=== PATIENT | female | born 1985 | race Hispanic/Latino ===

== ENCOUNTER 2025-02-17 14:22 | Outpatient (CLI) | payer SELFPAY ==
[2025-02-17] VITALS (43 sets, daily range): BP systolic 124–144; BP diastolic 76–92; PULSE 88–105; TEMP 36.4; O2SAT 96–98; BMI 37.0
[2025-02-17 15:28] LABS: Hematocrit 35.5 % (37-47); Hemoglobin 11.8 g/dL (12.0-15.0); Mean Corp Hgb Conc 33.2 g/dL (32-36); Mean Corpuscular Hgb 27.4 pg (27.0-32.0); Mean Corpuscular Volume 82.6 fL (81-99); Mean Platelet Vol. 9.6 fl (6.2-12.0); Platelet Count 335 K/mm3 (150-450); RBC Distribution Width CV 13.4 % (11.6-14.6); RBC Distribution Width SD 40.4 fl (35.1-43.9)
--- NOTE | 2025-02-17 16:33 | OB.TRI.HP_ITS ---
HPI - General HPI Narrative DARIUS HERNANDEZ, is a 40 F who presents for elevated blood pressure. Seen at [place] [facility] for otitis media. BP was noted to be elevated 170/107 and 170/110. Asymptomatic. Sent to L&D today for labs and BP monitoring. Denies headache, visual changes, chest pain, ruq abdominal pain or other concerns. PFSH PFSH Home Medications ?Medication ?Instructions ?Recorded ?Last Taken ?Type aspirin 81 mg capsule 81 mg PO DAILY 02/17/25 Unkn own History Allergy/AdvReac Type Severity Reaction Status Date / Time No Known Allergies Allergy Verified 02/17/25 15:03 ROS Constitutional Constitutional: Reports systems reviewed and no addt'l complaints, except as documented; Denies headache(s) Eyes Eyes: Denies acute decrease in peripheral vision, blurry vision or change in vision ENT HEENT: Reports systems reviewed and no addt'l complaints, except as documented Cardiovascular Cardiovascular: Denies chest pain or dizziness Respiratory/Chest Respiratory/Chest: Denies cough, dyspnea, dyspnea on exertion, shortness of breath at rest or shortness of breath with exertion Gastrointestinal Gastrointestinal: Denies abdominal pain, diarrhea, nausea or vomiting Genitourinary Genitourinary: Denies abdominal discomfort Musculoskeletal Musculoskeletal: Denies limited range of motion Integumentary Integumentary: Reports systems reviewed and no addt'l complaints, except as documented Neurologic Neurologic: Reports systems reviewed and no addt'l complaints, except as documented Psychiatric Psychiatric: Reports systems reviewed and no addt'l complaints, except as documented Endocrine Endocrinology: Reports systems reviewed and no addt'l complaints, except as documented Hematologic/Lymphatic Hematologic/Lymphatic: Reports systems reviewed and no addt'l complaints, except as documented Allergic/Immunologic Allergic/Immunologic: Reports systems reviewed and no addt'l complaints, except as documented Physical Exam Const alert and oriented x3 General Appearance: cooperative Orientation / Consciousness: awake, oriented to person, oriented to place and oriented to time Exam Limitations: no limitations HEENT normocephalic Head and Scalp: normal to inspection, normocephalic and atraumatic Face and Sinus: normal facial exam Eyes General Eye: normal appearance of both eyes Neck full ROM Chest Chest: symmetrical chest wall rise Resp normal respiratory effort and normal air movement Auscultation: clear to auscultation bilaterally Cardio regular rate, regular rhythm, S1 normal heart sound, S2 normal heart sound, no murmurs, no rub, no gallops and no clicks GI normal to inspection, nondistended, normoactive bowel sounds and non-tender appearance of the vagina normal Bladder / Kidney Exam: no CVA tenderness Back/Spine normal ROM Extremity normal to inspection and full ROM Skin no rashes or lesions noted Neuro oriented x3, CN's II-XII intact bilaterally and moves all extremities Sensorium / Orientation: awake, alert and oriented to person Motor Exam: clonus absent Deep Tendon Reflexes: Rt Patellar (L4): 2+ and Lt Patellar (L4): 2+ Assessment & Plan (1) Gestational hypertension: (2) 31 weeks gestation of : PLAN: Plan 1) Upon arrival BP most within in normal range, few elevated 140s/90s. Gestational HTN diagnosis, two elevated BP >6hr apart. No proteinuria or signs of preeclampsia at this time. Has appointment in 2 days. 2) To get BP cuff and check BP daily, bring log to visit 3) Signs and symptoms of preeclampsia reviewed and when to call. 4) D/C home
[2025-02-17 17:01] LABS: AST(SGOT) 15 U/L (<=31); Alanine Aminotransfer ALT/SGPT 12 U/L (<=34); EST Glomerular Filtration Rate 121 (>60); Estimated Creatinine Clearance 163.96 ml/min (50-250)
[2025-02-17 17:07] LABS: Protein, Urine (Random) 28.1 mg/dL (0.0-12.0); Protein:Creat Ratio 195 mg/g CRE (0-200)
[2025-02-17 17:28] LABS: Uric Acid 4.6 mg/dL (2.6-6.0)
== END 2025-02-17 17:52 | disposition home or self-care (01) ==
LOC: WPOUT 14:29 → WP 14:32
PROVIDERS: Referring Provider Advanced Practice Midwife; Visit Provider Advanced Practice Midwife
DX: O13.3 Gestational [pregnancy-induced] hypertension without significant proteinuria, third trimester (principal); Z3A.31 31 weeks gestation of pregnancy; Z79.82 Long term (current) use of aspirin
CPT/HCPCS: 36415; 59025; 59050; 82565; 82570; 84156; 84450; 84460; 84550; 85027; 99221; G0378

== ENCOUNTER 2025-04-19 18:09 | Inpatient (IN) | payer SELFPAY ==
[2025-04-19] VITALS (86 sets, daily range): BP systolic 144–187; BP diastolic 83–115; PULSE 68–100; RESP 13–18; TEMP 36.4–36.9; O2SAT 91–100; BMI 36.0
[2025-04-19] MEDS: Lactated Ringers 1,000 ML 30 ML IV (18:30)
[2025-04-19 19:00] LABS: Hematocrit 33.9 % (37-47); Hemoglobin 10.7 g/dL (12.0-15.0); Immature Granulocytes Count 0.150 X10^3/uL (0.0-0.0); Mean Corp Hgb Conc 31.6 g/dL (32-36); Mean Corpuscular Volume 81.1 fL (81-99); Mean Platelet Vol. 9.5 fl (6.2-12.0); NRBC Flagged by Analyzer 0 % (0-5); Platelet Count 505 K/mm3 (150-450); RBC Distribution Width CV 14.9 % (11.6-14.6); RBC Distribution Width SD 42.8 fl (35.1-43.9); Red Blood Count 4.18 M/mm3 (4.2-5.4); White Blood Count 8.9 K/mm3 (4.4-11.0)
--- NOTE | 2025-04-19 19:12 | HP.PCM_ITS ---
History and Physical Date of Admission: 04/19/25 40-year-old 4 para 4 status post repeat section on 04/14/2025 at [facility] in [facility] presents for follow-up from the office today. She has a history of a previous section and 2 previous vaginal deliveries and she attempted a TOLAC but had a repeat section for recurrent decelerations. She was dx w/ gestational HTN while in the hospital. The was complicated by late care, Rh- status, obesity in , bacterial vaginitis and yeast infections. She is currently breast-feeding and doing well with the breast-feeding. She denies any headache, visual changes, epigastric pain, chest pain, shortness of breath, palpitations or lightheadedness. She is having normal bowel movements and she is urinating without difficulty. She is tolerating regular diet. She has not been checking her blood pressures at home. She arrived to the office and her blood pressures were found to be in the 150s over 100 range and she was sent to labor and delivery for evaluation Social history she denies any tobacco alcohol or drug use Past surgical history: 2 sections Past medical history: Denies history of any major medical diagnoses Physical exam: Awake and alert, no acute distress Skin: Warm dry and intact Lungs: Normal respiratory rate, no wheezing, normal chest rise Cardiac: Regular rate and rhythm Abdomen: Soft, nondistended, appropriately tender, no rebound or guarding, incision is clean dry and intact with Steri-Strips Extremities: 1+ edema, 2+ DTRs, 1 beat of clonus Assessment & Plan Assessment/Plan (1) Pre-eclampsia, : PLAN: Plan Postoperative day #5 status post repeat section with gestational hypertension diagnosed while she was in the hospital, was not on magnesium prophylaxis. Now with preeclampsia with severe range blood pressures. Hypertensive protocol was initiated with IV labetalol, will initiate magnesium prophylaxis, preeclampsia labs were done and reviewed. Discussed with the patient importance of treatment of preeclampsia and close follow-up for this. Will initiate oral antihypertensives after blood pressure stabilized. Patient may continue to breast-feed the while she is here. States understanding and agreement of this plan. Interpreting services used to discuss this plan
[2025-04-19 19:14] LABS: AST(SGOT) 46 U/L (<=31); Alanine Aminotransfer ALT/SGPT 54 U/L (<=34); Uric Acid 5.6 mg/dL (2.6-6.0)
[2025-04-19 19:28] LABS: AST(SGOT) 46 U/L (<=31); Alanine Aminotransfer ALT/SGPT 54 U/L (<=34); Albumin, Serum 3.5 g/dL (3.5-5.0); Alkaline Phosphatase 155 U/L (35-104); Anion Gap 15 (5-15); BUN 16 mg/dL (4-19); BUN/Creat Ratio 24.8 RATIO (10-20); Calcium,Total 9.4 mg/dL (7.6-11.0); Carbon Dioxide 21.3 mmol/L (21.0-32.0); Chloride 105 mmol/L (98-108); Estimated Creatinine Clearance 132.90 ml/min (50-250); Globulin 3.4 g/dL (2.2-4.2); Glucose 106 mg/dL (70-99); Potassium 3.9 mmol/L (3.3-5.1)
[2025-04-19] MEDS: Magnesium Sulfate 4gm/100mL 4 GM/100 ML IV.SOLN. IV (20:19)
[2025-04-19] MEDS: Magnesium Sulfate 4gm/100mL 2 GM/50 ML IV.SOLN. IV (20:48)
--- OUTSIDE RECORDS SUMMARY | 2025-04-19 20:59 | XMS RPT_ITS | CCD ---
Author Organization [facility] Care Team Providers Care Video Editing Intern Name Role Phone PHYSICIAN, NONE Primary Care Physician Unavailab le Unavailable Primary Care Provider Unavailabl e DELON, KATIE Referring Unavailable YISSEL CUELLO Attending Unavailable DELON, KATIE Referring Unavailable YISSEL CUELLO Attending Unavailable MOOMAW, BRIT Referring Unavailable DELON, KATIE Attending Unavailable DELON, KATIE Referring Unavailable JUAN VILLEGAS Attending Unavailable SELF Referring Unavailable DELON, KATIE Attending Unavailable DELON, KATIE Referring Unavailable Luana Whaley CNM Attending Provider [phone] Luana Whaley CNM Referring Provider [phone] PHYSICIAN, NONE Primary Care Unavailable JAROD LOUIS DO Attending Unavailable SKYLAR PHILIP MD Attending Unavailable PHYSICIAN, NONE Primary Care Unavailable Luana Whaley Referring Unavailable Luana Whaley Attending Unavailable CRIS LILLY Attending Unavailable RASHEEDA HEREDIA Referring Unavailable DELON, KATIE Attending Unavailable DELON, KATIE Attending Unavailable SHAWN JARAMILLO FLORIDALMA Referring Unavail able SELF Referring Unavailable SHAWN LOCKE Attending Unavailable RAJIV SHAWN Referring Unavailable YISSEL CUELLO Attending Unavailable MOOMAW, BRIT Referring Unavailable NEYJERONIMOT JARAMILLO, FLORIDALMA Attending Unavail able SELF Referring Unavailable PLOTARJUN, RASHEEDA Attending Unavailable SELF Referring Unavailable SIL SOTO Attending Unavailable NEYJERONIMOT JARAMILLO, FLORIDALMA Referring Unavail able NEYHART JARAMILLO, FLORIDALMA Attending Unavail able NEYHART JARAMILLO, FLORIDALMA Referring Unavail able PLOTTS, RASHEEDA Attending Unavailable PLOTTS, RASHEEDA Referring Unavailable CHAYO HAWTHORNE Admitting Unavailable MENIRU, MAXX GURU Attending Unavail able Allergies Allergy Classification Reported Allergen(s) Allergy Type Date of Onset Reaction(s) Facility (2 sources) Clindamycin; Translations: [clindamycin] Drug Allergy [facility] Medications Current Medications Medication Drug Class(es) Dates Sig (Normalized) Sig (Original) amoxicillin 500 mg oral tablet (9 sources) Penicillin-class Antibacterial Start: 02-16-2025 End: 02-23-2025 take 1 tablet by mouth three times daily Amoxicillin 500 mg tablet Take 1 tablet by mouth three times a day. 02/17/2025 Active aspirin 81 mg oral tablet (19 sources) Platelet Aggregation Inhibitor, Nonsteroidal Anti-inflammatory Drug Start: 02-17-2025 take 1 capsule by mouth once daily Aspirin 81 mg capsule Active 81 mg PO DAILY February 17, 2025 12:00am Start: 11-18-2024 take 1 tablet by [place] th once daily aspirin, enteric coated (ECOTRIN LOW STRENGTH) 81 mg EC tablet Indications: with uncertain dates in first trimester (HCC) Take 1 tablet by mouth once daily. 90 tablet 3 11/18/2024 Active ciprofloxacin 3 mg/ml ophthalmic solution (9 sources) Quinolone Antimicrobial Start: 02-17-2025 take 3 drop(s) into the eye(s) three times daily ciprofloxacin HCl (CILOXAN) 0.3 % ophthalmic solution 3 DROPS IN RIGHT EAR 3 TIMES A DAY FOR 7 DAYS 02/17/2025 Active Start: 02-16-2025 End: 02-23-2025 ciprofloxacin 0.3% ophthalmi c solution Dose = 3 drop(s), Ear, right, TID, X 7 day(s), # 5 mL, 0 Refill(s) Start Date: 02/16/25 Stop Date: 02/23/25 Status: Ordered Quantity: 5.0 Unit: mL Repeat number: 1 etonogestrel 68 mg drug implant (4 sources) Progestin Start: 12-02-2021 inject 1 dose by subcutaneous injection once Nexplanon 68 mg subcutaneous implant Dose : 68 mg = 1 EA, Subcutaneous, Once, 0 Refill(s) Start Date: 12/02/21 Status: Ordered End: 04-27-2024 etonogestrel (NEXPLANON) sub dermal implant 68 mg 68 mg by SUBDERMAL route. 04/27/2024 Discontinued ibuprofen 600 mg oral tablet (1 source) Nonsteroidal Anti-inflammatory Drug Start: 08-05-2021 ibuprofen 600 mg oral tablet Dose : 600 mg = 1 tab(s), Oral, QID, PRN as needed for pain, # 40 tab(s), 0 Refill(s), Chalazion Start Date: 08/05/21 Status: Ordered metroNIDAZOLE 500 mg oral tablet (1 source) Nitroimidazole Antimicrobial Start: 03-22-2025 End: 03-29-2025 take 1 tablet by mouth twice daily metroNIDAZOLE (FLAGYL) 500 mg tablet Indications: BV (bacterial vaginosis) Take 1 tablet by mouth two times a day for 7 days. 14 tablet 03/22/2025 03/29/2025 Active miconazole nitrate 20 mg/ml vaginal cream (1 source) Azole Antifungal Start: 02-27-2025 End: 03-06-2025 miconazole (MONISTAT 7) 2 % vaginal cream Use 1 applicator vaginally daily at bedtime for 7 days. 45 g 02/27/2025 03/06/2025 Active Miscellaneous Medical Supply (BLOOD PRESSURE CUFF) (8 sources) Start: 02-20-2025 Miscellaneous Medical Supply (BLOOD PRESSURE CUFF) Indications: Elevated blood pressure reading without diagnosis of hypertension 1 each once daily. 1 each 02/20/2025 Active vitamins no.2 ( VITAMIN NO.2 ORAL) (18 sources) vitamin s no.2 ( VITAMIN NO.2 ORAL) Take by mouth once daily. Active Completed/Discontinued Medications Medication Drug Class(es) Dates Sig (Normalized) Sig (Original) cephalexin 500 mg oral capsule (2 sources) Cephalosporin Antibacterial Start: 11-22-2024 End: 11-27-2024 take 1 capsule by mouth four times daily cephALEXin (KEFLEX) 500 mg capsule Take 1 capsule by mouth four times daily for 5 days. 20 capsule 11/22/2024 11/27/2024 Start: 08-05-2021 End: 08-12-2021 cephalexin 500 mg oral capsu le Dose : 500 mg = 1 cap(s), Oral, QID, # 28 cap(s), 0 Refill(s), Chalazion, 70 Start Date: 08/05/21 Stop Date: 08/12/21 Status: Ordered Multivitamins with Folic Acid 0.8 mg oral tablet (2 sources) Start: 11-25-2014 End: 12-25-2014 take 1 tablet by mouth once daily Multivitamins with Folic Acid 0.8 mg oral tablet Dose = 1 tab(s), PO, Daily, # 30 tab(s), 0 Refill(s) Start Date: 11/25/14 Stop Date: 12/25/14 Status: Ordered Quantity: 30.0 Unit: tab(s) Repeat number: 1 Problems Active Problems Problem Classification Problem Date Documented Da te Episodic/Chronic Bacterial infection; unspecified site (1 source) Other specified bacterial agents as the cause of diseases classified elsewhere; Translations: [BV (bacterial vaginosis)] Onset: 03-01-2025 Episodic Contraceptive and procreative management (5 sources) Subcutaneous contraceptive implant present; Translations: [Encounter for surveillance of implantable subdermal contraceptive] Onset: 02-27-2025 04-12-2024 Episodic Essential hypertension (2 sources) Essential hypertension; Translations: [Essential (primary) hypertension] Onset: 02-16-2025 Chronic Immunizations and screening for infectious disease (6 sources) Patient encounter status; Translations: [Encounter for screening for human papillomavirus (HPV)] Onset: 11-18-2024 11-18-2024 Episodic Inflammatory diseases of female pelvic organs (9 sources) Bacterial vaginosis; Translations: [Acute vaginitis] Onset: 03-01-2025 03-22-2025 Episodic Mycoses (8 sources) Candidiasis of vagina; Translations: [Yeast vaginitis] Onset: 03-01-2025 03-22-2025 Episodic Other circulatory disease (11 sources) Elevated blood-pressure reading without diagnosis of hypertension; Translations: [Elevated blood-pressure reading, without diagnosis of hypertension] Onset: 02-20-2025 02-20-2025 Episodic Other circulatory disease (3 sources) Elevated blood-pressure reading, without diagnosis of hypertension; Translations: [Elevated blood-pressure reading, without diagnosis of hypertension] Onset: 02-20-2025 Episodic Other complications of (1 source) Maternal obesity complicating , childbirth and the puerperium, antepartum; Translations: [Obesity complicating , second trimester] 12-02-2024 Chronic Other complications of (19 sources) Obesity; Translations: [Obesity complicating , unspecified trimester] Onset: 01-27-2025 01-27-2025 Chronic Other complications of (1 source) Obesity complicating , unspecified trimester; Translations: [Obesity in (HCC)] Onset: 01-27-2025 Chronic Other complications of (11 sources) Multigravida of advanced maternal age; Translations: [Supervision of elderly multigravida, second trimester] 12-02-2024 Episodic Other complications of (7 sources) High risk ; Translations: [Supervision of high risk , unspecified, third trimester] 02-13-2025 Episodic Other complications of (1 source) data - finding; Translations: [Unspecified abnormal findings on screening of mother] 03-22-2025 Episodic Other complications of (3 sources) Uterine scar from previous surgery affecting ; Translations: [Maternal care for unspecified type scar from previous delivery] 03-31-2025 Episodic Other complications of (1 source) Supervision of high risk , unspecified, third trimester; Translations: [Supervision of high risk in third trimester (HCC)] Onset: 04-07-2025 Episodic Other complications of (1 source) Supervision of elderly multigravida, third trimester; Translations: [Multigravida of advanced maternal age in third trimester (HCC)] Onset: 04-07-2025 Episodic Other complications of (1 source) Unspecified abnormal findings on screening of mother; Translations: [Abnormal test] Onset: 03-22-2025 Episodic Other ear and sense organ disorders (1 source) Otitis externa; Translations: [Unspecified otitis externa, unspecified ear] Onset: 02-16-2025 Chronic Other ear and sense organ disorders (1 source) Unspecified otitis externa, unspecified ear; Translations: [Unspecified otitis externa, unspecified ear] Onset: 02-16-2025 Chronic Other eye disorders (1 source) Chalazion; Translations: [Chalazion unspecified eye, unspecified eyelid] Onset: 08-05-2021 Episodic Other female genital disorders (1 source) Vaginal discharge; Translations: [Other specified noninflammatory disorders of vagina] 02-27-2025 Episodic Other gastrointestinal disorders (2 sources) Dysphagia; Translations: [Dysphagia, unspecified] 03-18-2024 Episodic Other and delivery including normal (20 sources) Normal ; Translations: [Encounter for supervision of other normal , unspecified trimester] Onset: 11-18-2024 11-18-2024 Episodic Comment on above: System added from do cumentation. Status documented as Yes on Admission Otitis media and related conditions (2 sources) Otitis media; Translations: [Otitis media, unspecified, unspecified ear] Onset: 02-16-2025 Episodic Previous (1 source) Maternal care for unspecified type scar from previous delivery; Translations: [Maternal care for scar from previous delivery, unspecified scar type (HCC)] Onset: 04-07-2025 Episodic Residual codes; unclassified (2 sources) Gestation period, 18 weeks; Translations: [18 weeks gestation of ] 11-18-2024 Episodic Residual codes; unclassified (2 sources) Gestation period, 20 weeks; Translations: [20 weeks gestation of ] 12-02-2024 Episodic Residual codes; unclassified (1 source) Gestation period, 31 weeks; Translations: [31 weeks gestation of ] 02-13-2025 Episodic Residual codes; unclassified (1 source) Gestation period, 32 weeks; Translations: [32 weeks gestation of ] 02-20-2025 Episodic Residual codes; unclassified (1 source) Gestation period, 33 weeks; Translations: [33 weeks gestation of ] 02-27-2025 Episodic Residual codes; unclassified (1 source) Gestation period, 36 weeks; Translations: [36 weeks gestation of ] 03-22-2025 Episodic Residual codes; unclassified (2 sources) Gestation period, 37 weeks; Translations: [37 weeks gestation of ] 03-31-2025 Episodic Residual codes; unclassified (1 source) History of past delivery; Translations: [History of uterine scar from previous surgery] 03-31-2025 Episodic Residual codes; unclassified (1 source) Gestation period, 38 weeks; Translations: [38 weeks gestation of ] 04-07-2025 Episodic Residual codes; unclassified (1 source) 38 weeks gestation of ; Translations: [38 weeks gestation of (HCC)] Onset: 04-07-2025 Episodic Residual codes; unclassified (1 source) 37 weeks gestation of ; Translations: [37 weeks gestation of (HCC)] Onset: 03-31-2025 Episodic Residual codes; unclassified (1 source) 36 weeks gestation of ; Translations: [36 weeks gestation of ([facility])] Onset: 03-22-2025 Episodic Residual codes; unclassified (1 source) History of uterine scar from previous surgery; Translations: [Previous section] Onset: 02-27-2025 Episodic Residual codes; unclassified (1 source) 33 weeks gestation of ; Translations: [33 weeks gestation of ([facility])] Onset: 02-27-2025 Episodic Residual codes; unclassified (1 source) 32 weeks gestation of ; Translations: [32 weeks gestation of ([facility])] Onset: 02-20-2025 Episodic Residual codes; unclassified (1 source) 28 weeks gestation of ; Translations: [28 weeks gestation of ([facility])] Onset: 01-27-2025 Episodic Unclassified (1 source) Yeast vaginitis; Translations: [Yeast vaginitis] Onset: 03-01-2025 Past or Other Problems Problem Classification Problem Date Documented Da te Episodic/Chronic Administrative/social admission (20 sources) Language barrier impedes ability to use community resources; Translations: [Acculturation difficulty] Onset: 11-18-2024 11-18-2024 Episodic Other complications of (20 sources) Late entry into care; Translations: [Supervision of with insufficient care, unspecified trimester] Onset: 11-18-2024 11-18-2024 Episodic Other complications of (20 sources) RhD negative; Translations: [Other specified related conditions, unspecified trimester] Onset: 11-21-2024 11-21-2024 Episodic Other complications of (1 source) Other specified related conditions, unspecified trimester; Translations: [Rh negative state in antepartum period ([facility])] Onset: 11-21-2024 Episodic Other gastrointestinal disorders (1 source) Dysphagia, unspecified; Translations: [Dysphagia, unspecified type] Onset: 03-18-2024 Episodic Other screening for suspected conditions (not mental disorders or infectious disease) (4 sources) Cancer cervix screening status; Translations: [Encounter for screening for malignant neoplasm of cervix] Onset: 11-18-2024 11-18-2024 Episodic Residual codes; unclassified (2 sources) 18 weeks gestation of ; Translations: [18 weeks gestation of (HCC)] Onset: 12-02-2024 Episodic Residual codes; unclassified (1 source) 24 weeks gestation of ; Translations: [24 weeks gestation of (HCC)] Onset: 12-30-2024 Episodic Residual codes; unclassified (1 source) Unspecified blood type, Rh negative; Translations: [Rh negative state in antepartum period (HCC)] Onset: 11-21-2024 Episodic Results Test Name Value Interpretation Reference Range Facility [id number] Author: MAXX MACIEL MD Service: Obstetrics Author Type: Physician Type: Discharge Summary Filed: 04/17/2025 09:10 Note Text: DISCHARGE SUMMARY OBSTETRICS PATIENT NAME: Shaila Fraga ADMISSION DATE: 04/14/2025 DISCHARGE DATE: 04/17/2025 Attending Physician: Maxx Maciel* Code Status: Full Code Treatment Team: Attending Provider: Maxx Maciel MD Primary Service: Isaac Griggs Maternal Primary Obstetric Provider: Sil Soto Reason for Hospitalization: Intrauterine . Principal Problem (Resolved): Encounter for planned induction of labor (HCC) (POA: Yes) Active Problems: * No active hospital problems. * Resolved Problems: Encounter for elective induction of labor (HCC) (POA: Yes) PROCEDURES/SURGERY DURING HOSPITALIZATION: Delivery Summary: Bucky Kelsey [[id number]] Delivery Information: Delivery Date: 04/14/25 Delivery type: , Low Transverse Delivering Clinician: Chayo Hawthorne MD : Gender: Female Weight (grams): 3694 g One Minute : 8 Five Minute : 9 Procedures (if applicable) Recent Surgical Summary Past Procedures (03/18/2025 to Today) Date Procedure/Visit Type Providers Loc / Dept 04/14/2025 SECTION Chayo Hawthorne MR OB Hospital Course: 40 year old female who is Postoperative Day #3 from delivery as noted above. Pt's peripartum course was complicated by failure to progress in labor and section. Consulting Teams During Hospitalization: None Patient Condition @ Discharge: Good Discharge Disposition: Home/Self Care Discharge Physical Exam: Abdomen: Soft Fundus firm below umbilicus Non-distended Incision: Bandage C/D/I. Extremities: No calf tenderness and Edema equal bilaterally Specific Concerns for Follow-up Post Discharge: Routine Care and home monitoring of blood pressure. Information Provided to Patient: Activity When You Leave the Hospital Gradually increase your activity level until back to normal at approximately 6 weeks post- (Walking and stairs as tolerated) May use stairs No baths for 6 weeks to allow the cervix to close (this includes swimming pools and hot tubs) No driving for 2 weeks No driving until you stop taking narcotic medicine and you are able to respond to adverse traffic conditions: Until you are not too sore to stop or turn quickly No lifting greater than 15 pounds for six weeks No walking restrictions Shower daily, towel or blow dry incision (low heat setting) Six Weeks Pelvic Rest - This means no sex, tampons, douching or any items in your vagina Diet Instructions Resume a regular diet with emphasis on healthy and iron rich foods. Nursing moms need 500 EXTRA calories a day to support breast milk production. Wound/Surgical Site Care Check your incision for signs of infection: redness, swelling, drainage Do not apply any lotions or powders near any incision Do not cover incision with any bandage Wipe your incision twice a day with Betadine solution or rubbing alcohol for 2 weeks. You can apply a little Neosporin or similar antibiotic ointment on the incision twice a day for about 2 weeks. Keep your incision clean and dry You may spot bleed for up to six week post- Discharge Medications: Medication List START taking these medications Blood Pressure Monitor Use as directed ibuprofen 600 mg tablet Commonly known as: MOTRIN Take 1 tablet by mouth every 6 hours as needed for pain for up to 7 days. CONTINUE taking these medications BLOOD PRESSURE CUFF Generic drug: Miscellaneous Medical Supply 1 each once daily. VITAMIN NO.2 ORAL STOP taking these medications aspirin, enteric coated 81 mg EC tablet Commonly known as: ECOTRIN LOW STRENGTH Where to Get Your Medications These medications were sent to e- [id number] [place] [address] - [address] [facility] - [phone] [place] [id number] Blood Pressure Monitor ibuprofen 600 mg tablet No Known Allergies Future Appointments: Follow Up Appointments Follow-Up Appointment For wound inspection. With: In Person Primary Provider in 2 weeks When: In 2 weeks Patient/Parents to call for appointment?: No Follow-Up Appointment With: Primary Provider When: In 6 weeks Patient/Parents to call for appointment?: No Follow-Up Appointment - Gestational Hypertension, Chronic Hypertension (w/wo meds), and/or Pre-eclampsia Follow Up (within 7 days) Blood Pressure check within 2 days. With: [facility] TELECOMMUNICATION ENGINEER ambulatory clinic When: In 2 days Comment - within 7 days I have performed the [id number] and relevant services for a total of < 30 minutes. Plan of care discussed with: Provider, RN, Patient. SIGNATURE: Maxx Maciel MD PATIENT NAME: Shaila Rojo (more content not included)... [facility] ANES POSTPROC EVALon 025 ANES POSTPROC EVAL HNO ID: [id number] Author: JOSH YUN DO Service: Anesthesiology Author Type: Nurse Health Service Coordinator Type: Anesthesia Postprocedure Evaluation Filed: 04/17/2025 10:09 Note Text: Attestation signed by Josh Yun DO at 04/17/2025 10:09 AM I reviewed and agree with the assessment as documented above. SIGNATURE: Josh Yun DO DATE: April 17, 2025 TIME: 10:09 AM POST ANESTHESIA EVALUATION NOTE : 1985 Procedure Summary Date: 04/14/25 Room / Location: [facility] OR 01 / MR OB Anesthesia Start: 2221 Anesthesia Stop: 04/15/25 0050 Procedure: SECTION (Abdomen) Diagnosis: Surgeons: Chayo Hawthorne MD Responsible Provider: Josh Yun DO Anesthesia Type: epidural ASA Status: 2 Anesthesia Type: epidural Last Vitals Vitals Value Taken Time BP 153/76 04/15/25 0048 Temp 98.2 04/15/25 0057 Pulse 80 04/15/25 0054 Resp 27 04/14/25 2319 SpO2 97 % 04/15/25 0054 Vitals shown include unfiled device data. Bucky Kelsey [[id number]] Baby Delivery: 04/14/2025 2300 Post Anesthesia Patient Status Patient Evaluation: PACU. PACU/ICU Patient Condition: stable. Anticipated Disposition: inpatient floor planned admission. Neurological Status: aware and responsive. Pulmonary Status: breathing comfortably on room air Airway Control: returned to baseline unsupported. Cardiovascular Status: stable. Pain Management: clinically adequate - multimodal analgesia pain management approach Postoperative Hydration: acceptable. Intraoperative Events: no significant anesthesia events Post Operative Nausea/Vomiting Status: no significant post operative nausea or vomiting Recommendation: further care per PACU/ICU/floor team. Anesthesia Observations No Documentation SIGNATURE: Pennie Fountain APRN.CRNA PATIENT NAME: Shaila Fraga DATE: April 15, 2025 TIME: 12:57 AM CSN: [id number] Normal [facility] CBC panel Auto (Bld)on 04-15 Erythrocyte distribution width (RBC) [Ratio] 14.5 % Normal 11.5-15.0 [facility] Comment on above: Order Comment: Speci men Type: BLOOD SPECIMEN Ordering Facility: [facility] Address: [address] [place] [address] Performed By: #### 5 7021-8 #### [facility] CLIA [id number] [address] [place] [address] [place] Hematocrit (Bld) [Volume fraction] 33.9 % Low 36.0-46.0 [facility] Comment on above: Order Comment: Speci men Type: BLOOD SPECIMEN Ordering Facility: [facility] Address: [address] [place] [address] Performed By: #### 5 7021-8 #### [facility] CLIA [id number] [address] [place] [address] [place] Hemoglobin (Bld) [Mass/Vol] 10.7 g/dL Low 11.5-15.5 [facility] Comment on above: Order Comment: Speci men Type: BLOOD SPECIMEN Ordering Facility: [facility] Address: [address] [place] [address] Performed By: #### 5 7021-8 #### [facility] CLIA [id number] [address] [place] [address] [place] MCH (RBC) [Entitic mass] 25.7 pg Low 26.0-34.0 [facility] Comment on above: Order Comment: Speci men Type: BLOOD SPECIMEN Ordering Facility: [facility] Address: [address] [place] [address] Performed By: #### 5 7021-8 #### [facility] CLIA [id number] [address] [place] [address] [place] MCHC (RBC) [Mass/Vol] 31.6 g/dL Normal 30.5-36.0 [facility] Comment on above: Order Comment: Speci men Type: BLOOD SPECIMEN Ordering Facility: [facility] Address: [address] [place] [address] Performed By: #### 5 7021-8 #### [facility] CLIA [id number] [address] [place] [address] [place] MCV (RBC) [Entitic vol] 81.3 fL Normal 80.0-100.0 [facility] Comment on above: Order Comment: Speci men Type: BLOOD SPECIMEN Ordering Facility: [facility] Address: [address] [place] [address] Performed By: #### 5 7021-8 #### [facility] CLIA [id number] [address] [place] [address] [place] Nucleated RBC (Bld) [#/Vol] 10*3/uL Normal <0.01 [facility] Comment on above: Order Comment: Speci men Type: BLOOD SPECIMEN Ordering Facility: [facility] Address: [address] [id number] Performed By: #### 5 7021-8 #### [facility] CLIA [id number] [address] [place] [address] [place] Platelet mean volume (Bld) [Entitic vol] 10.1 fL Normal 9.0-12.7 [facility] Comment on above: Order Comment: Speci men Type: BLOOD SPECIMEN Ordering Facility: [facility] Address: [address] [place], [place] [address] Performed By: #### 5 7021-8 #### [facility] CLIA [id number] [address] [place] [address] [place] Platelets (Bld) [#/Vol] 317 10*3/uL Normal 150-400 [facility] Comment on above: Order Comment: Speci men Type: BLOOD SPECIMEN Ordering Facility: [facility] Address: [address] [place] [address] Performed By: #### 5 7021-8 #### [facility] CLIA [id number] [address] [place] [address] [place] RBC (Bld) [#/Vol] 4.17 10*6/uL Normal 3.90-5.20 [facility] Comment on above: Order Comment: Speci men Type: BLOOD SPECIMEN Ordering Facility: [facility] Address: [address] [place], [place] [address] Performed By: #### 5 7021-8 #### [facility] CLIA [id number] [address] [place] [address] [place] WBC (Bld) [#/Vol] 16.93 10*3/uL High 3.70-11.00 [facility] Comment on above: Order Comment: Speci men Type: BLOOD SPECIMEN Ordering Facility: [facility] Address: [address] [place] [address] Performed By: #### 5 7021-8 #### [facility] CLIA [id number] [address] [place] [address] POST-DELIVERY RH IGGon 04-15 ABO O [facility] Comment on above: Order Comment: Speci men Type: BLOOD SPECIMEN Ordering Facility: [facility] Address: [address] [place] [address] Performed By: #### 5 7021-8 #### [facility] CLIA [id number] [address] [place] [address] SCREEN Negative [facility] Comment on above: Order Comment: Speci men Type: BLOOD SPECIMEN Ordering Facility: [facility] Address: [address] [place] [address] Result Comment: Kit Lot Number [id number] and Expiration Date: 05/12/25 Performed By: #### 5 7021-8 #### [facility] CLIA [id number] [address] [place] [address] KB REFLEX No [facility] Comment on above: Order Comment: Speci men Type: BLOOD SPECIMEN Ordering Facility: [facility] Address: [address] [place] [address] Performed By: #### 5 7021-8 #### [facility] CLIA [id number] [address] [place] [address] Rh Nom (Bld) Negative [facility] Comment on above: Order Comment: Speci men Type: BLOOD SPECIMEN Ordering Facility: [facility] Address: [address] [place] [address] Performed By: #### 5 7021-8 #### [facility] CLIA [id number] [address] [place] [address] ANES PRE-OPon 04-14-2025 ANES PRE-OP HNO ID: [id number] Author: JOSH YUN DO Service: Anesthesiology Author Type: Nurse Health Service Coordinator Type: Anesthesia Preprocedure Evaluation Filed: 04/17/2025 10:08 Note Text: Attestation signed by Josh Yun DO at 04/17/2025 10:08 AM I reviewed and agree with the assessment as documented above. 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 Tracheostomy tube not present Mallampati: II. TM distance: >3 FB. Neck ROM: full ROM without neurological symptoms. Mouth opening: adequate. Short neck: no. Thick neck: no DENTAL Normal dental observations. Additional exam findings: yes. CARDIOVASCULAR Normal cardiovascular observations. PULMONARY Normal pulmonary observations. ABDOMINAL Additional exam notes: Gravid. II - ANESTHESIA PLAN ASA Score: 2 Anesthetic Plan: epidural The patient is not a current smoker. NPO Status: adequate Beta Lala Monitoring Plan Monitoring plan: standard ASA. Post Procedure Analgesic Plan Postoperative analgesic plan: multimodal analgesia. Informed Consent Anesthetic risks, benefits, alternatives, personnel and consent discussed: yes. Patient / Responsible Republican agrees to proceed: yes Patient / Surrogate agrees to blood products: Yes Potential Anesthesia issues that may suggest increased risk of complications or contraindication to planned procedure: none. Discussed the possibility of lip / dental damage: yes EPIC CHART REVIEW: ACTIVE PROBLEM LIST Supervision of Normal Intrauterine in Multigravida, Unspecified Trimester ([facility]) Language Barrier Late Care ([facility]) Rh Negative State in Antepartum Period ([facility]) Previous Section Obesity in ([facility]) Elevated Blood Pressure Reading Without Diagnosis of Hypertension Yeast Vaginitis Bv (Bacterial Vaginosis) Encounter for Elective Induction of Labor ([facility]) Encounter for Planned Induction of Labor ([facility]) No past medical history on file. PAST SURGICAL HISTORY Procedure Laterality Date SECTION HX Pt reported NEXPLANON REMOVAL Left 04/27/2024 No family history on file. Social History Tobacco Use Smoking status: Never Smokeless tobacco: Never Vaping Use Vaping status: Never Used Substance Use Topics Alcohol use: Not Currently Comment: Socially Drug use: Never aspirin, enteric coated (ECOTRIN LOW STRENGTH) 81 mg EC tablet, Take 1 tablet by mouth once daily., Disp: 90 tablet, Rfl: 3, 04/13/2025 vitamins no.2 ( VITAMIN NO.2 ORAL), Take by mouth once daily., Disp: , Rfl: , 04/14/2025 Morning Miscellaneous Medical Supply (BLOOD PRESSURE CUFF), 1 each once daily., Disp: 1 each, Rfl: 0, Morning Inpatient medications reviewed in EPIC I have interviewed and examined the patient. I have reviewed the medical record and/or the pre-anesthesia evaluation, pertinent labs, and test results. This contains updated information obtained within 48 hours of Surgery/Procedure. SIGNATURE: Pennie Fountain APRN.BOBCAT OPERATOR PATIENT NAME: Shaila Fraga DATE: April 14, 2025 TIME: 8:58 AM : 1985 [facility] ANES PRE-OP HNO ID: [id number] Author: JOSESITO FITZGERALD DO Service: Anesthesiology Author Type: Nurse Health Service Coordinator Type: Anesthesia Preprocedure Evaluation Filed: 04/14/2025 09:02 Note Text: Attestation signed by Josesito Fitzgerald DO at 04/14/2025 9:02 AM I agree with the anesthesia provider's assessment and plan. 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 Tracheostomy tube not present Mallampati: II. TM distance: >3 FB. Neck ROM: full ROM without neurological symptoms. Mouth opening: adequate. Short neck: no. Thick neck: no DENTAL Normal dental observations. Additional exam findings: yes. CARDIOVASCULAR Normal cardiovascular observations. PULMONARY Normal pulmonary observations. ABDOMINAL Additional exam notes: Gravid. II - ANESTHESIA PLAN ASA Score: 2 Anesthetic Plan: epidural The patient is not a current smoker. NPO Status: adequate Beta Lala Monitoring Plan Monitoring plan: standard ASA. Post Procedure Analgesic Plan Postoperative analgesic plan: multimodal analgesia. Informed Consent Anesthetic risks, benefits, alternatives, personnel and consent discussed: yes. Patient / Responsible Republican agrees to proceed: yes Patient / Surrogate agrees to blood products: Yes Potential Anesthesia issues that may suggest increased risk of complications or contraindication to planned procedure: none. Discussed the possibility of lip / dental damage: yes EPIC CHART REVIEW: ACTIVE PROBLEM LIST Supervision of Normal Intrauterine in Multigravida, Unspecified Trimester ([facility]) Language Barrier Late Care ([facility]) Rh Negative State in Antepartum Period ([facility]) Previous Section Obesity in ([facility]) Elevated Blood Pressure Reading Without Diagnosis of Hypertension Yeast Vaginitis Bv (Bacterial Vaginosis) No past medical history on file. PAST SURGICAL HISTORY Procedure Laterality Date - SECTION HX Pt reported - NEXPLANON REMOVAL Left 04/27/2024 No family history on file. Social History Tobacco Use - Smoking status: Never - Smokeless tobacco: Never Vaping Use - Vaping status: Never Used Substance Use Topics - Alcohol use: Not Currently Comment: Socially - Drug use: Never ciprofloxacin HCl (CILOXAN) 0.3 % ophthalmic solution, 3 DROPS IN RIGHT EAR 3 TIMES A DAY FOR 7 DAYS, Disp: , Rfl: Amoxicillin 500 mg tablet, Take 1 tablet by mouth three times a day., Disp: , Rfl: Miscellaneous Medical Supply (BLOOD PRESSURE CUFF), 1 each once daily., Disp: 1 each, Rfl: 0 aspirin, enteric coated (ECOTRIN LOW STRENGTH) 81 mg EC tablet, Take 1 tablet by mouth once daily., Disp: 90 tablet, Rfl: 3 vitamins no.2 ( VITAMIN NO.2 ORAL), Take by mouth once daily., Disp: , Rfl: Inpatient medications reviewed in EPIC I have interviewed and examined the patient. I have reviewed the medical record and/or the pre-anesthesia evaluation, pertinent labs, and test results. This contains updated information obtained within 48 hours of Surgery/Procedure. SIGNATURE: Pennie Fountain APRN.CRNA PATIENT NAME: Shaila Fraga DATE: April 14, 2025 TIME: 8:58 AM : 1985 Normal [facility] CBC W Auto Differential pane l (Bld)on 04-14-2025 Basophils (Bld) [#/Vol] 0.04 10*3/uL Normal <0.11 [facility] Comment on above: Order Comment: Speci men Type: BLOOD SPECIMEN Ordering Facility: [facility] Address: [address] [place] [address] Performed By: #### 5 7021-8 #### [facility] CLIA [id number] [address] [place] [address] [place] Basophils/100 WBC (Bld) 0.4 % Normal [facility] Comment on above: Order Comment: Speci men Type: BLOOD SPECIMEN Ordering Facility: [facility] Address: [address] [place] [address] Performed By: #### 5 7021-8 #### [facility] CLIA [id number] [address] [place] [address] [place] Differential cell count method Nom (Bld) Auto Normal [facility] Comment on above: Order Comment: Speci men Type: BLOOD SPECIMEN Ordering Facility: [facility] Address: [address] [place] [address] Performed By: #### 5 7021-8 #### [facility] CLIA [id number] [address] [place] [address] [place] Eosinophils (Bld) [#/Vol] 0.06 10*3/uL Normal <0.46 [facility] Comment on above: Order Comment: Speci men Type: BLOOD SPECIMEN Ordering Facility: [facility] Address: [address] [place] [address] Performed By: #### 5 7021-8 #### [facility] CLIA [id number] [address] [place] [address] [place] Eosinophils/100 WBC (Bld) 0.5 % Normal [facility] Comment on above: Order Comment: Speci men Type: BLOOD SPECIMEN Ordering Facility: [facility] Address: [address] [place] [address] Performed By: #### 5 7021-8 #### [facility] CLIA [id number] [address] [place] [address] [place] Erythrocyte distribution width (RBC) [Ratio] 14.3 % Normal 11.5-15.0 [facility] Comment on above: Order Comment: Speci men Type: BLOOD SPECIMEN Ordering Facility: [facility] Address: [address] [place] [address] Performed By: #### 5 7021-8 #### [facility] CLIA [id number] [address] [place] [address] [place] Hematocrit (Bld) [Volume fraction] 38.8 % Normal 36.0-46.0 [facility] Comment on above: Order Comment: Speci men Type: BLOOD SPECIMEN Ordering Facility: [facility] Address: [address] [place] [address] Performed By: #### 5 7021-8 #### [facility] CLIA [id number] [address] [place] [address] [place] Hemoglobin (Bld) [Mass/Vol] 12.7 g/dL Normal 11.5-15.5 [facility] Comment on above: Order Comment: Speci men Type: BLOOD SPECIMEN Ordering Facility: [facility] Address: [address] [place] [address] Performed By: #### 5 7021-8 #### [facility] CLIA [id number] [address] [place] [address] [place] Immature granulocytes (Bld) [#/Vol] 0.15 10*3/uL High <0.10 [facility] Comment on above: Order Comment: Speci men Type: BLOOD SPECIMEN Ordering Facility: [facility] Address: [address] [place] [address] Performed By: #### 5 7021-8 #### [facility] CLIA [id number] [address] [place] [address] [place] Immature granulocytes/100 WBC (Bld) 1.3 % Normal [facility] Comment on above: Order Comment: Speci men Type: BLOOD SPECIMEN Ordering Facility: [facility] Address: [address] [place] [address] Performed By: #### 5 7021-8 #### [facility] CLIA [id number] [address] [place] [address] [place] Lymphocytes (Bld) [#/Vol] 1.89 10*3/uL Normal 1.00-4.00 [facility] Comment on above: Order Comment: Speci men Type: BLOOD SPECIMEN Ordering Facility: [facility] Address: [address] [place] [address] Performed By: #### 5 7021-8 #### [facility] CLIA [id number] [address] [place] [address] [place] Lymphocytes/100 WBC (Bld) 16.6 % Normal [facility] Comment on above: Order Comment: Speci men Type: BLOOD SPECIMEN Ordering Facility: [facility] Address: [address] [place] [address] Performed By: #### 5 7021-8 #### [facility] CLIA [id number] [address] [place] [address] [place] MCH (RBC) [Entitic mass] 26.7 pg Normal 26.0-34.0 [facility] Comment on above: Order Comment: Speci men Type: BLOOD SPECIMEN Ordering Facility: [facility] Address: [address] [place] [address] Performed By: #### 5 7021-8 #### [facility] CLIA [id number] [address] [place] [address] [place] MCHC (RBC) [Mass/Vol] 32.7 g/dL Normal 30.5-36.0 [facility] Comment on above: Order Comment: Speci men Type: BLOOD SPECIMEN Ordering Facility: [facility] Address: [address] [place] [address] Performed By: #### 5 7021-8 #### [facility] CLIA [id number] [address] [place] [address] [place] MCV (RBC) [Entitic vol] 81.5 fL Normal 80.0-100.0 [facility] Comment on above: Order Comment: Speci men Type: BLOOD SPECIMEN Ordering Facility: [facility] Address: [address] [place] [address] Performed By: #### 5 7021-8 #### [facility] CLIA [id number] [address] [place] [address] [place] Monocytes (Bld) [#/Vol] 0.91 10*3/uL High <0.87 [facility] Comment on above: Order Comment: Speci men Type: BLOOD SPECIMEN Ordering Facility: [facility] Address: [address] [place] [address] Performed By: #### 5 7021-8 #### [facility] CLIA [id number] [address] [place] [address] [place] Monocytes/100 WBC (Bld) 8.0 % Normal [facility] Comment on above: Order Comment: Speci men Type: BLOOD SPECIMEN Ordering Facility: [facility] Address: [address] [place] [address] Performed By: #### 5 7021-8 #### [facility] CLIA [id number] [address] [place] [address] [place] Neutrophils (Bld) [#/Vol] 8.31 10*3/uL High 1.45-7.50 [facility] Comment on above: Order Comment: Speci men Type: BLOOD SPECIMEN Ordering Facility: [facility] Address: [address] [place] [address] Performed By: #### 5 7021-8 #### [facility] CLIA [id number] [address] [place] [address] [place] Neutrophils/100 WBC (Bld) 73.2 % Normal [facility] Comment on above: Order Comment: Speci men Type: BLOOD SPECIMEN Ordering Facility: [facility] Address: [address] [place] [address] Performed By: #### 5 7021-8 #### [facility] CLIA [id number] [address] [place] [address] [place] Nucleated RBC (Bld) [#/Vol] 10*3/uL Normal <0.01 [facility] Comment on above: Order Comment: Speci men Type: BLOOD SPECIMEN Ordering Facility: [facility] Address: [address] [place] [address] Performed By: #### 5 7021-8 #### [facility] CLIA [id number] [address] [place] [address] [place] Nucleated RBC/100 WBC (Bld) [Ratio] 0.0 /100 WBC Normal [facility] Comment on above: Order Comment: Speci men Type: BLOOD SPECIMEN Ordering Facility: [facility] Address: [address] [place] [address] Performed By: #### 5 7021-8 #### [facility] CLIA [id number] [address] [place] [address] [place] Platelet mean volume (Bld) [Entitic vol] 10.5 fL Normal 9.0-12.7 [facility] Comment on above: Order Comment: Speci men Type: BLOOD SPECIMEN Ordering Facility: [facility] Address: [address] [place] [address] Performed By: #### 5 7021-8 #### [facility] CLIA [id number] [address] [place], [place] [id number] [facility] Platelets (Bld) [#/Vol] 341 10*3/uL Normal 150-400 [facility] Comment on above: Order Comment: Speci men Type: BLOOD SPECIMEN Ordering Facility: [facility] Address: [address] [facility] [place] [address] Performed By: #### 5 7021-8 #### [facility] CLIA [id number] [address] [place] [address] OF [facility] RBC (Bld) [#/Vol] 4.76 10*6/uL Normal 3.90-5.20 [facility] Comment on above: Order Comment: Speci men Type: BLOOD SPECIMEN Ordering Facility: [facility] Address: [address] [place], [place] [address] Performed By: #### 5 7021-8 #### [facility] CLIA [id number] [address] [place] [address] OF [facility] WBC (Bld) [#/Vol] 11.36 10*3/uL High 3.70-11.00 [facility] Comment on above: Order Comment: Speci men Type: BLOOD SPECIMEN Ordering Facility: [facility] Address: [address] [place] [address] Performed By: #### 5 7021-8 #### [facility] CLIA [id number] [address] [place], [place] [id number] [facility] Comprehensive metabolic 2000 panelon 04-14-2025 Albumin [Mass/Vol] 2.8 g/dL Low 3.2-5.0 [facility] Comment on above: Order Comment: Speci men Type: BLOOD SPECIMEN Ordering Facility: [facility] Address: [facility] [place] [address] Performed By: #### 2 4323-8 #### [facility] CLIA [id number] [address] [place], [place] [id number] [place] ALP [Catalytic activity/Vol] 167 U/L High 45-117 [facility] Comment on above: Order Comment: Speci osmar Type: BLOOD SPECIMEN Ordering Facility: [facility] Address: [address] [place] [address] Performed By: #### 2 4323-8 #### [facility] CLIA [id number] [address] [place] [address] [place] ALT [Catalytic activity/Vol] 12 U/L Low 13-61 [facility] Comment on above: Order Comment: Speci men Type: BLOOD SPECIMEN Ordering Facility: [facility] Address: [address] [place] [address] Result Comment: Resu lts may be falsely depressed after the administration of Sulfasalazine and/or Sulfapyridine. Performed By: #### 2 4323-8 #### [facility] CLIA [id number] [address] [place] [address] STATES OF [facility] Anion gap [Moles/Vol] 12 mmol/L Normal 5-16 [facility] Comment on above: Order Comment: Speci osmar Type: BLOOD SPECIMEN Ordering Facility: [facility] Address: [address] [place] [address] Performed By: #### 2 4323-8 #### [facility] CLIA [id number] [address] [place] [address] [place] AST [Catalytic activity/Vol] 23 U/L Normal 8-34 [facility] Comment on above: Order Comment: Speci men Type: BLOOD SPECIMEN Ordering Facility: [facility] Address: [address] [place] [address] Result Comment: Resu lts may be falsely depressed after the administration of Sulfasalazine and/or Sulfapyridine. Performed By: #### 2 4323-8 #### [facility] CLIA [id number] [address] [place] [address] [place] Bilirubin [Mass/Vol] 0.3 mg/dL Normal 0.2-1.0 [facility] Comment on above: Order Comment: Speci men Type: BLOOD SPECIMEN Ordering Facility: [facility] Address: [address] [place] [address] Performed By: #### 2 4323-8 #### [facility] CLIA [id number] [address] [place] [address] [place] Calcium [Mass/Vol] 8.9 mg/dL Normal 8.5-10.5 [facility] Comment on above: Order Comment: Speci men Type: BLOOD SPECIMEN Ordering Facility: [facility] Address: [address] [place] [address] Performed By: #### 2 4323-8 #### [facility] CLIA [id number] [address] [place] [address] [place] Chloride [Moles/Vol] 107 mmol/L Normal 98-107 [facility] Comment on above: Order Comment: Speci men Type: BLOOD SPECIMEN Ordering Facility: [facility] Address: [address] [place] [address] Performed By: #### 2 4323-8 #### [facility] CLIA [id number] [address] [place] [address] [place] CO2 [Moles/Vol] 20 mmol/L Low 21-32 [facility] Comment on above: Order Comment: Speci men Type: BLOOD SPECIMEN Ordering Facility: [facility] Address: [address] [place] [address] Performed By: #### 2 4323-8 #### [facility] CLIA [id number] [address] [place] [address] [place] Creatinine [Mass/Vol] 0.60 mg/dL Normal 0.51-0.95 [facility] Comment on above: Order Comment: Speci men Type: BLOOD SPECIMEN Ordering Facility: [facility] Address: [address] [place] [address] Result Comment: Adenike ents receiving either N-Acetylcysteine (NAC) or Metamizole prior to venipuncture, may have falsely depressed results. Performed By: #### 2 4323-8 #### [facility] CLIA [id number] [address] [place] [address] [place] eGFRcr SerPlBld CKD-EPI 2020 117 mL/min/1.73m??? Normal >=60 [facility] Comment on above: Order Comment: Tiffany prasad Type: BLOOD SPECIMEN Ordering Facility: [facility] Address: [address] [place] [address] Result Comment: Bere mated Glomerular Filtration Rate (eGFR) is calculated using the 2020 CKD-EPI creatinine equation. This equation utilizes serum creatinine, sex, and age as parameters. The creatinine assay has traceable calibration to isotope dilution-mass spectrometry. Refer to KDIGO guidelines for clinical interpretation. In patients with unstable renal function, e.g. those with acute kidney injury, the eGFR may not accurately reflect actual GFR. Performed By: #### 2 4323-8 #### [facility] CLIA [id number] [address] [place] [address] [place] Glucose [Mass/Vol] 86 mg/dL Normal 70-100 [facility] Comment on above: Order Comment: Tiffany prasad Type: BLOOD SPECIMEN Ordering Facility: [facility] Address: [address] [place] [address] Result Comment: The [place] Diabetes Association (ADA) provides guidance for cutoff values for fasting glucose and random glucose. The ADA defines fasting as no caloric intake for at least 8 hours. Fasting plasma glucose results between 100 to 125 mg/dL indicate increased risk for diabetes (prediabetes). Fasting plasma glucose results greater than or equal to 126 mg/dL meet the criteria for diagnosis of diabetes. In the absence of unequivocal hyperglycemia, results should be confirmed by repeat testing. In a patient with classic symptoms of hyperglycemia or hyperglycemic crisis, random plasma glucose results greater than or equal to 200 mg/dL meet the criteria for diagnosis of diabetes. Reference: Standards of Medical Care in Diabetes 2016, [place] [employer] Association. Diabetes Care. 2016.39(Suppl 1). Results may be falsely elevated after the administration of Sulfapyridine. Results may be falsely depressed after the administration of Sulfasalazine. Performed By: #### 2 4323-8 #### [facility] CLIA [id number] [address] [place], [place] [id number] [place] Potassium [Moles/Vol] 4.0 mmol/L Normal 3.5-5.1 [facility] Comment on above: Order Comment: Speci men Type: BLOOD SPECIMEN Ordering Facility: [facility] Address: [address] [place] [address] Performed By: #### 2 4323-8 #### [facility] CLIA [id number] [address] [place], [place] [id number] [place] Protein [Mass/Vol] 6.5 g/dL Normal 6.0-8.5 [facility] Comment on above: Order Comment: Speci men Type: BLOOD SPECIMEN Ordering Facility: [facility] Address: [address] [place] [address] Performed By: #### 2 4323-8 #### [facility] CLIA [id number] [address] [place] [address] [place] Sodium [Moles/Vol] 139 mmol/L Normal 136-145 [facility] Comment on above: Order Comment: Speci men Type: BLOOD SPECIMEN Ordering Facility: [facility] Address: [address] [place] [address] Performed By: #### 2 4323-8 #### [facility] CLIA [id number] [address] [place], [place] [id number] [place] Urea nitrogen [Mass/Vol] 6 mg/dL Low 7-26 [facility] Comment on above: Order Comment: Speci men Type: BLOOD SPECIMEN Ordering Facility: [facility] Address: [address] [place] [address] Performed By: #### 2 4323-8 #### [facility] CLIA [id number] [address] [place], [place] [id number] [place] HISTORY PHYSICALon HISTORY PHYSICAL HNO ID: [id number] Author: CHAYO HAWTHORNE MD Service: Obstetrics Author Type: Physician Type: H&P Filed: 04/14/2025 18:09 Note Text: OBSTETRICS HISTORY AND PHYSICAL SERVICE DATE: April 14, 2025 Subjective Patient's stated reason for arrival: schedule for TOLAC CHIEF COMPLAINT: schedule for TOLAC HISTORY OF THE PRESENT ILLNESS: The patient is a 40 year old female, , who is at 39w4d with an MARCO ANTONIO of 04/17/2025, by Last Menstrual Period dating method. Patient is here for elective induction. Good movement. Denies vaginal bleeding., Denies contractions., Denies leaking of fluid. . Previous C/S fallow b 2 vaginal delivery Last successful TOLAC was in 2017 at [facility] Patient does not want epidural HISTORY REVIEW No past medical history on file. PAST SURGICAL HISTORY Procedure Laterality Date SECTION HX Pt reported NEXPLANON REMOVAL Left 04/27/2024 No family history on file. Social History Tobacco Use Smoking status: Never Smokeless tobacco: Never Vaping Use Vaping status: Never Used Substance Use Topics Alcohol use: Not Currently Comment: Socially Drug use: Never Obstetric History T3 L3 SAB0 IAB0 Ectopic0 Multiple0 Live Births3 Name of Baby 1: Jason Date: 02/22/07 GA: Not recorded Type: , Other Apgar1: Not recorded Apgar5: Not recorded Living: Living Name of Baby 2: Afia Date: 11/27/10 GA: Not recorded Type: , Spontaneous Apgar1: Not recorded Apgar5: Not recorded Living: Living Name of Baby 3: Santos Date: 07/09/15 GA: Not recorded Type: , Spontaneous Apgar1: Not recorded Apgar5: Not recorded Living: Living Name of Baby 4: Not recorded Date: Not recorded GA: Not recorded Type: Not recorded Apgar1: Not recorded Apgar5: Not recorded Living: Not recorded Active Non-Hospital Problems Diagnosis Date Noted Yeast vaginitis 03/01/2025 Overview Note: Treated this week March 01, 2025 BV (bacterial vaginosis) 03/01/2025 Overview Note: March 01, 2025 Send rx at next appt. Treated for yeast this week. Sil Soto MD Elevated blood pressure reading without diagnosis of hypertension 02/20/2025 Overview Note: 02/20/25 Possible gHTN. Pre e labs ordered and home BP monitoring recommended. SW Previous section 01/27/2025 Overview Note: February 27, 2025 Plans tolac. Sil Soto MD 01/27/25 - Patient reports first delivery was in [place] and was section. Has since had 2 . Last delivery at [facility] in [place], [place]. Desires . Rasheeda Heredia APRN.DANYA Obesity in ([facility]) 01/27/2025 Overview Note: 01/27/25- NEED TO ASK PREGRAVID BMI- Current BMI 36. Will need testing. Rasheeda Heredia APRN.DANYA Rh negative state in antepartum period ([facility]) 11/21/2024 Supervision of normal intrauterine in multigravida, unspecified trimester ([facility]) 11/18/2024 Overview Note: Care Checklist Vaccines: [] Flu vaccine [] declined [] RSV vaccine 32 0/7 - 36 6/ (May - Oct) [] declined [] COVID vaccine [] declined [] TDaP 27-36 [x] declined First trimester: [] Dating US [x] 1st tri labs [x] Pap smear [] Carrier screening [] declined [] NIPT screening [] declined [] First trimester anatomy scan [] declined [x] universal ASA ordered (start 12w-16w) [] declined [] M Power Consult [] not indicated [x] declined Second trimester: [] Anatomy scan [x] Mode of Delivery - Desires ? [] Feeding - Both [] Pump ordered [x] Diabetes screen [x] CBC, RPR [] Behavioral Health Screening Third trimester (28-30 weeks): [] Consent [] Contraception [] Tanning Wheel Filler [] TeamBirth handout Third trimester (36-40 weeks): [] GBS [] Presentation - [] Scheduled [] yes - Hibiclens, pre-op instructions, CBC, TANDS ordered [] no [] HANDP [] Preferences worksheet [] Scanned in EMR [] Patient to bring copy to hospital [] Declined Language barrier 11/18/2024 Late care ([facility]) 11/18/2024 ALLERGIES No Known Allergies Prior to Admission Medications Prescriptions Last Dose Informant Patient Reported? Taking? Amoxicillin 500 mg tablet Yes No Sig: Take 1 tablet by mouth three times a day. Miscellaneous Medical Supply (BLOOD PRESSURE CUFF) No No Si each once daily. aspirin, enteric coated (ECOTRIN LOW STRENGTH) 81 mg EC tablet No No Sig: Take 1 tablet by mouth once daily. ciprofloxacin HCl (CILOXAN) 0.3 % ophthalmic solution Yes No Si DROPS IN RIGHT EAR 3 TIMES A DAY FOR 7 DAYS vitamins no.2 ( VITAMIN NO.2 ORAL) Yes No Sig: Take by mouth once daily. Facility-Administered Medications: None REVIEW OF SYSTEMS: PAIN ASSESSMENT: Negative for pain, history of chronic pain, or current treatment for a chronic pain condition. GENERAL: No weight loss, malaise or fevers. HEENT: Negative for frequent or significant headaches, No changes in hearing or (more content not included)... [facility] OPERATIVE NOon 04-14-2025 OPERATIVE NO HNO ID: [id number] Author: CHAYO HAWTHORNE MD Service: Obstetrics Author Type: Physician Type: Operative Report Filed: 04/15/2025 00:28 Note Text: SECTION OPERATIVE NOTE Patient Name: Shaila Fraga Surgery Date: 04/15/2025 Surgeon: Chayo Hawthorne MD SURGEON(S)/PROCEDURALI ST(S) AND PRESSURE DISPATCHER(S): Surgeons and Role: * Chayo Hawthorne MD - Primary Nurse Practitioner: Blanquita San APRN.[facility] Ocular Care Technologist: Angelina Vang SA; Jean Hernandez SA Senior Clinical Research Scientist's Role: Provided expert and necessary surgical assistance for this procedure to be performed. Physician speech language pathology assistant closed skin without direct supervision but with primary surgeon/proceduralist readily available and the remainder of the procedure was performed by the primary surgeon/proceduralist with assistance. Incision/Procedure Start Time: 10:52 PM Incision Close/Procedure End Time: Preoperative Diagnosis: 40 yo Intrauterine at 39w5d Previous C/S fallow by two successful has a failed TOLAC Postoperative Diagnosis: Same, delivered. PROCEDURE: Repeat Section Informed Consent: Informed Consent obtained and on the chart Anesthesia: Spinal IV Fluids: Crystalloids 1000 ml EBL: 437 ml Urine: Clear yellow urine draining into the urine collecting bag.300 ml Specimens: Cord blood sent to lab Condition: Stable Disposition: PACU COMPLICATIONS: none OPERATIVE INDICATIONS/CLINICAL HISTORY: 40 year old at 39w5d Previous C/S fallow by two successful has a failed TOLAC OPERATIVE FINDINGS: Amniotic fluid: Clear Viable female Normal uterus, tubes and ovaries bilaterally Information for the patient's : David Fraga Girl Shaila [[id number]] Type: , Low Transverse Categorization: Repeat Operative Findings: Placenta Removal: Manual Removal Appearance: Weight: 3.694 kg (8 lb 2.3 oz) (Filed from Delivery Summary) Sex: female Living Status: Living One Minute : 8 Five Minute : 9 Code [place] Called: Yes Type of Code [place] Team Needed: Planned Resuscitation Needed: No, see Peds Delivery Attendance Note/Progress Note PROCEDURE AND TECHNIQUE: The patient was taken to the operating room where spinal anesthesia was administered. She was placed in supine position with a left lateral tilt. SCD's were placed. Casanova catheter was placed under sterile conditions. She was prepped with Betadine solution and draped in the usual sterile fashion for abdominal surgery. A Pfannensteil incision was made with the scalpel. This incision was taken down to the fascia with the scalpel, and the fascia incised transversely followed by lateral extension with a pair of dissecting scissors The rectus muscles were dissected off the fascia with sharp and blunt dissection and from each other in the midline. The peritoneum was entered bluntly and incision extended superiorly and inferiorly. The bladder blade was then introduced. The vesicouterine peritoneum was incised and the incision was taken laterally. The bladder flap was created digitally. The bladder blade was then reintroduced. Hysterotomy was performed in a low transverse fashion with the scalpel. The incision was extended with a pair of bandage scissors in a superolateral fashion. The was delivered from a from a cephalic position posterior position atraumatically. Cord was clamped and cut, and the was handed off to nursery nursing staff. Cord blood was collected. A sample of the cord was collected to obtain a sample for blood gases. The placenta was delivered manually. The uterus was exteriorized and was cleared of clots and debris. The bladder blade was reintroduced. The uterus was closed in two layers. The first layer was a running locked stitched of 0-Vicryl. The second layer was an imbricating stitch of 0 Vicryl. Excellent hemostasis was obtained. The pelvic peritoneum was closed with 2-0 Vicryl sutures x 2. Inspection of the pelvis noted the above findings. The peritoneum was closed with 2-0 Vicryl in a running fashion. The rectus muscles were re-approximated using 2-0 Vicryl. The fascia was closed with 0 PDS in a running fashion. At the fascia closure median few nonresorbable stiches were remouved from previous surgery .The subcutaneous tissue was irrigated and made hemostatic with bovie cautery as required. The subcutaneous tissue was closed with continuous stitch of 2-0 plain catgut. The skin was closed with 4-0 Vicryl in a running fashion. Uterine massage was performed and clots expelled from the vagina. Sponge, lap, and needle counts were correct. The patient was taken to the recovery room with stable vital signs after tolerating the procedure well. Plan of care discussed with: Patient and RN. UNIVERSAL PROTOCOL / SAFETY CHECKLIST Procedure to be performed: section Sign in Communicatio (more content not included)... Normal [facility] Prot/Creat Uron 04-14-2025 Protein/Creatinine (U) [Mass ratio] mg/g High <0.15 [facility] Comment on above: Order Comment: Speci men Type: URINE SPECIMEN Ordering Facility: [facility] Address: [address] [place] [address] Result Comment: Adul t Proteinuria Categories: <0.15 mg/mg is considered normal to mildly increased 0.15 - 0.50 mg/mg is considered moderately increased >0.50 mg/mg is considered severely increased KDIGO. (2013). KDIGO 2012 Clinical Practice Guideline for the Evaluation and Management of Chronic Kidney Disease. Official Journal of the International Society of Nephrology, 3(1), 1-150. Performed By: #### 2 4356-8, 2889-10 #### [facility] CLIA [id number] [address] [place] [address] [place] Protein/Creatinine (U) [Mass ratio]on 04-14-2025 Creatinine (U) [Mass/Vol] 29.9 mg/dL Normal 29.0-226.0 [facility] Comment on above: Order Comment: Speci men Type: URINE SPECIMEN Ordering Facility: [facility] Address: [address] [place] [address] Performed By: #### 2 4356-8, 2889-2 #### [facility] CLIA [id number] [address] [place] [address] [place] Protein (U) [Mass/Vol] mg/dL Normal 1-14 [facility] Comment on above: Order Comment: Speci men Type: URINE SPECIMEN Ordering Facility: [facility] Address: [address] [place] [address] Performed By: #### 2 4356-8, 2890-2 #### [facility] CLIA [id number] [address] [place] [address] [place] T pallidum IgG Ser Ql IFon 0 04-14-2025 T. pallidum IgG IF Ql (S) Non-Reactive Normal Nonreactive [facility] Comment on above: Order Comment: Speci men Type: BLOOD SPECIMEN Ordering Facility: [facility] Address: [address] [place] [address] Result Comment: Samp les with an index value of less than 0.90 are considered Nonreactive for Syphilis T. pallidum antibodies. Performed By: #### 1 7726-1 #### [facility] CLIA [id number] [address] [place] [address] [place] TYPE + SCREEN PRENATALon ABO O [facility] Comment on above: Order Comment: Speci men Type: BLOOD SPECIMEN Ordering Facility: [facility] Address: [address] [place] [address] Performed By: #### T SPN #### [facility] CLIA [id number] [address] [place] [address] [place] Rh Nom (Bld) Negative [facility] Comment on above: Order Comment: Speci men Type: BLOOD SPECIMEN Ordering Facility: [facility] Address: [address] [place] [address] Performed By: #### T SPN #### [facility] CLIA [id number] [address] [place] [address] [place] TYPE AND SCREEN EXPIRATION 04/17/2025 23:59 [facility] Comment on above: Order Comment: Speci men Type: BLOOD SPECIMEN Ordering Facility: [facility] Address: [address] [place] [address] Performed By: #### T SPN #### [facility] CLIA [id number] [address] [place] [address] [place] Urinalysis complete panel (U )on 04-14-2025 Bacteria LM.HPF (Urine sed) [#/Area] Rare Abnormal None Seen [facility] Comment on above: Order Comment: Speci men Type: URINE SPECIMEN Ordering Facility: [facility] Address: [address] [place] [address] Performed By: #### 2 4356-8, 2890-2 #### [facility] CLIA [id number] [address] [place] [address] [place] Bilirubin Ql (U) Negative Normal Negative [facility] Comment on above: Order Comment: Speci men Type: URINE SPECIMEN Ordering Facility: [facility] Address: [address] [place] [address] Performed By: #### 2 4356-8, 2890-2 #### [facility] CLIA [id number] [address] [place] [address] [place] Clarity (Unsp spec) Clear Normal Clear [facility] Comment on above: Order Comment: Speci men Type: URINE SPECIMEN Ordering Facility: [facility] Address: [address] [place] [address] Performed By: #### 2 4356-8, 2890-2 #### [facility] CLIA [id number] [address] [place] [address] [place] Color (U) Straw Normal Yellow [facility] Comment on above: Order Comment: Speci men Type: URINE SPECIMEN Ordering Facility: [facility] Address: [address] [place] [address] Performed By: #### 2 4356-8, 2890-2 #### [facility] CLIA [id number] [address] [place] [address] [place] Epithelial cells LM.HPF (Urine sed) [#/Area] Few Normal [facility] Comment on above: Order Comment: Speci men Type: URINE SPECIMEN Ordering Facility: [facility] Address: [facility] [place] [address] Performed By: #### 2 4356-8, 2890-2 #### [facility] CLIA [id number] [address] [place] [address] [place] [facility] [place] Glucose Test strip (U) [Mass/Vol] Negative Normal Negative [facility] Comment on above: Order Comment: Speci men Type: URINE SPECIMEN Ordering Facility: [facility] Address: [address] [place] [address] Performed By: #### 2 4356-8, 2890-2 #### [facility] CLIA [id number] [address] [place] [address] [place] Hemoglobin Ql (U) Negative Normal Negative [facility] Comment on above: Order Comment: Speci men Type: URINE SPECIMEN Ordering Facility: [facility] Address: [address] [place] [address] Performed By: #### 2 4356-8, 2890-2 #### [facility] CLIA [id number] [address] [place] [address] [place] Ketones Ql (U) Negative Normal Negative [facility] Comment on above: Order Comment: Speci men Type: URINE SPECIMEN Ordering Facility: [facility] Address: [address] [place] [address] Performed By: #### 2 4356-8, 2890-2 #### [facility] CLIA [id number] [address] [place] [address] [place] Leukocyte esterase Test strip Ql (U) Negative Normal Negative [facility] Comment on above: Order Comment: Speci men Type: URINE SPECIMEN Ordering Facility: [facility] Address: [address] [place] [address] Performed By: #### 2 4356-8, 2890-2 #### [facility] CLIA [id number] [address] [place] [address] [place] Nitrite Ql (U) Negative Normal Negative [facility] Comment on above: Order Comment: Speci men Type: URINE SPECIMEN Ordering Facility: [facility] Address: [address] [place] [address] Performed By: #### 2 4356-8, 289-2 #### [facility] CLIA [id number] [address] [place] [address] [place] pH (U) 7.0 [pH] Normal 5.0-8.0 [facility] Comment on above: Order Comment: Speci men Type: URINE SPECIMEN Ordering Facility: [facility] Address: [address] [place] [address] Performed By: #### 2 4356-8, 2889-2 #### [facility] CLIA [id number] [address] [place] [address] [place] Protein (U) [Mass/Vol] Negative Normal Negative [facility] Comment on above: Order Comment: Speci men Type: URINE SPECIMEN Ordering Facility: [facility] Address: [address] [place] [address] Performed By: #### 2 4356-8, 2889-2 #### [facility] CLIA [id number] [address] [place] [address] [place] RBC LM.HPF (Urine sed) [#/Area] 0-3 /HPF Normal 0-3 /HPF [facility] Comment on above: Order Comment: Speci men Type: URINE SPECIMEN Ordering Facility: [facility] Address: [address] [place] [address] Performed By: #### 2 4356-8, 2890-2 #### [facility] CLIA [id number] [address] [place] [address] [place] Specific gravity (U) [Rel density] <1.005 Low 1.005-1.030 [facility] Comment on above: Order Comment: Speci men Type: URINE SPECIMEN Ordering Facility: [facility] Address: [address] [place] [address] Performed By: #### 2 4356-8, 2890-2 #### [facility] CLIA [id number] [address] [place] [address] Urobilinogen Ql (U) Negative Normal Negative [facility] Comment on above: Order Comment: Speci men Type: URINE SPECIMEN Ordering Facility: [facility] Address: [address] [place] [address] Performed By: #### 2 4356-8, 2890-2 #### [facility] CLIA [id number] [address] [place] [address] [place] WBC LM.HPF (Urine sed) [#/Area] 0-5 /HPF Normal 0-5 /HPF [facility] Comment on above: Order Comment: Speci men Type: URINE SPECIMEN Ordering Facility: [facility] Address: [address] [place] [address] Performed By: #### 2 4356-8, 2890-2 #### [facility] CLIA [id number] [address] [place] [address] [place] URINE OB DIP B/Oon Glucose Ql (U) Negative Neg mg/dL [facility] Interpretation and review of laboratory results Normal [facility] Protein.monoclonal (U) [Mass/Vol] 30 mg/dL Neg [facility] CNPNon 03-31-2025 CNPN Telephone (OBGYWM) SHAILA KELSEY ([id number]) 1985 F [facility] Date Time Provider Department 03/31/25 RASHEEDA HEREDIA During your visit today, we recorded the following information about you: Candace Horta, FATMATA 03/31/2025 4:35 PM Signed Pt desires Induction at [facility], [facility] for delivery on 04/14/25. Pt will be 39w4d. Provider (CP) to place induction order. This RN contacted [facility] to double check the procedure location. One staff member thought it was [facility], but was placed on hold to speak to someone else to verify and was on hold for 20 minutes and was unable to hold the line any further. Will need to call and schedule induction once order has been filed. Pt will then need notified. - AMA -Age 40 - EFW 87%, AC 99% - First delivery via C/S and has had 2 successful 's - Desires - GBS negative - Will need to return next week for NST/ MINESH (Pt does not wish to schedule OB visits at [facility]) FATMATA Krishna Tara, RN 03/31/2025 4:57 PM Signed Message Received: Rasheeda Bonner APRN.Candace Fink RN INDUCTION ORDERS PLACED- PATIENT NEEDS NOTIFIED OF DATE AND TIME. Rasheeda Heredia APRN.Verena Felton RN 04/03/2025 10:22 AM Signed Called [facility] - they will review her chart and call back if induction is accepted. Induction to be scheduled 04/14/25 at 7:30am if she is approved. Will wait for their return call. FATMATA Otto Trisha, RN 04/03/2025 12:30 PM Signed Received call back from [facility]. Patient is now scheduled for induction on Thursday04/14/25 at 7:30am at [facility]. Park in parking deck and go in main door. Red coats should be at entrance to help, but just follow OB ED signs and it will take her to the 2nd floor Maternity unit. FATMATA Otto Veronica 04/03/2025 1:28 PM Signed Spoke with pt and informed of induction, location, time, date and parking instructions. Allergies As of Date: 03/31/2025 (No Known Allergies) Date Reviewed: 03/31/2025 Reviewed by: Pennie De La Rosa MA - Fully Assessed Reason for Visit: [facility] [Other] Prescriptions as of 04/03/2025 - ciprofloxacin HCl (CILOXAN) 0.3 % ophthalmic solution 3 DROPS IN RIGHT EAR 3 TIMES A DAY FOR 7 DAYS - Amoxicillin 500 mg tablet Take 1 tablet by mouth three times a day. - Miscellaneous Medical Supply (BLOOD PRESSURE CUFF) 1 each once daily. - aspirin, enteric coated (ECOTRIN LOW STRENGTH) 81 mg EC tablet Take 1 tablet by mouth once daily. - vitamins no.2 ( VITAMIN NO.2 ORAL) Take by mouth once daily. Problem List As Of Date 03/31/2025 Noted Resolved Supervision of normal intrauterine in*11/18/2024 Language barrier [Z60.3, Z75.8] 11/18/2024 Late care [O09.30] 11/18/2024 Rh negative state in antepartum period [O26.899*11/21/2024 Previous section [Z98.891] 01/27/2025 Obesity in (HCC) [O99.210] 01/27/2025 Elevated blood pressure reading without diagnos*02/20/2025 Yeast vaginitis [B37.31] 03/01/2025 BV (bacterial vaginosis) [N76.0, B96.89] 03/01/2025 Encounter Status:Closed by VERENA YEPEZ on 04/03/25 Normal [facility] URINE OB DIP B/Oon 5 Glucose Ql (U) Negative Neg mg/dL [facility] Interpretation and review of laboratory results Normal [facility] Protein.monoclonal (U) [Mass/Vol] Negative Neg mg/dL [facility] Examination level ultrasound on 03-22-2025 [facility] Radiology Study observation (narrative) [facility] ROUTINE, GROUP B ST REPTOCOCCUS BY PCRon 03-22-2025 ROUTINE, GROUP B STREPTOCOCCUS BY PCR Not detected Normal [facility] Comment on above: Performed By: #### G BPCR #### [facility] CLIA [id number] [address] [place] [address] [place] URINE OB DIP B/Oon 5 Glucose Ql (U) Negative Neg mg/dL [facility] Protein.monoclonal (U) [Mass/Vol] Negative Neg mg/dL [facility] BACTERIAL VAGINOSIS NAATon 0 02-27-2025 Lactobacillus crispatus+gasseri+sarahi enii + Gardnerella vaginalis + Atopobium vaginae rRNA ALEXIS+probe Ql (Vag fld) Detected Abnormal Not detected [facility] Comment on above: Order Comment: Speci men Type: SWABOrdering Facility: [facility] Address: [address] [place] [address] Performed By: #### B VAMP, CVTV ####[facility] [id number] [place] [address] [place] SANCHO/TRICHOMONAS NAATon 0 02-27-2025 C. glabrata RNA ALEXIS+probe Ql (Vag fld) Not detected Normal Not detected [facility] Comment on above: Order Comment: Speci men Type: SWABOrdering Facility: [facility] Address: [address] [place] [address] Performed By: #### B VAMP, CVTV ####[facility] [id number] [place] [address] [place] Sancho sp DNA ALEXIS+probe Ql (Vag fld) Detected Abnormal Not detected [facility] Comment on above: Order Comment: Speci men Type: SWABOrdering Facility: [facility] Address: [address] [place] [address] Result Comment: The Sancho species group target includes C. albicans, C. tropicalis, C. parapsilosis, and C. dubliniensis. Performed By: #### B VAMP, CVTV ####[facility] [id number] [place] [address] [place] T. vaginalis DNA ALEXIS+probe Ql (Unsp spec) Not detected Normal Not detected [facility] Comment on above: Order Comment: Speci men Type: SWABOrdering Facility: [facility] Address: [address] [place] [address] Performed By: #### B VAMP, CVTV ####[facility] [id number] [address] [place] Examination level ultrasound on 02-21-2025 [facility] CBC panel Auto (Bld)on 02-20 Erythrocyte distribution width (RBC) [Ratio] 13.3 % 11.5 - 15.0 % [facility] Hematocrit (Bld) [Volume fraction] 37.8 % 36.0 - 46.0 % [facility] Hemoglobin (Bld) [Mass/Vol] 12 g/dL 11.5 - 15.5 g/dL [facility] Interpretation and review of laboratory results Abnormal [facility] MCH (RBC) [Entitic mass] 26.8 pg 26.0 - 34.0 pg [facility] MCHC (RBC) [Mass/Vol] 31.7 g/dL 30.5 - 36.0 g/dL [facility] MCV (RBC) [Entitic vol] 84.4 fL 80.0 - 100.0 fL [facility] Nucleated RBC (Bld) [#/Vol] NINF [facility] Platelet mean volume (Bld) [Entitic vol] 9.8 fL 9.0 - 12.7 fL [facility] Platelets (Bld) [#/Vol] 406 10*3/uL High [facility] RBC (Bld) [#/Vol] 4.48 10*6/uL 3.90 - 5.2 0 m/uL [facility] WBC (Bld) [#/Vol] 12.39 10*3/uL High [facility] Erythrocyte distribution width (RBC) [Ratio] 13.3 % Normal 11.5-15.0 [facility] Comment on above: Order Comment: Speci men Type: BLOOD SPECIMENOrdering Facility: [facility] Address: [address] [place] [address] Performed By: #### G BPCR #### [facility] CLIA [id number] [address] [place] [address] Hematocrit (Bld) [Volume fraction] 37.8 % Normal 36.0-46.0 [facility] Comment on above: Order Comment: Speci men Type: BLOOD SPECIMENOrdering Facility: [facility] Address: [address] [place] [address] Performed By: #### G BPCR #### [facility] CLIA [id number] [address] [place] [address] [place] Hemoglobin (Bld) [Mass/Vol] 12.0 g/dL Normal 11.5-15.5 [facility] Comment on above: Order Comment: Speci men Type: BLOOD SPECIMENOrdering Facility: [facility] Address: [address] [place] [address] Performed By: #### G BPCR #### [facility] CLIA [id number] [address] [place] [address] [place] MCH (RBC) [Entitic mass] 26.8 pg Normal 26.0-34.0 [facility] Comment on above: Order Comment: Speci men Type: BLOOD SPECIMENOrdering Facility: [facility] Address: [address] [place] [address] Performed By: #### G BPCR #### [facility] CLIA [id number] [address] [place] [address] [place] MCHC (RBC) [Mass/Vol] 31.7 g/dL Normal 30.5-36.0 [facility] Comment on above: Order Comment: Speci men Type: BLOOD SPECIMENOrdering Facility: [facility] Address: [address] [place] [address] Performed By: #### G BPCR #### [facility] CLIA [id number] [address] [place] [address] [place] MCV (RBC) [Entitic vol] 84.4 fL Normal 80.0-100.0 [facility] Comment on above: Order Comment: Speci men Type: BLOOD SPECIMENOrdering Facility: [facility] Address: [address] [place] [address] Performed By: #### G BPCR #### [facility] CLIA [id number] [address] [place] [address] [place] Nucleated RBC (Bld) [#/Vol] 10*3/uL Normal <0.01 [facility] Comment on above: Order Comment: Speci men Type: BLOOD SPECIMENOrdering Facility: [facility] Address: [address] [place] [address] Performed By: #### G BPCR #### [facility] CLIA [id number] [address] [place] [address] [place] Platelet mean volume (Bld) [Entitic vol] 9.8 fL Normal 9.0-12.7 [facility] Comment on above: Order Comment: Speci men Type: BLOOD SPECIMENOrdering Facility: [facility] Address: [address] [place] [address] Performed By: #### G BPCR #### [facility] CLIA [id number] [address] [place] [address] [place] Platelets (Bld) [#/Vol] 406 10*3/uL High 150-400 [facility] Comment on above: Order Comment: Speci men Type: BLOOD SPECIMENOrdering Facility: [facility] Address: [address] [place] [address] Performed By: #### G BPCR #### [facility] CLIA [id number] [address] [place] [address] [place] RBC (Bld) [#/Vol] 4.48 10*6/uL Normal 3.90-5.20 [facility] Comment on above: Order Comment: Speci men Type: BLOOD SPECIMENOrdering Facility: [facility] Address: [address] [place] [address] Performed By: #### G BPCR #### [facility] CLIA [id number] [address] [place] [address] [place] WBC (Bld) [#/Vol] 12.39 10*3/uL High 3.70-11.00 [facility] Comment on above: Order Comment: Speci osmar Type: BLOOD SPECIMENOrdering Facility: [facility] Address: [address] [place] [address] Performed By: #### G BPCR #### [facility] CLIA [id number] [address] [place], [place] [address] [address] [place] Creatinine + eGFR Pnl SerPlB ldon 02-20-2025 Creatinine and Glomerular filtration rate.predicted panel (S/P/Bld) 117 mL/min/1.73m??? Normal >=60 [facility] Comment on above: Order Comment: Tiffany osmar Type: BLOOD SPECIMENOrdering Facility: [facility] Address: [address] [place] [address] Result Comment: Bere mated Glomerular Filtration Rate (eGFR) is calculated using the 2020 CKD-EPI creatinine equation. This equation utilizes serum creatinine, sex, and age as parameters. The creatinine assay has traceable calibration to isotope dilution-mass spectrometry. Refer to KDIGO guidelines for clinical interpretation. In patients with unstable renal function, e.g. those with acute kidney injury, the eGFR may not accurately reflect actual GFR. Performed By: #### 4 5066-8, 79817-6, 308-1 ####[facility] [id number] [place] [address] [place] Creatinine and Glomerular fi ltration rate.predicted panel (S/P/Bld)on 02-20-2025 Creatinine [Mass/Vol] 0.60 mg/dL Normal 0.58-0.96 [facility] Comment on above: Order Comment: Speci osmar Type: BLOOD SPECIMENOrdering Facility: [facility] Address: [address] [place] [address] Performed By: #### 4 5066-8, 11416-2, 3084-1 ####[facility] [id number] [address] [address] [place] Examination level ultrasound on 02-20-2025 Radiology Study observation (narrative) [facility] Hepatic function 2000 panelo n 02-20-2025 Albumin [Mass/Vol] 3.4 g/dL Low 3.9-4.9 [facility] Comment on above: Order Comment: Speci men Type: BLOOD SPECIMENOrdering Facility: [facility] Address: [address] [place] [address] Performed By: #### 4 5066-8, 93776-9, 3084-1 ####[facility] [id number] [facility] [address] [place] ALP [Catalytic activity/Vol] 131 U/L High 34-123 [facility] Comment on above: Order Comment: Speci men Type: BLOOD SPECIMENOrdering Facility: [facility] Address: [address] [place] [address] Performed By: #### 4 5066-8, 21316-3, 3084-1 ####[facility] [id number] [place] [address] [place] ALT [Catalytic activity/Vol] 14 U/L Normal 7-38 [facility] Comment on above: Order Comment: Speci men Type: BLOOD SPECIMENOrdering Facility: [facility] Address: [address] [place] [address] Performed By: #### 4 5066-8, 06519-9, 3084-1 ####[facility] [id number] [facility] [place] [id number] [place] AST [Catalytic activity/Vol] 17 U/L Normal 13-35 [facility] Comment on above: Order Comment: Speci men Type: BLOOD SPECIMENOrdering Facility: [facility] Address: [address] [place] [address] Performed By: #### 4 5066-8, 86962-6, 3084-1 ####[facility] [id number] [facility] [address] [address] [place] Bilirubin [Mass/Vol] mg/dL Low 0.2-1.3 [facility] Comment on above: Order Comment: Speci men Type: BLOOD SPECIMENOrdering Facility: [facility] Address: [address] [place] [address] Performed By: #### 4 5066-8, 33649-8, 3083- ####[facility] [id number] [place] [address] [place] Bilirubin.conjugated [Mass/Vol] 0.1 mg/dL Normal <0.3 [facility] Comment on above: Order Comment: Speci men Type: BLOOD SPECIMENOrdering Facility: [facility] Address: [address] [place] [address] Performed By: #### 4 5066-8, 96949-2, 3083- ####[facility] [id number] [place] [address] [place] Protein [Mass/Vol] 6.8 g/dL Normal 6.3-8.0 [facility] Comment on above: Order Comment: Speci men Type: BLOOD SPECIMENOrdering Facility: [facility] Address: [address] [place] [address] Performed By: #### 4 5066-8, 16957-8, 3083-09 ####[facility]CLIA [id number] [place] [address] [place] Prot/Creat Uron 02-20-2025 Protein/Creatinine (U) [Mass ratio] 0.13 mg/mg Normal <0.15 [facility] Comment on above: Order Comment: Speci men Type: URINE SPECIMENOrdering Facility: [facility] Address: [address] [place] [address] Result Comment: Adul t Proteinuria Categories: <0.15 mg/mg is considered normal to mildly increased 0.15 - 0.50 mg/mg is considered moderately increased >0.50 mg/mg is considered severely increased KDIGO. (2013). KDIGO 2012 Clinical Practice Guideline for the Evaluation and Management of Chronic Kidney Disease. Official Journal of the International Society of Nephrology, 3(1), 1-150. Performed By: #### G BPCR #### [facility] CLIA [id number] [address] [place] [address] [place] Protein/Creatinine (U) [Mass ratio]on 02-20-2025 Creatinine (U) [Mass/Vol] 148.2 mg/dL Normal 20.0-300.0 [facility] Comment on above: Order Comment: Speci men Type: URINE SPECIMENOrdering Facility: [facility] Address: [address] [place] [address] Performed By: #### G BPCR #### [facility] CLIA [id number] [address] [place] [address] [place] Protein (U) [Mass/Vol] 20 mg/dL Normal 0-20 [facility] Comment on above: Order Comment: Speci men Type: URINE SPECIMENOrdering Facility: [facility] Address: [address] [place] [address] Performed By: #### G BPCR #### [facility] CLIA [id number] [address] [place] [address] [place] Urate SerPl-mCncon Urate [Mass/Vol] 4.8 mg/dL Normal 2.5-6.6 [facility] Comment on above: Order Comment: Speci men Type: BLOOD SPECIMENOrdering Facility: [facility] Address: [address] [place] [address] Performed By: #### 4 5066-8, 74017-5, 3084-1 ####[facility] [id number] [place] [address] [place] .Auto Diffon 02-17-2025 Basophil, Absolute 0.0 10 3/mcL Normal 0.0-0.3 [facility] Comment on above: Performed By: #### C MP, CBC, ADIFF, GFR, ANEU, URIC #### [address] [address] Basophils/100 WBC (Bld) 0.2 % Normal 0.0-2.5 [facility] Comment on above: Performed By: #### C MP, CBC, ADIFF, GFR, ANEU, URIC #### [address] [address] Eosinophil, Absolute 0.0 10 3/mcL Normal 0.0-0.7 [facility] Comment on above: Performed By: #### C MP, CBC, ADIFF, GFR, ANEU, URIC #### [address] [address] Eosinophils/100 WBC (Bld) 0.4 % Normal 0.0-6.0 [facility] Comment on above: Performed By: #### C MP, CBC, ADIFF, GFR, ANEU, URIC #### [address] [address] Lymphocyte, Absolute 1.2 10 3/mcL Normal 0.9-4.3 [facility] Comment on above: Performed By: #### C MP, CBC, ADIFF, GFR, ANEU, URIC #### [address] [address] Lymphocytes/100 WBC (Bld) 8.7 % Low 20.0-40.0 [facility] Comment on above: Performed By: #### C MP, CBC, ADIFF, GFR, ANEU, URIC #### [address] [address] Monocyte, Absolute 1.0 10 3/mcL Normal 0.1-1.4 [facility] Comment on above: Performed By: #### C MP, CBC, ADIFF, GFR, ANEU, URIC #### [address] [address] Monocytes/100 WBC (Bld) 7.4 % Normal 2.0-13.0 [facility] Comment on above: Performed By: #### C MP, CBC, ADIFF, GFR, ANEU, URIC #### [address] [address] Neutrophils/100 WBC (Bld) 83.0 % High 50.0-75.0 [facility] Comment on above: Performed By: #### C MP, CBC, ADIFF, GFR, ANEU, URIC #### [address] [address] .GFRon 02-17-2025 Estimated Glomerular Filtration Rate 117 ml/min/1.73sqm Normal [facility] Comment on above: Result Comment: Stages of Chronic Kidney Disease (CKD) Stage Description eGFR(ml/min/1.73 sq.m.) CKD 1 Normal kidney function or >=90 normal kindney function with possible kidney damage (ex. Proteinuria) CKD 2 Kidney damage with mild loss 60-89 of kidney function CKD 3a Mild to moderate loss of kidney 45-59 function CKD 3b Moderate to severe loss of 30-44 of kindey function CKD 4 Severe loss of kidney function 15-29 CKD 5 Kidney failure <15 Note: (go live 2024) the eGFR calculation was updated to the 2020 CKD-EPI creatinine equation without a race factor to calculate the eGFR results. Performed By: #### C MP, CBC, ADIFF, GFR, ANEU, URIC #### [address] [address] .NEUABSon 02-17-2025 Neutrophil, Absolute 11.7 10 3/mcL High 2.3-8.1 [facility] Comment on above: Performed By: #### C MP, CBC, ADIFF, GFR, ANEU, URIC #### [address] [address] ABIDon 02-17-2025 Antibody ID Passive Anti-D Invalid Interpretation Code [facility] Comment on above: Order Comment: Order ed by Discern Performed By: #### A BRIAN ABSGEL #### [address] [address] #### AUTOC, ANTID #### [facility] [address] [place] [address] ABO/Rh (Gel)on 02-17-2025 ABO/Rh Interp Negative Invalid Interpretation Code [facility] Comment on above: Performed By: #### A COLETTE TORRES #### [address] [address] #### AUTOC, ANTID #### [address] [address] ABS (Gel)on 02-17-2025 ABSC Interp (Gel) Positive Normal [facility] Comment on above: Performed By: #### A COLETTE TORRES #### [address] [address] #### AUTOC, ANTID #### [address] [address] AST(SGOT)on 02-17-2025 AST [Catalytic activity/Vol] 15 U/L Normal <=31 [facility] Comment on above: Performed By: #### L 501.1105, L501.4100, L501.4405, L100.0500, L501.1400, L501.0900 #### [facility] [address] [place], [place], [id number] AUTOCon 02-17-2025 Auto Control Negative Normal [facility] Comment on above: Order Comment: Order ed by Discern Performed By: #### A COLETTE TORRES #### [address] [address] #### AUTOC, ANTID #### [address] [address] Alanine Aminotransferas (SGP T)on 02-17-2025 ALT [Catalytic activity/Vol] 12 U/L Normal <=34 [facility] Comment on above: Performed By: #### L 501.1105, L501.4100, L501.4405, L100.0500, L501.1400, L501.0900 #### [facility] [address] [place], [address] CBCon 02-17-2025 Erythrocyte distribution width (RBC) [Ratio] 13.4 % Normal 11.5-15.5 [facility] Comment on above: Performed By: #### C MP, CBC, ADIFF, GFR, ANEU, URIC #### [address] [address] Hematocrit (Bld) [Volume fraction] 35.1 % Normal 34.0-46.0 [facility] Comment on above: Performed By: #### C MP, CBC, ADIFF, GFR, ANEU, URIC #### [place] [address] Hgb 12.2 G/dL Normal 12.0-16.0 [facility] Comment on above: Performed By: #### C MP, CBC, ADIFF, GFR, ANEU, URIC #### [place] [address] MCH (RBC) [Entitic mass] 27.9 pg Normal 27.0-33.0 [facility] Comment on above: Performed By: #### C MP, CBC, ADIFF, GFR, ANEU, URIC #### [place] [address] MCHC 34.9 G/dL Normal 32.0-36.0 [facility] Comment on above: Performed By: #### C MP, CBC, ADIFF, GFR, ANEU, URIC #### [place] [address] MCV (RBC) [Entitic vol] 80.1 fL Normal 80.0-99.0 [facility] Comment on above: Performed By: #### C MP, CBC, ADIFF, GFR, ANEU, URIC #### [address] [address] Platelet 341 10 3/mcL Normal 150-450 [facility] Comment on above: Performed By: #### C MP, CBC, ADIFF, GFR, ANEU, URIC #### [address] [address] Platelet mean volume (Bld) [Entitic vol] 7.6 fL Normal 6.6-10.5 [facility] Comment on above: Performed By: #### C MP, CBC, ADIFF, GFR, ANEU, URIC #### [place] [address] [place], [place] [address] RBC 4.38 10 6/mcL Normal 4.10-5.30 [facility] Comment on above: Performed By: #### C MP, CBC, ADIFF, GFR, ANEU, URIC #### [place] [address] [place], [place] [address] WBC 14.1 10 3/mcL High 4.5-10.8 [facility] Comment on above: Performed By: #### C MP, CBC, ADIFF, GFR, ANEU, URIC #### [place] [address] [place], [place] [address] CBC-Complete Blood Cnt No Di ffon 02-17-2025 Erythrocyte distribution width (RBC) [Ratio] 13.4 % Normal 11.6-14.6 [facility] Comment on above: Performed By: #### L 501.1105, L501.4100, L501.4405, L100.0500, L501.1400, L501.0900 #### [facility] [address] [place], [address] Hematocrit (Bld) [Volume fraction] 35.5 % Low 37-47 [facility] Comment on above: Performed By: #### L 501.1105, L501.4100, L501.4405, L100.0500, L501.1400, L501.0900 #### [facility] [address] [place], [address] Hemoglobin (Bld) [Mass/Vol] 11.8 g/dL Low 12.0-15.0 [facility] Comment on above: Performed By: #### L 501.1105, L501.4100, L501.4405, L100.0500, L501.1400, L501.0900 #### [facility] [address] [place], [address] MCH (RBC) [Entitic mass] 27.4 pg Normal 27.0-32.0 [facility] Comment on above: Performed By: #### L 501.1105, L501.4100, L501.4405, L100.0500, L501.1400, L501.0900 #### [facility] [address] [place], [address] MCHC (RBC) [Mass/Vol] 33.2 g/dL Normal 32-36 [facility] Comment on above: Performed By: #### L 501.1105, L501.4100, L501.4405, L100.0500, L501.1400, L501.0900 #### [facility] [address] [place], [address] MCV (RBC) [Entitic vol] 82.6 fL Normal 81-99 [facility] Comment on above: Performed By: #### L 501.1105, L501.4100, L501.4405, L100.0500, L501.1400, L501.0900 #### [facility] [address] [place], [address] Platelet mean volume (Bld) [Entitic vol] 9.6 fL Normal 6.2-12.0 [facility] Comment on above: Performed By: #### L 501.1105, L501.4100, L501.4405, L100.0500, L501.1400, L501.0900 #### [facility] [address] [place], [address] Platelets (Bld) [#/Vol] 335 10*3/uL Normal 150-450 [facility] Comment on above: Performed By: #### L 501.1105, L501.4100, L501.4405, L100.0500, L501.1400, L501.0900 #### [facility] [address] [place], [address] RBC (Bld) [#/Vol] 4.30 10*6/uL Normal 4.2-5.4 [facility] Comment on above: Performed By: #### L 501.1105, L501.4100, L501.4405, L100.0500, L501.1400, L501.0900 #### [facility] [address] [place], [address] RDW SD 40.4 fl Normal 35.1-43.9 [facility] Comment on above: Performed By: #### L 501.1105, L501.4100, L501.4405, L100.0500, L501.1400, L501.0900 #### [facility] [address] [place], [address] WBC (Bld) [#/Vol] 16.0 10*3/uL High 4.4-11.0 [facility] Comment on above: Performed By: #### L 501.1105, L501.4100, L501.4405, L100.0500, L501.1400, L501.0900 #### [facility] [address] [place], [address] CMPon 02-17-2025 Albumin Level 2.3 G/dL Low 3.5-5.0 [facility] Comment on above: Performed By: #### C MP, CBC, ADIFF, GFR, ANEU, URIC #### [address] [address] Albumin/Globulin [Mass ratio] 0.5 {ratio} Low 1.1-2.5 [facility] Comment on above: Performed By: #### C MP, CBC, ADIFF, GFR, ANEU, URIC #### [address] [address] ALP [Catalytic activity/Vol] 139 U/L High 40-135 [facility] Comment on above: Performed By: #### C MP, CBC, ADIFF, GFR, ANEU, URIC #### [address] [address] ALT [Catalytic activity/Vol] 21 U/L Normal 14-59 [facility] Comment on above: Performed By: #### C MP, CBC, ADIFF, GFR, ANEU, URIC #### [address] [address] AST [Catalytic activity/Vol] 17 U/L Normal 10-40 [facility] Comment on above: Performed By: #### C MP, CBC, ADIFF, GFR, ANEU, URIC #### [address] [address] Bili Total 0.2 mg/dL Normal 0.2-1.0 [facility] Comment on above: Result Comment: Use of this assay is not recommended for patients undergoing treatment with eltrombopag due to the potential for falsely elevated results. Performed By: #### C MP, CBC, ADIFF, GFR, ANEU, URIC #### [place] [address] BUN/Creatinine Ratio 14 ratio Normal 7-27 [facility] Comment on above: Performed By: #### C MP, CBC, ADIFF, GFR, ANEU, URIC #### [address] [address] Calcium [Mass/Vol] 8.7 mg/dL Normal 8.4-10.2 [facility] Comment on above: Performed By: #### C MP, CBC, ADIFF, GFR, ANEU, URIC #### [address] [address] Chloride [Moles/Vol] 106 mmol/L Normal 98-107 [facility] Comment on above: Performed By: #### C MP, CBC, ADIFF, GFR, ANEU, URIC #### [address] [address] CO2 [Moles/Vol] 25 mmol/L Normal 22-29 [facility] Comment on above: Performed By: #### C MP, CBC, ADIFF, GFR, ANEU, URIC #### [address] [address] Creatinine [Mass/Vol] 0.58 mg/dL Normal 0.51-0.95 [facility] Comment on above: Performed By: #### C MP, CBC, ADIFF, GFR, ANEU, URIC #### [address] [address] Electrolyte Balance 9.0 mEq/L Normal 4.0-15.0 [facility] Comment on above: Performed By: #### C MP, CBC, ADIFF, GFR, ANEU, URIC #### [address] [address] Globulin 4.4 G/dL Normal 2.7-4.4 [facility] Comment on above: Performed By: #### C MP, CBC, ADIFF, GFR, ANEU, URIC #### [address] [address] Glucose [Mass/Vol] 121 mg/dL High 70-105 [facility] Comment on above: Performed By: #### C MP, CBC, ADIFF, GFR, ANEU, URIC #### [address] [address] Potassium [Moles/Vol] 3.5 mmol/L Normal 3.5-5.1 [facility] Comment on above: Performed By: #### C MP, CBC, ADIFF, GFR, ANEU, URIC #### [address] [address] Sodium [Moles/Vol] 140 mmol/L Normal 136-145 [facility] Comment on above: Performed By: #### C MP, CBC, ADIFF, GFR, ANEU, URIC #### [address] [address] Total Protein 6.7 G/dL Normal 6.4-8.2 [facility] Comment on above: Performed By: #### C MP, CBC, ADIFF, GFR, ANEU, URIC #### [address] [address] Urea nitrogen [Mass/Vol] 8 mg/dL Normal 7-18 [facility] Comment on above: Performed By: #### C MP, CBC, ADIFF, GFR, ANEU, URIC #### Mika [address] [address] [facility] 02-17-2025 CNPN Telephone (OBGYWM) DAVID FRAGASHAILA ([id number]) 1985 F TU Date Time Provider Department 02/17/25 LUANA WHALEY During your visit today, we recorded the following information about you: Cris Lucero RN 02/17/2025 10:34 AM Signed 31w4d Patient's mother called. States patient went to ER last night for an ear infection and was instructed to be seen in our office today for elevated BP. Patient was not with mother and mother unsure which ER. Updated CareEverywhere for Mika since patient lives in [place]. ER report is available. BPs 170/107 and 170/110 noted in the charting. No openings with any providers. Please advise where patient can be added. Patient speaks Bhutanese. Mother states that we can call her to schedule: [phone] FATMATA Casanova Jessica, APRN.CN 02/17/2025 11:10 AM Signed Please send patient to [facility] for monitoring. I would like serial blood pressures, labs, and observation due to elevated BP in ED. Thank you, Luana Whaley APRN.CNIsela Ley RN 02/17/2025 11:18 AM Signed Patients mother called and notified and have patient go to [facility]. LANDD called and notified. Updated HANDP faxed. Isela Moran RN Allergies As of Date: 02/17/2025 (No Known Allergies) Date Reviewed: 02/13/2025 Reviewed by: Valentina Dillon MA - Fully Assessed Reason for Visit: OB Elevated BP [Other] Prescriptions as of 02/17/2025 - aspirin, enteric coated (ECOTRIN LOW STRENGTH) 81 mg EC tablet Take 1 tablet by mouth once daily. - vitamins no.2 ( VITAMIN NO.2 ORAL) Take by mouth once daily. Problem List As Of Date 02/17/2025 Noted Resolved Supervision of normal intrauterine in*11/18/2024 Language barrier [Z60.3, Z75.8] 11/18/2024 Late care [O09.30] 11/18/2024 Rh negative state in antepartum period [O26.899*11/21/2024 Previous section [Z98.891] 01/27/2025 Obesity in (HCC) [O99.210] 01/27/2025 Encounter Status:Closed by ISELA MORAN on 02/17/25 Normal [facility] Erythrocyte distribution wid th ratioOrdered By: Luana Whaley on 02-17-2025 Erythrocyte distribution width (RBC) [Ratio] 13.4 % 11.6-14.6 [facility] Erythrocyte distribution wid th standard deviationOrdered By: Luana Whaley on 02-17-2025 Erythrocyte distribution width (RBC) [Ratio] 40.4 fl 35.1-43.9 [facility] Glomerular filtration rate ( GFR) estimation/1.73 sq m using serum, plasma, or whole bOrdered By: Luana Whaley on 02-17-2025 GFR/1.73 sq M.predicted among non-blacks MDRD (S/P/Bld) [Vol rate/Area] 121 mL/min/{1.73_m2} >60 [facility] Comment on above: mL/min/1.73m2 CKD-EP I Creatinine Equation (2020) Hematocrit Auto (Bld) [Volum e fraction]Ordered By: Luana Whaley on 02-17-2025 Hematocrit (Bld) [Volume fraction] 35.5 % Low 37-47 [facility] Hemoglobin measurementOrdere d By: Luana Whaley on 02-17-2025 Hemoglobin (Bld) [Mass/Vol] 11.8 g/dL Low 12.0-15.0 [facility] LABORATORYOrdered By: Mariann More on 02-17-2025 ABO and Rh group Nom (Bld) Blood group O Rh(D) negative Invalid Interpretation Code AO BB Auto SS Blood group antibody screen Ql Positive ABSC (02/17/25 12:53 AM) Normal AO BB Auto SS Creatinine (U) [Mass/Vol] 42.8 mg/dL Normal 29.0 - 226.0 mg/dL AO ADM SS Protein (U) [Mass/Vol] 15 mg/dL Invalid Interpretation Code AO ADM SS U Ratio Prot/Creat 0.4 ratio Invalid Interpretation Code AO Chemistry S LABORATORYOrdered By: Kadi Manley on 02-17-2025 Indirect antiglobulin test.IgG specific reagent Ql Negative (02/17/25 12:53 AM) Normal AH BB Manual SS Passive Anti-D Invalid Interpretation Code AH BB Manual SS LABORATORYOrdered By: [facility] on 02-17-2025 Albumin BCP dye [Mass/Vol] 2.3 G/dL Low 3.5 - 5.0 G/dL AO ADM SS Albumin/Globulin [Mass ratio] 0.5 {ratio} Low 1.1 - 2.5 ratio AO ADM SS ALP [Catalytic activity/Vol] 139 U/L High 40 - 135 U/L AO ADM SS ALT With P-5'-P [Catalytic activity/Vol] 21 U/L Normal 14 - 59 U/L AO ADM SS AST With P-5'-P [Catalytic activity/Vol] 17 U/L Normal 10 - 40 U/L AO ADM SS Basophils (Bld) [#/Vol] 0.0 103/mcL Normal 0.0 - 0.3 10^3/mcL AO Workflow SS Basophils/100 WBC (Bld) 0.2 % Normal 0.0 - 2.5 % AO Workflow SS Bilirubin [Mass/Vol] 0.2 mg/dL Normal 0.2 - 1 .0 mg/dL AO ADM SS Comment on above: Interpretive Data: U se of this assay is not recommended for patients undergoing treatment with eltrombopag due to the potential for falsely elevated results. Calcium [Mass/Vol] 8.7 mg/dL Normal 8.4 - 10. 2 mg/dL AO ADM SS Chloride [Moles/Vol] 106 mmol/L Normal 98 - 10 7 mmol/L AO ADM SS CO2 [Moles/Vol] 25 mmol/L Normal 22 - 29 mmol/L AO ADM SS Creatinine [Mass/Vol] 0.58 mg/dL Normal 0.51 - 0.95 mg/dL AO ADM SS Electrolyte Balance 9.0 mEq/L Normal 4.0 - 15 .0 mEq/L AO ADM SS Eosinophil, Absolute 0.0 103/mcL Normal 0.0 - 0 .7 10^3/mcL AO Workflow SS Eosinophils/100 WBC (Bld) 0.4 % Normal 0.0 - 6.0 % AO Workflow SS Erythrocyte distribution width (RBC) [Ratio] 13.4 % Normal 11.5 - 15.5 % AO Workflow SS Estimated Glomerular Filtration Rate 117 ml/min/1.73sqm Invalid Interpretation Code AO Chemistry S Comment on above: Interpretive Data: Stages of Chronic Kidney Disease (CKD) Stage Description eGFR(ml/min/1.73 sq.m.) CKD 1 Normal kidney function or >=90 normal kindney function with possible kidney damage (ex. Proteinuria) CKD 2 Kidney damage with mild loss 60-89 of kidney function CKD 3a Mild to moderate loss of kidney 45-59 function CKD 3b Moderate to severe loss of 30-44 of kindey function CKD 4 Severe loss of kidney function 15-29 CKD 5 Kidney failure <15 Note: (go live 2024) the eGFR calculation was updated to the 2020 CKD-EPI creatinine equation without a race factor to calculate the eGFR results. Globulin 4.4 G/dL Normal 2.7 - 4.4 G/dL AO ADM SS Glucose [Mass/Vol] 121 mg/dL High 70 - 105 mg/dL AO ADM SS Hematocrit (Bld) [Volume fraction] 35.1 % Normal 34.0 - 46.0 % AO Workflow SS Hemoglobin (Bld) [Mass/Vol] 12.2 G/dL Normal 12.0 - 16.0 G/dL AO Workflow SS Lymphocytes (Bld) [#/Vol] 1.2 103/mcL Normal 0.9 - 4.3 10^3/mcL AO Workflow SS Lymphocytes/100 WBC (Bld) 8.7 % Low 20.0 - 40.0 % AO Workflow SS MCH (RBC) [Entitic mass] 27.9 pg Normal 27.0 - 33.0 pg AO Workflow SS MCHC 34.9 G/dL Normal 32.0 - 36.0 G/dL AO Workflow SS MCV (RBC) [Entitic vol] 80.1 fL Normal 80.0 - 99.0 fL AO Workflow SS Monocytes (Bld) [#/Vol] 1.0 103/mcL Normal 0.1 - 1.4 10^3/mcL AO Workflow SS Monocytes/100 WBC (Bld) 7.4 % Normal 2.0 - 13.0 % AO Workflow SS Neutrophils (Bld) [#/Vol] 11.7 103/mcL High 2.3 - 8.1 10^3/mcL AO Workflow SS Neutrophils/100 WBC (Bld) 83.0 % High 50.0 - 75.0 % AO Workflow SS Platelet mean volume (Bld) [Entitic vol] 7.6 fL Normal 6.6 - 10.5 fL AO Workflow SS Platelets (Bld) [#/Vol] 341 103/mcL Normal 150 - 450 10^3/mcL AO Workflow SS Potassium [Moles/Vol] 3.5 mmol/L Normal 3.5 - 5.1 mmol/L AO ADM SS Protein [Mass/Vol] 6.7 G/dL Normal 6.4 - 8.2 G/dL AO ADM SS RBC (Bld) [#/Vol] 4.38 106/mcL Normal 4.10 - 5.3 0 10^6/mcL AO Workflow SS Sodium [Moles/Vol] 140 mmol/L Normal 136 - 145 mmol/L AO ADM SS Urea nitrogen [Mass/Vol] 8 mg/dL Normal 7 - 18 mg/dL AO ADM SS Urea nitrogen/Creatinine [Mass ratio] 14 ratio Normal 7 - 27 ratio AO ADM SS Uric Acid Lvl 4.8 mg/dL Normal 2.6 - 6.2 mg/dL AO ADM SS WBC (Bld) [#/Vol] 14.1 103/mcL High 4.5 - 10.8 10^3/mcL AO Workflow SS Laboratory - Chemistry and C hemistry - challengeOrdered By: Luana Whaely on 02-17-2025 AST [Catalytic activity/Vol] 15 U/L <32 [facility] MCV (mean corpuscular volume ) determinationOrdered By: Luana Whaley on 02-17-2025 MCV (RBC) [Entitic vol] 82.6 fL 81-99 [facility] Mean corpuscular hemoglobin (MCH) determinationOrdered By: Luana Whaley on 02-17-2025 MCH (RBC) [Entitic mass] 27.4 pg 27.0-32.0 [facility] Mean corpuscular hemoglobin concentration (MCHC) determinationOrdered By: Luana Whaley on 02-17-2025 MCHC (RBC) [Mass/Vol] 33.2 g/dL 32-36 [facility] Mean platelet volume determi nationOrdered By: Luana Whaley on 02-17-2025 Platelet mean volume (Bld) [Entitic vol] 9.6 fL 6.2-12.0 [facility] OB Triage Physician Noteon 0 02-17-2025 OB Triage Physician Note [facility] Medical Records Department [address] [place] [address] OB Triage Physician Note 02/17/25 1633 MR#: [id number] Acct: [id number] Name: SHAILA HERNANDEZ Rep #: [id number] : 1985 40 From: Luana Whaley CNM PCP: Status:DEP CLI Y Location: [facility] HPI - General HPI Narrative SHAILA HERNANDEZ, is a 40 F who presents for elevated blood pressure. Seen at [place] ED for otitis media. BP was noted to be elevated 170/107 and 170/110. Asymptomatic. Sent to [facility] today for labs and BP monitoring. Denies headache, visual changes, chest pain, ruq abdominal pain or other concerns. PFSH PFS Home Medications ???Medication ???Instructions ???Recorded ???Last Taken ???Type aspirin 81 mg capsule 81 mg PO DAILY 02/17/25 Unknown Hi story Allergy/AdvReac Type Severity Reaction Status Date / Time No Known Allergies Allergy Verified 02/17/25 15:03 ROS Constitutional Constitutional: Reports systems reviewed and no addt'l complaints, except as documented; Denies headache(s) Eyes Eyes: Denies acute decrease in peripheral vision, blurry vision or change in vision ENT HEENT: Reports systems reviewed and no addt'l complaints, except as documented Cardiovascular Cardiovascular: Denies chest pain or dizziness Respiratory/Chest Respiratory/Chest: Denies cough, dyspnea, dyspnea on exertion, shortness of breath at rest or shortness of breath with exertion Gastrointestinal Gastrointestinal: Denies abdominal pain, diarrhea, nausea or vomiting Genitourinary Genitourinary: Denies abdominal discomfort Musculoskeletal Musculoskeletal: Denies limited range of motion Integumentary Integumentary: Reports systems reviewed and no addt'l complaints, except as documented Neurologic Neurologic: Reports systems reviewed and no addt'l complaints, except as documented Psychiatric Psychiatric: Reports systems reviewed and no addt'l complaints, except as documented Endocrine Endocrinology: Reports systems reviewed and no addt'l complaints, except as documented Hematologic/Lymphatic Hematologic/Lymphatic: Reports systems reviewed and no addt'l complaints, except as documented Allergic/Immunologic Allergic/Immunologic: Reports systems reviewed and no addt'l complaints, except as documented Physical Exam Const alert and oriented x3 General Appearance: cooperative Orientation / Consciousness: awake, oriented to person, oriented to place and oriented to time Exam Limitations: no limitations HEENT normocephalic Head and Scalp: normal to inspection, normocephalic and atraumatic Face and Sinus: normal facial exam Eyes General Eye: normal appearance of both eyes Neck full ROM Chest Chest: symmetrical chest wall rise Resp normal respiratory effort and normal air movement Auscultation: clear to auscultation bilaterally Cardio regular rate, regular rhythm, S1 normal heart sound, S2 normal heart sound, no murmurs, no rub, no gallops and no clicks GI normal to inspection, nondistended, normoactive bowel sounds and non-tender appearance of the vagina normal Bladder / Kidney Exam: no CVA tenderness Back/Spine normal ROM Extremity normal to inspection and full ROM Skin no rashes or lesions noted Neuro oriented x3, CN's II-XII intact bilaterally and moves all extremities Sensorium / Orientation: awake, alert and oriented to person Motor Exam: clonus absent Deep Tendon Reflexes: Rt Patellar (L4): 2+ and Lt Patellar (L4): 2+ Assessment Plan (1) Gestational hypertension: (2) 31 weeks gestation of : PLAN: Plan 1) Upon arrival BP most within in normal range, few elevated 140s/90s. Gestational HTN diagnosis, two elevated BP >6hr apart. No proteinuria or signs of preeclampsia at this time. Has appointment in 2 days. 2) To get BP cuff and check BP daily, bring log to visit 3) Signs and symptoms of preeclampsia reviewed and when to call. 4) D/C home 02/19/25 0946 Date Luana Whaley CN Cosigner Signature (if applicable): Date CC: DANYA Luanaant Whaley Signed Normal [facility] Platelet countOrdered By: Jacques deeseamus Judd on 02-17-2025 Platelets (Bld) [#/Vol] 335 10*3/uL 150-450 [facility] Protein+Creatinine Ratio,Uri neon 02-17-2025 PROT:CRE RATIO 195 mg/g CRE Normal 0-200 [facility] Comment on above: Performed By: #### L 501.1105, L501.4100, L501.4405, L100.0500, L501.1400, L501.0900 #### [facility] [address] [place], [address] Protein (U) [Mass/Vol] 28.1 mg/dL High 0.0-12.0 [facility] Comment on above: Performed By: #### L 501.1105, L501.4100, L501.4405, L100.0500, L501.1400, L501.0900 #### [facility] [address] [place], [address] UR CREAT 144.00 mg/dL Normal 28.00-217.00 [facility] Comment on above: Performed By: #### L 501.1105, L501.4100, L501.4405, L100.0500, L501.1400, L501.0900 #### [facility] [address] [place], [address] RBC Auto (Bld) [#/Vol]Ordere d By: Luana Whaley on 02-17-2025 RBC (Bld) [#/Vol] 4.30 10*6/uL 4.2-5.4 [facility] RPCURon 02-17-2025 U Creatinine 42.8 mg/dL Normal 29.0-226.0 [facility] Comment on above: Performed By: #### A BRIAN ABSDANIEL #### [address] [address] #### AUTOC, ANTID #### [facility] [address] [place] [address] U Protein 15 mg/dL Normal [facility] Comment on above: Performed By: #### A BRIAN ABSGEL #### [address] [address] #### AUTOC, ANTID #### [facility] [address] [place] [address] U Ratio Prot/Creat 0.4 ratio Normal [facility] Comment on above: Performed By: #### A BRIAN ABSGEL #### [address] [address] #### AUTOC, ANTID #### [address] [address] Random urine creatinine mattie urement (mass/volume)Ordered By: Luana Whaley on 02-17-2025 Creatinine Unsp time (U) [Mass/Vol] 144.00 mg/dL 28.00-217.00 [facility] Serum Creatinine AND GFRon 0 02-17-2025 Creatinine [Mass/Vol] 0.50 mg/dL Low 0.70-1.20 [facility] Comment on above: Performed By: #### L 501.1105, L501.4100, L501.4405, L100.0500, L501.1400, L501.0900 #### [facility] [address] [place], [address] ECRCL 163.96 ml/min Normal 50-250 [facility] Comment on above: Performed By: #### L 501.1105, L501.4100, L501.4405, L100.0500, L501.1400, L501.0900 #### [facility] [address] [place], [address] GFR/1.73 sq M.predicted among non-blacks MDRD (S/P/Bld) [Vol rate/Area] 121 mL/min/{1.73_m2} Normal >60 [facility] Comment on above: Result Comment: mL/m in/1.73m2 CKD-EPI Creatinine Equation (2020) Performed By: #### L 501.1105, L501.4100, L501.4405, L100.0500, L501.1400, L501.0900 #### [facility] [address] [facility] [place], [place], [id number] Serum creatinine measurement (mass/volume)Ordered By: Luana Whaley on 02-17-2025 Creatinine [Mass/Vol] 0.50 mg/dL Low 0.70-1.20 [facility] Serum or plasma alanine gomez otransferase (ALT) measurementOrdered By: Luana Whaley on 02-17-2025 ALT [Catalytic activity/Vol] 12 U/L <35 [facility] Serum or plasma uric acid me asurement (mass/volume)Ordered By: Luana Whaley on 02-17-2025 Urate [Mass/Vol] 4.6 mg/dL 2.6-6.0 [facility] Comment on above: The drugs N-Acetylcy steine and Metamizole may falsely depress this assay. URICon 02-17-2025 Uric Acid Lvl 4.8 mg/dL Normal 2.6-6.2 [facility] Comment on above: Performed By: #### C MP, CBC, ADIFF, GFR, ANEU, URIC #### [place] [address] [place], [place] [address] Uric Acidon 02-17-2025 URIC 4.6 mg/dL Normal 2.6-6.0 [facility] Comment on above: Result Comment: The drugs N-Acetylcysteine and Metamizole may falsely depress this assay. Performed By: #### L 501.1105, L501.4100, L501.4405, L100.0500, L501.1400, L501.0900 #### [facility] [address] [place], [address] Urine protein measurement (m ass/volume)Ordered By: Luana Judd on 02-17-2025 Protein (U) [Mass/Vol] 28.1 mg/dL High 0.0-12.0 [facility] Urine protein/creatinine mas s ratioOrdered By: Luanaant Whaley on 02-17-2025 Protein/Creatinine (U) [Mass ratio] 195 mg/g CRE 0-200 [facility] White blood cell (WBC) count Ordered By: Luana Judd on 02-17-2025 WBC (Bld) [#/Vol] 16.0 10*3/uL High 4.4-11.0 [facility] CNPNon 02-08-2025 CNPN Telephone (OBGYWM) SHAILA KELSEY ([id number]) 1985 F TU Date Time Provider Department 02/08/25 YISSEL CUELLO During your visit today, we recorded the following information about you: Raji Draper, RN 02/08/2025 9:15 AM Signed Medical records received from [facility] 2014. Appears that operative delivery report was not included-not asked for. I called [facility] medical records (O Records Release) [phone] and have requested for them to send records. Next appointment 02/[address] Jaramillo. Records to DM for review since next appointment with her and MIR out of office Allergies As of Date: 02/08/2025 (No Known Allergies) Date Reviewed: 01/27/2025 Reviewed by: Harpal Nagy MA - Fully Assessed Reason for Visit: Received Outside Medical Records [3802] Prescriptions as of 02/08/2025 - aspirin, enteric coated (ECOTRIN LOW STRENGTH) 81 mg EC tablet Take 1 tablet by mouth once daily. - vitamins no.2 ( VITAMIN NO.2 ORAL) Take by mouth once daily. Problem List As Of Date 02/08/2025 Noted Resolved Supervision of normal intrauterine in*11/18/2024 Language barrier [Z60.3, Z75.8] 11/18/2024 Late care [O09.30] 11/18/2024 Rh negative state in antepartum period [O26.899*11/21/2024 Previous section [Z98.891] 01/27/2025 Obesity in (HCC) [O99.210] 01/27/2025 Encounter Status:Closed by RAJI DRAPER on 02/08/25 Normal [facility] CBC W Auto Differential pane l (Bld)on 01-27-2025 Basophils (Bld) [#/Vol] 0.06 10*3/uL Normal <0.11 [facility] Comment on above: Order Comment: Speci men Type: BLOOD SPECIMENOrdering Facility: [facility] Address: [address] [place] [address] Performed By: #### G BPCR #### [facility] CLIA [id number] [address] [place] [address] [place] Basophils/100 WBC (Bld) 0.4 % Normal [facility] Comment on above: Order Comment: Speci men Type: BLOOD SPECIMENOrdering Facility: [facility] Address: [address] [place] [address] Performed By: #### G BPCR #### [facility] CLIA [id number] [address] [place] [address] [place] Differential cell count method Nom (Bld) Auto Normal [facility] Comment on above: Order Comment: Speci men Type: BLOOD SPECIMENOrdering Facility: [facility] Address: [address] [place] [address] Performed By: #### G BPCR #### [facility] CLIA [id number] [address] [place] [address] [place] Eosinophils (Bld) [#/Vol] 0.12 10*3/uL Normal <0.46 [facility] Comment on above: Order Comment: Speci men Type: BLOOD SPECIMENOrdering Facility: [facility] Address: [address] [place] [address] Performed By: #### G BPCR #### [facility] CLIA [id number] [address] [place] [address] [place] [place] Eosinophils/100 WBC (Bld) 0.9 % Normal [facility] Comment on above: Order Comment: Speci men Type: BLOOD SPECIMENOrdering Facility: [facility] Address: [address] [place] [address] Performed By: #### G BPCR #### [facility] CLIA [id number] [address] [place] [address] [place] Erythrocyte distribution width (RBC) [Ratio] 13.4 % Normal 11.5-15.0 [facility] Comment on above: Order Comment: Speci men Type: BLOOD SPECIMENOrdering Facility: [facility] Address: [address] [place] [address] Performed By: #### G BPCR #### [facility] CLIA [id number] [address] [place] [address] [place] Hematocrit (Bld) [Volume fraction] 38.9 % Normal 36.0-46.0 [facility] Comment on above: Order Comment: Speci men Type: BLOOD SPECIMENOrdering Facility: [facility] Address: [address] [place] [address] Performed By: #### G BPCR #### [facility] CLIA [id number] [address] [place] [address] [place] Hemoglobin (Bld) [Mass/Vol] 12.7 g/dL Normal 11.5-15.5 [facility] Comment on above: Order Comment: Speci men Type: BLOOD SPECIMENOrdering Facility: [facility] Address: [address] [place] [address] Performed By: #### G BPCR #### [facility] CLIA [id number] [address] [place] [address] [place] Immature granulocytes (Bld) [#/Vol] 0.25 10*3/uL High <0.10 [facility] Comment on above: Order Comment: Speci men Type: BLOOD SPECIMENOrdering Facility: [facility] Address: [address] [place] [address] Performed By: #### G BPCR #### [facility] CLIA [id number] [address] [place] [address] [place] Immature granulocytes/100 WBC (Bld) 1.8 % Normal [facility] Comment on above: Order Comment: Speci men Type: BLOOD SPECIMENOrdering Facility: [facility] Address: [address] [place] [address] Performed By: #### G BPCR #### [facility] CLIA [id number] [address] [place] [address] [place] Lymphocytes (Bld) [#/Vol] 2.00 10*3/uL Normal 1.00-4.00 [facility] Comment on above: Order Comment: Speci men Type: BLOOD SPECIMENOrdering Facility: [facility] Address: [address] [place] [address] Performed By: #### G BPCR #### [facility] CLIA [id number] [address] [place] [address] [place] Lymphocytes/100 WBC (Bld) 14.5 % Normal [facility] Comment on above: Order Comment: Speci men Type: BLOOD SPECIMENOrdering Facility: [facility] Address: [address] [place] [address] Performed By: #### G BPCR #### [facility] CLIA [id number] [address] [place] [address] [place] MCH (RBC) [Entitic mass] 27.4 pg Normal 26.0-34.0 [facility] Comment on above: Order Comment: Speci men Type: BLOOD SPECIMENOrdering Facility: [facility] Address: [address] [place] [address] Performed By: #### G BPCR #### [facility] CLIA [id number] [address] [place] [address] [place] MCHC (RBC) [Mass/Vol] 32.6 g/dL Normal 30.5-36.0 [facility] Comment on above: Order Comment: Speci men Type: BLOOD SPECIMENOrdering Facility: [facility] Address: [address] [place] [address] Performed By: #### G BPCR #### [facility] CLIA [id number] [address] [place] [address] [place] MCV (RBC) [Entitic vol] 84.0 fL Normal 80.0-100.0 [facility] Comment on above: Order Comment: Speci men Type: BLOOD SPECIMENOrdering Facility: [facility] Address: [address] [place] [address] Performed By: #### G BPCR #### [facility] CLIA [id number] [address] [place] [address] [place] Monocytes (Bld) [#/Vol] 1.14 10*3/uL High <0.87 [facility] Comment on above: Order Comment: Speci men Type: BLOOD SPECIMENOrdering Facility: [facility] Address: [address] [place] [address] Performed By: #### G BPCR #### [facility] CLIA [id number] [address] [place] [address] [place] Monocytes/100 WBC (Bld) 8.3 % Normal [facility] Comment on above: Order Comment: Speci men Type: BLOOD SPECIMENOrdering Facility: [facility] Address: [address] [place] [address] Performed By: #### G BPCR #### [facility] CLIA [id number] [address] [place] [address] [place] Neutrophils (Bld) [#/Vol] 10.20 10*3/uL High 1.45-7.50 [facility] Comment on above: Order Comment: Speci men Type: BLOOD SPECIMENOrdering Facility: [facility] Address: [address] [place] [address] Performed By: #### G BPCR #### [facility] CLIA [id number] [address] [place] [address] [place] Neutrophils/100 WBC (Bld) 74.1 % Normal [facility] Comment on above: Order Comment: Speci men Type: BLOOD SPECIMENOrdering Facility: [facility] Address: [address] [place] [address] Performed By: #### G BPCR #### [facility] CLIA [id number] [address] [place] [address] [place] Nucleated RBC (Bld) [#/Vol] 10*3/uL Normal <0.01 [facility] Comment on above: Order Comment: Speci men Type: BLOOD SPECIMENOrdering Facility: [facility] Address: [address] [place] [address] Performed By: #### G BPCR #### [facility] CLIA [id number] [address] [place] [address] [place] Nucleated RBC/100 WBC (Bld) [Ratio] 0.0 /100 WBC Normal [facility] Comment on above: Order Comment: Speci men Type: BLOOD SPECIMENOrdering Facility: [facility] Address: [address] [place] [address] Performed By: #### G BPCR #### [facility] CLIA [id number] [address] [place] [address] [place] Platelet mean volume (Bld) [Entitic vol] 9.3 fL Normal 9.0-12.7 [facility] Comment on above: Order Comment: Speci men Type: BLOOD SPECIMENOrdering Facility: [facility] Address: [address] [place] [address] Performed By: #### G BPCR #### [facility] CLIA [id number] [address] [place] [address] [place] Platelets (Bld) [#/Vol] 336 10*3/uL Normal 150-400 [facility] Comment on above: Order Comment: Speci men Type: BLOOD SPECIMENOrdering Facility: [facility] Address: [address] [place] [address] Performed By: #### G BPCR #### [facility] CLIA [id number] [address] [place] [address] [place] RBC (Bld) [#/Vol] 4.63 10*6/uL Normal 3.90-5.20 [facility] Comment on above: Order Comment: Speci men Type: BLOOD SPECIMENOrdering Facility: [facility] Address: [address] [place] [address] Performed By: #### G BPCR #### [facility] CLIA [id number] [address] [place] [address] [place] WBC (Bld) [#/Vol] 13.77 10*3/uL High 3.70-11.00 [facility] Comment on above: Order Comment: Speci men Type: BLOOD SPECIMENOrdering Facility: [facility] Address: [address] [place] [address] Performed By: #### G BPCR #### [facility] CLIA [id number] [address] [place] [address] [place] GESTATIONAL GLUCOSE SCREEN, 1-HOUR, 50 GRAM, NON-FASTINGon 01-27-2025 Glucose [Mass/Vol] 98 mg/dL Normal 74-134 [facility] Comment on above: Order Comment: Speci men Type: BLOOD SPECIMENOrdering Facility: [facility] Address: [address] [place] [address] Result Comment: [facility] Congress of Obstetricians and Gynecologists (Seth/Alejandro) guidelines state a gestational diabetes mellitus positive screen is made, in women not previously diagnosed with overt diabetes, when the 1 hr plasma glucose level is equal to or above 140 mg/dL. The [facility] recommends a 135 mg/dL cutoff. Performed By: #### G LTGST ####[facility]IA [id number] [place] [id number] [place] Reagin and Treponema pallidu m IgG and IgM [Interp]on 01-27-2025 T. pallidum IgG+IgM IA Ql (S) Non-Reactive Normal Nonreactive [facility] Comment on above: Order Comment: Speci men Type: BLOOD SPECIMENOrdering Facility: [facility] Address: [address] [place] [address] Performed By: #### 7 3752-8 ####[facility] [id number] [place] [id number] [place] Reagin+T pallidum IgG+IgM Se rPl-Impon 01-27-2025 Reagin and Treponema pallidum IgG and IgM [Interp] Cannot exclude recent Treponemal infection if specimen collected within 7-10 days after appearance of suspect lesions or 2-3 weeks after an exposure. Clinical correlation is required. Normal [facility] Comment on above: Order Comment: Speci men Type: BLOOD SPECIMENOrdering Facility: [facility] Address: [address] [place] [address] Performed By: #### 7 3752-8 ####[facility] [id number] [place] [id number] [place] TYPE + SCREEN PRENATALon ABO O Normal [facility] Comment on above: Order Comment: Speci men Type: BLOOD SPECIMENOrdering Facility: [facility] Address: [address] [place] [address] Performed By: #### T SPN ####[facility] [id number] [address] Rh Nom (Bld) Negative Normal [facility] Comment on above: Order Comment: Speci men Type: BLOOD SPECIMENOrdering Facility: [facility] Address: [address] [place] [address] Performed By: #### T SPN ####[facility]CLIA [id number] [address] TYPE AND SCREEN EXPIRATION 01/30/2025 23:59 Normal [facility] Comment on above: Order Comment: Speci men Type: BLOOD SPECIMENOrdering Facility: [facility] Address: [address] [place] [address] Performed By: #### T SPN ####[facility]CLIA [id number] [address] [place] Examination level ultrasound on 12-02-2024 Indication Detailed anatomic survey Late care, Advanced maternal age, Maternal obesity, BMI >30 Impression REMOTE READ The patient is referred for a detailed anatomic survey. - Single, live, intrauterine . - biometry is consistent with the established gestational age. - No malformations were visualized on a complete detailed anatomic survey. - The amniotic fluid volume is normal amount. - The placenta is anterior, fundal. - The Transabdominal cervical length measures 35.3 mm with no evidence of funneling or other dynamic changes. - Not all structural malformations can be detected by ultrasound examination. Recommendations Additional follow-up as clinically indicated. Maternal Assessment Height 163 cm Height (ft) 5 ft Height (in) 4 in Physical Exam Initial weight (lb) 199 lb Initial BMI 34.16 kg/m Maternal assessment other: 4 Para 3 Method Transabdominal ultrasound examination. View: Adequate visualization Goddard . Number of fetuses: 1 Dating LMP on: 07/11/2024 GA by LMP 20 w + 4 d MARCO ANTONIO by LMP: 04/17/2025 Ultrasound examination on: 12/02/2024 GA by U/S based upon: AC, BPD, Femur, HC GA by U/S 21 w + 0 d MARCO ANTONIO by U/S: 04/14/2025 Assigned: based on the LMP, selected on 12/02/2024 Assigned GA 20 w + 4 d Assigned MARCO ANTONIO: 04/17/2025 General Evaluation Cardiac activity present. FHR 155 bpm. movements: present. Presentation: breech Placenta: Placental site: anterior, fundal Umbilical cord: Cord vessels: 3 vessel cord Amniotic fluid: Amount of AF: normal amount. MVP 5.9 cm Growth Overview Exam date GA BPD (mm) HC (mm) AC (mm) FL (mm) HL (mm) EFW (g) 12/02/2024 20w 4d 49.2 63% 187.4 65% 157.5 55% 35.5 85% 32.1 56% 394 69% Biometry Standard BPD 49.2 mm 20w 6d 63% Hadlock OFD 67.3 mm 21w 1d 92% Nicolaides HC 187.4 mm 21w 0d 65% Edwina Cerebellum tr 22.1 mm 20w 5d 74% Hill Nuchal fold 5.8 mm AC 157.5 mm 20w 6d 55% Hadlock Femur 35.5 mm 21w 3d 85% Edwina Humerus 32.1 mm 20w 5d 56% Edwina EFW 394 g 20w 6d 69% Hadlock EFW (lb) 0 lb EFW (oz) 14 oz EFW by: Hadlock (HC-AC-FL) Extended Stewarding Supervisor 7.0 mm CM 5.6 mm 65% Nicolaides Extremities / Bony Struc FL / HC 0.19 52% Hadlock Other Structures FHR 155 bpm Anatomy Cranium: normal Lateral ventricles: normal Choroid plexus: normal Midline falx: normal Cavum septi pellucidi: normal Cerebellum: normal Cisterna magna: normal Head / Neck Vermis: normal Neck: normal Nuchal fold: normal Lips: normal Profile: normal Nose: normal Face Maxilla: normal Mandible: normal Orbits: normal Lens: normal 4-chamber view: normal RVOT view: normal LVOT view: normal 3-vessel view: normal 3-vebtcu-vdunidg view: normal Heart / Thorax Situs: situs solitus (normal) Aortic arch view: normal SVC: normal IVC: normal Cardiac axis: normal Rt lung: normal Lt lung: normal Diaphragm: normal Cord insertion: normal Stomach: normal Kidneys: normal Bladder: normal Genitals: normal Abdomen Abdom. wall: normal Cervical spine: normal Thoracic spine: normal Lumbar spine: normal Sacral spine: normal Arms: normal Legs: normal Rt upper arm: normal Rt forearm: normal Rt hand: normal Rt fingers: normal Lt upper arm: normal Lt forearm: normal Lt hand: normal Lt fingers: normal Rt upper leg: normal Rt lower leg: normal Rt foot: normal Lt upper leg: normal Lt lower leg: normal Lt foot: normal sex: female Wants to know sex: yes Maternal Structures Uterus / Cervix Uterus: Visualized Cervix: Visualized Approach: Transabdominal Cervical length 35.3 mm Other: Patient declined transvaginal ultrasound for cervical length. Ovaries / Tubes / Adnexa Rt ovary: Visualized Lt ovary: Visualized Performed By: Isela Henry RDMS, RVT Read By: Jose Dong D.O. MATERNAL MEDICINE [facility] Radiology Study observation (narrative) [facility] 11-22-2024 CNPN Telephone (OBGYWM) SHAILA HERNANDEZ ([id number]) 1985 [facility] Date Time Provider Department 11/22/24 KATIE JERNIGAN OBMIA During your visit today, we recorded the following information about you: Candace Horta RN 11/22/2024 3:44 PM Signed Katie Jernigan APRN.MODE 11/22/24 3:28 PM +UTI, Keflex sent. Katie Jernigan APRN.Candace Read, FATMATA 11/22/2024 3:44 PM Signed Tried reaching Pt with clinical safety specialist assistance x2 and unable to leave a message as Pt has a voicemail box that has not been set up yet. [facility]. FATMATA Krishna Trisha, RN 11/24/2024 10:05 AM Signed Attempted to call patient with energy systems laboratory director. Phones goes straight to voicemail. Unable to leave message because voicemail has not been set up. Next appt is 12/02. Letter sent. FATMATA Otto Teresa, RN 11/28/2024 4:39 PM Signed Attempted to call patient at phone number listed with the help of Bhutanese interpretor ([phone]) and person answering stated she no longer was available at that number . I asked her if she knew Shaila and she said she did. I asked her to have Shaila call our office. the person answering did provide a new phone number for patient ([phone])and I did update that phone number. After 2 attempts same message received that voicemailbox had not been set up. Unable to leave message Raji Draper RN 11/30/2024 11:33 AM Signed I called Sean at [facility] in [place].Patient has not picked up RX yet . Raji Buckner RN 12/01/2024 4:22 PM Signed Patient called back with argentine interpretor and was told about UTI. Demographics updated . Unable to activate MyChart due to no SSN, but [place]utanese Interpretor was able to give her a phone number to call to talk to MyCHart specialist to help. Patient also given [place] appointment line phone number [phone] option 7 for [place] Allergies As of Date: 11/22/2024 (No Known Allergies) Date Reviewed: 11/18/2024 Reviewed by: Gema Thompson LPN - Fully Assessed Reason for Visit: Results [95] Prescriptions as of 12/01/2024 - aspirin, enteric coated (ECOTRIN LOW STRENGTH) 81 mg EC tablet Take 1 tablet by mouth once daily. - vitamins no.2 ( VITAMIN NO.2 ORAL) Take by mouth once daily. Problem List As Of Date 11/22/2024 Noted Resolved Supervision of normal intrauterine in*11/18/2024 Language barrier [Z60.3, Z75.8] 11/18/2024 Late care [O09.30] 11/18/2024 Rh negative state in antepartum period [O26.899*11/21/2024 Letter Text Encounter Status:Closed by RAJI DRAPER on 12/01/24 Normal [facility] Bacteria Ur Culton 5 Bacteria identified Cx Nom (U) CULTURE, URINE: Mixed microbiota, including predominantly: ORGANISM ID: 1 50,000-<100,000 CFU/ml Escherichia coli ORGANISM ID: 1 (ESCHERICHIA COLI) -- ANTIBIOTIC INTERPRETATION RYDER STATUS REFERENCE RANGE -- Ampicillin R >=32 F Susceptible <=8 , Intermediate >8 , Resistant >16 Cefazolin S <=4 F Susceptible 0-16 , Intermediate <0 or >16 , Resistant >16 For uncomplicated urinary tract infections, cefazolin results can be used to predict susceptibility or resistance to cephalexin. Ceftriaxone S <=1 F Susceptible <=1 , Intermediate >1 , Resistant >=4 Cefepime S <=1 F Susceptible <=2 , Susceptible-Dose Dependent >2 , Resistant >=16 Ertapenem S <=0.5 F Susceptible <=0.5 , Intermediate >.5 , Resistant >1 Meropenem S 1 F Susceptible <=1 , Intermediate >1 , Resistant >2 Ampicillin/Sulbact I 16 F Susceptible <=8 , Intermediate >8 , Resistant >16 Gentamicin S <=1 F Susceptible <=2 , Intermediate >2 , Resistant >=8 Tobramycin S <=1 F Susceptible <4 , Intermediate >=4 , Resistant >=8 Trimeth sulfameth R >=320 F Susceptible <=40 , Resistant >40 Ciprofloxacin I 0.5 F Susceptible <0.5 , Intermediate >=.5 , Resistant >=1 Nitrofurantoin S <=16 F Susceptible <=32 , Intermediate >32 , Resistant >64 Abnormal [facility] Comment on above: Performed By: #### T SPN #### [facility] CLIA [id number] [address] [place] [address] OF [facility] Performed By: #### 6 30-4 #### [facility] CLIA [id number] [address] [place] [address] [place] C. trachomatis+N. gonorrhoea e DNA ALEXIS+probe Ql (Unsp spec)on 11-18-2024 C. trachomatis rRNA ALEXIS+probe Ql (Unsp spec) Not detected Normal Not detected [facility] Comment on above: Order Comment: Speci men Type: BLOOD SPECIMEN [facility] Address: [address] [place] [address] Performed By: #### T SPN #### [facility] CLIA [id number] [address] [place] [address] [place] Order Comment: Speci men Type: SWABOrdering Facility: [facility] Address: [address] [place] [address] Performed By: #### G BPCR #### [facility] CLIA [id number] [address] [place] [address] OF [place] N. gonorrhoeae rRNA ALEXIS+probe Ql (Unsp spec) Not detected Normal Not detected [facility] Comment on above: Order Comment: Speci men Type: BLOOD SPECIMEN [facility] Address: [address] [place] [address] Performed By: #### T SPN #### [facility] CLIA [id number] [address] [place] [address] [place] Order Comment: Speci men Type: SWABOrdering Facility: [facility] Address: [address] [place] [address] Performed By: #### G BPCR #### [facility] CLIA [id number] [address] [place], [place] [address] [address] [place] CBC W Auto Differential pane l (Bld)on 11-18-2024 Basophils (Bld) [#/Vol] 0.06 10*3/uL Normal <0.11 [facility] Comment on above: Order Comment: Speci men Type: BLOOD SPECIMENOrdering Facility: [facility] Address: [address] [place] [address] Performed By: #### 5 7021-8 ####[facility] [id number] [place] [address] [place] Basophils/100 WBC (Bld) 0.5 % Normal [facility] Comment on above: Order Comment: Speci men Type: BLOOD SPECIMENOrdering Facility: [facility] Address: [address] [place] [address] Performed By: #### 5 7021-8 ####[facility] [id number] [place] [address] [place] Differential cell count method Nom (Bld) Auto Normal [facility] Comment on above: Order Comment: Speci men Type: BLOOD SPECIMENOrdering Facility: [facility] Address: [address] [place] [address] Performed By: #### 5 7021-8 ####[facility] [id number] [place] [address] [place] Eosinophils (Bld) [#/Vol] 0.11 10*3/uL Normal <0.46 [facility] Comment on above: Order Comment: Speci men Type: BLOOD SPECIMENOrdering Facility: [facility] Address: [address] [place] [address] Performed By: #### 5 7021-8 ####[facility] [id number] [place] [address] [place] Eosinophils/100 WBC (Bld) 0.9 % Normal [facility] Comment on above: Order Comment: Speci men Type: BLOOD SPECIMENOrdering Facility: [facility] Address: [address] [place] [address] Performed By: #### 5 7021-8 ####[facility] [id number] [place] [address] [place] Erythrocyte distribution width (RBC) [Ratio] 14.3 % Normal 11.5-15.0 [facility] Comment on above: Order Comment: Speci men Type: BLOOD SPECIMENOrdering Facility: [facility] Address: [address] [place] [address] Performed By: #### 5 7021-8 ####[facility] [id number] [place] [address] [place] Hematocrit (Bld) [Volume fraction] 40.6 % Normal 36.0-46.0 [facility] Comment on above: Order Comment: Speci men Type: BLOOD SPECIMENOrdering Facility: [facility] Address: [address] [place] [address] Performed By: #### 5 7021-8 ####[facility] [id number] [place] [address] [place] Hemoglobin (Bld) [Mass/Vol] 13.6 g/dL Normal 11.5-15.5 [facility] Comment on above: Order Comment: Speci men Type: BLOOD SPECIMENOrdering Facility: [facility] Address: [address] [place] [address] Performed By: #### 5 7021-8 ####[facility] [id number] [place] [address] [place] Immature granulocytes (Bld) [#/Vol] 0.11 10*3/uL High <0.10 [facility] Comment on above: Order Comment: Speci men Type: BLOOD SPECIMENOrdering Facility: [facility] Address: [address] [place] [address] Performed By: #### 5 7021-8 ####[facility] [id number] [place] [address] [place] Immature granulocytes/100 WBC (Bld) 0.9 % Normal [facility] Comment on above: Order Comment: Speci men Type: BLOOD SPECIMENOrdering Facility: [facility] Address: [address] [place] [address] Performed By: #### 5 7021-8 ####[facility] [id number] [place] [address] [place] Lymphocytes (Bld) [#/Vol] 1.90 10*3/uL Normal 1.00-4.00 [facility] Comment on above: Order Comment: Speci men Type: BLOOD SPECIMENOrdering Facility: [facility] Address: [address] [place] [address] Performed By: #### 5 7021-8 ####[facility] [id number] [place] [address] [place] Lymphocytes/100 WBC (Bld) 16.3 % Normal [facility] Comment on above: Order Comment: Speci men Type: BLOOD SPECIMENOrdering Facility: [facility] Address: [address] [place] [address] Performed By: #### 5 7021-8 ####[facility] [id number] [place] [address] [place] MCH (RBC) [Entitic mass] 27.8 pg Normal 26.0-34.0 [facility] Comment on above: Order Comment: Speci men Type: BLOOD SPECIMENOrdering Facility: [facility] Address: [address] [place] [address] Performed By: #### 5 7021-8 ####[facility] [id number] [place] [address] [place] MCHC (RBC) [Mass/Vol] 33.5 g/dL Normal 30.5-36.0 [facility] Comment on above: Order Comment: Speci men Type: BLOOD SPECIMENOrdering Facility: [facility] Address: [address] [place] [address] Performed By: #### 5 7021-8 ####[facility] [id number] [place] [address] [place] MCV (RBC) [Entitic vol] 83.0 fL Normal 80.0-100.0 [facility] Comment on above: Order Comment: Speci men Type: BLOOD SPECIMENOrdering Facility: [facility] Address: [address] [place] [address] Performed By: #### 5 7021-8 ####[facility] [id number] [place] [address] [place] Monocytes (Bld) [#/Vol] 0.77 10*3/uL Normal <0.87 [facility] Comment on above: Order Comment: Speci men Type: BLOOD SPECIMENOrdering Facility: [facility] Address: [address] [place] [address] Performed By: #### 5 7021-8 ####[facility] [id number] [place] [address] [place] Monocytes/100 WBC (Bld) 6.6 % Normal [facility] Comment on above: Order Comment: Speci men Type: BLOOD SPECIMENOrdering Facility: [facility] Address: [address] [place] [address] Performed By: #### 5 7021-8 ####[facility] [id number] [place] [address] [place] Neutrophils (Bld) [#/Vol] 8.71 10*3/uL High 1.45-7.50 [facility] Comment on above: Order Comment: Speci men Type: BLOOD SPECIMENOrdering Facility: [facility] Address: [address] [place] [address] Performed By: #### 5 7021-8 ####[facility] [id number] [place] [address] [place] Neutrophils/100 WBC (Bld) 74.8 % Normal [facility] Comment on above: Order Comment: Speci men Type: BLOOD SPECIMENOrdering Facility: [facility] Address: [address] [place] [address] Performed By: #### 5 7021-8 ####[facility] [id number] [place] [address] [place] Nucleated RBC (Bld) [#/Vol] 10*3/uL Normal <0.01 [facility] Comment on above: Order Comment: Speci men Type: BLOOD SPECIMENOrdering Facility: [facility] Address: [address] [place] [address] Performed By: #### 5 7021-8 ####[facility] [id number] [place] [address] [place] Nucleated RBC/100 WBC (Bld) [Ratio] 0.0 /100 WBC Normal [facility] Comment on above: Order Comment: Speci men Type: BLOOD SPECIMENOrdering Facility: [facility] Address: [address] [place] [address] Performed By: #### 5 7021-8 ####[facility] [id number] [place] [address] [place] Platelet mean volume (Bld) [Entitic vol] 9.7 fL Normal 9.0-12.7 [facility] Comment on above: Order Comment: Speci men Type: BLOOD SPECIMENOrdering Facility: [facility] Address: [address] [place] [address] Performed By: #### 5 7021-8 ####[facility] GOLDIENCLIStefany [id number] [place] [address] [place] Platelets (Bld) [#/Vol] 316 10*3/uL Normal 150-400 [facility] Comment on above: Order Comment: Speci men Type: BLOOD SPECIMENOrdering Facility: [facility] Address: [address] [place] [address] Performed By: #### 5 7021-8 ####[facility] [id number] [place] [address] [place] RBC (Bld) [#/Vol] 4.89 10*6/uL Normal 3.90-5.20 [facility] Comment on above: Order Comment: Speci men Type: BLOOD SPECIMENOrdering Facility: [facility] Address: [address] [place] [address] Performed By: #### 5 7021-8 ####[facility] [id number] [place] [address] [place] WBC (Bld) [#/Vol] 11.66 10*3/uL High 3.70-11.00 [facility] Comment on above: Order Comment: Speci men Type: BLOOD SPECIMENOrdering Facility: [facility] Address: [address] [place] [address] Performed By: #### 5 7021-8 ####[facility] [id number] [place] [address] [place] HBV surface Ag Ser Qlon 11-05 HBV surface Ag Ql (S) Negative Normal Negative [facility] Comment on above: Order Comment: Speci men Type: BLOOD SPECIMEN [facility] Address: [address] [place] [address] Performed By: #### T SPN #### [facility] CLIA [id number] [address] [place] [address] [place] Order Comment: Speci men Type: BLOOD SPECIMENOrdering Facility: [facility] Address: [address] [place] [address] Performed By: #### G BPCR #### [facility] CLIA [id number] [address] [place] [address] [place] HCV Ab Ser Qlon 11-18-2024 HCV Ab Ql (S) Negative Normal Negative [facility] Comment on above: Order Comment: Speci men Type: BLOOD SPECIMEN [facility] Address: [address] [place] [address] Result Comment: The result suggests no evidence of active infection with Hepatitis C virus. Should recent infection be suspected, repeat testing may be considered 4-6 weeks after this draw. Performed By: #### T SPN #### [facility] CLIA [id number] [address] [place] [address] [place] Order Comment: Speci men Type: BLOOD SPECIMENOrdering Facility: [facility] Address: [address] [place] [address] Performed By: #### G BPCR #### [facility] CLIA [id number] [address] [place] [address] [place] HIGH RISK HUMAN PAPILLOMA EVELYN (HPV), PCR FOR DETECTION AND GENOTYPINGon 11-18-2024 HPV 16 Ag Ql (Unsp spec) Not detected Normal Not detected [facility] Comment on above: Order Comment: Speci men Type: FLUID SPECIMENOrdering Facility: [facility] Address: [address] [place] [address] Performed By: #### H PVHRT ####[facility] LABCLIA [id number] [place] [address] [place] HPV 18 Ag Ql (Unsp spec) Not detected Normal Not detected [facility] Comment on above: Order Comment: Speci men Type: FLUID SPECIMENOrdering Facility: [facility] Address: [address] [place] [address] Performed By: #### H PVHRT ####[facility] LABCLIA [id number] [place] [address] [place] HPV 31+33+35+39+45+51+52+5 6+58+59+66+68 DNA ALEXIS+probe Ql (Cvx) Not detected Normal Not detected [facility] Comment on above: Order Comment: Speci men Type: FLUID SPECIMENOrdering Facility: [facility] Address: [address] [place] [address] Result Comment: High Risk HPV Other Type includes HPV types 31, 33, 35, 39, 45, 51, 52, 56, 58, 59, 66 and 68. Performed By: #### H PVHRT ####[facility] LABIA [id number] [place] [address] [place] HIV 1+2 Ab IA Qlon 5 HIV 1 and 2 Ab IA.rapid Nom (S/P/Bld) Normal [facility] Comment on above: Order Comment: Speci men Type: BLOOD SPECIMEN [facility] Address: [address] [place] [address] Result Comment: Test not indicated. Performed By: #### T SPN #### [facility] CLIA [id number] [address] [place] [address] [place] Order Comment: Speci men Type: BLOOD SPECIMENOrdering Facility: [facility] Address: [address] [place] [address] Performed By: #### 3 1201-7, 59847-6, 5195-3 ####[facility]IA [id number] [place] [address] [place] HIV 1+2 Ab+HIV1 p24 Ag IA Ql Non-Reactive Normal Nonreactive [facility] Comment on above: Order Comment: Speci men Type: BLOOD SPECIMEN [facility] Address: [address] [place] [address] Performed By: #### T SPN #### [facility] CLIA [id number] [address] [place] [address] [place] Order Comment: Speci men Type: BLOOD SPECIMENOrdering Facility: [facility] Address: [address] [place] [address] Performed By: #### 3 1201-7, 58578-0, 5195-3 ####[facility] LABCLIA [id number] [address] [place] HIV immunoassay testing algorithm interpretation (S/P/Bld) [Interp] Normal [facility] Comment on above: Order Comment: Speci men Type: BLOOD SPECIMEN [facility] Address: [address] [place] [address] Result Comment: No e vidence of HIV-1 or HIV-2 infection. Should recent infection be suspected, repeat testing may be considered 2-3 weeks after this draw. [place] Rev. Code 3701.243(E): This information has been disclosed to you from confidential records protected from disclosure by state law. ???You shall make no further disclosure of this information without the specific, written, and informed release of the individual to whom it pertains or as otherwise permitted by state law. A general authorization for the release of medical or other information is not sufficient for the purpose of the release of HIV test results or diagnoses. Performed By: #### T SPN #### [facility] CLIA [id number] [address] [place] [address] [place] Order Comment: Speci men Type: BLOOD SPECIMENOrdering Facility: [facility] Address: [address] [place] [address] Performed By: #### 3 1201-7, 70450-4, 5195-3 ####[facility] LABCLIA [id number] [address] [place] HbA1c (Bld)on 11-18-2024 Average glucose Estimated from glycated hemoglobin (Bld) [Mass/Vol] 97 mg/dL Normal [facility] Comment on above: Order Comment: Speci men Type: BLOOD SPECIMENOrdering Facility: [facility] Address: [address] [place] [address] Result Comment: eAG: (Estimated average glucose) is a calculated value from HgbA1c and is branch sales and service representative of the average blood glucose level in the last 2-3 month period. Performed By: #### 5 5454-3 ####[facility] LABCLIA [id number] [facility]ALK [address] HbA1c (Bld) [Mass fraction] 5.0 % Normal 4.3-5.6 [facility] Comment on above: Order Comment: Speci men Type: BLOOD SPECIMENOrdering Facility: [facility] Address: [address] [place] [address] Result Comment: Amer ican Diabetes Association guidelines indicate that patients with HgbA1c in the range 5.7-6.4% are at increased risk for development of diabetes, and intervention by lifestyle modification may be beneficial. HgbA1c greater or equal to 6.5% is considered diagnostic of diabetes. Performed By: #### 5 5454-3 ####[facility] LABCLIA [id number] [address] [place] PAP TESTon 11-18-2024 ADEQUACY Normal [facility] Comment on above: Order Comment: Speci men Type: FLUID SPECIMEN [facility] Address: [address] [place] [address] Result Comment: Sati sfactory for interpretation. Transformation zone present Performed By: #### L [id number] #### [facility] CLIA [id number] [address] [place] [address] [place] [facility] CLIA [id number] [address] [place] [address] [place] Order Comment: Speci men Type: FLUID SPECIMENOrdering Facility: [facility] Address: [address] [place] [address] Performed By: #### L [id number] ####[facility] LABORATORYCLIA [id number] [address] STATES [facility] LABCLIA [id number] [place] [address] [place] CASE REPORT Normal [facility] Comment on above: Order Comment: Speci men Type: FLUID SPECIMEN [facility] Address: [address] [place] [address] Result Comment: Gyne cologic Cytology Report Case: [id number] Authorizing Provider: Katie Jernigan APRN.SILK SCREEN ETCHER Collected: 11/18/2024 09:27 AM Ordering Location: OB/Gynecology Received: 11/18/2024 12:30 PM First Screen: Sirena, Lay, CT, ASCP Specimen: Pap Test, ThinPrep, Cervix Performed By: #### L [id number] #### [facility] CLIA [id number] [address] [place] [address] [place] [facility] CLIA [id number] [address] [place] [address] [place] Order Comment: Speci men Type: FLUID SPECIMENOrdering Facility: [facility] Address: [address] [place] [address] Performed By: #### L [id number] ####[facility] LABORATORYCLIA [id number] [address] STATES OF [facility] LABCLIA [id number] [place] [address] [place] CLINICAL HISTORY, CYTOLOGY, GLAUCOMA SPECIALIST Routine Exam Normal [facility] Comment on above: Order Comment: Speci men Type: FLUID SPECIMEN [facility] Address: [address] [place] [address] Performed By: #### L [id number] #### [facility] CLIA [id number] [address] [place] [address] [place] [facility] CLIA [id number] [address] [place] [id number] [place] Order Comment: Speci men Type: FLUID SPECIMENOrdering Facility: [facility] Address: [address] [place] [address] Performed By: #### L [id number] ####[facility] LABORATORYCLIA [id number] [place] [address] [place] [facility] LABCLIA [id number] [place] [id number] [place] CYTOLOGY PAP OTHER INTERPRETATION Predominance of coccobacilli consistent with shift in vaginal bailee. Normal [facility] Comment on above: Order Comment: Speci men Type: FLUID SPECIMEN [facility] Address: [address] [place] [address] Performed By: #### L [id number] #### [facility] CLIA [id number] [address] [place] [address] [place] [facility] CLIA [id number] [address] [place] [address] [place] Order Comment: Speci men Type: FLUID SPECIMENOrdering Facility: [facility] Address: [address] [place] [address] Performed By: #### L [id number] ####[facility] LABORATORYCLIA [id number] [place] [address] [place] [facility] LABCLIA [id number] [place] [address] [place] FINAL PERFORMING LAB Normal [facility] Comment on above: Order Comment: Speci men Type: FLUID SPECIMEN [facility] Address: [address] [place] [address] Result Comment: Tech nical component, towel stretcher screening performed at [facility], [address] [place] [address] CLIA# [id number] Diagnostic interpretation performed at [facility], [address] [place] [address] CLIA# [id number] Mushroom Grower: Shashi Coyne M.D. Performed By: #### L [id number] #### [facility] CLIA [id number] [address] OF [facility] CLIA [id number] [address] [place] [address] [place] Order Comment: Speci men Type: FLUID SPECIMENOrdering Facility: [facility] Address: [address] [place] [address] Performed By: #### L [id number] ####[facility] LABORATORYCLIA [id number] [address] LABCLIA [id number] [address] [place] [address] [place] INTERPRETATION, CYTOLOGY, GLAUCOMA SPECIALIST Normal [facility] Comment on above: Order Comment: Speci men Type: FLUID SPECIMEN [facility] Address: [address] [place] [address] Result Comment: Nega tive for intraepithelial lesion or malignancy. at 0955 EDT Performed By: #### L [id number] #### [facility] CLIA [id number] [address] STATES OF [facility] CLIA [id number] [address] [place] [address] [place] [address] [place] Order Comment: Speci men Type: FLUID SPECIMENOrdering Facility: [facility] Address: [address] [place] [address] Performed By: #### L [id number] ####[facility]ATORYCLIA [id number] [address] STATES OF [facility] LABCLIA [id number] [address] [place] [address] [place] LMP 07/11/2024 Normal [facility] Comment on above: Order Comment: Speci men Type: FLUID SPECIMEN [facility] Address: [address] [place] [address] Performed By: #### L [id number] #### [facility] CLIA [id number] [address] [place], [place] [address] [place] [address] OF [facility] CLIA [id number] [address] [place] [address] [place] Order Comment: Speci men Type: FLUID SPECIMENOrdering Facility: [facility] Address: [facility] [place] [address] Performed By: #### L [id number] ####[facility] LABORATORYCLIA [id number] [address] LABCLIA [id number] [address] [place] [address] [place] PAP DISCLAIMER COMMENT The Pap Smear is a screening test for cervical cancer. False negative results occur with all screening tests, emphasizing the need for rescreening at recommended intervals, and clinical correlation. Normal [facility] Comment on above: Order Comment: Speci men Type: FLUID SPECIMEN [facility] Address: [address] [place] [address] Performed By: #### L [id number] #### [facility] CLIA [id number] [address] LAB CLIA [id number] [address] [place] [address] [place] Order Comment: Speci men Type: FLUID SPECIMENOrdering Facility: [facility] Address: [address] [place], [place] [address] Performed By: #### L [id number] ####[facility] LABORATORYCLIA [id number] [address] STATES OF [facility] LABCLIA [id number] [address] [place] [address] [place] PAP SENIOR GAME DESIGNER COMMENT This specimen has be en analyzed by the ThinPrep Imaging System, an automated imaging and review system, which assists the laboratory in evaluating cells on ThinPrep Pap tests. Following automated imaging, selected hu from every slide are reviewed by a towel stretcher. Normal [facility] Comment on above: Order Comment: Speci men Type: FLUID SPECIMEN [facility] Address: [address] [place] [address] Performed By: #### L [id number] #### [facility] CLIA [id number] [address] LAB CLIA [id number] [address] [place] [address] [place] Order Comment: Speci men Type: FLUID SPECIMENOrdering Facility: [facility] Address: [address] [place] [address] Performed By: #### L [id number] ####[facility] LABORATORYCLIA [id number] [address] STATES [facility] LABCLIA [id number] [address] STATES OF [place] RUBELLA IGG ANTIBODYon 11-18 RUBELLA IGG AB, QUAL Positive Normal Positive [facility] Comment on above: Order Comment: Tiffany prasad Type: BLOOD SPECIMEN [facility] Address: [address] [place] [address] Result Comment: The result suggests recent or past exposure to Rubella virus or history of Rubella vaccination. Positive result may also be seen due to presence of passively-transferred antibodies. Please correlate with patient's history. Performed By: #### T SPN #### [facility] CLIA [id number] [address] [place] [address] [place] Order Comment: Speci men Type: BLOOD SPECIMENOrdering Facility: [facility] Address: [address] [place] [address] Performed By: #### G BPCR #### [facility] CLIA [id number] [address] [place] [address] [place] Reagin and Treponema pallidu m IgG and IgM [Interp]on 11-18-2024 T. pallidum IgG+IgM IA Ql (S) Non-Reactive Normal Nonreactive [facility] Comment on above: Order Comment: Speci men Type: BLOOD SPECIMENOrdering Facility: [facility] Address: [address] [place] [address] Performed By: #### 7 3752-8, 5195-3, 75078-9 ####[facility] LABCLIA [id number] [address] STATES [facility] Performed By: #### 3 1201-7, 74147-9, 5194-3 ####[facility] LABCLIA [id number] [address] STATES [place] Reagin+T pallidum IgG+IgM Se rPl-Impon 11-18-2024 Reagin and Treponema pallidum IgG and IgM [Interp] Cannot exclude recent Treponemal infection if specimen collected within 7-10 days after appearance of suspect lesions or 2-3 weeks after an exposure. Clinical correlation is required. Normal [facility] Comment on above: Order Comment: Speci men Type: BLOOD SPECIMENOrdering Facility: [facility] Address: [address] [place] [address] Performed By: #### 7 3752-8, 5-3, 49301-8 ####[facility] LABIA [id number] [place] [address] [place] Performed By: #### 3 1201-7, 02622-9, 5194-3 ####[facility] LABIA [id number] [place] [id number] [place] TRICHOMONAS VAGINALIS NAATon 11-18-2024 T. vaginalis DNA ALEXIS+probe Ql (Unsp spec) Not detected Normal Not detected [facility] Comment on above: Order Comment: Speci men Type: BLOOD SPECIMEN [facility] Address: [address] [place] [address] Performed By: #### T SPN #### [facility] CLIA [id number] [address] OF [place] Order Comment: Speci men Type: SWABOrdering Facility: [facility] Address: [address] [place] [address] Performed By: #### G BPCR #### [facility] CLIA [id number] [address] [place] [address] TYPE + SCREEN PRENATALon ABO O Normal [facility] Comment on above: Order Comment: Speci men Type: BLOOD SPECIMEN [facility] Address: [address] [place] [address] Performed By: #### T SPN #### [facility] CLIA [id number] [address] [place] [address] [place] Order Comment: Speci men Type: BLOOD SPECIMENOrdering Facility: [facility] Address: [address] [place] [address] Performed By: #### T SPN ####[facility] BANKCLIA [id number] [address] OF [place] Rh Nom (Bld) Negative Normal [facility] Comment on above: Order Comment: Speci men Type: BLOOD SPECIMEN [facility] Address: [address] [place] [address] Performed By: #### T SPN #### [facility] CLIA [id number] [address] [place] [address] [place] Order Comment: Speci men Type: BLOOD SPECIMENOrdering Facility: [facility] Address: [address] [place] [address] Performed By: #### T SPN ####[facility] BANKCLIA [id number] [place] [address] [place] TYPE AND SCREEN EXPIRATION 11/21/2024 23:59 Normal [facility] Comment on above: Order Comment: Speci men Type: BLOOD SPECIMEN [facility] Address: [address] [place] [address] Performed By: #### T SPN #### [facility] CLIA [id number] [facility] [facility] [address] [place] Order Comment: Speci men Type: BLOOD SPECIMENOrdering Facility: [facility] Address: [address] [place], [place] [id number] Performed By: #### T SPN ####CC MAIN BLOOD BANKCLIA [id number] [id number] Sol 11-15-2024 CNPN Telephone (OBGYWM) SHAILA HERNANDEZ ([id number]) 1985 [facility] Time Provider Department 11/15/24 KATIE JERNIGAN OBGYWM During your visit today, we recorded the following information about you: Raji Draper RN 11/15/2024 3:20 PM Signed Attempted twice to reach patient by phone with energy systems laboratory director for new OB intake questions. Unable to leave a voicemail because patient's voicemail box has not been set up. Please try to reach patient again Allergies As of Date: 11/15/2024 (No Known Allergies) Date Reviewed: 04/27/2024 Reviewed by: Juan Villegas APRN.SILK SCREEN ETCHER - Fully Assessed Reason for Visit: Appointment [186] Prescriptions as of 11/28/2024 - aspirin, enteric coated (ECOTRIN LOW STRENGTH) 81 mg EC tablet Take 1 tablet by mouth once daily. - vitamins no.2 ( VITAMIN NO.2 ORAL) Take by mouth once daily. Problem List As Of Date: 11/15/2024 (None) Encounter Status:Closed by RAJI DRAPER on 11/28/24 [facility] CNOVon 04-27-2024 CNOV Office Visit (OBGYWM ) SHAILA HERNANDEZ ([id number]) 1985 F TU Date Time Provider Department 04/27/24 4:00 PM JUAN VILLEGAS OBAYESHAWM During your visit today, we recorded the following information about you: Pulse Respiration Blood pressure Weight 70/minute 14/minute 114/70 83 kg Last Period 04/07/24 Juan Villegas APRN.SILK SCREEN ETCHER 04/27/2024 4:25 PM Signed Interpreting services utilized via (clinical safety specialist service modality: clinical safety specialist not needed for appointment). Patient's friend, Janet, arrived with her and patient request Janet to be interpretor. Hem Marker offered: Patient declines. Shaila is a 39 year old who presents for Nexplanon removal for scheduled 3 year removal. UNIVERSAL PROTOCOL / SAFETY CHECKLIST Procedure to be Performed: Nexplanon Removal Sign In: A Moment of CARE was completed. Personnel directly involved with the procedure wore the appropriate PPE (Personal Protective Equipment). Patient/Surrogate Stated/Verified: PATIENT VERIFIED(optional for EMERGENT procedures): Patient name, Date of , Relevant allergies, and The intended procedure Time Out Communication: Intended patient and procedure match the source documents. Consent documented and matches the intended procedure. Sign Out: SIGN OUT (optional for EMERGENT procedures): No specimen collected. All instruments, equipment, possible retained foreign bodies accounted for. Post-procedure follow-up management communicated and Plan of Care Visit completed when applicable. TECHNIQUE: Patient placed in supine position with left arm bent at the elbow and placed over the head. Skin cleansed with betadine. 2 mL of 1% lidocaine with epi injected subQ along insertion site. Scalpel used to made a 5mm stab incision superficially at distal end of Nexplanon. Device removed under sterile technique with a small hemostat. Sterile pressure dressing applied. AANDP: 39 year old here for Nexplanon removal Nexplanon removed intact without difficulty. The patient was instructed to remove the dressing after 24 hours. Contraceptive plans: Condoms. Recommend PNV. Juan Villegas APRN.MODE Referring Provider: KATIE JERNIGAN [[id number]] Allergies As of Date: 04/27/2024 (No Known Allergies) Date Reviewed: 04/27/2024 Reviewed by: Juan Villegas APRN.CNP - Fully Assessed Reason for Visit: Nexplanon Removal [Other] Primary Visit Diagnosis:Nexplanon removal [Z30.46] Problem List As Of Date: 04/27/2024 (None) Medications Discontinued During This Encounter Prescriptions - etonogestrel (NEXPLANON) subdermal implant 68 mg (Discontinued) 68 mg by SUBDERMAL route. Encounter Status:Closed by JUAN VILLEGAS on 04/27/24 [facility] CNOVon 04-12-2024 CNOV Office Visit (OBGYWM ) SHAILA HERNANDEZ ([id number]) 1985 [facility] Date Time Provider Department 04/12/24 10:30 AM KATIE JERNIGAN OBGYWM During your visit today, we recorded the following information about you: Blood pressure Weight Last Period 110/60 82.7 kg 04/07/24 Katie Jernigan APRN.SILK SCREEN ETCHER 04/12/2024 10:57 AM Signed Shaila Hernandez is a 39 year old female who presents for problem visit to discuss removal of control. HPI: Patient is here to discuss possible removal of Nexplanon. Patient states that it is . Patient states for now she wants to stay off other forms of control. Nexplanon has been in for 4 yrs. Having regular periods Key Punch Operator present OB History No obstetric history on file. 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 No past surgical history on file. No family history on file. Current Outpatient Medications Medication Sig etonogestrel (NEXPLANON) subdermal implant 68 mg 68 mg by SUBDERMAL route. No current facility-administered medications for this visit. Allergies As of Date: 04/12/2024 (Not on File) Fully Assessed 04/12/2024 REVIEW OF SYSTEMS Expanded ROS: N/A Allergies and current medication updated:Yes EXAM: BP 110/60 Wt 182 lb 6.4 oz (82.7kg) LMP 04/07/2024 GENERAL: pleasant, female in no apparent distress HEENT: Normocephalic, atraumatic, mucus membranes moist, and no lesions CHEST: Normal inspiratory effort NEURO: alert and oriented x3,exam grossly non-focal EXTREMITIES: normal ASSESSMENT/PLAN: 1. Nexplanon removal - ICD9: V25.43, ICD10: Z30.46 Pt to schedule appt - NEXPLANON REMOVAL Katie Jernigan APRN.CNP Medical Decision Making: Problems: Low: Acute, uncomplicated illness or injury Risk: Low: Low risk from testing/treatment Medical Decision Making Level: 3 - Low Referring Provider: SELF [200] Allergies As of Date: 04/12/2024 (Not on File) Date Reviewed: 04/12/2024 Reviewed by: Shaye Moran MA - Fully Assessed Reason for Visit: problem visit [Other] Cmt: Discuss Nexplanon Removal. Primary Visit Diagnosis:Nexplanon removal [Z30.46] Order(s):NEXPLANON REMOVAL [5502417] Order #: [id number] Prescriptions as of 04/12/2024 - etonogestrel (NEXPLANON) subdermal implant 68 mg 68 mg by SUBDERMAL route. Problem List As Of Date: 04/12/2024 (None) Encounter Status:Closed by KATIE JERNIGAN on 04/12/24 [facility] CNOVon 03-18-2024 CNOV Office Visit (WSTR ) SHAILA HERNANDEZ ([id number]) 1985 F TU Date Time Provider Department 03/18/24 11:30 AM BRIT COPE [facility] During your visit today, we recorded the following information about you: Temperature Pulse Respiration Blood pressure 98.3 degrees 61/minute 16/minute 120/72 Weight 81.5 kg Brit Cope PIN MACHINE TENDER.SILK SCREEN ETCHER 03/18/2024 12:29 PM Signed This note was created using CytoValeriter. Subjective Shaila Hernandez is a 39 year old female. HPI Patient presents today complaining of a sensation of something stuck in her throat. Patient does not speak Scottish but her friend translates. About 2 months ago apparently she was eating something and had a weird sensation in her throat which subsequently resolved. For the last 2 weeks now patient feels as though it is difficult to swallow. She is able to eat and drink but states it just feels hard to swallow. She denies any history of acid reflux. Denies any history of previous similar episodes. Review of Systems HENT: Positive for trouble swallowing. Negative for voice change. Respiratory: Negative for cough. Gastrointestinal: Negative for abdominal pain. Objective BP 120/72 Pulse 61 Temp 36.8 ?C (98.3 ?F) Resp 16 Wt 81.5 kg (179 lb 10.8 oz) SpO2 98% Physical Exam Vitals and nursing note reviewed. Constitutional: General: She is not in acute distress. Appearance: Normal appearance. She is not ill-appearing. HENT: Head: Normocephalic. Mouth/Throat: Mouth: Mucous membranes are moist. Comments: No obvious abnormalities noted Eyes: Conjunctiva/sclera: Conjunctivae normal. Neck: Comments: No cervical lymphadenopathy. No tenderness with palpation. No obvious swelling noted. Cardiovascular: Rate and Rhythm: Normal rate and regular rhythm. Pulmonary: Effort: Pulmonary effort is normal. Breath sounds: Normal breath sounds. Musculoskeletal: General: Normal range of motion. Cervical back: Normal range of motion. Skin: General: Skin is warm and dry. Neurological: General: No focal deficit present. Mental Status: She is alert. Psychiatric: Mood and Affect: Mood normal. Behavior: Behavior normal. Assessment and Plan ASSESSMENT/PLAN: 1. Dysphagia, unspecified type - ICD9: 787.20, ICD10: R13.10 X-ray soft tissue neck was unremarkable showing no concerning abnormalities. Patient continued to handle her secretion and showed no obvious signs of distress during her stay. Patient will be given follow-up with GI for further evaluation and patient comfortable with plan. - XR NECK SOFT TISSUE 2V AP/LAT - CONSULT TO GASTROENTEROLOGY Brit Cope APRN.SILK SCREEN ETCHER Allergies As of Date: 03/18/2024 (Not on File) Date Reviewed: 03/18/2024 Reviewed by: Brit Cope APRN.SILK SCREEN ETCHER - Fully Assessed Reason for Visit: Throat Problem [109] Cmt: Feels like something is stuck in throat when swollowing x1 week Primary Visit Diagnosis:Dysphagia, unspecified type [R13.10] Order(s):XR NECK SOFT TISSUE 2V AP/LAT [[id number]] Order #: [id number] FUTURE CONSULT TO GASTROENTEROLOGY [9010] Order #: [id number]: 1 FUTURE Problem List As Of Date: 03/18/2024 (None) Encounter Status:Closed by BRIT COPE on 03/18/24 [facility] XR NECK SOFT TISSUE 2V AP/LA Ton 03-18-2024 XR NECK SOFT TISSUE 2V AP/LAT * * *Final Report* * * DATE OF EXAM: Mar 18 2024 11:56AM WOX 5238 - XR NECK SOFT TISSUE 2V AP/LAT / PROCEDURE REASON: Dysphagia, unspecified type * * * * Physician Interpretation * * * * Soft tissue of neck: History: Dysphagia, unspecified type Findings: AP and lateral view were performed. Epiglottis and aryepiglottic folds appear normal. No evidence of prevertebral soft tissue swelling. IMPRESSION: UNREMARKABLE EXAM. Network Solutions Architect: KATHRIN Transcribe Date/Time: Mar 18 2024 12:09P Dictated by : ANGELES OWUSU MD This examination was interpreted and the report reviewed and electronically signed by: ANGELES OWUSU MD on Mar 18 2024 12:10PM EST [id number] [facility] XR Neck AP and Lateralon IMPRESSION: UNREMARKABLE EXAM. Network Solutions Architect: KATHRIN Transcribe Date/Time: Mar 18 2024 12:09P Dictated by : ANGELES OWUSU MD This examination was interpreted and the report reviewed and electronically signed by: ANGELES OWUSU MD on Mar 18 2024 12:10PM [facility] DIVISION OF RADIOLOGY * * *Final Report* * * DATE OF EXAM: Mar 18 2024 11:56AM WOX 5238 - XR NECK SOFT TISSUE 2V AP/LAT / PROCEDURE REASON: Dysphagia, unspecified type * * * * Physician Interpretation * * * * Soft tissue of neck: History: Dysphagia, unspecified type Findings: AP and lateral view were performed. Epiglottis and aryepiglottic folds appear normal. No evidence of prevertebral soft tissue swelling. DIVISION OF RADIOLOGY Provider, [facility] - 03/18/2024 * * *Final Report* * * DATE OF EXAM: Mar 18 2024 11:56AM WOX 5238 - XR NECK SOFT TISSUE 2V AP/LAT / PROCEDURE REASON: Dysphagia, unspecified type * * * * Physician Interpretation * * * * Soft tissue of neck: History: Dysphagia, unspecified type Findings: AP and lateral view were performed. Epiglottis and aryepiglottic folds appear normal. No evidence of prevertebral soft tissue swelling. IMPRESSION IMPRESSION: UNREMARKABLE EXAM. Network Solutions Architect: KATHRIN Transcribe Date/Time: Mar 18 2024 12:09P Dictated by : ANGELES OWUSU MD This examination was interpreted and the report reviewed and electronically signed by: ANGELES OWUSU MD on Mar 18 2024 12:10PM EST [facility] Radiology Study observation (narrative) [facility] XR Neck AP and LateralOrdere d By: [facility] Provider on 03-18-2024 [facility] Well Service Pump Equipment Operator Cytology Reporton 2021 Well Service Pump Equipment Operator Cytology Report . Pathology Reports Accession: Collected Date/Time: Received Date/Time: Pathologist: [id number] 12/02/2021 16:02 EDT 12/04/2021 18:00 EDT Well Service Pump Equipment Operator Cytology Report SPECIMEN: Specimen Description: Liquid Prep w/ HPV Specimen: Cervical Screening or Diagnostic: Screening RELEVANT HISTORY: LMP: 11/25/21 [id number] SPECIMEN ADEQUACY: SATISFACTORY FOR EVALUATION ENDOCERVICAL/TRANSFORM ATIONAL ZONE COMPONENT PRESENT INTERPRETATION/RESULTS : NEGATIVE FOR INTRAEPITHELIAL LESION OR MALIGNANCY. ABUNDANT BACTERIA PRESENT. HIGH RISK HPV TESTING: High Risk HPV Typing: Negative HPV Types 16, 18, 31, 33, 35, 39, 45, 51, 52, 56, 58, 59, 66 and 68 DNA were undetectable or be low the pre-set threshold. The vicente High-Risk HPV DNA Test is not intended for use as a screening device for Pap normal women under age 30 and is not intended to substitute for regular Pap screening. The vicente High-Risk HPV DNA Test is designed to augment existing methods for the detection of cervical disease and should be used in conjunction with clinical information derived from [facility] diagnostic and screening tests, physical examinations and full medical history in accordance with appropriate patient management procedures. NOTE: A negative result does not preclude the presence of HPV infection because results depend on adequate specimen collection, absence of inhibitors and sufficient DNA to be detected. COMMENT: This Pap Test was successfully processed and evaluated with the assistance of the [employer] Prep Test Imaging System. Electronically Signed by Pathology report verified by [facility] Screened by: KK Electronically signed by Amie BUSCH (ASC) Sign-Out Date: 12/06/2021 15:17 Performing Lab: [facility], [address] [place] [address] Disclaimer The Pap test is a screening test for cervical cancer. As evidenced by published data, it is sub ject to both inherent false negative and false positive results. Your patient's results should be interpreted in context with pertinent clinical history including gynecological examination. Normal [facility] ([place]) HPVon 12-06-2021 HPV Interp Normal See Interp HPVN [facility] ([place]) Comment on above: Order Comment: Order placed by AP_HPV_ORDER rule from [id number] Result Comment: High Risk HPV Typing: NEGATIVE HPV types 16, 18, 31, 33, 35, 39, 45, 51, 52, 56, 58, 59, 66 and 68 DNA were undetectable or below the pre-set threshold. The vicente High-Risk HPV DNA Test is not intended for use as a screening device for Pap normal women under age 30 and is not intended to substitute for regular Pap screening. The vicente High-Risk HPV DNA Test is designed to augment existing methods for the detection of cervical disease and should be used in conjunction with clinical information derived from other diagnostic and screening tests, physical examinations and full medical history in accordance with appropriate patient management procedures. NOTE: A negative result does not preclude the presence of HPV infection because results depend on adequate specimen collection, absence of inhibitors and sufficient DNA to be detected. See Interp HPVN Performed By: #### H PV #### [place] [address] HPV Source Cervix Normal [facility] ([place]) Comment on above: Order Comment: Order placed by AP_HPV_ORDER rule from [id number] Performed By: #### H PV #### [place] [address] CTPCRon 12-04-2021 C. trachomatis Interp Normal See CT Interp N [facility] ([place]) Comment on above: Result Comment: C. t rachomatis DNA not detected. Specimen is presumptive negative for C. trachomatis. A negative result does not preclude C. trachomatis infection because results depend on adequate specimen collection, absence of inhibitors, and sufficient DNA to be detected. See CT Interp N Performed By: #### C TPCR, NGPCR1 #### [place] [address] C.trachomatis PCR Negative Normal Negative [facility] ([place]) Comment on above: Result Comment: Ortega sport tube received with two swabs. Review collection procedure. Inappropriate collection may cause aberrant results. Molecular (PCR) assay performed on the Katherine Vicente 4800 system. Performed By: #### C TPCR, NGPCR1 #### [place] [address] Chlam Source Cervix Normal [facility] ([place]) Comment on above: Performed By: #### C TPCR, NGPCR1 #### [place] [address] [id number] 12-04-2021 GC PCR Source Cervix Normal [facility] ([place]) Comment on above: Performed By: #### C TPCR, NGPCR1 #### [place] [id number] [place] [id number] N. gonorrhoeae (PCR) Negative Normal Negative [facility] ([place]) Comment on above: Result Comment: Ortega sport tube received with two swabs. Review collection procedure. Inappropriate collection may cause aberrant results. Molecular (PCR) assay performed on the Katherine Vicente 4800 System. Performed By: #### C TPCR, NGPCR1 #### [facility] [address] [place] [id number] N. gonorrhoeae Interp Normal See NG Interp N [facility] ([place]) Comment on above: Result Comment: N. g onorrhoeae DNA not detected. Specimen is presumptive negative for N. gonorrhoeae. A negative result does not preclude Neisseria gonorrhoeae infection because results depend on adequate specimen collection, absence of inhibitors, and sufficient DNA to be detected. See NG Interp N Performed By: #### C TPCR, NGPCR1 #### [place] [address] LABORATORYOrdered By: Nicole Mcnair on 12-02-2021 C. trachomatis DNA ALEXIS+probe Ql (Unsp spec) Negative 2 (12/02/21 4:02 PM) Invalid Interpretation Code Negative AH Auto Viro/Sero SS Comment on above: Result Comment: Ortega sport tube received with two swabs. Review collection procedure. Inappropriate collection may cause aberrant results. C. trachomatis Interp C. trachomatis DNA not detected. Specimen is presumptive negative forC. trachomatis.A negative result does not preclude C. trachomatis infection becauseresults depend on adequate specimen collection, absence of inhibitors,and sufficient DNA to be detected. Invalid Interpretation Code See CT Interp N AH Auto Viro/Sero SS N. gonorrhoeae DNA ALEXIS+probe Ql (Unsp spec) Negative 1 (12/02/21 4:02 PM) Invalid Interpretation Code Negative AH Auto Viro/Sero SS Comment on above: Result Comment: Ortega sport tube received with two swabs. Review collection procedure. Inappropriate collection may cause aberrant results. N. gonorrhoeae Interp N. gonorrhoeae DNA not detected. Specimen is presumptive negative forN. gonorrhoeae. A negative result does not preclude Neisseria gonorrhoeaeinfection because results depend on adequate specimen collection, absenceof inhibitors, and sufficient DNA to be detected. Invalid Interpretation Code See NG Interp N AH Auto Viro/Sero SS LABORATORYOrdered By: Bea Solis on 12-02-2021 HPV Inter High Risk HPV Typing : NEGATIVEHPV types 16, 18, 31, 33, 35, 39, 45, 51, 52, 56, 58, 59, 66 and 68 DNA wereundetectable or below the pre-set threshold.The vicente High-Risk HPV DNA Test is not intended for use as a screening device forPap normal women under age 30 and is not intended to substitute for regular Papscreening.The vicente High-Risk HPV DNA Test is designed to augment existing methods for thedetection of cervical disease and should be used in conjunction with clinicalinformation derived from other diagnostic and screening tests, physical examinationsand full medical history in accordance with appropriate patient managementprocedures.N OTE: A negative result does not preclude the presence of HPV infection because resultsdepend on adequate specimen collection, absence of inhibitors and sufficientDNA to be detected. Invalid Interpretation Code See Inter HPVN Auto Viro/Sero SS Laboratory - Specimen inform ationOrdered By: Bea Solis on 12-02-2021 Specimen source Nom (Unsp spec) Cervix (12/02/21 4:02 PM) Invalid Interpretation Code Auto Viro/Sero SS Vital Signs Date Time Vital Sign Value Performing Clinician Facility 04-07-2025 15:26-0400 Body mass index (BMI) [Ratio] 37.73 kg/m2 Cris Lilly MD Work Phone: [facility] 04-07-2025 15:26-040 Body weight 98.88 kg Cris Lilly MD Work Phone: [facility] 04-07-2025 15:26-0400 Diastolic blood pressure 86 mm[Hg] Cris Lilly MD Work Phone: [facility] 04-07-2025 15:26-0400 Systolic blood pressure 132 mm[Hg] Cris Lilly MD Work Phone: [facility] 03-31-2025 15:03-0400 Body mass index (BMI) [Ratio] 37.9 kg/m2 Rasheeda Heredia APRN.CNM Work Phone: [facility] 03-31-2025 15:03-0400 Body weight 99.34 kg Rasheeda Heredia PIN MACHINE TENDER.CNM Work Phone: [facility] 03-31-2025 15:03-0400 Diastolic blood pressure 80 mm[Hg] Rasheeda Heredia PIN MACHINE TENDER.CNM Work Phone: [facility] 03-31-2025 15:03-0400 Systolic blood pressure 120 mm[Hg] Rasheeda Heredia PIN MACHINE TENDER.CNM Work Phone: [facility] 03-22-2025 10:39-0400 Body mass index (BMI) [Ratio] 37.21 kg/m2 Floridalma Jaramillo MD Work Phone: [facility] 03-22-2025 10:39-0400 Body weight 97.52 kg Floridalma Jaramillo MD Work Phone: [facility] 03-22-2025 10:39-0400 Diastolic blood pressure 86 mm[Hg] Floridalma Jaramillo MD Work Phone: [facility] 03-22-2025 10:39-0400 Systolic blood pressure 138 mm[Hg] Floridalma Jaramillo MD Work Phone: [facility] 02-27-2025 16:06-0400 Body mass index (BMI) [Ratio] 36.34 kg/m2 Sil Soto MD Work Phone: [facility] 02-27-2025 16:06-0400 Body weight 95.25 kg Sil Soto MD Work Phone: [facility] 02-27-2025 16:06-0400 Diastolic blood pressure 82 mm[Hg] Sil Soto MD Work Phone: [facility] 02-27-2025 16:06-0400 Systolic blood pressure 126 mm[Hg] Sil Soto MD Work Phone: [facility] 02-20-2025 15:37-0400 Diastolic blood pressure 89 mm[Hg] Shawn Locke MD Work Phone: [facility] Comment on above: TruBP Average 02-20-2025 15:37-0400 Systolic blood pressure 134 mm[Hg] Shawn Locke MD Work Phone: [facility] Comment on above: TruBP Average 02-17-2025 17:38-0400 Heart rate 100 /min Luana Whaley CNM Work Phone: [facility] 02-17-2025 17:38-0400 SaO2% (BldA) [Mass fraction] 97 % Luana Whaley CNM Work Phone: [facility] 02-17-2025 17:33-0400 Diastolic blood pressure 92 mm[Hg] Luana Whaley CNM Work Phone: [facility] 02-17-2025 17:33-0400 Systolic blood pressure 140 mm[Hg] Luana Whaley CNM Work Phone: [facility] 02-17-2025 14:51-0400 Body height 160.02 cm Luana Whaley CNM Work Phone: [facility] 02-17-2025 14:51-0400 Body mass index (BMI) [Ratio] 37 kg/m2 Luana Whaley CNM Work Phone: [facility] 02-17-2025 14:51-0400 Body weight 95 kg Luana Whaley CNM Work Phone: [facility] 02-17-2025 14:48-0400 Body temperature 97.6 [degF] Luana Whaley CNM Work Phone: [facility] 02-13-2025 15:45-0400 Body mass index (BMI) [Ratio] 36.34 kg/m2 Floridalma Jaramillo MD Work Phone: [facility] 02-13-2025 15:45-0400 Body weight 95.25 kg Floridalma Jaramillo MD Work Phone: [facility] 02-13-2025 15:45-0400 Diastolic blood pressure 80 mm[Hg] Floridalma Jaramillo MD Work Phone: [facility] 02-13-2025 15:45-0400 Systolic blood pressure 128 mm[Hg] Floridalma Jaramillo MD Work Phone: [facility] 12-02-2024 14:57-0400 Body mass index (BMI) [Ratio] 35.13 kg/m2 Yissel Cuello MD Work Phone: [facility] 12-02-2024 14:57-0400 Body weight 92.08 kg Yissel Cuello MD Work Phone: [facility] 12-02-2024 14:57-0400 Diastolic blood pressure 74 mm[Hg] Yissel Cuello MD Work Phone: [facility] 12-02-2024 14:57-0400 Systolic blood pressure 122 mm[Hg] Yissel Cuello MD Work Phone: [facility] 11-18-2024 08:33-0400 Body height 161.9 cm Katie Delon PIN MACHINE TENDER.SILK SCREEN ETCHER Work Phone: [facility] 11-18-2024 08:33-0400 Body mass index (BMI) [Ratio] 34.54 kg/m2 Katie Delon PIN MACHINE TENDER.SILK SCREEN ETCHER Work Phone: [facility] 11-18-2024 08:33-0400 Body weight 90.54 kg Katie Delon PIN MACHINE TENDER.SILK SCREEN ETCHER Work Phone: [facility] 11-18-2024 08:33-0400 Diastolic blood pressure 66 mm[Hg] Katie [place] PIN MACHINE TENDER.SILK SCREEN ETCHER Work Phone: [facility] 11-18-2024 08:33-0400 Systolic blood pressure 118 mm[Hg] Katie [place] PIN MACHINE TENDER.SILK SCREEN ETCHER Work Phone: [facility] 04-27-2024 15:49-0400 Body weight 83.01 kg Juan Villegas PIN MACHINE TENDER.SILK SCREEN ETCHER Work Phone: [facility] 04-27-2024 15:49-0400 Diastolic blood pressure 70 mm[Hg] Juan Haury PIN MACHINE TENDER.SILK SCREEN ETCHER Work Phone: [facility] 04-27-2024 15:49-0400 Heart rate 70 /min Juan Haury PIN MACHINE TENDER.SILK SCREEN ETCHER Work Phone: [facility] 04-27-2024 15:49-0400 Respiratory rate 14 /min Juan Hausman PIN MACHINE TENDER.SILK SCREEN ETCHER Work Phone: [facility] 04-27-2024 15:49-0400 SaO2% (BldA) [Mass fraction] 98 % Juan Haury PIN MACHINE TENDER.SILK SCREEN ETCHER Work Phone: [facility] 04-27-2024 15:49-0400 Systolic blood pressure 114 mm[Hg] Juan Haury PIN MACHINE TENDER.SILK SCREEN ETCHER Work Phone: [facility] 04-12-2024 10:34-0400 Body weight 82.74 kg Katie Delon PIN MACHINE TENDER.SILK SCREEN ETCHER Work Phone: [facility] 04-12-2024 10:34-0400 Diastolic blood pressure 60 mm[Hg] Katie Delon PIN MACHINE TENDER.SILK SCREEN ETCHER Work Phone: [facility] 04-12-2024 10:34-0400 Systolic blood pressure 110 mm[Hg] Katie [place] PIN MACHINE TENDER.SILK SCREEN ETCHER Work Phone: [facility] 03-18-2024 11:31-0400 Body temperature 98.29 [degF] Brit Moomaw PIN MACHINE TENDER.SILK SCREEN ETCHER Work Phone: [facility] 03-18-2024 11:31-0400 Body weight 81.5 kg Brit Moomaw PIN MACHINE TENDER.SILK SCREEN ETCHER Work Phone: [facility] 03-18-2024 11:31-0400 Diastolic blood pressure 72 mm[Hg] Brit Moomaw PIN MACHINE TENDER.SILK SCREEN ETCHER Work Phone: [facility] 03-18-2024 11:31-0400 Heart rate 61 /min Brit Moomaw PIN MACHINE TENDER.SILK SCREEN ETCHER Work Phone: [facility] 03-18-2024 11:31-0400 Respiratory rate 16 /min Brit Moomaw PIN MACHINE TENDER.SILK SCREEN ETCHER Work Phone: [facility] 03-18-2024 11:31-0400 SaO2% (BldA) [Mass fraction] 98 % Brit Moomaw PIN MACHINE TENDER.SILK SCREEN ETCHER Work Phone: [facility] 03-18-2024 11:31-0400 Systolic blood pressure 120 mm[Hg] Brit Moomaw PIN MACHINE TENDER.SILK SCREEN ETCHER Work Phone: [facility] 08-05-2021 10:30-0500 Body temperature 98.42 [degF] DOMINIQUE LONG MD [facility] 08-05-2021 10:30-0500 Body weight 70 kg DOMINIQUE LONG MD [facility] 08-05-2021 10:30-0500 Diastolic blood pressure 88 mm[Hg] DOMINIQUE LONG MD [facility] 08-05-2021 10:30-0500 Heart rate 93 /min DOMINIQUE LONG MD [facility] 08-05-2021 10:30-0500 Respiratory rate 16 /min DOMINIQUE LONG MD [facility] 08-05-2021 10:30-0500 Systolic blood pressure 143 mm[Hg] DOMINIQUE LONG MD [facility] Encounters Encounter Date Encounter Type Care Provider Facility Start: 04-14-2025 End: 04-17-2025 Evaluation and management of inpatient CHAYO HAWTHORNE Facility:[id number] Start: 04-07-2025 End: 04-07-2025 Office outpatient visit 15 minutes Cris Lilly MD Work Phone: OB/Gynecology Comment on above: 38 weeks gestation o f (HCC) (Primary Dx); Supervision of high risk in third trimester (HCC); Multigravida of advanced maternal age in third trimester (HCC); Language barrier; Maternal care for scar from previous delivery, unspecified scar type (HCC) Start: 04-07-2025 End: 04-07-2025 [facility] Facility:[facility] Start: 04-03-2025 End: 04-03-2025 Female genitalia finding Ora Orellana [facility] Start: 04-03-2025 End: 04-03-2025 Orders Only Ora Orellana [facility] Comment on above: Gynecologic exam nor mal (Primary Dx) Start: 03-31-2025 End: 03-31-2025 Patient encounter procedure Rasheeda Heredia APRN.CNM Work Phone: OB/Gynecology Comment on above: 37 weeks gestation o f (HCC) (Primary Dx); Supervision of high risk in third trimester ([facility]); Multigravida of advanced maternal age in third trimester ([facility]); Language barrier; Maternal care for scar from previous delivery, unspecified scar type ([facility]); History of Start: 03-31-2025 End: 03-31-2025 [facility] Facility:[facility] Start: 03-31-2025 End: 04-03-2025 Telephone encounter Rasheeda Heredia APRN.CNM Work Phone: OB/Gynecology Comment on above: [facility] Start: 03-22-2025 End: 03-22-2025 Patient encounter procedure Floridalma Jaramillo MD Work Phone: OB/Gynecology Comment on above: Supervision of high risk in third trimester (HCC) (Primary Dx); Multigravida of advanced maternal age in third trimester ([facility]); Previous section; Obesity in ([facility]); Language barrier; BV (bacterial vaginosis); Yeast vaginitis; Abnormal test; 36 weeks gestation of (HCC) Obesity in (HCC) (Primary Dx); Multigravida of advanced maternal age in third trimester (HCC) Start: 03-22-2025 End: 03-22-2025 ambulatory FLORIDALMA JARAMILLO Facility:[facility] Start: 02-27-2025 End: 02-27-2025 ambulatory SIL SOTO Facility:[facility] Start: 02-27-2025 End: 02-27-2025 Patient encounter procedure Sil Soto MD Work Phone: OB/Gynecology Comment on above: Supervision of high risk in third trimester (HCC) (Primary Dx); Multigravida of advanced maternal age in third trimester (HCC); Previous section; Obesity in (HCC); 33 weeks gestation of (HCC); Encounter for other general counseling or advice on contraception; Vaginal discharge Start: 02-20-2025 End: 02-20-2025 ambulatory SHAWN LOCKE Facility:[facility] Start: 02-20-2025 End: 02-20-2025 ambulatory FLORIDALMA JARAMILLO Facility:[facility] Start: 02-20-2025 End: 02-20-2025 Patient encounter procedure Shawn Locke MD Work Phone: OB/Gynecology Comment on above: Supervision of high risk in third trimester (HCC) (Primary Dx); 32 weeks gestation of (HCC); Multigravida of advanced maternal age in third trimester (HCC); Previous section; Obesity in (HCC); Elevated blood pressure reading without diagnosis of hypertension Obesity in (HCC) (Primary Dx); Multigravida of advanced maternal age in third trimester (HCC) Start: 02-17-2025 End: 02-17-2025 Patient encounter procedure Luana Whaley CNM -[facility] Work Phone: Start: 02-17-2025 End: 02-17-2025 ambulatory Luana Whaley CNM Work Phone: [facility] Work Phone: Start: 02-17-2025 End: 02-17-2025 Telephone encounter Luana Whaley APRN.CNM Work Phone: OB/Gynecology Comment on above: OB Elevated BP Start: 02-16-2025 End: 02-17-2025 ambulatory SKYLAR PHILIP MD Facility:[facility] Start: 02-16-2025 End: 02-17-2025 SAME DAY STAY SKYLAR PHILIP MD [facility] Start: 02-16-2025 End: 02-16-2025 Emergency department patient visit JAROD LOUIS DO [facility] Start: 02-13-2025 End: 02-13-2025 Patient encounter procedure Floridalma Jaramillo MD Work Phone: OB/Gynecology Comment on above: Supervision of high risk in third trimester (HCC) (Primary Dx); Multigravida of advanced maternal age in third trimester (HCC); Previous section; Obesity in (HCC); 31 weeks gestation of (HCC) Start: 02-13-2025 End: 02-13-2025 ambulatory BRIT MOOMAW Facility:[facility] Start: 02-08-2025 End: 02-08-2025 Telephone encounter Yissel Cuello MD Work Phone: OB/Gynecology Comment on above: Received Outside [facility] Records Start: 01-31-2025 End: 04-02-2025 Follow-up encounter Yissel Cuello MD Work Phone: OB/Gynecology Start: 01-27-2025 End: 01-27-2025 ambulatory SELF Facility:[facility] Start: 01-05-2025 End: 01-05-2025 ambulatory CRIS LILLY Facility:[facility] Start: 01-02-2025 End: 01-02-2025 ambulatory CRIS LILLY Facility:[facility] Start: 12-30-2024 End: 12-30-2024 ambulatory YISSEL CUELLO Facility:[facility] Start: 12-02-2024 End: 12-02-2024 ambulatory KATIE JERNIGAN Facility:[facility] Start: 12-02-2024 End: 12-02-2024 Patient encounter procedure Yissel Cuello MD Work Phone: OB/Gynecology Comment on above: 20 weeks gestation o f (Primary Dx); Supervision of normal intrauterine in multigravida, unspecified trimester; Rh negative state in antepartum period Start: 12-02-2024 End: 12-02-2024 ambulatory [facility] Facility[facility] Start: 12-02-2024 End: 12-02-2024 Patient encounter procedure [employer] [facility]aternal [facility] Comment on above: Encounter for anatomic survey (Primary Dx); 20 weeks gestation of ; Multigravida of advanced maternal age in second trimester; Obesity affecting in second trimester, unspecified obesity type Start: 11-22-2024 End: 12-01-2024 Telephone encounter Katie Jernigan APRN.CNP Work Phone: OB/Gynecology Comment on above: Results Start: 11-22-2024 ambulatory KATIE DELON [facility] Start: 11-21-2024 End: 01-21-2025 Follow-up encounter Katie Jernigan APRN.SILK SCREEN ETCHER Work Phone: OB/Gynecology Comment on above: Results Start: 11-18-2024 End: 11-18-2024 ambulatory KATIE DELON Facility:[facility] Start: 11-18-2024 End: 11-18-2024 ambulatory SELF Facility:[facility] Start: 11-18-2024 End: 11-18-2024 Patient encounter procedure Katie Gómezf PIN MACHINE TENDER.SILK SCREEN ETCHER Work Phone: OB/Gynecology Comment on above: Supervision of humberto l intrauterine in multigravida, unspecified trimester (Primary Dx); with uncertain dates in first trimester; Screening for cervical cancer; Special screening examination for human papillomavirus (HPV); Screening for STDs (sexually transmitted diseases); 18 weeks gestation of ; Late care; Language barrier Start: 11-15-2024 End: 11-28-2024 Telephone encounter Katie Jernigan APRN.MODE Work Phone: OB/Gynecology Comment on above: Appointment Start: 11-15-2024 ambulatory KATIE [facility] Start: 04-27-2024 End: 04-27-2024 ambulatory [facility] Facility[facility] Start: 04-27-2024 End: 04-27-2024 Patient encounter procedure Juan Villegas PIN MACHINE TENDER.SILK SCREEN ETCHER Work Phone: OB/Gynecology Comment on above: Nexplanon removal (P rimary Dx) Start: 04-25-2024 End: 04-25-2024 Orders Only Juan Villegas PIN MACHINE TENDER.SILK SCREEN ETCHER Work Phone: OB/Gynecology Comment on above: Nexplanon removal (P rimary Dx) Start: 04-12-2024 End: 04-12-2024 ambulatory [facility] Facility[facility] Start: 04-12-2024 End: 04-12-2024 Patient encounter procedure Katie Delon PIN MACHINE TENDER.SILK SCREEN ETCHER Work Phone: OB/Gynecology Comment on above: Nexplanon removal (P rimary Dx) Start: 03-18-2024 End: 03-18-2024 Subsequent hospital visit by physician [facility] Work Phone: Radiology Comment on above: Dysphagia, unspecifi ed type [R13.10] Start: 03-18-2024 End: 03-18-2024 ambulatory BRIT MOOMAW Facility:[facility] Start: 03-18-2024 End: 03-18-2024 Patient encounter procedure Brit Moomaw PIN MACHINE TENDER.SILK SCREEN ETCHER Work Phone[facility] Comment on above: Dysphagia, unspecifi ed type (Primary Dx) Start: 12-02-2021 End: 12-06-2021 Outreach Lab SKYLAR PHILIP MD [facility] Start: 08-05-2021 End: 08-05-2021 Emergency department patient visit DOMINIQUE LONG MD [facility] Procedures Date Procedure Procedure Detail Performing Clinician Start: 04-14-2025 Antibody screen CHAYO HAWTHORNE Comment on above: Order Comment: Speci men Type: BLOOD SPECIMEN Ordering Facility: [facility] Address: [address] [place] [address] Result Comment: Adenike rubi has a previous clinically significant antibody Performed By: #### T SPN #### [facility] BLOOD BANK CLIA [id number] [address] [place] Start: 04-07-2025 Urnls dip stick/tabl et rgnt non-auto w/o micrscp Cris Lilly MD Work Phone: Start: 03-31-2025 Urnls dip stick/tabl et rgnt non-auto w/o micrscp aRsheeda Heredia APRN.CNM Work Phone: Start: 03-22-2025 Us preg uterus after 1st trimest / gestation Floridalma Jaramillo MD Work Phone: Start: 03-22-2025 Urnls dip stick/tabl et rgnt non-auto w/o micrscp Floridalma Jaramillo MD Work Phone: Start: 02-20-2025 Us preg uterus after 1st trimest / gestation Floridalma Jaramillo MD Work Phone: Start: 02-17-2025 Estimated creatinine clearance Luana Whaley CN Work Phone: Start: 01-27-2025 Antibody screen CHANCE LILLY Comment on above: Order Comment: Speci men Type: BLOOD SPECIMENOrdering Facility: [facility] Address: [address] [place] [address] Result Comment: Adenike rubi has a previous clinically significant antibody Performed By: #### T SPN ####[facility] BLO[facility]ANKCLIA [id number] [facility] [id number] Start: 01-27-2025 H/O: section Previous section Yissel Cuello MD Work Phone: Start: 12-02-2024 Us preg uterus after 1st trimest 09/07 gestation Katie Rodriguezcalf PIN MACHINE TENDER.SILK SCREEN ETCHER Work Phone: Start: 11-18-2024 Antibody screen KATIE HATFIELD Comment on above: Order Comment: Speci men Type: BLOOD SPECIMEN Ordering Facility: [facility] Address: [address] [place] [address] Performed By: #### T SPN #### [facility] CLIA [id number] [facility] [address] [place] Order Comment: Speci men Type: BLOOD SPECIMENOrdering Facility: [facility] Address: [address] [place] [address] Performed By: #### T SPN ####[facility] BLOOD BANKCLIA [id number] [id number] Start: 03-18-2024 Radiologic examinati on neck soft tissue Brit Moyariw PIN MACHINE TENDER.SILK SCREEN ETCHER Work Phone: Start: 09-07-2006 section ZAKI PHILIP MD H/O: section Previous c esarean section Floridalma Jaramillo MD Work Phone: H/O: section Previous c esarean section Shawn Locke MD Work Phone: H/O: section Previous c esarean section Sil Soto MD Work Phone: H/O: section Previous c esarean section Floridalma Jaramillo MD Work Phone: Plan of Treatment Date Care Activity Detail Author Start: 11-18-2029 Screening for malignant neoplasm of cervix Cervical Cancer Screening [facility] Start: 05-08-2025 Influenza vaccination [facility] Start: 04-14-2025 INDUCTION L&D INDUCTION L&D Procedures Routine Gynecologic exam normal Expected: 04/14/2025 [facility] Work Phone: Comment on above: Expected: 04/14/2025 Start: 04-07-2025 End: 04-07-2025 Patient encounter procedure OB/Gynecology Comment on above: NST NST/OB sign inductio n NST/OB sign inductio n consent Start: 03-31-2025 End: 03-31-2025 Patient encounter procedure 03/31/2025 3:00 PM EDT Routine Office Visit OB/Gynecology [address] [place] [address] Rasheeda Heredia APRN.CNM [address] [place] [address] OB OB/Gynecology Comment on above: OB Start: 03-15-2025 End: 03-15-2025 Patient encounter procedure 03/15/2025 4:30 PM EDT Routine Office Visit OB/Gynecology [address] [place] [address] Rasheeda Heredia APRN.CNM [address] [place] [address] OB OB/Gynecology Comment on above: OB Start: 02-27-2025 End: 02-27-2025 Patient encounter procedure 02/27/2025 3:50 PM EDT Routine Office Visit OB/Gynecology [address] [place] [address] Sil Soto MD [address] [place] [address] OB OB/Gynecology Comment on above: OB Start: 02-20-2025 End: 02-20-2025 Patient encounter procedure 02/20/2025 3:00 PM EDT Routine Office Visit Maternal Medicine [address] [place] [address] Growth Maternal Medicine Comment on above: Growth Start: 02-20-2025 End: 05-22-2025 Creatinine and Glomerular filtration rate.predicted panel - Serum, Plasma or Blood [facility] Comment on above: Expected: 02/20/2025, Expires: Start: 02-20-2025 End: 05-22-2025 Hepatic function 2000 panel - Serum or Plasma [facility] Work Phone: Comment on above: Expected: 02/20/2025, Expires: Start: 02-20-2025 End: 05-22-2025 Protein/Creatinine [Mass Ratio] in Urine [facility] Comment on above: Expected: 02/20/2025, Expires: Start: 02-20-2025 End: 05-22-2025 Urate [Mass/volume] in Serum or Plasma [facility] Comment on above: Expected: 02/20/2025, Expires: Start: 02-17-2025 Nonstress test [facility] Start: 02-17-2025 Obstetric monitoring [facility] Start: 02-17-2025 Vital signs measurements [facility] Start: 02-17-2025 [facility] Start: 02-17-2025 Patient discharge [facility] Start: 02-13-2025 End: 02-13-2025 Patient encounter procedure 02/13/2025 3:50 PM EDT Routine Office Visit OB/Gynecology [address] [place] [address] Floridalma Torres MD [address] [place] [address] OB OB/Gynecology Comment on above: OB Start: 01-27-2025 End: 01-27-2025 ambulatory 01/27/2025 3:15 PM EDT Results Only [facility] [address] [place] [address] Glucose Test [facility] Comment on above: Glucose Test Start: 01-27-2025 End: 01-27-2025 Patient encounter procedure 01/27/2025 3:15 PM EDT Routine Office Visit OB/Gynecology [address] [place] [address] Rasheeda Heredia APRN.[facility] [address] [place] [address] OB OB/Gynecology Comment on above: OB Start: 2025 Screening for malignant neoplasm of breast Mammogram Screening [facility] Start: 12-30-2024 End: 12-30-2024 Patient encounter procedure 12/30/2024 3:40 PM EDT Routine Office Visit OB/Gynecology [address] [place] [address] Yissel Cuello MD [address] [place] [address] 4 week follow up OB/Gynecology Comment on above: 4 week follow up Start: 12-02-2024 End: 12-02-2024 Patient encounter procedure 12/02/2024 2:50 PM EDT Routine Office Visit OB/Gynecology [address] [place] [address] Yissel Cuello MD [address] [place] [address] Anatomy/OB OB/Gynecology Comment on above: Anatomy/OB Start: 12-02-2024 End: 12-02-2024 Patient encounter procedure Maternal Medicine Comment on above: Anatomy 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 Authorization to Disclose Health Information, pt stated that its [facility] in [place] but its not, no information found, Anatomy Start: 11-18-2024 End: 02-17-2025 ANEMIA REFLEX PANEL [facility] Comment on above: Expected: 11/18/2024, Expires: Start: 11-18-2024 End: 02-17-2025 Hemoglobin A1c in Blood [facility] Comment on above: Expected: 11/18/2024, Expires: Start: 11-18-2024 End: 02-17-2025 Hepatitis B virus surface Ag [Presence] in Serum [facility] Comment on above: Expected: 11/18/2024, Expires: Start: 11-18-2024 End: 02-17-2025 Hepatitis C virus Ab [Presence] in Serum [facility] Comment on above: Expected: 11/18/2024, Expires: Start: 11-18-2024 End: 02-17-2025 HIV 1+2 Ab [Presence] in Serum or Plasma by Immunoassay [facility] Comment on above: Expected: 11/18/2024, Expires: Start: 11-18-2024 End: 11-18-2025 OBSTETRIC ULTRASOUND WHI OBSTETRIC ULTRASOUND WHI Anc Imaging Routine 18 weeks gestation of Expected: 11/18/2024, Expires: 11/18/2025 [facility] Comment on above: Expected: 11/18/2024, Expires: Start: 11-18-2024 End: 02-17-2025 RUBELLA IGG ANTIBODY [facility] Comment on above: Expected: 11/18/2024, Expires: Start: 11-18-2024 End: 02-17-2025 SYPHILIS TREPONEMAL W/REFLEX [facility] Comment on above: Expected: 11/18/2024, Expires: Start: 11-18-2024 End: 02-17-2025 TYPE + SCREEN [facility] Comment on above: Expected: 11/18/2024, Expires: Start: 05-08-2024 Covid-19 Vaccine ( season) Covid-19 Vaccine ( season) [facility] Start: 05-08-2024 Covid-19 Vaccine ( season) Covid-19 Vaccine ( season) [facility] Start: 05-08-2024 Influenza vaccination Influenza Vaccine (#1) [facility] Start: 05-02-2024 End: 05-02-2024 Patient encounter procedure 05/02/2024 3:05 PM EDT Office Visit [facility] [address] [id number] Airam uHbbard PA-C [address] [address] Dysphagia, unspecified type [R13.10] [facility] Comment on above: Dysphagia, unspecified type [R13.10] Start: 04-27-2024 End: 04-27-2024 Patient encounter procedure 04/27/2024 4:00 PM EDT Office Visit OB/Gynecology [address] [place] [address] Juan Villegas, PIN MACHINE TENDER.SILK SCREEN ETCHER [address] [place] [address] Nexplanon removal [Z30.46] OB/Gynecology Comment on above: Nexplanon removal [Z30.46] Start: 04-12-2024 End: 04-12-2024 Patient encounter procedure 04/12/2024 10:30 AM EDT Office Visit OB/Gynecology [address] [place] [address] Katie Jernigan, PIN MACHINE TENDER.SILK SCREEN ETCHER [address] [place] [address] discuss removing control implant- pt will need clinical safety specialist OB/Gynecology Comment on above: discuss removing control implant- pt will need clinical safety specialist Start: 09-07-2023 Behavioral Health Screening Behavioral Health Screening [facility] Start: 05-08-2023 Covid-19 Vaccine ( season) Covid-19 Vaccine ( season) [facility] Start: 2006 Screening for malignant neoplasm of cervix Cervical Cancer Screening [facility] Start: 01-26-2004 Hepatitis B Vaccine (1 of 3 - 19+ 3-dose series) Hepatitis B Vaccine (1 of 3 - 19+ 3-dose series) [facility] Start: 01-26-2004 Urine microalbumin profile DTaP,Tdap,Td Vaccine (1 - Tdap) [facility] Start: 2003 Anxiety Screening Anxiety Screening [facility] Start: 2003 Depression Screening Depression Screening [facility] Start: 2003 Hepatitis C screening Hepatitis C Screening [facility] Start: 2003 HIV screening HIV Screening [facility] Bacteria identified in Urine by Culture BACTERIAL CULTURE, URINE Microbiology Routine with uncertain dates in first trimester 11/18/2024 9:27 AM EDT [facility] BACTERIAL VAGINOSIS NAAT BACTERIAL VAGINOSIS NAAT Lab Routine Supervision of high risk in third trimester ([facility]) Vaginal discharge Ordered: 02/27/2025 [facility] Comment on above: Ordered: 02/27/2025 SANCHO/TRICHOMONAS NAAT SANCHO/TRICHOMONAS NAAT Lab Routine Supervision of high risk in third trimester ([facility]) Vaginal discharge Ordered: 02/27/2025 [facility] Work Phone: Comment on above: Ordered: 02/27/2025 Chlamydia trachomatis+Neisseria gonorrhoeae DNA [Presence] in Unspecified specimen by ALEXIS with probe detection GONORRHEA/CHLAMYDIA NAAT Lab Routine with uncertain dates in first trimester 11/18/2024 9:27 AM EDT [facility] nonstress test NON-S TRESS TEST Procedures Routine 37 weeks gestation of ([facility]) Supervision of high risk in third trimester ([facility]) Multigravida of advanced maternal age in third trimester ([facility]) Language barrier Maternal care for scar from previous delivery, unspecified scar type ([facility]) Ordered: 03/31/2025 [facility] Work Phone: Comment on above: Ordered: 03/31/2025 INDUCTION L&D INDUCTION L&D Pr ocedures Routine 37 weeks gestation of ([facility]) Supervision of high risk in third trimester ([facility]) Multigravida of advanced maternal age in third trimester ([facility]) Language barrier Maternal care for scar from previous delivery, unspecified scar type ([facility]) History of Ordered: 03/31/2025 [facility] Comment on above: Ordered: 03/31/2025 NEXPLANON REMOVAL NEXPLANON IRENE LIA Procedures Routine Nexplanon removal Ordered: 04/12/2024 [facility] Work Phone: Comment on above: Ordered: 04/12/2024 NEXPLANON REMOVAL NEXPLANON IRENE LIA Procedures Routine Nexplanon removal Ordered: 04/25/2024 [facility] Work Phone: Comment on above: Ordered: 04/25/2024 End: 05-29-2025 OBSTETRIC ULTRASOUND WHI OBSTETRIC ULTRASOUND WHI Anc Imaging Routine Multigravida of advanced maternal age in third trimester (HCC) Once per month for 3 Occurrences starting 02/13/2025 until 05/29/2025 [facility] Work Phone: Comment on above: Once per month for 3 Occurrences startin g 02/13/2025 until 05/29/2025 PAP TEST PAP TEST Lab Dean felder Screening for cervical cancer Special screening examination for human papillomavirus (HPV) 11/18/2024 9:27 AM EDT [facility] POC COW TRIMMER ULTRASOUND POC COW TRIMMER ULTRASO UND Anc Imaging Routine with uncertain dates in first trimester Ordered: 11/18/2024 [facility] Work Phone: Comment on above: Ordered: 11/18/2024 ROUTINE, GROUP B STREPTOCOCCUS BY PCR ROUTINE, GROUP B STREPTOCOCCUS BY PCR Microbiology Routine Supervision of high risk in third trimester (HCC) 03/22/2025 10:57 AM EDT [facility] Work Phone: TRICHOMONAS VAGINALI S NAAT TRICHOMONAS VAGINALIS NAAT Lab Routine Screening for STDs (sexually transmitted diseases) 11/18/2024 9:27 AM EDT [facility] Immunizations Immunization Date Immunization Notes Care Provider Blake rivera 01-27-2025 RHO(D) immune globul in- IV or IM Yissel Cuello MD Work Phone: [facility] Payers Date Payer Category Payer Self-pay [id number] 1985 Unknown [id number] 1985 Unknown [id number] Unknown [id number] Social History Date Type Detail Facility Never smoker [facility] Start: 1985 Sex Assigned At Female A [facility] Start: 12-02-2021 End: 04-27-2024 Tobacco smoking status Never smoked tobacco (finding) [facility] Sex Assigned At [facility] Tobacco smoking stat us NYIS Tobacco smoking consumption unknown [facility] Start: 1985 Sex Assigned At Not on file C [facility] Start: 04-12-2024 End: 01-02-2025 Gender identity Not on file [facility] Start: 04-12-2024 End: 01-02-2025 History of Social function [facility] National Score (1-100), lower number is lower risk 43 [facility] Start: 04-27-2024 Tobacco use and exposure Smokeless tobacco non-user [facility] Start: 04-27-2024 End: 04-07-2025 Alcoholic beverage intake Ex-drinker (finding) [facility] Start: 04-27-2024 Alcohol Comment Socially [facility] Start: 07-25-2024 [facility] Start: 11-25-2014 Sex Female (finding) [facility] Clinical Notes 08-05-2021 to 04-17-2025 Cris Lilly MD - 04/07/2025 4:50 PM EDTPrenatal Quick Notes - Cris Lilly MD - 04/07/2025 4:49 PM EDTPrenatal Quick Notes - Cris Lilly MD - 04/07/2025 4:49 PM EDT Note Date & Type Note Facility 04-17-2025 Note HNO ID: [id number] Author: CRIS BARTON LPN Service: ? Author Type: LICENSED NURSE Type: Nursing Progress Note Filed: 04/17/2025 14:49 Note Text: Pt discharged home with in arms via w/c, accompanied by s/o [facility] 04-16-2025 Note HNO ID: [id number] Author: JAMARI JUSTICE MD Service: Obstetrics Author Type: Physician Type: Progress Notes Filed: 04/16/2025 08:50 Note Text: OBSTETRICS PROGRESS NOTE SERVICE DATE: April 16, 2025 SERVICE TIME: 7:48 AM SUBJECTIVE: Pt well without complaints. No f/c/s, n/v, sob/cp. +Ambulation, urinating without difficulty, pain controlled well, tolerating regular diet. Lochia low. OBJECTIVE: LAST VITALS: Pulse BP Resp O2 Sat Temp Pain 90 134/91 18 99 % 36.9 ?C (98.4 ?F) 2 Avg Min Max Vitals (last 12 hours) Flowsheet Row Name Average Min Max BP: Systolic 134 134 134 BP: Diastolic 91 91 91 Temp 36.9 ?C (98.4 ?F) 36.9 ?C (98.4 ?F) 36.9 ?C (98.4 ?F) Pulse 90 90 90 Resp 18 18 18 SpO2 99 % 99 % 99 % HT/WT/BMI: Height Weight BMI 161.9 cm (5' 3.74) 98.9 kg (218 lb) 37.73 PHYSICAL EXAM: Abdomen tender appropriate to palpation. Fundus low. Wound clean/dry/intact. LABS ABO/RH: 04/15/2025: O; Negative RUBELLA: 11/18/2024: Positive HANDH: Hemoglobin (g/dL) Date Value 04/15/2025 10.7 04/14/2025 12.7 Hematocrit (%) Date Value 04/15/2025 33.9 04/14/2025 38.8 ASSESSMENT: day #2 status post , Low Transverse delivery with female . PLAN: Continue routine care Advance diet Pain control Iron replacement Discharge goals discussed with patient Plan of care discussed with: Provider, RN, Patient The sensitive examination was discussed with the Patient or Patient's Authorized Adult Parole Officer. As applicable, any other physician, advance practice provider, medical student, or other health professional student that will be observing or involved in the sensitive examination for educational or training purposes was discussed with the Patient or Authorized Adult Parole Officer. The Patient or Authorized Adult Parole Officer has agreed to proceed with the sensitive examination. (Sensitive examination includes inspection and/or palpation of the breasts, pelvis, prostate and anorectal regions) Diagnostic tests were reviewed for today's visit SIGNATURE: Jamari Justice MD PATIENT NAME: Shaila Fraga DATE: April 16, 2025 TIME: 7:48 AM [facility] 04-15-2025 Note HNO ID: [id number] Author: MAXX MACIEL MD Service: Obstetrics Author Type: Physician Type: Progress Notes Filed: 04/15/2025 20:48 Note Text: OBSTETRICS PROGRESS NOTE PATIENT'S NAME: Shaila Fraga MEDICAL RECORDS NUMBER: [id number] PHYSICIAN: Maxx Maciel MD SERVICE DATE: April 15, 2025 SERVICE TIME: 8:45 PM ASSESSMENT: 40 year old female who is Postoperative Day #1 status post , Low Transverse delivery with female . The patient is doing well and is ambulating around in her room. She says her incision pain is being controlled with analgesics. She has no complaints. PLAN: Routine care. Plan of care discussed with: Provider, RN, Patient. Anticipate discharge day: POD #2-3 SUBJECTIVE: Patient has no current complaints. Tolerating PO intake. Urinating without difficulty. Passing flatus. Pain well controlled with current regimen. Lochia decreasing. Ambulating without difficulty. OBJECTIVE: PHYSICAL EXAM: Abdomen: Soft Appropriately tender to palpation Fundus firm below umbilicus Non-distended Incision: Bandage C/D/I. Extremities: No calf tenderness and Edema equal bilaterally LAST VITALS: Pulse BP Resp O2 Sat Temp Pain 90 134/91 18 99 % 36.9 ?C (98.4 ?F) 4 Avg Min Max Vitals (last 12 hours) Flowsheet Row Name Average Min Max BP: Systolic 128.33 123 134 BP: Diastolic 84 78 91 Temp 36.9 ?C (98.37 ?F) 36.8 ?C (98.2 ?F) 36.9 ?C (98.5 ?F) Pulse 95.67 90 99 Resp 17.14 16 18 SpO2 97.33 % 94 % 99 % HT/WT/BMI: Height Weight BMI 161.9 cm (5' 3.74) 98.9 kg (218 lb) 37.73 LABS ABO/RH: 04/15/2025: O; Negative RUBELLA: 11/18/2024: Positive HANDH: Hematocrit (%) Date Value 04/15/2025 33.9 04/14/2025 38.8 Hemoglobin (g/dL) Date Value 04/15/2025 10.7 04/14/2025 12.7 Diagnostic tests reviewed for today's visit: Most recent labs SIGNATURE: Maxx Maciel MD PATIENT NAME: Shaila Fraga DATE: April 15, 2025 TIME: 8:45 PM DISCLAIMER Portions of this document may have been created with the use of voice recognition technology. Reasonable efforts have made to correct for errors. However, it may contain inaccuracies, misspellings, syntax errors, or word sense that escaped review. Please inquire further with the author for clarification if needed. Please note, the time of this note does not reflect the time I saw this patient today, but the time of this documentation. [facility] 04-15-2025 Note HNO ID: [id number] Author: ZEUS ZHOU APRN.CRNA Service: Anesthesiology Author Type: Nurse Health Service Coordinator Type: Progress Notes Filed: 04/15/2025 09:57 Note Text: No problems or issues with anesthesia [facility] 04-15-2025 Note HNO ID: [id number] Author: NOTE, INTERFACE, ? Service: ? Author Type: ? Type: Progress Notes Filed: 04/15/2025 15:52 Note Text: Epic Scheduled Downtime: 04/15/2025 1:00:00 AM to 04/15/2025 2:17:00 AM [facility] 04-14-2025 Note HNO ID: [id number] Author: JOSH YUN DO Service: Anesthesiology Author Type: Nurse Health Service Coordinator Type: Anesthesia Procedure Notes Filed: 04/17/2025 10:09 Note Text: Attestation signed by Josh Yun DO at 04/17/2025 10:09 AM I reviewed and agree with the assessment as documented above. SIGNATURE: Josh Yun DO DATE: April 17, 2025 TIME: 10:09 AM ANESTHESIOLOGY PROCEDURE NOTE Spinal Block General Information Procedure Start Time/Medication Administration: 04/14/2025 10:24 PM Procedure End time: 04/14/2025 10:37 PM Patient location during procedure: OR Timeout Performed Pre-procedure: timeout performed (Key Punch Operator Tianna [id number]) Reason for Block: primary surgical anesthetic Staffing BOBCAT OPERATOR: Pennie Fountain APRN.BOBCAT OPERATOR Performed by: BOBCAT OPERATOR Preparation Sterility Preparation: hand hygiene performed prior to procedure, sterile gloves, drapes, and procedure tray, surgical cap used, mask used, sterile drape used during line insertion, skin prep agent completely dried prior to procedure Site Prep: Chloraprep Procedure Details Patient Position: sitting Monitoring: Pulse Ox and NIBP Approach: Midline Location: L3-4 Injection Technique: single-shot Needle Needle Type: pencil-tip Needle Gauge: 22 G Needle Length: 3.5 in CSF: CSF clear Assessment Events: tolerated well Comments LOT [id number] EXP 10-07-2025 2 attempts. 1st attempt failed with bent needle. Removed intact with introducer. 2nd attempt easily placed without introducer with 3.5 inch 22g SIGNATURE: Pennie Fountain APRN.BOBCAT OPERATOR PATIENT NAME: Shaila Fraga DATE: April 14, 2025 TIME: 10:55 PM CSN: [id number] [facility] 04-14-2025 Note HNO ID: [id number] Author: CHAYO HAWTHORNE MD Service: Obstetrics Author Type: Physician Type: Progress Notes Filed: 04/14/2025 22:45 Note Text: Patient was admitted for TOLAC S/P CRB and oxytocin Patient did not make any change since CRB was out despite oxytocin augmentation The presentation is high and cervix posterior un effaced only 40-50% EFW 3800 gr Discuss with patient failed tolac and indicated a C/S In The mean time patient had a few elevate BP and needed Labetolol adm iv 20 mg x 1 She is Ch HTN on meds with possible superimposed preeclmsia. Patient sign the consent for C/S R/B/A discuss with argentine interpretor ( ) [facility] 04-14-2025 Note HNO ID: [id number] Author: CHAYO HAWTHORNE MD Service: Obstetrics Author Type: Physician Type: Progress Notes Filed: 04/14/2025 17:38 Note Text: TOLAC Patient had CRB inserted 1030 am and came out at noon. She was examined at that time and was 3 cm /50% -2 vertex intact membrane. Was started on pitocin low dose Arsh regular q 3 minute /30 sec Reexamined at 3 pm patient is 4 cm / 50% soft central vertex-2 EFw 03/22/25 at 36 wks 4 days :EFW 3,306 g = 87% Hadlock EFW (lb) 7 lb 5 oz Pelvis adequate Previous 2 x successfully Continue IOL [facility] 04-14-2025 Note HNO ID: [id number] Author: CHAYO HAWTHORNE MD Service: Obstetrics Author Type: Physician Type: Progress Notes Filed: 04/14/2025 10:56 Note Text: CRB placed around 1030 am PE the same FT posterior No uterine ctx Cat I tracing Will start low dose of pitocin also [facility] 04-07-2025 Note HNO ID: [id number] Author: CRIS LILLY MD Service: ? Author Type: Physician Type: Progress Notes Filed: 04/07/2025 16:51 Note Text: NST SUMMARY PROVIDER ASSESSMENT AND INTERPRETATION Indications for NST: AMA Baseline: 140 Variability: Moderate Accelerations: Present 15 X 15 Decelerations: None Interpretation: Reactive SIGNATURE: Cris Lilly MD [facility] 04-07-2025 History of Presen t illness Narrative NST SUMMARY PROVIDER ASSESSMENT AND INTERPRETATION Indications for NST: AMA Baseline: 140 Variability: Moderate Accelerations: Present 15 X 15 Decelerations: None Interpretation: Reactive SIGNATURE: Cris Lilly MD documented in this encounter [facility] 04-07-2025 Progress note Formatting of t his note might be different from the original. S: Shaila Fraga is a 40 year old female who presents at 04/17/2025, by Last Menstrual Period for a routine visit. Denies headache, visual changes, chest pain, shortness of breath, vaginal bleeding, leakage of fluid, or dysuria. Feeling well, no complaints. Good movement, No contractions O: See flow sheet Gen: No apparent distress Abd: Gravid, nontender Declined cervical exam Consent signed for Induction and Scheduled for 04/14 at [facility] of successful x 2 Chance of success 83 % Reactive NST ASSESSMENT/PLAN: 1. 38 weeks gestation of ([facility]) - ICD9: V22.2, ICD10: Z3A.38 (primary diagnosis) - URINE OB DIP B/O 2. Supervision of high risk in third trimester ([facility]) - ICD9: V23.9, ICD10: O09.93 - URINE OB DIP B/O 3. Multigravida of advanced maternal age in third trimester ([facility]) - ICD9: 659.63, ICD10: O09.523 - URINE OB DIP B/O 4. Language barrier - ICD9: V49.89, ICD10: Z60.3, Z75.8 Interpretor present - URINE OB DIP B/O 5. Maternal care for scar from previous delivery, unspecified scar type ([facility]) - ICD9: 654.20, ICD10: O34.219 - URINE OB DIP B/O Cris Lilly MD [facility] 04-07-2025 Miscellaneous Notes S: Shaila Fraga is a 40 year old female who presents at 04/17/2025, by Last Menstrual Period for a routine visit. Denies headache, visual changes, chest pain, shortness of breath, vaginal bleeding, leakage of fluid, or dysuria. Feeling well, no complaints. Good movement, No contractions O: See flow sheet Gen: No apparent distress Abd: Gravid, nontender Declined cervical exam Consent signed for Induction and Scheduled for 04/14 at [facility] of successful x 2 Chance of success 83 % Reactive NST ASSESSMENT/PLAN: 1. 38 weeks gestation of ([facility]) - ICD9: V22.2, ICD10: Z3A.38 (primary diagnosis) - URINE OB DIP B/O 2. Supervision of high risk in third trimester ([facility]) - ICD9: V23.9, ICD10: O09.93 - URINE OB DIP B/O 3. Multigravida of advanced maternal age in third trimester ([facility]) - ICD9: 659.63, ICD10: O09.523 - URINE OB DIP B/O 4. Language barrier - ICD9: V49.89, ICD10: Z60.3, Z75.8 Interpretor present - URINE OB DIP B/O 5. Maternal care for scar from previous delivery, unspecified scar type ([facility]) - ICD9: 654.20, ICD10: O34.219 - URINE OB DIP B/O Cris Lilly MD documented in this encounter [facility] 04-07-2025 Instructions Ruiz Stoll LPN - 04/07/2025 3:18 PM EDT SEQUENTIAL SCREENINGS The [facility] offers sequential screenings for women who are interested in screenings for chromosomal abnormalities and certain defects during a . The sequential screen combines ultrasound and blood tests to determine the risk of chromosomal abnormalities, including Down's Syndrome (Trisomy 21) and Trisomy 18, as well as open neural tube defects including spina bifida. Ultrasound examination is performed between 11 weeks and 13 weeks gestational age. Blood tests are drawn after the ultrasound and again later in the between 15 and 21 weeks gestational age. Please let your physician know if you are interested in this testing. It will require an appointment with our graphic arts technician. This is not an ultrasound performed by a physician in our office during a routine visit. SIGNS AND SYMPTOMS OF LABOR 1. Contractions every 10 minutes or more often 2. Clear, pink, or brownish fluid (water) leaking from vagina 3. Feeling that baby is pushing down, pressure 4. Low, dull backache 5. Cramps that feel like a period 6. Cramps with or without diarrhea If you notice any of the above symptoms, contact our office at [phone] and ask to speak with a nurse. After hours, you can call doctors registry at [phone] OR call [facility] at [phone] and ask to have the doctor director on air paged. If you consider this an emergency, dial or go to your nearest emergency department. NEED HELP? Are you dealing with a violent or abusive relationship? Are you a victim of rape or sexual assult? Call [facility] ([place]) 24 hour Crisis Hotline: 199.217.4290 or 770-779-9737. MANUAL Your Guide to a Healthy manual is now on-line. Visit [email or web address] to download your free copy documented in this encounter [facility] 04-03-2025 Telephone encounter Note Spoke with pt and informed of induction, location, time, date and parking instructions. [facility] 04-03-2025 Miscellaneous Notes Spoke with pt and informed of induction, location, time, date and parking instructions. Received call back from [facility]. Patient is now scheduled for induction on Thursday04/14/25 at 7:30am at [facility]. Park in parking deck and go in main door. Red coats should be at entrance to help, but just follow OB ED signs and it will take her to the 2nd floor Maternity unit. Verena Yepez RN Called [facility] L&D - they will review her chart and call back if induction is accepted. Induction to be scheduled 04/14/25 at 7:30am if she is approved. Will wait for their return call. Verena Yepez RN Images from the original note were not included. Message Received: Today Rasheeda Heredia APRN.CNM Griffin, Tara, RN INDUCTION ORDERS PLACED- PATIENT NEEDS NOTIFIED OF DATE AND TIME. Rasheeda Heredia APRN.CNM Pt desires Induction at [facility], [facility] L&D for delivery on 04/14/25. Pt will be 39w4d. Provider (CP) to place induction order. This RN contacted [facility] L&D to double check the procedure location. One staff member thought it was [facility] L[facility], but was placed on hold to speak to someone else to verify and was on hold for 20 minutes and was unable to hold the line any further. Will need to call and schedule induction once order has been filed. Pt will then need notified. - AMA -Age 40 - EFW 87%, AC 99% - First delivery via C/S and has had 2 successful 's - Desires - GBS negative - Will need to return next week for NST/ MINESH (Pt does not wish to schedule OB visits at [facility]) Candace Horta RN documented in this encounter [facility] 04-03-2025 Telephone encounter Note Received call back from [facility]. Patient is now scheduled for induction on Thursday04/14/25 at 7:30am at [facility]. Park in parking deck and go in main door. Red coats should be at entrance to help, but just follow OB ED signs and it will take her to the 2nd floor Maternity unit. Verena Yepez RN [facility] 04-03-2025 Telephone encounter Note Called [facility] L&D - they will review her chart and call back if induction is accepted. Induction to be scheduled 04/14/25 at 7:30am if she is approved. Will wait for their return call. Verena eYpez RN T [facility] 03-31-2025 Telephone encounter Note Images from the original note were not included. Message Received: Today Rasheeda Heredia APRN.CNM Griffin, Tara, RN INDUCTION ORDERS PLACED- PATIENT NEEDS NOTIFIED OF DATE AND TIME. Rasheeda Heredia APRN.CNM [facility] 03-31-2025 Telephone encounter Note Pt desires Induction at [facility], [facility] L&D for delivery on 04/14/25. Pt will be 39w4d. Provider (CP) to place induction order. This RN contacted [facility] L&D to double check the procedure location. One staff member thought it was [facility], but was placed on hold to speak to someone else to verify and was on hold for 20 minutes and was unable to hold the line any further. Will need to call and schedule induction once order has been filed. Pt will then need notified. - AMA -Age 40 - EFW 87%, AC 99% - First delivery via C/S and has had 2 successful 's - Desires - GBS negative - Will need to return next week for NST/ MINESH (Pt does not wish to schedule OB visits at [facility]) Candace Horta RN [facility] 03-31-2025 Progress note Formatting of t his note might be different from the original. Patient's daughter present for interpretation S: Shaila Fraga is a 40 year old female who presents at 37.4 weeks gestation for a routine visit. Positive movements. Denies any contractions. Seen last week for growth US- EFW 87%, AC 99%, GARY 9.4 cm. Patient was to complete weekly NST's (has not ) and recommendation for delivery at 39 weeks gestation. Patient initially declining induction of labor until discussion of AMA and rational for induction. Patient agrees to induction of labor but requesting induction at [facility] in [place]. Will help to facilitate scheduling of induction. Verbal consent for CE today. O: See flow sheet Gen: No apparent distress Abd: Gravid, nontender CE - FT/ thick/ posterior ASSESSMENT/PLAN: 1. 37 weeks gestation of ([facility]) - ICD9: V22.2, ICD10: Z3A.37 (primary diagnosis) 2. Supervision of high risk in third trimester 3. Multigravida of advanced maternal age in third trimester 4. Language barrier 5. Maternal care for scar from previous delivery - AMA -Age 40 - EFW 87%, AC 99% - First delivery via C/S and has had 2 successful 's - Desires - GBS negative - Agrees to induction of labor at 39 weeks gestation however, would like to be inducted at [facility]- will assist with scheduling - Order for induction placed - Will need to return next week for NST/ MINESH- Unsure if signed TOLAC consent?? Rasheeda Heredia APRN.CNM [facility] 03-31-2025 Miscellaneous Notes Patient's daughter present for interpretation S: Shaila Fraga is a 40 year old female who presents at 37.4 weeks gestation for a routine visit. Positive movements. Denies any contractions. Seen last week for growth US- EFW 87%, AC 99%, GARY 9.4 cm. Patient was to complete weekly NST's (has not ) and recommendation for delivery at 39 weeks gestation. Patient initially declining induction of labor until discussion of AMA and rational for induction. Patient agrees to induction of labor but requesting induction at [facility] in [place]. Will help to facilitate scheduling of induction. Verbal consent for CE today. O: See flow sheet Gen: No apparent distress Abd: Gravid, nontender CE - FT/ thick/ posterior ASSESSMENT/PLAN: 1. 37 weeks gestation of ([facility]) - ICD9: V22.2, ICD10: Z3A.37 (primary diagnosis) 2. Supervision of high risk in third trimester 3. Multigravida of advanced maternal age in third trimester 4. Language barrier 5. Maternal care for scar from previous delivery - AMA -Age 40 - EFW 87%, AC 99% - First delivery via C/S and has had 2 successful 's - Desires - GBS negative - Agrees to induction of labor at 39 weeks gestation however, would like to be inducted at [facility]- will assist with scheduling - Order for induction placed - Will need to return next week for NST/ MINESH- Unsure if signed TOLAC consent?? Rahseeda Heredia APRN.CNM documented in this encounter [facility] 03-31-2025 Instructions Pennie De La Rosa MA - 03/31/2025 3:00 PM EDT SEQUENTIAL SCREENINGS The [facility] offers sequential screenings for women who are interested in screenings for chromosomal abnormalities and certain defects during a . The sequential screen combines ultrasound and blood tests to determine the risk of chromosomal abnormalities, including Down's Syndrome (Trisomy 21) and Trisomy 18, as well as open neural tube defects including spina bifida. Ultrasound examination is performed between 11 weeks and 13 weeks gestational age. Blood tests are drawn after the ultrasound and again later in the between 15 and 21 weeks gestational age. Please let your physician know if you are interested in this testing. It will require an appointment with our graphic arts technician. This is not an ultrasound performed by a physician in our office during a routine visit. SIGNS AND SYMPTOMS OF LABOR 1. Contractions every 10 minutes or more often 2. Clear, pink, or brownish fluid (water) leaking from vagina 3. Feeling that baby is pushing down, pressure 4. Low, dull backache 5. Cramps that feel like a period 6. Cramps with or without diarrhea If you notice any of the above symptoms, contact our office at [phone] and ask to speak with a nurse. After hours, you can call [employer] [facility] at [phone] OR call [facility] at [phone] and ask to have the doctor director on air paged. If you consider this an emergency, dial 3-1-0 or go to your nearest emergency department. NEED HELP? Are you dealing with a violent or abusive relationship? Are you a victim of rape or sexual assult? Call [facility] ([place]) 24 hour Crisis Hotline: 675.107.8382 or 664-089-0810. MANUAL Your Guide to a Healthy manual is now on-line. Visit [email or web address] [email or web address] to download your free copy documented in this encounter [facility] 03-22-2025 Note Indication Evaluation of growth, Evaluation of well-being Advanced maternal age, Maternal obesity, BMI >30, late care Impression - Single, live, intrauterine . - presentation is cephalic. - The biometry is consistent with the assigned gestational dating. - The EFW is 3306 g, at the 87%. AC is at the 99%. - The amniotic fluid volume is normal amount with an MVP of 2.6 cm and an GARY of 9.4 cm. - The placenta is anterior, fundal. - BPP 6/8. - No malformations visualized on a limited survey as detailed below. Recommendations NST planned. Maternal Assessment Height 163 cm Height (ft) 5 ft Height (in) 4 in Physical Exam Initial weight (lb) 199 lb Initial BMI 34.16 kg/m Maternal assessment other: 4 Para 3 REMOTE READ Method Transabdominal ultrasound examination [place] . Number of fetuses: 1 Dating GA by prior assessment 36 w + 2 d MARCO ANTONIO by prior assessment: 04/17/2025 Ultrasound examination on: 03/22/2025 GA by U/S based upon: AC, BPD, Femur, HC GA by U/S 36 w + 4 d MARCO ANTONIO by U/S: 04/15/2025 Assigned: based on stated MARCO ANTONIO, selected on 03/22/2025 Assigned GA 36 w + 2 d Assigned MARCO ANTONIO: 04/17/2025 General Evaluation Cardiac activity present. FHR 156 bpm. movements: present. Presentation: cephalic Placenta: Placental site: anterior, fundal Umbilical cord: Cord vessels: 3 vessel cord Amniotic fluid: Amount of AF: normal amount. MVP 2.6 cm. GARY 9.4 cm. Q1 2.6 cm, Q2 2.5 cm, Q3 1.9 cm, Q4 2.4 cm Biophysical Profile 2: breathing movements 0: Gross body movements 2: tone 2: Amniotic fluid volume 6/8 Biophysical profile score Growth Overview Exam date GA BPD (mm) HC (mm) AC (mm) FL (mm) HL (mm) EFW (g) 02/20/2025 32w 0d 79 32% 304.9 70% 296.2 89% 60.5 43% 2096 71% 03/22/2025 36w 2d 85.9 16% 332.5 66% 349.7 99% 69.5 63% 3306 87% Biometry Standard BPD 85.9 mm 34w 4d 16% Hadlock OFD 122.1 mm -/- 91% Nicolaides HC 332.5 mm 37w 4d 66% Edwina AC 349.7 mm 38w 6d 99% Hadlock Femur 69.5 mm 35w 2d 63% Edwina EFW 3,306 g 38w 2d 87% Hadlock EFW (lb) 7 lb EFW (oz) 5 oz EFW by: Hadlock (HC-AC-FL) Extended Stewarding Supervisor 7.7 mm Extremities / Bony Struc FL / HC 0.21 Other Structures FHR 156 bpm Anatomy Lateral ventricles: normal Cavum septi pellucidi: normal Cerebellum: normal Cisterna magna: normal 4-chamber view: normal RVOT view: normal LVOT view: normal 3-vessel view: normal Heart / Thorax Situs: situs solitus (normal) Diaphragm: normal Stomach: normal Kidneys: normal Bladder: normal Performed By: Isela Henry RDMS, RVT Read By: Alejandra Burks M.D. [facility] 03-22-2025 Note HNO ID: [id number] Author: FLORIDALMA TORRES MD Service: ? Author Type: Physician Type: Progress Notes Filed: 03/22/2025 11:53 Note Text: NST SUMMARY PROVIDER ASSESSMENT AND INTERPRETATION Shaila Fraga is a 40 year old female, , who is at 36w2d with an MARCO ANTONIO of 04/17/2025, by Last Menstrual Period dating method. Indications for NST: Other: BPP 6/8 Baseline: 140 Variability: Moderate Accelerations: Present 15 X 15 Decelerations: None Contractions: TOCO: None Interpretation: Category I and Reactive SIGNATURE: Floridalma Cartwright MD [facility] 03-22-2025 History of Presen t illness Narrative NST SUMMARY PROVIDER ASSESSMENT AND INTERPRETATION Shaila Fraga is a 40 year old female, , who is at 36w2d with an MARCO ANTONIO of 04/17/2025, by Last Menstrual Period dating method. Indications for NST: Other: BPP 6/8 Baseline: 140 Variability: Moderate Accelerations: Present 15 X 15 Decelerations: None Contractions: TOCO: None Interpretation: Category I and Reactive SIGNATURE: Floridalma Cartwright MD documented in this encounter [facility] 03-22-2025 Progress note Formatting of t his note might be different from the original. DM-Pt doing well. Denies vaginal Bleeding, Leaking fluid, or regular Contractions. Pt reports good movement Physical Exam: Gen: female in no apparent distress Abd: soft, Gravid. Non tender to palpation. See flow sheet Participation of a fellow, resident, medical student, or advanced practice provider student in performing the sensitive examination was discussed with the patient or authorized branch sales and service representative. The patient or authorized branch sales and service representative has agreed to proceed with the sensitive examination. @ 36.2 weeks Assessment & Plan Supervision of high risk in third trimester ([facility]) Orders: URINE OB DIP B/O ROUTINE, GROUP B STREPTOCOCCUS BY PCR Multigravida of advanced maternal age in third trimester ([facility]) Orders: URINE OB DIP B/O Previous section Planning TOLAC (had previous tolac ?? Scar) Orders: URINE OB DIP B/O Obesity in (HCC) Growth us today Orders: URINE OB DIP B/O Language barrier BV (bacterial vaginosis) Orders: metroNIDAZOLE (FLAGYL) 500 mg tablet; Take 1 tablet by mouth two times a day for 7 days. Yeast vaginitis Treated with monistat cream 36 weeks gestation of (HCC) Limited bedside ultrasound confirm Vertex Orders: URINE OB DIP B/O Floridalma Cartwright MD [facility] 03-22-2025 Miscellaneous Notes DM-Pt doing well. Denies vaginal Bleeding, Leaking fluid, or regular Contractions. Pt reports good movement Physical Exam: Gen: female in no apparent distress Abd: soft, Gravid. Non tender to palpation. See flow sheet Participation of a fellow, resident, medical student, or advanced practice provider student in performing the sensitive examination was discussed with the patient or authorized branch sales and service representative. The patient or authorized branch sales and service representative has agreed to proceed with the sensitive examination. @ 36.2 weeks Assessment & Plan Supervision of high risk in third trimester ([facility]) Orders: URINE OB DIP B/O ROUTINE, GROUP B STREPTOCOCCUS BY PCR Multigravida of advanced maternal age in third trimester ([facility]) Orders: URINE OB DIP B/O Previous section Planning TOLAC (had previous tolac ?? Scar) Orders: URINE OB DIP B/O Obesity in ([facility]) Growth us today Orders: URINE OB DIP B/O Language barrier BV (bacterial vaginosis) Orders: metroNIDAZOLE (FLAGYL) 500 mg tablet; Take 1 tablet by mouth two times a day for 7 days. Yeast vaginitis Treated with monistat cream 36 weeks gestation of ([facility]) Limited bedside ultrasound confirm Vertex Orders: URINE OB DIP B/O Floridalma Cartwright MD documented in this encounter [facility] 03-22-2025 Instructions Valentina Dillon MA - 03/22/2025 10:28 AM EDT SEQUENTIAL SCREENINGS The [facility] offers sequential screenings for women who are interested in screenings for chromosomal abnormalities and certain defects during a . The sequential screen combines ultrasound and blood tests to determine the risk of chromosomal abnormalities, including Down's Syndrome (Trisomy 21) and Trisomy 18, as well as open neural tube defects including spina bifida. Ultrasound examination is performed between 11 weeks and 13 weeks gestational age. Blood tests are drawn after the ultrasound and again later in the between 15 and 21 weeks gestational age. Please let your physician know if you are interested in this testing. It will require an appointment with our graphic arts technician. This is not an ultrasound performed by a physician in our office during a routine visit. SIGNS AND SYMPTOMS OF LABOR 1. Contractions every 10 minutes or more often 2. Clear, pink, or brownish fluid (water) leaking from vagina 3. Feeling that baby is pushing down, pressure 4. Low, dull backache 5. Cramps that feel like a period 6. Cramps with or without diarrhea If you notice any of the above symptoms, contact our office at [phone] and ask to speak with a nurse. After hours, you can call doctors registry at [phone] OR call [facility] at [phone] and ask to have the doctor director on air paged. If you consider this an emergency, dial 9-1-8 or go to your nearest emergency department. NEED HELP? Are you dealing with a violent or abusive relationship? Are you a victim of rape or sexual assult? Call [facility] ([place]) 24 hour Crisis Hotline: 114.590.5678 or 542-436-1935. MANUAL Your Guide to a Healthy manual is now on-line. Visit [email or web address] [email or web address] to download your free copy documented in this encounter [facility] 02-27-2025 Progress note Formatting of t his note might be different from the original. RR- VB No. LOF No. CTXS No. Movement: present. Other c/o: occas swelling Medication list reviewed. Participation of a fellow, resident, medical student, or advanced practice provider student in performing the sensitive examination was discussed with the patient or authorized branch sales and service representative. The patient or authorized branch sales and service representative has agreed to proceed with the sensitive examination. Physical Exam See Flow Sheet Abd: soft, nontender, gravid Ext: edema: Trace , 2+ DTrs, no clonus irrigation equipment installer- erythema of external genitalia, thick white adherent discharge. A/P 33w0d Estimated Date of Delivery: 04/17/25 Assessment & Plan Supervision of high risk in third trimester ([facility]) Orders: SANCHO/TRICHOMONAS NAAT BACTERIAL VAGINOSIS NAAT Multigravida of advanced maternal age in third trimester ([facility]) growth scan ordered Previous section 2 tolacs, plans tolac Obesity in ([facility]) growth scans ordered 33 weeks gestation of ([facility]) Encounter for other general counseling or advice on contraception d/w her if emergency or other indicated c/s would she like to have tubal and she declines, plans nexplanon Vaginal discharge suspect yeast. Rx sent while swabs pending Orders: SANCHO/TRICHOMONAS NAAT BACTERIAL VAGINOSIS NAAT Sil Soto M.D. [facility] 02-27-2025 Miscellaneous Notes RR- VB No. LOF No. CTXS No. Movement: present. Other c/o: occas swelling Medication list reviewed. Participation of a fellow, resident, medical student, or advanced practice provider student in performing the sensitive examination was discussed with the patient or authorized branch sales and service representative. The patient or authorized branch sales and service representative has agreed to proceed with the sensitive examination. Physical Exam See Flow Sheet Abd: soft, nontender, gravid Ext: edema: Trace , 2+ DTrs, no clonus irrigation equipment installer- erythema of external genitalia, thick white adherent discharge. A/P 33w0d Estimated Date of Delivery: 04/17/25 Assessment & Plan Supervision of high risk in third trimester (HCC) Orders: SANCHO/TRICHOMONAS NAAT BACTERIAL VAGINOSIS NAAT Multigravida of advanced maternal age in third trimester ([facility]) growth scan ordered Previous section 2 tolacs, plans tolac Obesity in ([facility]) growth scans ordered 33 weeks gestation of ([facility]) Encounter for other general counseling or advice on contraception d/w her if emergency or other indicated c/s would she like to have tubal and she declines, plans nexplanon Vaginal discharge suspect yeast. Rx sent while swabs pending Orders: SANCHO/TRICHOMONAS NAAT BACTERIAL VAGINOSIS NAAT Sil Soto M.D. documented in this encounter [facility] 02-21-2025 Note Indication Evaluation of growth late care, Advanced maternal age, Maternal obesity, BMI >30 Impression - Single, live, intrauterine . - presentation is cephalic. - The biometry is consistent with the assigned gestational dating. - The EFW is 2096 g, at the 71%. AC is at the 89%. - Amniotic fluid volume is normal amount with an MVP of 6.9 cm and GARY of 16.3 cm. - The placenta is anterior, fundal. - No malformations visualized on a limited survey as detailed below. Recommendations - growth scan every 4 weeks - Additional follow up as clinically indicated. Maternal Assessment Height 163 cm Height (ft) 5 ft Height (in) 4 in Physical Exam Initial weight (lb) 199 lb Initial BMI 34.16 kg/m Maternal assessment other: 4 Para 3 REMOTE READ Method Transabdominal ultrasound examination [place] . Number of fetuses: 1 Dating GA by prior assessment 32 w + 0 d MARCO ANTONIO by prior assessment: 04/17/2025 Ultrasound examination on: 02/20/2025 GA by U/S based upon: AC, BPD, Femur, HC GA by U/S 32 w + 3 d MARCO ANTONIO by U/S: 04/14/2025 Assigned: based on stated MARCO ANTONIO, selected on 02/20/2025 Assigned GA 32 w + 0 d Assigned MARCO ANTONIO: 04/17/2025 General Evaluation Cardiac activity present. FHR 156 bpm. movements: present. Presentation: cephalic Placenta: Placental site: anterior, fundal Umbilical cord: Cord vessels: 3 vessel cord Amniotic fluid: Amount of AF: normal amount. MVP 6.9 cm. GARY 16.3 cm. Q1 4.0 cm, Q2 6.9 cm, Q3 2.4 cm, Q4 3.0 cm Growth Overview Exam date GA BPD (mm) HC (mm) AC (mm) FL (mm) HL (mm) EFW (g) 02/20/2025 32w 0d 79 32% 304.9 70% 296.2 89% 60.5 43% 2096 71% Biometry Standard BPD 79.0 mm 31w 5d 32% Hadlock OFD 111.3 mm 33w 5d 84% Nicolaides HC 304.9 mm 33w 0d 70% Edwina AC 296.2 mm 33w 4d 89% Hadlock Femur 60.5 mm 31w 2d 43% Edwina EFW 2,096 g 32w 5d 71% Hadlock EFW (lb) 4 lb EFW (oz) 10 oz EFW by: Hadlock (HC-AC-FL) Extended Stewarding Supervisor 5.9 mm Extremities / Bony Struc FL / HC 0.20 Other Structures FHR 156 bpm Anatomy Lateral ventricles: normal Cavum septi pellucidi: normal Cerebellum: normal Cisterna magna: normal 4-chamber view: normal RVOT view: normal LVOT view: normal 3-vessel view: normal Heart / Thorax Situs: situs solitus (normal) Diaphragm: normal Stomach: normal Kidneys: normal Bladder: normal Performed By: Isela Henry RDMS, RVT Read By: Alejandra Burks M.D. [facility] 02-20-2025 Note HNO ID: [id number] Author: SHAWN LOCKE MD Service: ? Author Type: Physician Type: Progress Notes Filed: 02/20/2025 15:50 Note Text: SW- Add on visit for elevated BP reading at time of ultrasound. No PERRIN, vision changes, RUQ pain, N/V, ctx, vb, lof. Good FM. Currently has sinus congestion and URI symptoms. No fevers or SOB. Taking medication for an ear infection. Good FM PE: Gen- NAD, well appearing Abd- Gravid See flowsheet A/p 32 wk gestation add on visit for elevated BP - Elevated blood pressure reading: Currently being treated for an ear infection, and with sinus congestion. Discussed possible gHTN. BP cuff sent for home BP monitoring. Check pre e labs today. Discussed pre e signs and symptoms, and reasons to call - RTO 1 wk Shawn Locke DO [facility] 02-20-2025 History of Presen t illness Narrative SW- Add on visit for elevated BP reading at time of ultrasound. No PERRIN, vision changes, RUQ pain, N/V, ctx, vb, lof. Good FM. Currently has sinus congestion and URI symptoms. No fevers or SOB. Taking medication for an ear infection. Good FM PE: Gen- NAD, well appearing Abd- Gravid See flowsheet A/p 32 wk gestation add on visit for elevated BP - Elevated blood pressure reading: Currently being treated for an ear infection, and with sinus congestion. Discussed possible gHTN. BP cuff sent for home BP monitoring. Check pre e labs today. Discussed pre e signs and symptoms, and reasons to call - RTO 1 wk Shawn Locke DO documented in this encounter [facility] 02-20-2025 Instructions Pennie De La Rosa MA - 02/20/2025 3:34 PM EDT SEQUENTIAL SCREENINGS The [facility] offers sequential screenings for women who are interested in screenings for chromosomal abnormalities and certain defects during a . The sequential screen combines ultrasound and blood tests to determine the risk of chromosomal abnormalities, including Down's Syndrome (Trisomy 21) and Trisomy 18, as well as open neural tube defects including spina bifida. Ultrasound examination is performed between 11 weeks and 13 weeks gestational age. Blood tests are drawn after the ultrasound and again later in the between 15 and 21 weeks gestational age. Please let your physician know if you are interested in this testing. It will require an appointment with our graphic arts technician. This is not an ultrasound performed by a physician in our office during a routine visit. SIGNS AND SYMPTOMS OF LABOR 1. Contractions every 10 minutes or more often 2. Clear, pink, or brownish fluid (water) leaking from vagina 3. Feeling that baby is pushing down, pressure 4. Low, dull backache 5. Cramps that feel like a period 6. Cramps with or without diarrhea If you notice any of the above symptoms, contact our office at [phone] and ask to speak with a nurse. After hours, you can call doctors registry at [phone] OR call [facility] at [phone] and ask to have the doctor director on air paged. If you consider this an emergency, dial [phone]- or go to your nearest emergency department. NEED HELP? Are you dealing with a violent or abusive relationship? Are you a victim of rape or sexual assult? Call [facility] ([place]) 24 hour Crisis Hotline: 879.900.6578 or 643-162-1731. MANUAL Your Guide to a Healthy manual is now on-line. Visit [email or web address] [email or web address] to download your free copy documented in this encounter [facility] 02-17-2025 Telephone encounter Note Patients mother called and notified and have patient go to L&D. L&D called and notified. Updated H&P faxed. Isela Moran RN [facility] 02-17-2025 Miscellaneous Notes Patients mother called and notified and have patient go to L&D. L&D called and notified. Updated H&P faxed. Isela Moran RN Please send patient to L&D for monitoring. I would like serial blood pressures, labs, and observation due to elevated BP in ED. Thank you, Luana Whaley APRN.CNM 31w4d Patient's mother called. States patient went to ER last night for an ear infection and was instructed to be seen in our office today for elevated BP. Patient was not with mother and mother unsure which ER. [facility] since patient lives in [place]. ER report is available. BPs 170/107 and 170/110 noted in the charting. No openings with any providers. Please advise where patient can be added. Patient speaks Bhutanese. Mother states that we can call her to schedule: [phone] Cris Lucero RN documented in this encounter [facility] 02-17-2025 Telephone encounter Note Please send patient to L&D for monitoring. I would like serial blood pressures, labs, and observation due to elevated BP in ED. Thank you, Luana Whaley APRN.CNM [facility] Work Phone: 02-17-2025 Telephone encounter Note 31w4d Patient's mother called. States patient went to ER last night for an ear infection and was instructed to be seen in our office today for elevated BP. Patient was not with mother and mother unsure which ER. [facility] since patient lives in [place]. ER report is available. BPs 170/107 and 170/110 noted in the charting. No openings with any providers. Please advise where patient can be added. Patient speaks Bhutanese. Mother states that we can call her to schedule: [phone] Cris Lucero, RN [facility] 02-17-2025 Hospital Discharg e instructions Patient Education 02/17/2025 03:04:51 7 - Labor and Delivery Outpatient Instructions (CUSTOM) [facility] LABOR AND DELIVERY OUTPATIENT HOME-GOING INSTRUCTIONS _X_ You are to follow up with your physician in ___ days/weeks. ACTIVITY ___ Bedrest __x_Activity as tolerated ___ No work/school for ___ days. ___Other PRESCRIPTION GIVEN ___Yes NAUSEA/VOMITING ___ Take small, frequent amounts of clear liquids. Avoid fruit juices and milk. ___ Increase fluid intake to a minimum of 8 ounces of fluid every hour while awake. ___ Soft diet. Rice, crackers, bananas, Jell-O, cooked carrots, applesauce. ___ [place] diet. Avoid caffeine, chocolate, alcohol, spiced/greasy foods. URINARY TRACT INFECTION ___ Drink 8-12 glasses of water every day. ___ Urinate frequently; do not limit fluids to reduce frequency of urination. ___ Call your physician if burning and frequency with urination returns after taking all your medication. ___ Call your physician if you have a temperature of 100.4 degrees Fahrenheit or higher. ___ Wipe from front to back. SIGNS OF PRE-ECLAMPSIA _x__ Severe heartburn. _x__ Persistent headache not relieved by Tylenol. _x__ Increased in swelling of face, hands and feet. __x_ Blurred vision, double vision, or spots in the eyes. _x__ Persistent vomiting. __x_ *Convulsions or seizures. LABOR ___ Restrict activity. ___ Drink 8-12 glasses of water every day. ___ Urinate frequently ___ Pelvic rest. No sexual intercourse/ Call your physician if you experience: __x_ Increase in vaginal discharge, leaking fluid, or vaginal bleeding. _x__ More than 4, 5, or 6 contractions in one hour. _x__ Burning and frequency with urination. DECREASED MOVEMENT __x_ Lie down on your left side, drink some fluids and relax. Count the movements. You need to have 10 movements in 2 hours. _x__ If you do not feel the 10 movements, call your physician. OTHER __x_ After an exam you may experience some spotting or discharge. As long as it is not bright red and heavy like a period or continues to leak as if your water broke, it is to be expected. ___ LABOR Call your physician if you experience: _x__ Painful uterine contractions every _3-5__ minutes for __1_ hours. __x_A gush or continuous trickle of watery discharge. COME TO THE HOSPITAL AND CALL PHYSICIAN IF: __x_ Your abdomen feels continually firm. _x__ *Bleeding is bright red and enough to saturate a pad in one hour or less. *Call 911 or go to the nearest Emergency Room for assistance. Form [id number] D: 08/15 Document Released: 08/24/2006 Document Revised: 08/12/2012 Document Reviewed: 08/24/2006 Exit[employer] Patient Information 2012 [employer]. Follow Up Care 02/16/2025 23:56:37 With:SIL SOTO MD Address: [facility] [address] [place] [address] [place] [address] When:02/17/2025 Comments[facility]u [facility] 02-17-2025 Nurse Progress note [place] [facility] in [facility] ED with c/o severe R ear pain. Sent here from ER after ear evaluation and noted elevated b/p's. 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 , states c/s with first d/t breech presentation, reports two successful VBACs since. B/Ps on OB: 143/78-150/89. Pt denies PERRIN, visual changes, or epigastric distress. Minimal/slight bilateral pedal edema noted. Temp elevated at 100.7F (37.9) on arrival to OB, FHT 160's with accels to 170's, cat I tracing. Denies SROM, VB or ctx. Pt reports good FM, audible FM noted per EFM. Rated R ear pain as '9' on pain scale on arrival from ED, did not receive anything for pain in ER. 1000mg Tylenol given per Dr. Philip's directive during stay. Temp prior to d/c: 100.0F (37.7). [facility] labs completed with results given to Dr. Philip. Prior to d/c, Dr. Philip spoke with OB provider at [facility]. Pt is to call her [facility] provider this morning for same day appt for f/u, pt and SO state understanding to this and all d/c instructions prior to leaving. Digitally Signed by Maria Teresa Price RN on 02/17/2025 03:41 AM [facility] 02-17-2025 Note Date of Service 02-17-25 OB provider DANIELLE Thurston 40 yo @31.2 presented to [facility] for ear pain. Dx w otitis media and started on abx amoxicillin however BP noted to be elevated and sent to L&d for eval. Cat I teacing initiallly tachycardic to 160s w maternal fever improved w tylenol. pain now rating ear pain 6/10. BP ranging from 140-150s/70s. HELLP labs obtained. Pr/Cr ratio is elevated at 0.4 urine culture pending. patient otherwise asymptomatic, Cr 0.58 alt/ast wnl. cbc shows mild leukocytosis wbc 14 w left shift cw ear infection. I called her director on air solderer electronic Dr Evelin Garcia who states patient can be discharged and seen in office tomorrow. Patient to call for appt in the morning. Digitally Signed by SKYLAR PHILIP MD on 02/17/2025 03:04 AM [facility] 02-17-2025 Hospital Discharg e instructions Patient Education 02/16/2025 23:43:25 Otitis Media, Antibiotic Treatment (Adult) Middle Ear Infection (Adult) You have an infection of the middle ear, the space behind the eardrum. This is also called acute otitis media (AOM). Sometimes it is caused by the common cold. This is because congestion can block the internal passage (eustachian tube) that drains fluid from the middle ear. When the middle ear fills with fluid, bacteria can grow there and cause an infection. Oral antibiotics are used to treat this illness, not ear drops. Symptoms usually start to improve within 1 to 2 days of treatment. Home care The following are general care guidelines: Finish all of the antibiotic medicine given, even though you may feel better after the first few days. You may use knqo-sej-suamxzv medicine, such as acetaminophen or ibuprofen, to control pain and fever, unless something else was prescribed. If you have chronic liver or kidney disease or have ever had a stomach ulcer or gastrointestinal bleeding, talk with your healthcare provider before using these medicines. Do not give aspirin to anyone under 18 years of age who has a fever. It may cause severe illness or . Follow-up care Follow up with your healthcare provider, or as advised, in 2 weeks if all symptoms have not gotten better, or if hearing doesn't go back to normal within 1 month. When to seek medical advice Call your healthcare provider right away if any of these occur: Ear pain gets worse or does not improve after 3 days of treatment Unusual drowsiness or confusion Neck pain, stiff neck, or headache Fluid or blood draining from the ear canal Fever of 100.4 F (38 C) or as advised Seizure [id number] [employer]. [address] [place] [address]. All rights reserved. This information is not intended as a substitute for professional medical care. Always follow your healthcare professional's instructions. 02/16/2025 23:43:22 External Ear Infection (Adult) External Ear Infection (Adult) External otitis (also called swimmer s ear ) is an infection in the ear canal. It is often caused by bacteria or fungus. It can occur a few days after water gets trapped in the ear canal (from swimming or bathing). It can also occur after cleaning too deeply in the ear canal with a cotton swab or other object. Sometimes, hair care products get into the ear canal and cause this problem. Symptoms can include pain, fever, itching, redness, drainage, or swelling of the ear canal. Temporary hearing loss may also occur. Home care Do not try to clean the ear canal. This can push pus and bacteria deeper into the canal. Use prescribed ear drops as directed. These help reduce swelling and fight the infection. If an ear wick was placed in the ear canal, apply drops right onto the end of the wick. The wick will draw the medicine into the ear canal even if it is swollen closed. A cotton ball may be loosely placed in the outer ear to absorb any drainage. You may use acetaminophen or ibuprofen to control pain, unless another medicine was prescribed. Note: If you have chronic liver or kidney disease or ever had a stomach ulcer or GI bleeding, talk to your healthcare provider before taking any of these medicines. Do not allow water to get into your ear when bathing. Also, don't swim until the infection has cleared. Prevention Keep your ears dry. This helps lower the risk of infection. Dry your ears with a towel or hair designer after getting wet. Also, use ear plugs when swimming. Do not stick any objects in the ear to remove wax. If you feel water trapped in your ear, use ear drops right away. You can get these drops over the counter at most drugstores. They work by removing water from the ear canal. Follow-up care Follow up with your healthcare provider in 1 week, or as advised. When to seek medical advice Call your healthcare provider right away if any of these occur: Ear pain becomes worse or doesn t improve after 3 days of treatment Redness or swelling of the outer ear occurs or gets worse Headache Painful or stiff neck Drowsiness or confusion Fever of 100.4 F (38 C) or higher, or as directed by your healthcare provider Seizure [id number] [employer]. [address] [place] [address], [place] [id number]. All rights reserved. This information is not intended as a substitute for professional medical care. Always follow your healthcare professional's instructions. Follow Up Care 02/16/2025 23:09:00 With:your casserole preparer Address: When:2-4 days With:Go to emergency room if symptoms worsen Address:Unknown When:2-4 days With:Follow up with primary care provider Address:Unknown When:2-4 days [facility] 02-16-2025 Note Discharge Instructions Thank you for allowing [facility] to assist you with your healthcare needs. The following is important discharge information regarding your hospital visit. Diagnosis from Today's Visit Hypertension Otitis externa Otitis media What to Do Next Instructions from Your Care Team Take amoxicillin for ear infection. Use ciprofloxacin drops for ear infection as well to cover for otitis externa. Your blood pressure was elevated here and given you are you will be sent up to labor and delivery for further workup and rule out preeclampsia. Follow-up with your TELECOMMUNICATION ENGINEER. Return emergency department if you have worsening symptoms or any other care concern. No qualifying data available. Post Acute Orders No qualifying data available. You Need to Schedule the Following Appointments Follow Up with your casserole preparer When:Within 2-4 days Follow Up with Go to emergency room if symptoms worsen When:Within 2-4 days Follow Up with Follow up with primary care provider When:Within 2-4 days Allergies clindamycin Medications Please ask your primary doctor or pharmacist before taking any other medication not listed, including over the counter drugs, herbal medications, vitamins and or supplements as they may interact with your home medications. What How Much When Why Instructions Last Dose New amoxicillin (amoxicillin 500 mg oral tablet) 1 tab(s) by mouth Three (3) times a day Duration: 7 Days Printed Prescription New ciprofloxacin ophthalmic (ciprofloxacin 0.3% ophthalmic solution) 3 Drops Right ear Three (3) times a day Duration: 7 Days Printed Prescription Unchanged cephalexin (cephalexin 500 mg oral capsule) 1 cap by mouth Four (4) times a day Chalazion Duration: 7 Days Unchanged etonogestrel (Nexplanon 68 mg subcutaneous implant) 1 Each Subcutaneous Once Unchanged ibuprofen (ibuprofen 600 mg oral tablet) 1 tab(s) by mouth Four (4) times a day as needed for as needed for pain Chalazion Unchanged multivitamin, ( Multivitamins with Folic Acid 0.8 mg oral tablet) 1 tab(s) by mouth Every day Duration: 30 Days Please take this list to your next doctor s visit. Bring all medications you take, including over the counter medications, herbals and other supplements with you to your doctor s visit. Patients and families are reminded to discard old lists and to update any records with all medication providers or retail pharmacies. Education Materials Middle Ear Infection (Adult) You have an infection of the middle ear, the space behind the eardrum. This is also called acute otitis media (AOM). Sometimes it is caused by the common cold. This is because congestion can block the internal passage (eustachian tube) that drains fluid from the middle ear. When the middle ear fills with fluid, bacteria can grow there and cause an infection. Oral antibiotics are used to treat this illness, not ear drops. Symptoms usually start to improve within 1 to 2 days of treatment. Home care The following are general care guidelines: Finish all of the antibiotic medicine given, even though you may feel better after the first few days. You may use dofr-peo-ugforii medicine, such as acetaminophen or ibuprofen, to control pain and fever, unless something else was prescribed. If you have chronic liver or kidney disease or have ever had a stomach ulcer or gastrointestinal bleeding, talk with your healthcare provider before using these medicines. Do not give aspirin to anyone under 18 years of age who has a fever. It may cause severe illness or . Follow-up care Follow up with your healthcare provider, or as advised, in 2 weeks if all symptoms have not gotten better, or if hearing doesn't go back to normal within 1 month. When to seek medical advice Call your healthcare provider right away if any of these occur: Ear pain gets worse or does not improve after 3 days of treatment Unusual drowsiness or confusion Neck pain, stiff neck, or headache Fluid or blood draining from the ear canal Fever of 100.4 F (38 C) or as advised Seizure [id number] [employer]. [address] [place] [address]. All rights reserved. This information is not intended as a substitute for professional medical care. Always follow your healthcare professional's instructions. External Ear Infection (Adult) External otitis (also called swimmer s ear ) is an infection in the ear canal. It is often caused by bacteria or fungus. It can occur a few days after water gets trapped in the ear canal (from swimming or bathing). It can also occur after cleaning too deeply in the ear canal with a cotton swab or other object. Sometimes, hair care products get into the ear canal and cause this problem. Symptoms can include pain, fever, itching, redness, drainage, or swelling of the ear canal. Temporary hearing loss may also occur. Home care Do not try to clean the ear canal. This can push pus and bacteria deeper into the canal. Use prescribed ear drops as directed. These help reduce swelling and fight the infection. If an ear wick was placed in the ear canal, apply drops right onto the end of the wick. The wick will draw the medicine into the ear canal even if it is swollen closed. A cotton ball may be loosely placed in the outer ear to absorb any drainage. You may use acetaminophen or ibuprofen to control pain, unless another medicine was prescribed. Note: If you have chronic liver or kidney disease or ever had a stomach ulcer or GI bleeding, talk to your healthcare provider before taking any of these medicines. Do not allow water to get into your ear when bathing. Also, don't swim until the infection has cleared. Prevention Keep your ears dry. This helps lower the risk of infection. Dry your ears with a towel or hair designer after getting wet. Also, use ear plugs when swimming. Do not stick any objects in the ear to remove wax. If you feel water trapped in your ear, use ear drops right away. You can get these drops over the counter at most drugstores. They work by removing water from the ear canal. Follow-up care Follow up with your healthcare provider in 1 week, or as advised. When to seek medical advice Call your healthcare provider right away if any of these occur: Ear pain becomes worse or doesn t improve after 3 days of treatment Redness or swelling of the outer ear occurs or gets worse Headache Painful or stiff neck Drowsiness or confusion Fever of 100.4 F (38 C) or higher, or as directed by your healthcare provider Seizure [id number] [employer]. [address] [place] [address]. All rights reserved. This information is not intended as a substitute for professional medical care. Always follow your healthcare professional's instructions. Additional Information VACCINATE! IT SAVES LIVES! Members of the community who have not yet received the COVID-19 vaccine and would like to receive it can visit one of [facility] vaccine clinics. There are many vaccine clinic locations within the [facility]. For locations and available times, please visit [email or web address] [email or web address] It is important to note that some COVID mobile vaccine clinics are held outdoors and may be canceled in rainy or stormy conditions. To learn more about pediatric vaccinations (ages 5-11), we invite you to visit the [facility] webpage. [email or web address] [email or web address]-Xxeuvntftfw-Freq [email or web address]-[email or web address].html To learn more about the COVID-19 vaccine, we invite you to visit the CDC website for a list of frequently asked questions. https://www.cdc.gov/coronavirus/ 2019-ncov/vaccines/faq.html [facility] Patient Portal Access Instructions: Stay connected with your healthcare team and access your personal medical information anytime with the [facility] Patient Portal. If you would like a full copy of your medical records please contact the [facility] Medical Records Department Thursday through Thursday between 8a.m. and 4:30p.m. Please follow the directions below to access the portal: 1.Access the email account you provided upon registration to the [facility].2.Look for an invitation email from [facility].3.Open the email and access the invitation link: Accept Invitation to [employer]4.Fill in the required hu to create your account. Sign into www.[email or web address] with your username and password that you created in the above steps to stay up to date. You can then view a summary of results, a summary of your visits, and the ability to download your summaries to your computer or send the information securely to a physician. Remember that your healthcare information is confidential, so carefully consider who you will allow to register on the [employer] Patient Portal for access to your information. You can also access the [facility] Patient Portal on the [employer]. Simply click on Health Records under Health Data and then click on the [employer] logo. HOW TO SAFELY DISPOSE OF PRESCRIPTION MEDICATIONS Please use one of the following methods to safely dispose of your unused medications. 1.Use a drug disposal kit: the drug disposal pouch allows you to safely discard your old and unused drugs. Ask your nurse to give you one when you are discharged.2.Visit a local take-back location: Many local pharmacies and police departments have programs that collect old and unwanted prescription drugs. Call your local pharmacy or go to [email or web address] to find one close to you.3.Make use of household items: Use cat litter or old coffee grounds to dispose medications if other options are not available. Mix your drugs with these household products, seal them in an airtight container and throw it into the garbage. Call [facility]: [phone] to be sure your drugs can be disposed of in this way. Some medicines may require a different approach.4.Never flush your medications down the toilet. IF YOU HAVE BEEN PRESCRIBED AN OPIOIDS FOR PAIN If you have been prescribed an opioid (such as hydrocodone, oxycodone or morphine), it is critical to understand the possible side effects and risks of opioid pain medications. Even when taken as directed, opioids can have several side effects including: Tolerance, meaning you might need to take more of a medication for the same pain relief. Nausea, vomiting and/or constipation. Sleepiness, dizziness, dry mouth, confusion, depression or itching. Physical dependence, meaning you have withdrawal symptoms when a medication is stopped ? this can develop within a few days. KNOW YOUR RESPONSIBILITIES It is important to know exactly how much and how often to take the opioid pain medications you are prescribed. Never take opioids in higher amounts or more often than prescribed. Do not combine opioids with alcohol or other drugs that cause drowsiness, such as benzodiazepines, also known as benzos, including diazepam and alprazolam, muscle relaxants or sleep aids. Never sell or share prescription opioids. This is illegal. Store opioids in a secure place and out of reach of others (including children, family, friends and visitors). The last page(s) of this document has been signed and retained as a CHART COPY Signatures Patient Education Materials Otitis Media, Antibiotic Treatment (Adult) External Ear Infection (Adult) Medication Leaflets My discharge plan and instructions have been reviewed and explained to me and I,SHAILA HERNANDEZ understand my current condition and have read and understand these discharge instructions. I have received a written copy of the plan/instructions. If I have questions, I am aware that I should contact my doctor. Patient/Adult Parole Officer Signature: Date/Time: Relationship to Patient: Witness Name/Signature: Date/Time: [facility] 02-13-2025 Progress note Formatting of t his note might be different from the original. DM-Pt doing well. Denies vaginal Bleeding, Leaking fluid, or regular Contractions. Pt reports good movement Physical Exam: Gen: female in no apparent distress Abd: soft, Gravid. Non tender to palpation. See flow sheet @ 31 weeks Assessment & Plan Supervision of high risk in third trimester (HCC) Multigravida of advanced maternal age in third trimester (HCC) Growth us starting 32 weeks NSTs 36 weeks Orders: OBSTETRIC ULTRASOUND WHI; Standing Previous section Had one cs followed by 2 VBACs- pt today states she thinks they told her that her incision was up and down. We reviewed this would be a contraindication to however given history that she had two vaginal deliveries since that time I would discuss with group and we will decide at her next visit if this is reasonable vs may need to deliver at tertiary care center if declines CS. [facility] chart from 2014 reviewed- they said undocumented ok for cautious tolac. Pt will need to sign consent once decision made with team (don't see that it was completed) Obesity in ([facility]) Will need NSTs 36 weeks 31 weeks gestation of ([facility]) Gustavo peralta reviewed Floridalma Cartwright MD [facility] 02-13-2025 Miscellaneous Notes DM-Pt doing well. Denies vaginal Bleeding, Leaking fluid, or regular Contractions. Pt reports good movement Physical Exam: Gen: female in no apparent distress Abd: soft, Gravid. Non tender to palpation. See flow sheet @ 31 weeks Assessment & Plan Supervision of high risk in third trimester ([facility]) Multigravida of advanced maternal age in third trimester ([facility]) Growth us starting 32 weeks NSTs 36 weeks Orders: OBSTETRIC ULTRASOUND WHI; Standing Previous section Had one cs followed by 2 VBACs- pt today states she thinks they told her that her incision was up and down. We reviewed this would be a contraindication to however given history that she had two vaginal deliveries since that time I would discuss with group and we will decide at her next visit if this is reasonable vs may need to deliver at tertiary care center if declines CS. [facility] chart from 2014 reviewed- they said undocumented ok for cautious tolac. Pt will need to sign consent once decision made with team (don't see that it was completed) Obesity in (HCC) Will need NSTs 36 weeks 31 weeks gestation of ([facility]) Gustavo peralta reviewed Floridalma Cartwright MD documented in this encounter [facility] 02-13-2025 Instructions Valentina Dillon MA - 02/13/2025 3:42 PM EDT SEQUENTIAL SCREENINGS The [facility] offers sequential screenings for women who are interested in screenings for chromosomal abnormalities and certain defects during a . The sequential screen combines ultrasound and blood tests to determine the risk of chromosomal abnormalities, including Down's Syndrome (Trisomy 21) and Trisomy 18, as well as open neural tube defects including spina bifida. Ultrasound examination is performed between 11 weeks and 13 weeks gestational age. Blood tests are drawn after the ultrasound and again later in the between 15 and 21 weeks gestational age. Please let your physician know if you are interested in this testing. It will require an appointment with our graphic arts technician. This is not an ultrasound performed by a physician in our office during a routine visit. SIGNS AND SYMPTOMS OF LABOR 1. Contractions every 10 minutes or more often 2. Clear, pink, or brownish fluid (water) leaking from vagina 3. Feeling that baby is pushing down, pressure 4. Low, dull backache 5. Cramps that feel like a period 6. Cramps with or without diarrhea If you notice any of the above symptoms, contact our office at [phone] and ask to speak with a nurse. After hours, you can call doctors registry at [phone] OR call [facility] at [phone] and ask to have the doctor director on air paged. If you consider this an emergency, dial 3-0-0 or go to your nearest emergency department. NEED HELP? Are you dealing with a violent or abusive relationship? Are you a victim of rape or sexual assult? Call [facility] ([place]) 24 hour Crisis Hotline: 950.138.2198 or 025-672-2456. MANUAL Your Guide to a Healthy manual is now on-line. Visit [email or web address] ancyGuide to download your free copy documented in this encounter [facility] 02-08-2025 Telephone encounter Note Medical records received from [facility] 2014. Appears that operative delivery report was not included-not asked for. I called [facility] medical records ([facility] Records Release) [phone] and have requested for them to send records. Next appointment 02/[address] Jaramillo. Records to DM for review since next appointment with her and MIR out of office [facility] 02-08-2025 Miscellaneous Notes Medical records received from [facility] 2014. Appears that operative delivery report was not included-not asked for. I called [facility] medical records ([facility] Records Release) [phone] and have requested for them to send records. Next appointment 02/[address] Jaramillo. Records to DM for review since next appointment with her and MIR out of office documented in this encounter [facility] 01-27-2025 Note HNO ID: [id number] Author: RASHEEDA HEREDIA APRN.CNM Service: ? Author Type: Claims Agent Right Of Way Type: Progress Notes Filed: 01/27/2025 19:05 Note Text: Shaila Fraga 40 year old is here for her injection of Rhophylac. hSaila rFaga Antibody Screen (no units) Date Value 11/18/2024 Negative Shaila Fraga is RH Negative Rhophylac was given without incident. See immunizations for details of immunizations administered today. Provider Rasheeda Heredia CNM was present in office at time of injection Shaila Fraga was given her Rhophylac pocket card. Cris Lucero RN [facility] 01-27-2025 Note HNO ID: [id number] Author: RASHEEDA HEREDIA APRN.CNM Service: ? Author Type: Claims Agent Right Of Way Type: Progress Notes Filed: 01/27/2025 19:05 Note Text: . [facility] [facility] Progress note Formatting of t his note might be different from the original. KJ - S: Shaila denies LOF, contractions or vaginal bleeding. O: 20w4d, see flow sheet SENSITIVE EXAM: The sensitive examination was discussed with the Patient or Patient's Authorized Adult Parole Officer. As applicable, any other physician, advance practice provider, medical student, or other health professional student that will be observing or involved in the sensitive examination for educational or training purposes was discussed with the Patient or Authorized Adult Parole Officer. The Patient or Authorized Adult Parole Officer has agreed to proceed with the sensitive examination. (Sensitive examination includes inspection and/or palpation of the breasts, pelvis, prostate and anorectal regions). A/P: Assessment & Plan 20 weeks gestation of (HCC) Supervision of normal intrauterine in multigravida, unspecified trimester (HCC) Rh negative state in antepartum period ([facility]) Anatomy today Yissel Cuello MD [facility] 12-02-2024 Miscellaneous Notes KJ - S: Shaila denies LOF, contractions or vaginal bleeding. O: 20w4d, see flow sheet SENSITIVE EXAM: The sensitive examination was discussed with the Patient or Patient's Authorized Adult Parole Officer. As applicable, any other physician, advance practice provider, medical student, or other health professional student that will be observing or involved in the sensitive examination for educational or training purposes was discussed with the Patient or Authorized Adult Parole Officer. The Patient or Authorized Adult Parole Officer has agreed to proceed with the sensitive examination. (Sensitive examination includes inspection and/or palpation of the breasts, pelvis, prostate and anorectal regions). A/P: Assessment & Plan 20 weeks gestation of (HCC) Supervision of normal intrauterine in multigravida, unspecified trimester (HCC) Rh negative state in antepartum period ([facility]) Anatomy today Yissel Cuello MD documented in this encounter [facility] 12-02-2024 Instructions Gema Thompson LPN - 12/02/2024 2:46 PM EDT SEQUENTIAL SCREENINGS The [facility] offers sequential screenings for women who are interested in screenings for chromosomal abnormalities and certain defects during a . The sequential screen combines ultrasound and blood tests to determine the risk of chromosomal abnormalities, including Down's Syndrome (Trisomy 21) and Trisomy 18, as well as open neural tube defects including spina bifida. Ultrasound examination is performed between 11 weeks and 13 weeks gestational age. Blood tests are drawn after the ultrasound and again later in the between 15 and 21 weeks gestational age. Please let your physician know if you are interested in this testing. It will require an appointment with our graphic arts technician. This is not an ultrasound performed by a physician in our office during a routine visit. SIGNS AND SYMPTOMS OF LABOR 1. Contractions every 10 minutes or more often 2. Clear, pink, or brownish fluid (water) leaking from vagina 3. Feeling that baby is pushing down, pressure 4. Low, dull backache 5. Cramps that feel like a period 6. Cramps with or without diarrhea If you notice any of the above symptoms, contact our office at [phone] and ask to speak with a nurse. After hours, you can call doctors registry at [phone] OR call [facility] at [phone] and ask to have the doctor director on air paged. If you consider this an emergency, dial 9--1 or go to your nearest emergency department. NEED HELP? Are you dealing with a violent or abusive relationship? Are you a victim of rape or sexual assult? Call [facility] ([place]) 24 hour Crisis Hotline: 724.917.6652 or 726-686-5261. MANUAL Your Guide to a Healthy manual is now on-line. Visit [email or web address] to download your free copy documented in this encounter [facility] 12-01-2024 Telephone encounter Note Patient called back with argent[place] interpretor and was told about UTI. Demographics updated . Unable to activate MyChart due to no SSN, but Bhutanese Interpretor was able to give her a phone number to call to talk to MyCHart specialist to help. Patient also given [place] appointment line phone number [phone] option 7 for arg[place]ine [facility] 12-01-2024 Miscellaneous Notes Patient called back with argentine interpretor and was told about UTI. Demographics updated . Unable to activate MyChart due to no SSN, but [place]utanese Interpretor was able to give her a phone number to call to talk to MyCHart specialist to help. Patient also given [place] appointment line phone number [phone] option 7 for [place] I called Sean at [facility] in [place].Patient has not picked up RX yet . FYI Attempted to call patient at phone number listed with the help of Bhutanese interpretor ([phone]) and person answering stated she no longer was available at that number . I asked her if she knew Shaila and she said she did. I asked her to have Shaila call our office. the person answering did provide a new phone number for patient ([phone])and I did update that phone number. After 2 attempts same message received that voicemailbox had not been set up. Unable to leave message Attempted to call patient with energy systems laboratory director. Phones goes straight to voicemail. Unable to leave message because voicemail has not been set up. Next appt is 12/02. Letter sent. Verena Yepez RN Tried reaching Pt with clinical safety specialist assistance x2 and unable to leave a message as Pt has a voicemail box that has not been set up yet. Mychart status is pending. Candace Horta RN Katie Jernigan APRN.MODE 11/22/24 3:28 PM +UTI, Keflex sent. Katie Jernigan APRN.MODE documented in this encounter [facility] 11-30-2024 Telephone encounter Note I called Sean at [facility] in [place].Patient has not picked up RX yet . FYI [facility] 11-28-2024 Telephone encounter Note Attempted to call patient at phone number listed with the help of Bhutanese interpretor ([phone]) and person answering stated she no longer was available at that number . I asked her if she knew Shaila and she said she did. I asked her to have Shaila call our office. the person answering did provide a new phone number for patient ([phone])and I did update that phone number. After 2 attempts same message received that voicemailbox had not been set up. Unable to leave message [facility] 11-24-2024 Telephone encounter Note Attempted to call patient with energy systems laboratory director. Phones goes straight to voicemail. Unable to leave message because voicemail has not been set up. Next appt is 12/02. Letter sent. Verena Yepez RN [facility] 11-22-2024 Telephone encounter Note Tried reaching Pt with clinical safety specialist assistance x2 and unable to leave a message as Pt has a voicemail box that has not been set up yet. Mychart status is pending. Candace Horta RN [facility] 11-22-2024 Telephone encounter Note Katie Jernigan APRN.CNP 11/22/24 3:28 PM +UTI, Keflex sent. Katiejoy Jernigan APRN.CNP [facility] 11-22-2024 Telephone encounter Note +UTI, Keflex sent. Katie Jernigan APRN.CNP [facility] 11-22-2024 Miscellaneous Notes +UTI, Keflex sent. Katie Jernigan APRN.SILK SCREEN ETCHER documented in this encounter [facility] 11-18-2024 History of Presen t illness Narrative getting records from [facility] for previous deliveries INITIAL OB ASSESSMENT HPI: Shaila is a 39 year old White here to establish Obstetrical Care. Patient's last menstrual period was 04/07/2024 (exact date). from OB Dating Form. was unplanned but accepted Complaints: No OB History Gravida3 Para0 Term0 Preterm0 AB0 Living3 SAB0 IAB0 Ectopic0 Multiple0 Live Births0 Previous history: Prior : yes x 1 History of 4th degree laceration: No History of shoulder dystocia: unsure History of Hypertensive disorders including pre-eclampsia or gestational hypertension: unsure History of gestational diabetes: unsure Patient's Risk Screening for delivery: Have you had a prior goddard between 20w and 36w6d? No How many pregnancies have you had before? 3 Did you have a previous baby with a GBS Infection? unsure Please select all that apply for any prior : N/A MEDICAL/PSYCHOSOCIAL HISTORY: History of hemorrhage or bleeding concerns: No Thyroid Disease: No History of chronic hypertension: No History of pre-existing diabetes: No No results found for: ABORHD No weight on file for this encounter. Last Pap: History of abnormal pap: unsure Prior treatment for cervical dysplasia: N/A. Last HPV: History of STDs: None Partner History of STDs: None Did you have a partner with Herpes? Tobacco use: No E-Cigarette/Vaping Use: No Caffeine use: No Drug use: No Alcohol use: No Multivitamin with Folic acid: Yes Would refuse blood transfusion if medically necessary: Social Needs: How often does this describe you? I don't have enough money to pay my bills: Within the past 12 months, have you worried that your food would run out before you had money to buy more? In the past 12 months, has lack of reliable transportation kept you from going to medical appointments or work, or from getting things needed for daily living? In the past 12 months, have you had any concerns about having a place to live, or about the condition or quality of your housing? Would you like more information on any of the following (please check all that apply)? Social History: Do you have any history of depression, anxiety, PTSD, or other mood problems? Do you have a history of abuse or trauma that may impact your experience? Are you currently employed? Depression/Anxiety Screening: symptoms of depression. OB Depression and Anxiety Screening- This Encounter (since 11/17/2024) None Preeclampsia Risk Screening: Screening for prevention of preeclampsia: High risk factors: Moderate risk ractors: Obesity (body mass index greater than 30) and Age 35 years or older OB Risk Screening: Completed, no positive findings documented. Marital Status: Partner: Name: Age: Occupation: Gender: No past medical history on file. PAST SURGICAL HISTORY Procedure Laterality Date NEXPLANON REMOVAL Left 04/27/2024 No current outpatient medications on file. No current facility-administered medications for this visit. Allergies As of Date: 11/18/2024 (No Known Allergies) Fully Assessed 04/27/2024 Does patient have penicillin allergy: No REVIEW OF SYSTEMS: GENERAL: Negative for: Fever or Chills HEENT: Negative for: Headache, Impaired Vision, Ringing in Ears, Nosebleeds NECK: Negative for: Swelling, Pain, Stiffness RESPIRATORY: Negative for: Cough, Shortness of breath, Wheezing GASTROINTESTINAL: Negative for: Heartburn, Constipation, Diarrhea, Blood in stool, Vomiting MUSCULOSKELETAL: Negative for: Muscle or joint pain, stiffness, Joint swelling NEUROLOGIC/PSYCHIATRIC: Negative for: Weakness, Paralysis, Numbness, Tingling, Tremor, Anxiety, Depression, Memory loss SKIN: Negative for: Rash, Itching GENITOURINARY: Negative for: vaginal itching, vaginal discharge, hematuria or dysuria SENSITIVE EXAM: The sensitive examination was discussed with the Patient or Patient's Authorized Adult Parole Officer. As applicable, any other physician, advance practice provider, medical student, or other health professional student that will be observing or involved in the sensitive examination for educational or training purposes was discussed with the Patient or Authorized Adult Parole Officer. The Patient or Authorized Adult Parole Officer has agreed to proceed with the sensitive examination. (Sensitive examination includes inspection and/or palpation of the breasts, pelvis, prostate and anorectal regions). PHYSICAL EXAM: LMP 04/07/2024 GENERAL: pleasant in no apparent distress DERMATOLOGY: Normal, without lesions, non-icteric, and non-hirsute NECK: Supple, full range of motion, no adenopathy, and thyroid normal CHEST: Normal inspiratory effort BREAST: soft, non-tender, symmetric, no dominant mass, normal nipple-areolar complex, no lymphadenopathy, and no nipple discharge ABDOMEN: soft, non-tender, and no masses NEURO: alert and oriented x3,exam grossly non-focal PELVIS: External genitalia normal without lesions. Perineal body intact. No vaginal or cervical lesions. Cervix closed. No adnexal masses or tenderness. Clinical Pelvimetry: Pelvimetry clinically assessed as adequate Limited OB ultrasound exam: not performed ASSESSMENT: 39 year old at Unknown wks gestational age PLAN: 1) Patient oriented to practice. Patient given new OB orientation folder. Discussed nutrition, folic acid supplementation, dietary guidelines, exercise, smoking, alcohol, caffeine, and drug use. Discussed routine OB labs including STD/HIV. 2) Screening: Hemoglobin A1C: ordered Baby Aspirin: The patient has been counseled about the potential benefits of low dose aspirin in and our recommendation that this be offered to all patients, regardless of whether they meet the high risk criteria specified above. She Accepts Aneuploidy Screening: Discussed aneuploidy screening, nuchal translucency/first trimester early anatomy ultrasound and NIPT. The risks/benefits and limitations of NIPT/aneuploidy screening were reviewed including the potential for false negative and false positive results. The availability of genetic counseling was reviewed. Information on aneuploidy screening was provided. The patient declines screening Myriad Carrier Screening: Discussed myriad carrier screening. We discussed the availability of professional-society guided carrier screening and reviewed the conditions screened and limitations of screening. The availability of genetic counseling was reviewed. Information on carrier screening was provided. The patient Declines 3) Patient offered option of Virtual Visits. Patient prefers in person visits. 4) History of section: Pt counselled regarding TOLAC versus Repeat Section. 2 after c/s. Obesity (BMI >30), will order early glucose screen or Hemoglobin A1C. AMA: Problem list updated, additional risk stratification with primary OB provider Follow up in 2 weeks or sooner prn. Katie Jernigan APRN.CNP documented in this encounter [facility] 11-18-2024 Note HNO ID: [id number] Author: KATIE JERNIGAN APRN.CNP Service: ? Author Type: Nurse Practitioner Type: Progress Notes Filed: 11/18/2024 09:58 Note Text: getting records from [facility] for previous deliveries INITIAL OB ASSESSMENT HPI: Shaila is a 39 year old White here to establish Obstetrical Care. Patient's last menstrual period was 04/07/2024 (exact date). from OB Dating Form. was unplanned but accepted Complaints: No OB History Gravida3 Para0 Term0 Preterm0 AB0 Living3 SAB0 IAB0 Ectopic0 Multiple0 Live Births0 Previous history: Prior : yes x 1 History of 4th degree laceration: No History of shoulder dystocia: unsure History of Hypertensive disorders including pre-eclampsia or gestational hypertension: unsure History of gestational diabetes: unsure Patient's Risk Screening for delivery: Have you had a prior goddard between 20w and 36w6d? No How many pregnancies have you had before? 3 Did you have a previous baby with a GBS Infection? unsure Please select all that apply for any prior : N/A MEDICAL/PSYCHOSOCIAL HISTORY: History of hemorrhage or bleeding concerns: No Thyroid Disease: No History of chronic hypertension: No History of pre-existing diabetes: No No results found for: ABORHD No weight on file for this encounter. Last Pap: History of abnormal pap: unsure Prior treatment for cervical dysplasia: N/A. Last HPV: History of STDs: None Partner History of STDs: None Did you have a partner with Herpes? Tobacco use: No E-Cigarette/Vaping Use: No Caffeine use: No Drug use: No Alcohol use: No Multivitamin with Folic acid: Yes Would refuse blood transfusion if medically necessary: Social Needs: How often does this describe you? I don't have enough money to pay my bills: Within the past 12 months, have you worried that your food would run out before you had money to buy more? In the past 12 months, has lack of reliable transportation kept you from going to medical appointments or work, or from getting things needed for daily living? In the past 12 months, have you had any concerns about having a place to live, or about the condition or quality of your housing? Would you like more information on any of the following (please check all that apply)? Social History: Do you have any history of depression, anxiety, PTSD, or other mood problems? Do you have a history of abuse or trauma that may impact your experience? Are you currently employed? Depression/Anxiety Screening: symptoms of depression. OB Depression and Anxiety Screening- This Encounter (since 11/17/2024) None Preeclampsia Risk Screening: Screening for prevention of preeclampsia: High risk factors: Moderate risk ractors: Obesity (body mass index greater than 30) and Age 35 years or older OB Risk Screening: Completed, no positive findings documented. Marital Status: Partner: Name: Age: Occupation: Gender: No past medical history on file. PAST SURGICAL HISTORY Procedure Laterality Date NEXPLANON REMOVAL Left 04/27/2024 No current outpatient medications on file. No current facility-administered medications for this visit. Allergies As of Date: 11/18/2024 (No Known Allergies) Fully Assessed 04/27/2024 Does patient have penicillin allergy: No REVIEW OF SYSTEMS: GENERAL: Negative for: Fever or Chills HEENT: Negative for: Headache, Impaired Vision, Ringing in Ears, Nosebleeds NECK: Negative for: Swelling, Pain, Stiffness RESPIRATORY: Negative for: Cough, Shortness of breath, Wheezing GASTROINTESTINAL: Negative for: Heartburn, Constipation, Diarrhea, Blood in stool, Vomiting MUSCULOSKELETAL: Negative for: Muscle or joint pain, stiffness, Joint swelling NEUROLOGIC/PSYCHIATRIC: Negative for: Weakness, Paralysis, Numbness, Tingling, Tremor, Anxiety, Depression, Memory loss SKIN: Negative for: Rash, Itching GENITOURINARY: Negative for: vaginal itching, vaginal discharge, hematuria or dysuria SENSITIVE EXAM: The sensitive examination was discussed with the Patient or Patient's Authorized Adult Parole Officer. As applicable, any other physician, advance practice provider, medical student, or other health professional student that will be observing or involved in the sensitive examination for educational or training purposes was discussed with the Patient or Authorized Adult Parole Officer. The Patient or Authorized Adult Parole Officer has agreed to proceed with the sensitive examination. (Sensitive examination includes inspection and/or palpation of the breasts, pelvis, prostate and anorectal regions). PHYSICAL EXAM: LMP 04/07/2024 GENERAL: pleasant in no apparent distress DERMATOLOGY: Normal, without lesions, non-icteric, and non-hirsute NECK: Supple, full range of motion, no adenopathy, and thyroid normal CHEST: Normal inspiratory effort BREAST: soft, non-tender, symmetric (more content not included)... [facility] 11-18-2024 Instructions Gema Thompson LPN - 11/18/2024 8:11 AM EDT Please select the following link to access the [facility] Your Guide to a Healthy . [email or web address] documented in this encounter [facility] 11-15-2024 Telephone encounter Note Attempted twice to reach patient by phone with energy systems laboratory director for new OB intake questions. Unable to leave a voicemail because patient's voicemail box has not been set up. Please try to reach patient again [facility] 11-15-2024 Miscellaneous Notes Attempted twice to reach patient by phone with energy systems laboratory director for new OB intake questions. Unable to leave a voicemail because patient's voicemail box has not been set up. Please try to reach patient again documented in this encounter [facility] 04-27-2024 Note HNO ID: [id number] Author: JUAN VILLEGAS APRN.SILK SCREEN ETCHER Service: ? Author Type: Nurse Practitioner Type: Progress Notes Filed: 04/27/2024 16:25 Note Text: Interpreting services utilized via (clinical safety specialist service modality: clinical safety specialist not needed for appointment). Patient's friend, Janet, arrived with her and patient request Janet to be interpretor. Hem Marker offered: Patient declines. Shaila is a 39 year old who presents for Nexplanon removal for scheduled 3 year removal. UNIVERSAL PROTOCOL / SAFETY CHECKLIST Procedure to be Performed: Nexplanon Removal Sign In: A Moment of CARE was completed. Personnel directly involved with the procedure wore the appropriate PPE (Personal Protective Equipment). Patient/Surrogate Stated/Verified: PATIENT VERIFIED(optional for EMERGENT procedures): Patient name, Date of , Relevant allergies, and The intended procedure Time Out Communication: Intended patient and procedure match the source documents. Consent documented and matches the intended procedure. Sign Out: SIGN OUT (optional for EMERGENT procedures): No specimen collected. All instruments, equipment, possible retained foreign bodies accounted for. Post-procedure follow-up management communicated and Plan of Care Visit completed when applicable. TECHNIQUE: Patient placed in supine position with left arm bent at the elbow and placed over the head. Skin cleansed with betadine. 2 mL of 1% lidocaine with epi injected subQ along insertion site. Scalpel used to made a 5mm stab incision superficially at distal end of Nexplanon. Device removed under sterile technique with a small hemostat. Sterile pressure dressing applied. AANDP: 39 year old here for Nexplanon removal Nexplanon removed intact without difficulty. The patient was instructed to remove the dressing after 24 hours. Contraceptive plans: Condoms. Recommend PNV. Juan Villegas APRN.SILK SCREEN ETCHER [facility] 04-27-2024 History of Presen t illness Narrative Interpreting services utilized via (clinical safety specialist service modality: clinical safety specialist not needed for appointment). Patient's friend, Janet, arrived with her and patient request Janet to be interpretor. Hem Marker offered: Patient declines. Shaila is a 39 year old who presents for Nexplanon removal for scheduled 3 year removal. UNIVERSAL PROTOCOL / SAFETY CHECKLIST Procedure to be Performed: Nexplanon Removal Sign In: A Moment of CARE was completed. Personnel directly involved with the procedure wore the appropriate PPE (Personal Protective Equipment). Patient/Surrogate Stated/Verified: PATIENT VERIFIED(optional for EMERGENT procedures): Patient name, Date of , Relevant allergies, and The intended procedure Time Out Communication: Intended patient and procedure match the source documents. Consent documented and matches the intended procedure. Sign Out: SIGN OUT (optional for EMERGENT procedures): No specimen collected. All instruments, equipment, possible retained foreign bodies accounted for. Post-procedure follow-up management communicated and Plan of Care Visit completed when applicable. TECHNIQUE: Patient placed in supine position with left arm bent at the elbow and placed over the head. Skin cleansed with betadine. 2 mL of 1% lidocaine with epi injected subQ along insertion site. Scalpel used to made a 5mm stab incision superficially at distal end of Nexplanon. Device removed under sterile technique with a small hemostat. Sterile pressure dressing applied. A&P: 39 year old here for Nexplanon removal Nexplanon removed intact without difficulty. The patient was instructed to remove the dressing after 24 hours. Contraceptive plans: Condoms. Recommend PNV. Juan Villegas APRN.MODE documented in this encounter [facility] 04-12-2024 Note HNO ID: [id number] Author: KATIE JERNIGAN APRN.MODE Service: ? Author Type: Nurse Practitioner Type: Progress Notes Filed: 04/12/2024 10:57 Note Text: Shaila Hernandez is a 39 year old female who presents for problem visit to discuss removal of control. HPI: Patient is here to discuss possible removal of Nexplanon. Patient states that it is . Patient states for now she wants to stay off other forms of control. Nexplanon has been in for 4 yrs. Having regular periods Key Punch Operator present OB History No obstetric history on file. 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 No past surgical history on file. No family history on file. Current Outpatient Medications Medication Sig etonogestrel (NEXPLANON) subdermal implant 68 mg 68 mg by SUBDERMAL route. No current facility-administered medications for this visit. Allergies As of Date: 04/12/2024 (Not on File) Fully Assessed 04/12/2024 REVIEW OF SYSTEMS Expanded ROS: N/A Allergies and current medication updated:Yes EXAM: BP 110/60 Wt 182 lb 6.4 oz (82.7kg) LMP 04/07/2024 GENERAL: pleasant, female in no apparent distress HEENT: Normocephalic, atraumatic, mucus membranes moist, and no lesions CHEST: Normal inspiratory effort NEURO: alert and oriented x3,exam grossly non-focal EXTREMITIES: normal ASSESSMENT/PLAN: 1. Nexplanon removal - ICD9: V25.43, ICD10: Z30.46 Pt to schedule appt - NEXPLANON REMOVAL Katie Jernigan APRN.[employer]K [employer]EN [employer]CHER Medical Decision Making: Problems: Low: Acute, uncomplicated illness or injury Risk: Low: Low risk from testing/treatment Medical Decision Making Level: 3 - Low [facility] 04-12-2024 History of Presen t illness Narrative Shaila Hernandez is a 39 year old female who presents for problem visit to discuss removal of control. HPI: Patient is here to discuss possible removal of Nexplanon. Patient states that it is . Patient states for now she wants to stay off other forms of control. Nexplanon has been in for 4 yrs. Having regular periods Key Punch Operator present OB History No obstetric history on file. 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 No past surgical history on file. No family history on file. Current Outpatient Medications Medication Sig etonogestrel (NEXPLANON) subdermal implant 68 mg 68 mg by SUBDERMAL route. No current facility-administered medications for this visit. Allergies As of Date: 04/12/2024 (Not on File) Fully Assessed 04/12/2024 REVIEW OF SYSTEMS Expanded ROS: N/A Allergies and current medication updated:Yes EXAM: BP 110/60 Wt 182 lb 6.4 oz (82.7kg) LMP 04/07/2024 GENERAL: pleasant, female in no apparent distress HEENT: Normocephalic, atraumatic, mucus membranes moist, and no lesions CHEST: Normal inspiratory effort NEURO: alert and oriented x3,exam grossly non-focal EXTREMITIES: normal ASSESSMENT/PLAN: 1. Nexplanon removal - ICD9: V25.43, ICD10: Z30.46 Pt to schedule appt - NEXPLANON REMOVAL Katie Jernigan APRN.CNP Medical Decision Making: Problems: Low: Acute, uncomplicated illness or injury Risk: Low: Low risk from testing/treatment Medical Decision Making Level: 3 - Low documented in this encounter [facility] 03-18-2024 Note HNO ID: [id number] Author: BRIT COPE APRN.CNP Service: ? Author Type: Nurse Practitioner Type: Progress Notes Filed: 03/18/2024 12:29 Note Text: This note was created using [employer]. Subjective Shaila Hernandez is a 39 year old female. HPI Patient presents today complaining of a sensation of something stuck in her throat. Patient does not speak Scottish but her friend translates. About 2 months ago apparently she was eating something and had a weird sensation in her throat which subsequently resolved. For the last 2 weeks now patient feels as though it is difficult to swallow. She is able to eat and drink but states it just feels hard to swallow. She denies any history of acid reflux. Denies any history of previous similar episodes. Review of Systems HENT: Positive for trouble swallowing. Negative for voice change. Respiratory: Negative for cough. Gastrointestinal: Negative for abdominal pain. Objective BP 120/72 Pulse 61 Temp 36.8 ?C (98.3 ?F) Resp 16 Wt 81.5 kg (179 lb 10.8 oz) SpO2 98% Physical Exam Vitals and nursing note reviewed. Constitutional: General: She is not in acute distress. Appearance: Normal appearance. She is not ill-appearing. HENT: Head: Normocephalic. Mouth/Throat: Mouth: Mucous membranes are moist. Comments: No obvious abnormalities noted Eyes: Conjunctiva/sclera: Conjunctivae normal. Neck: Comments: No cervical lymphadenopathy. No tenderness with palpation. No obvious swelling noted. Cardiovascular: Rate and Rhythm: Normal rate and regular rhythm. Pulmonary: Effort: Pulmonary effort is normal. Breath sounds: Normal breath sounds. Musculoskeletal: General: Normal range of motion. Cervical back: Normal range of motion. Skin: General: Skin is warm and dry. Neurological: General: No focal deficit present. Mental Status: She is alert. Psychiatric: Mood and Affect: Mood normal. Behavior: Behavior normal. Assessment and Plan ASSESSMENT/PLAN: 1. Dysphagia, unspecified type - ICD9: 787.20, ICD10: R13.10 X-ray soft tissue neck was unremarkable showing no concerning abnormalities. Patient continued to handle her secretion and showed no obvious signs of distress during her stay. Patient will be given follow-up with GI for further evaluation and patient comfortable with plan. - XR NECK SOFT TISSUE 2V AP/LAT - CONSULT TO GASTROENTEROLOGY Brit Cope APRN.[facility] 03-18-2024 History of Presen t illness Narrative This note was created using [employer]. Subjective Shaila Hernandez is a 39 year old female. HPI Patient presents today complaining of a sensation of something stuck in her throat. Patient does not speak Scottish but her friend translates. About 2 months ago apparently she was eating something and had a weird sensation in her throat which subsequently resolved. For the last 2 weeks now patient feels as though it is difficult to swallow. She is able to eat and drink but states it just feels hard to swallow. She denies any history of acid reflux. Denies any history of previous similar episodes. Review of Systems HENT: Positive for trouble swallowing. Negative for voice change. Respiratory: Negative for cough. Gastrointestinal: Negative for abdominal pain. Objective BP 120/72 Pulse 61 Temp 36.8 C (98.3 F) Resp 16 Wt 81.5 kg (179 lb 10.8 oz) SpO2 98% Physical Exam Vitals and nursing note reviewed. Constitutional: General: She is not in acute distress. Appearance: Normal appearance. She is not ill-appearing. HENT: Head: Normocephalic. Mouth/Throat: Mouth: Mucous membranes are moist. Comments: No obvious abnormalities noted Eyes: Conjunctiva/sclera: Conjunctivae normal. Neck: Comments: No cervical lymphadenopathy. No tenderness with palpation. No obvious swelling noted. Cardiovascular: Rate and Rhythm: Normal rate and regular rhythm. Pulmonary: Effort: Pulmonary effort is normal. Breath sounds: Normal breath sounds. Musculoskeletal: General: Normal range of motion. Cervical back: Normal range of motion. Skin: General: Skin is warm and dry. Neurological: General: No focal deficit present. Mental Status: She is alert. Psychiatric: Mood and Affect: Mood normal. Behavior: Behavior normal. Assessment and Plan ASSESSMENT/PLAN: 1. Dysphagia, unspecified type - ICD9: 787.20, ICD10: R13.10 X-ray soft tissue neck was unremarkable showing no concerning abnormalities. Patient continued to handle her secretion and showed no obvious signs of distress during her stay. Patient will be given follow-up with GI for further evaluation and patient comfortable with plan. - XR NECK SOFT TISSUE 2V AP/LAT - CONSULT TO GASTROENTEROLOGY Brit Cope APRN.MODE documented in this encounter [facility] 03-18-2024 History of Presen t illness Narrative Radiology Service Progress Note PATIENT NAME: Shaila Hernandez DATE OF SERVICE: March 18, 2024 TIME: 11:45 AM PATIENT IDENTITY VERIFICATION COMPLETED USING TWO (2) IDENTIFIERS: used a family member with her to interpret FALL SCREENING: Has the patient had 2 falls in the last year or 1 fall with injury or currently using an Ambulatory Assistive Device (Walker, Cane, Wheelchair, Crutches, etc.)? No PATIENT GENDER DATA: Female. status: : No status: NO. PATIENT RELEVANT IMPLANT DATA REVIEWED: Not Applicable PATIENT PRESENTS WITH AN IMPLANTABLE OR ATTACHED OPTICS TEST TECHNICIAN: No RADIOLOGY DEPARTMENT: soft tissue neck 2v PERIPHERAL IV DATA: Not applicable SIGNED BY: RT Robb(R) March 18, 2024 11:45 AM documented in this encounter [facility] 03-18-2024 Note HNO ID: [id number] Author: RAJI DUFF RT(Hoda) Service: Radiology Author Type: Technologist Type: Progress Notes Filed: 03/18/2024 11:58 Note Text: Radiology Service Progress Note PATIENT NAME: Shaila Hernandez DATE OF SERVICE: March 18, 2024 TIME: 11:45 AM PATIENT IDENTITY VERIFICATION COMPLETED USING TWO (2) IDENTIFIERS: used a family member with her to interpret FALL SCREENING: Has the patient had 2 falls in the last year or 1 fall with injury or currently using an Ambulatory Assistive Device (Walker, Cane, Wheelchair, Crutches, etc.)? No PATIENT GENDER DATA: Female. status: : No status: NO. PATIENT RELEVANT IMPLANT DATA REVIEWED: Not Applicable PATIENT PRESENTS WITH AN IMPLANTABLE OR ATTACHED OPTICS TEST TECHNICIAN: No RADIOLOGY DEPARTMENT: soft tissue neck 2v PERIPHERAL IV DATA: Not applicable SIGNED BY: RT Robb(R) March 18, 2024 11:45 AM [facility] 08-05-2021 Hospital Discharg e instructions Patient Education 08/05/2021 12:07:42 Chalazion(Bhutanese) Chalazi n Un chalazi n es kelly gl ndula david cea bloqueada o inflamada en el p rpado. Los p rpados tienen merry as gl ndulas david ceas que lubrican sena interior. Si kelly gl ndula se bloquea, el sebo se acumula y hace que la piel se hinche. Un chalazi n puede tardar varias semanas en crecer. Puede variar en cuanto a sena pollo o y puede aparecer en la parte externa o interna del p rpado. Por lo general, aparece en el p rpado superior. La piel puede verse del color normal o enrojecida. Por lo general, un chalazi n no es doloroso; no obstante, puede causar molestias, sensibilidad, sensibilidad a la linda y lagrimeo en aumento. Por lo general, un chalazi n dura entre un par de semanas y un mes. Con frecuencia desaparece por sena cuenta. Un chalazi n puede confundirse con un orzuelo (infecci n de kelly gl ndula david cea) porque ambos aparecen en el p rpado. Por qu se forma un chalazi n Con frecuencia, no est britton por qu aparece un chalazi n. Sin embargo, puede desarrollarse cuando tiene alguna de las siguientes afecciones: Blefaritis cr katie, cuando los p rpados se irritan Acn ros cea Seborrea Tuberculosis Infecci n viral Cuidados en el hogar Si sena proveedor de atenci n m dica descubre que un chalazi n est infectado, puede recetarle gotas o kelly pomada antibi jayjay. Use el medicamento seg n lo que se le indique. L vese las archana cuidadosamente con agua tibia y jab n antes y despu s de realizarse el tratamiento en los ojos. [place] ayuda a prevenir kelly infecci n. Aplique kelly toalla o compresa h christoph y tibia kian 10 a 15 minutos, entre 3 y 4 veces al d a. [place] no solamente reducir la hinchaz n sino que tambi n ablandar el sebo que est tapando el conducto. Masajee el tracy suavemente luego de aplicar la compresa para fomentar el drenaje. O siga las indicaciones de sena proveedor de atenci n m dica. No intente reventar o apretar el chalazi n. No use maquillaje en los ojos hasta que se haya curado el chalazi n. O siga las indicaciones de sena proveedor de atenci n m dica. No use lentes de contacto hasta que se haya curado el chalazi n. O siga las indicaciones de sena proveedor de atenci n m dica. Kelly vez al d a, con los ojos cerrados, l mpiese los p rpados con champ para beb s o un ap sito para limpieza de p rpados h medo. [place] ayudar a reducir el taponamiento del conducto, as rosy a evitar que se vuelva a producir un chalazi n. Consulte a sena proveedor de atenci n m dica sobre productos para limpiarse los p rpados. Visita de control Programe kelly visita de control con sena proveedor de atenci n m dica, o seg n lo que se le haya indicado. Si el chalazi n no se va en 4 semanas, peg vez se lo derive a un proveedor de atenci n m dica que se especialice en el cuidado de los ojos (un optometrista o un oftalm logo) para que le brinden evaluaciones y tratamientos adicionales. Tambi n se lo puede derivar a un especialista de ojos si tiene un chalazi n flory. Cu ndo buscar atenci n m dica Llame a sena proveedor de atenci n m dica de inmediato ante cualquiera de los siguientes s ntomas: El chalazi n vuelve a aparecer en la misma connie de manera repetida Los s ntomas existentes (rosy por ejemplo, dolor, calor, enrojecimiento y secreci n) empeoran Aparecen nuevos s ntomas, rosy dolor en el destiny, calor o enrojecimiento alrededor del destiny, secreci n ocular o hinchaz n de los p rpados superior e inferior del mismo destiny Cambios visuales o visi n borrosa Dolor de raghu persistente Fiebre de 100,4 F (38 C) o m s melanie, o rosy le haya indicado sena proveedor de atenci n m dica [id number] [employer]. [address] [place] [address], [place] [address]. Todos los derechos reservados. Esta informaci n no pretende sustituir la atenci n m dica profesional. S lo sena m dico puede diagnosticar y tratar un problema de stephane. Follow Up Care 08/05/2021 10:29:01 With:CANDY HADLEY DO Address: [address] [place] [address] [place] [address]- [phone] When:5 to 7 days [facility] Evaluation + Plan note No data available for this section [facility] Evaluation note Diagnosis Dysphagia, unspecified type- Primary Dysphagia, unspecified type [facility] [place] [facility] Diagnosis Nexplanon removal- Primary Surveillance of previously prescribed implantable subdermal contraceptive [facility] [place] [facility] Diagnosis Nexplanon removal- Primary Surveillance of previously prescribed implantable subdermal contraceptive [facility] [place] [facility] Diagnosis Nexplanon removal- Primary Surveillance of previously prescribed implantable subdermal contraceptive [facility] [place] [facility]* Diagnosis Dysphagia, unspecified type [facility] [place] [facility]* Diagnosis Supervision of normal intrauterine in multigravida, unspecified trimester- Primary with uncertain dates in first trimester Screening for cervical cancer Screening for malignant neoplasm of the cervix Special screening examination for human papillomavirus (HPV) Screening for STDs (sexually transmitted diseases) Screening examination for venereal disease 18 weeks gestation of state, incidental Late care Insufficient care Language barrier Social maladjustment [facility] [place] [facility]* Diagnosis Encounter for anatomic survey (HCC)- Primary Encounter for anatomic survey 20 weeks gestation of (HCC) state, incidental Multigravida of advanced maternal age in second trimester (HCC) Obesity affecting in second trimester, unspecified obesity type (HCC) 20 weeks gestation of (HCC)- Primary state, incidental Supervision of normal intrauterine in multigravida, unspecified trimester (HCC) Rh negative state in antepartum period (HCC) Rhesus isoimmunization affecting management of mother, antepartum condition [facility] [place] [facility]* Diagnosis 20 weeks gestation of (HCC)- Primary state, incidental Supervision of normal intrauterine in multigravida, unspecified trimester (HCC) Rh negative state in antepartum period (HCC) Rhesus isoimmunization affecting management of mother, antepartum condition * Assessment & Plan Note - Yissel Cuello MD - 12/02/2024 3:05 PM EDTAssociated Problem(s): Supervision of normal intrauterine in multigravida, unspecified trimester * Assessment & Plan Note - Yissel Cuello MD - 12/02/2024 3:05 PM EDTAssociated Problem(s): Rh negative state in antepartum period [facility] [place] [facility]* Diagnosis Rh negative state in antepartum period ([facility])- Primary Rhesus isoimmunization affecting management of mother, antepartum condition 20 weeks gestation of ([facility])- Primary state, incidental Supervision of normal intrauterine in multigravida, unspecified trimester ([facility]) Rh negative state in antepartum period ([facility]) Rhesus isoimmunization affecting management of mother, antepartum condition Encounter for supervision of other normal in second trimester ([facility])- Primary 24 weeks gestation of ([facility]) state, incidental Rh negative state in antepartum period ([facility]) Rhesus isoimmunization affecting management of mother, antepartum condition Screening for diabetes mellitus documented in this encounter [facility] note* Diagnosis 20 weeks gestation of (HCC)- Primary state, incidental Supervision of normal intrauterine in multigravida, unspecified trimester ([facility]) Rh negative state in antepartum period ([facility]) Rhesus isoimmunization affecting management of mother, antepartum condition Encounter for supervision of other normal in second trimester (HCC)- Primary 24 weeks gestation of ([facility]) state, incidental Rh negative state in antepartum period ([facility]) Rhesus isoimmunization affecting management of mother, antepartum condition Screening for diabetes mellitus Supervision of high risk in third trimester ([facility])- Primary Unspecified high-risk Multigravida of advanced maternal age in third trimester ([facility]) Previous section Other postprocedural status Obesity in ([facility]) Obesity complicating , childbirth, or the puerperium, unspecified as to episode of care or not applicable 31 weeks gestation of ([facility]) state, incidental * Assessment & Plan Note - Floridalma Torres MD - 02/13/2025 4:18 PM EDT Associated Problem(s): Previous section Had one cs followed by 2 VBACs- pt today states she thinks they told her that her incision was up and down. We reviewed this would be a contraindication to however given history that she had twovaginal deliveries since that time I would discuss with group and we will decide at her next visit if this is reasonable vs may need to deliver at tertiary care center if declines CS. [facility] OB chart from 2014 reviewed- they said undocumented ok for cautious tolac. Pt will need to sign consent once decision made with team (don't see that it was completed) * Assessment & Plan Note - Floridalma Torres MD - 02/13/2025 4:18 PM EDT Associated Problem(s): Obesity in (HCC) Will need NSTs 36 weeks [facility] information [facility] Work Phone: Evaluation note* Diagnosis 20 weeks gestation of (HCC)- Primary state, incidental Supervision of normal intrauterine in multigravida, unspecified trimester (HCC) Rh negative state in antepartum period (HCC) Rhesus isoimmunization affecting management of mother, antepartum condition Encounter for supervision of other normal in second trimester (HCC)- Primary 24 weeks gestation of (HCC) state, incidental Rh negative state in antepartum period (HCC) Rhesus isoimmunization affecting management of mother, antepartum condition Screening for diabetes mellitus Supervision of high risk in third trimester (HCC)- Primary Unspecified high-risk Multigravida of advanced maternal age in third trimester (HCC) Previous section Other postprocedural status Obesity in (HCC) Obesity complicating , childbirth, or the puerperium, unspecified as to episode of care or not applicable 31 weeks gestation of ([facility]) state, incidental Supervision of high risk in third trimester ([facility])- Primary Unspecified high-risk 32 weeks gestation of ([facility]) state, incidental Multigravida of advanced maternal age in third trimester ([facility]) Previous section Other postprocedural status Obesity in ([facility]) Obesity complicating , childbirth, or the puerperium, unspecified as to episode of care or not applicable Elevated blood pressure reading without diagnosis of hypertension [facility] [place] [facility]* Diagnosis 20 weeks gestation of ([facility])- Primary state, incidental Supervision of normal intrauterine in multigravida, unspecified trimester ([facility]) Rh negative state in antepartum period ([facility]) Rhesus isoimmunization affecting management of mother, antepartum condition Encounter for supervision of other normal in second trimester ([facility])- Primary 24 weeks gestation of ([facility]) state, incidental Rh negative state in antepartum period ([facility]) Rhesus isoimmunization affecting management of mother, antepartum condition Screening for diabetes mellitus Supervision of high risk in third trimester ([facility])- Primary Unspecified high-risk Multigravida of advanced maternal age in third trimester ([facility]) Previous section Other postprocedural status Obesity in ([facility]) Obesity complicating , childbirth, or the puerperium, unspecified as to episode of care or not applicable 31 weeks gestation of ([facility]) state, incidental Obesity in ([facility])- Primary Obesity complicating , childbirth, or the puerperium, unspecified as to episode of care or not applicable Multigravida of advanced maternal age in third trimester ([facility]) [facility] [place] [facility]* Diagnosis 20 weeks gestation of ([facility])- Primary state, incidental Supervision of normal intrauterine in multigravida, unspecified trimester ([facility]) Rh negative state in antepartum period ([facility]) Rhesus isoimmunization affecting management of mother, antepartum condition Encounter for supervision of other normal in second trimester ([facility])- Primary 24 weeks gestation of ([facility]) state, incidental Rh negative state in antepartum period ([facility]) Rhesus isoimmunization affecting management of mother, antepartum condition Screening for diabetes mellitus Supervision of high risk in third trimester ([facility])- Primary Unspecified high-risk Multigravida of advanced maternal age in third trimester (HCC) Previous section Other postprocedural status Obesity in (HCC) Obesity complicating , childbirth, or the puerperium, unspecified as to episode of care or not applicable 31 weeks gestation of (HCC) state, incidental Supervision of high risk in third trimester (HCC)- Primary Unspecified high-risk Multigravida of advanced maternal age in third trimester (HCC) Previous section Other postprocedural status Obesity in (HCC) Obesity complicating , childbirth, or the puerperium, unspecified as to episode of care or not applicable 33 weeks gestation of (HCC) state, incidental Encounter for other general counseling or advice on contraception Vaginal discharge Leukorrhea, not specified as infective * Assessment & Plan Note - Sil Soto MD - 02/27/2025 4:55 PM EDT Associated Problem(s): Previous section 2 tolacs, plans tolac * Assessment & Plan Note - Sil Soto MD - 02/27/2025 4:55 PM EDT Associated Problem(s): Obesity in (HCC) growth scans [facility] Diagnosis 20 weeks gestation of ([facility])- Primary state, incidental Supervision of normal intrauterine in multigravida, unspecified trimester ([facility]) Rh negative state in antepartum period ([facility]) Rhesus isoimmunization affecting management of mother, antepartum condition Encounter for supervision of other normal in second trimester ([facility])- Primary 24 weeks gestation of ([facility]) state, incidental Rh negative state in antepartum period ([facility]) Rhesus isoimmunization affecting management of mother, antepartum condition Screening for diabetes mellitus Supervision of high risk in third trimester ([facility])- Primary Unspecified high-risk Multigravida of advanced maternal age in third trimester ([facility]) Previous section Other postprocedural status Obesity in ([facility]) Obesity complicating , childbirth, or the puerperium, unspecified as to episode of care or not applicable 31 weeks gestation of ([facility]) state, incidental Supervision of high risk in third trimester ([facility])- Primary Unspecified high-risk Multigravida of advanced maternal age in third trimester ([facility]) Previous section Other postprocedural status Obesity in ([facility]) Obesity complicating , childbirth, or the puerperium, unspecified as to episode of care or not applicable 33 weeks gestation of ([facility]) state, incidental Encounter for other general counseling or advice on contraception Vaginal discharge Leukorrhea, not specified as infective Supervision of high risk in third trimester ([facility])- Primary Unspecified high-risk Multigravida of advanced maternal age in third trimester ([facility]) Previous section Other postprocedural status Obesity in ([facility]) Obesity complicating , childbirth, or the puerperium, unspecified as to episode of care or not applicable Language barrier Social maladjustment BV (bacterial vaginosis) Vaginitis and vulvovaginitis, unspecified Yeast vaginitis Candidiasis of vulva and vagina Abnormal test Abnormal findings on screening 36 weeks gestation of ([facility]) state, incidental * Assessment & Plan Note - Floridalma Torres MD - 03/22/2025 10:57 AM EDTAssociated Problem(s): Previous section Planning TOLAC (had previous tolac ?? Scar) Orders: URINE OB DIP B/O * Assessment & Plan Note - Floridalma Torres MD - 03/22/2025 10:57 AM EDTAssociated Problem(s): Obesity in ([facility]) Growth us today Orders: URINE OB DIP B/O * Assessment & Plan Note - Floridalma Torres MD - 03/22/2025 10:57 AM EDTAssociated Problem(s): Language barrier * Assessment & Plan Note - Floridalma Torres MD - 03/22/2025 10:57 AM EDTAssociated Problem(s): BV (bacterial vaginosis) Orders: metroNIDAZOLE (FLAGYL) 500 mg tablet; Take 1 tablet by mouth two times a day for 7 days. * Assessment & Plan Note - Floridalma Torres MD - 03/22/2025 10:57 AM EDTAssociated Problem(s): Yeast vaginitis Treated with monistat cream [facility] Diagnosis 20 weeks gestation of ([facility])- Primary state, incidental Supervision of normal intrauterine in multigravida, unspecified trimester ([facility]) Rh negative state in antepartum period ([facility]) Rhesus isoimmunization affecting management of mother, antepartum condition Encounter for supervision of other normal in second trimester ([facility])- Primary 24 weeks gestation of ([facility]) state, incidental Rh negative state in antepartum period ([facility]) Rhesus isoimmunization affecting management of mother, antepartum condition Screening for diabetes mellitus Supervision of high risk in third trimester ([facility])- Primary Unspecified high-risk Multigravida of advanced maternal age in third trimester ([facility]) Previous section Other postprocedural status Obesity in ([facility]) Obesity complicating , childbirth, or the puerperium, unspecified as to episode of care or not applicable 31 weeks gestation of ([facility]) state, incidental Supervision of high risk in third trimester ([facility])- Primary Unspecified high-risk Multigravida of advanced maternal age in third trimester ([facility]) Previous section Other postprocedural status Obesity in ([facility]) Obesity complicating , childbirth, or the puerperium, unspecified as to episode of care or not applicable 33 weeks gestation of ([facility]) state, incidental Encounter for other general counseling or advice on contraception Vaginal discharge Leukorrhea, not specified as infective Obesity in ([facility])- Primary Obesity complicating , childbirth, or the puerperium, unspecified as to episode of care or not applicable Multigravida of advanced maternal age in third trimester ([facility]) Supervision of high risk in third trimester ([facility])- Primary Unspecified high-risk Multigravida of advanced maternal age in third trimester ([facility]) Previous section Other postprocedural status Obesity in ([facility]) Obesity complicating , childbirth, or the puerperium, unspecified as to episode of care or not applicable Language barrier Social maladjustment BV (bacterial vaginosis) Vaginitis and vulvovaginitis, unspecified Yeast vaginitis Candidiasis of vulva and vagina Abnormal test Abnormal findings on screening 36 weeks gestation of ([facility]) state, incidental [facility] [place] [facility] Diagnosis 20 weeks gestation of ([facility])- Primary state, incidental Supervision of normal intrauterine in multigravida, unspecified trimester ([facility]) Rh negative state in antepartum period ([facility]) Rhesus isoimmunization affecting management of mother, antepartum condition Encounter for supervision of other normal in second trimester ([facility])- Primary 24 weeks gestation of ([facility]) state, incidental Rh negative state in antepartum period ([facility]) Rhesus isoimmunization affecting management of mother, antepartum condition Screening for diabetes mellitus Supervision of high risk in third trimester ([facility])- Primary Unspecified high-risk Multigravida of advanced maternal age in third trimester ([facility]) Previous section Other postprocedural status Obesity in ([facility]) Obesity complicating , childbirth, or the puerperium, unspecified as to episode of care or not applicable 31 weeks gestation of ([facility]) state, incidental Supervision of high risk in third trimester ([facility])- Primary Unspecified high-risk Multigravida of advanced maternal age in third trimester ([facility]) Previous section Other postprocedural status Obesity in ([facility]) Obesity complicating , childbirth, or the puerperium, unspecified as to episode of care or not applicable 33 weeks gestation of ([facility]) state, incidental Encounter for other general counseling or advice on contraception Vaginal discharge Leukorrhea, not specified as infective Supervision of high risk in third trimester ([facility])- Primary Unspecified high-risk Multigravida of advanced maternal age in third trimester ([facility]) Previous section Other postprocedural status Obesity in ([facility]) Obesity complicating , childbirth, or the puerperium, unspecified as to episode of care or not applicable Language barrier Social maladjustment BV (bacterial vaginosis) Vaginitis and vulvovaginitis, unspecified Yeast vaginitis Candidiasis of vulva and vagina Abnormal test Abnormal findings on screening 36 weeks gestation of ([facility]) state, incidental 37 weeks gestation of ([facility])- Primary state, incidental Supervision of high risk in third trimester ([facility]) Unspecified high-risk Multigravida of advanced maternal age in third trimester ([facility]) Language barrier Social maladjustment Maternal care for scar from previous delivery, unspecified scar type ([facility]) History of Personal history of other genital system and obstetric disorders [facility] Diagnosis 20 weeks gestation of ([facility])- Primary state, incidental Supervision of normal intrauterine in multigravida, unspecified trimester ([facility]) Rh negative state in antepartum period ([facility]) Rhesus isoimmunization affecting management of mother, antepartum condition Encounter for supervision of other normal in second trimester ([facility])- Primary 24 weeks gestation of ([facility]) state, incidental Rh negative state in antepartum period ([facility]) Rhesus isoimmunization affecting management of mother, antepartum condition Screening for diabetes mellitus Supervision of high risk in third trimester ([facility])- Primary Unspecified high-risk Multigravida of advanced maternal age in third trimester ([facility]) Previous section Other postprocedural status Obesity in ([facility]) Obesity complicating , childbirth, or the puerperium, unspecified as to episode of care or not applicable 31 weeks gestation of ([facility]) state, incidental Supervision of high risk in third trimester ([facility])- Primary Unspecified high-risk Multigravida of advanced maternal age in third trimester ([facility]) Previous section Other postprocedural status Obesity in ([facility]) Obesity complicating , childbirth, or the puerperium, unspecified as to episode of care or not applicable 33 weeks gestation of ([facility]) state, incidental Encounter for other general counseling or advice on contraception Vaginal discharge Leukorrhea, not specified as infective Supervision of high risk in third trimester ([facility])- Primary Unspecified high-risk Multigravida of advanced maternal age in third trimester ([facility]) Previous section Other postprocedural status Obesity in ([facility]) Obesity complicating , childbirth, or the puerperium, unspecified as to episode of care or not applicable Language barrier Social maladjustment BV (bacterial vaginosis) Vaginitis and vulvovaginitis, unspecified Yeast vaginitis Candidiasis of vulva and vagina Abnormal test Abnormal findings on screening 36 weeks gestation of ([facility]) state, incidental Gynecologic exam normal- Primary [facility] [place] [facility]* Diagnosis 20 weeks gestation of ([facility])- Primary state, incidental Supervision of normal intrauterine in multigravida, unspecified trimester ([facility]) Rh negative state in antepartum period ([facility]) Rhesus isoimmunization affecting management of mother, antepartum condition Encounter for supervision of other normal in second trimester ([facility])- Primary 24 weeks gestation of ([facility]) state, incidental Rh negative state in antepartum period ([facility]) Rhesus isoimmunization affecting management of mother, antepartum condition Screening for diabetes mellitus Supervision of high risk in third trimester ([facility])- Primary Unspecified high-risk Multigravida of advanced maternal age in third trimester ([facility]) Previous section Other postprocedural status Obesity in ([facility]) Obesity complicating , childbirth, or the puerperium, unspecified as to episode of care or not applicable 31 weeks gestation of ([facility]) state, incidental Supervision of high risk in third trimester ([facility])- Primary Unspecified high-risk Multigravida of advanced maternal age in third trimester ([facility]) Previous section Other postprocedural status Obesity in ([facility]) Obesity complicating , childbirth, or the puerperium, unspecified as to episode of care or not applicable 33 weeks gestation of ([facility]) state, incidental Encounter for other general counseling or advice on contraception Vaginal discharge Leukorrhea, not specified as infective Supervision of high risk in third trimester ([facility])- Primary Unspecified high-risk Multigravida of advanced maternal age in third trimester ([facility]) Previous section Other postprocedural status Obesity in ([facility]) Obesity complicating , childbirth, or the puerperium, unspecified as to episode of care or not applicable Language barrier Social maladjustment BV (bacterial vaginosis) Vaginitis and vulvovaginitis, unspecified Yeast vaginitis Candidiasis of vulva and vagina Abnormal test Abnormal findings on screening 36 weeks gestation of ([facility]) state, incidental 38 weeks gestation of ([facility])- Primary state, incidental Supervision of high risk in third trimester ([facility]) Unspecified high-risk Multigravida of advanced maternal age in third trimester ([facility]) Language barrier Social maladjustment Maternal care for scar from previous delivery, unspecified scar type ([facility]) documented in this encounter [facility] Discharge instructions No data available for this section [facility] Progress note No data available for this section [facility] Reason for referral (narrative)* Outpatient Procedure (Routine) - Pending Review Specialty Diagnoses / Procedures Referred By Emily reece Referred To Contact [facility] Diagnoses Nexplanon removal Procedures NEXPLANON REMOVAL REMOVAL NON-BIODEGRADABLE DRUG DELIVERY IMPLANT Katie Jernigan APRN.CNP [address] [place] [address] [facility] [address] [place] [address] Referral ID Status Reason Start Date Expiration Date Visits Requested Visits Authorized [id number] Pending Review Auto-Generat ed Referral 04/12/2024 04/12/2025 1 1 [facility] for referral (narrative)* Outpatient Procedure (Routine) - New Request Specialty Diagnoses / Procedures Referred By Contac t Referred To Contact [facility] Diagnoses Nexplanon removal Procedures NEXPLANON REMOVAL REMOVAL NON-BIODEGRADABLE DRUG DELIVERY IMPLANT Juan Villegas APRN.SILK SCREEN ETCHER [address] [place] [address] [facility] [address] [place] [id number] Referral ID Status Reason Start Date Expiration Date Visits Requested Visits Authorized [id number] New Request Auto-Generat ed Referral 04/25/2024 04/25/2025 1 1 [facility] for referral (narrative)* Diagnostic Procedure Only (Urgent) - Closed Specialty Diagnoses / Procedures Referred By Contac t Referred To Contact XR IMAGING Diagnoses Dysphagia, unspecified type Procedures XR NECK SOFT TISSUE 2V AP/LAT RADIOLOGIC EXAMINATION NECK SOFT TISSUE Brit Cope APRN.SILK SCREEN ETCHER [address] [place] [address] Xr Imaging [facility] Referral ID Status Reason Start Date Expiration Date V isits Requested Visits Authorized [id number] Closed Patient Cleared - Qualified 100% FAS 03/18/2024 04/17/2024 1 1 [facility] for referral (narrative)No reason for referral information availableW[facility] Work Phone: Summary Purpose Family History No Family History Records FoundNo Family History Records FoundNo Family History Records Found No data available for this section No data available for this section No Family History Records FoundNo Family History Records FoundNo Family History Records FoundNo Family History Records Found Advance Directives No Advanced Directives Records FoundNo Advanced Directives Records FoundNo Advanced Directives Records FoundNo Advanced Directives Records FoundNo Advanced Directives Records FoundNo Advanced Directives Records FoundNo Advanced Directives Records Found Reason for Referral Specialty Diagnoses / Procedures Referred By Contac t Referred To Contact Gastroenterology Diagnoses Dysphagia, unspecified type Procedures CONSULT TO GASTROENTEROLOGY OFFICE/OUTPATIENT NEW HIGH MDM 60 MINUTES Brit Cope, PIN MACHINE TENDER.SILK SCREEN ETCHER [address] [place] [address] Referral ID Status Reason Start Date Expiration Date Visits Requested Visits Authorized [id number] Authorized PCP Requested Referral 03/18/2024 03/18/2025 1 1 Specialty Diagnoses / Procedures Referred By Contac t Referred To Contact XR IMAGING Diagnoses Dysphagia, unspecified type Procedures XR NECK SOFT TISSUE 2V AP/LAT RADIOLOGIC EXAMINATION NECK SOFT TISSUE [place], Brit, PIN MACHINE TENDER.SILK SCREEN ETCHER [address] [place] [address] [place] [address] Referral ID Status Reason Start Date Expiration Date V isits Requested Visits Authorized [id number] Closed Auto-Generate d Referral 03/18/2024 04/17/2025 1 1 Chief Complaint and Reason for Visit Chief Complaint Admit Date R/O PRE E February 17, 2025 2:22 pm Additional Source Comments INFORMATION SOURCE (unrecogn ized section and content) DATE CREATED AUTHOR 12/10/2021 [facility] ([place]) DATE CREATED AUTHOR AUTHOR'S ORGANIZ ATION 12/18/2021 [facility] ([place]) DATE CREATED AUTHOR AUTHOR'S ORGANIZ ATION 01/01/2025 [facility] DATE CREATED AUTHOR AUTHOR'S ORGANIZ ATION 02/22/2025 [facility] DATE CREATED AUTHOR AUTHOR'S ORGANIZ ATION 02/26/2025 [facility] DATE CREATED AUTHOR AUTHOR'S ORGANIZ ATION 04/10/2025 [facility] DATE CREATED AUTHOR AUTHOR'S ORGANIZ ATION 04/18/2025 [facility] nter Source Comments (unrecognize d section and content) In the event this informatio n is protected by the Federal Confidentiality of Alcohol and Drug Abuse Patient Records regulations: The Federal rules restrict any use of the information to criminally investigate or prosecute any alcohol or drug abuse patient.[facility] the event this information is protected by the Federal Confidentiality of Alcohol and Drug Abuse Patient Records regulations: The Federal rules restrict any use of the information to criminally investigate or prosecute any alcohol or drug abuse patient.[facility] HospitalIn the event this information is protected by the Federal Confidentiality of Alcohol and Drug Abuse Patient Records regulations: The Federal rules restrict any use of the information to criminally investigate or prosecute any alcohol or drug abuse patient.[facility] HospitalIn the event this information is protected by the Federal Confidentiality of Alcohol and Drug Abuse Patient Records regulations: The Federal rules restrict any use of the information to criminally investigate or prosecute any alcohol or drug abuse patient.[facility] HospitalIn the event this information is protected by the Federal Confidentiality of Alcohol and Drug Abuse Patient Records regulations: The Federal rules restrict any use of the information to criminally investigate or prosecute any alcohol or drug abuse patient.[facility] HospitalIn the event this information is protected by the Federal Confidentiality of Alcohol and Drug Abuse Patient Records regulations: The Federal rules restrict any use of the information to criminally investigate or prosecute any alcohol or drug abuse patient.[facility] HospitalIn the event this information is protected by the Federal Confidentiality of Alcohol and Drug Abuse Patient Records regulations: The Federal rules restrict any use of the information to criminally investigate or prosecute any alcohol or drug abuse patient.[facility] HospitalIn the event this information is protected by the Federal Confidentiality of Alcohol and Drug Abuse Patient Records regulations: The Federal rules restrict any use of the information to criminally investigate or prosecute any alcohol or drug abuse patient.[facility] HospitalIn the event this information is protected by the Federal Confidentiality of Alcohol and Drug Abuse Patient Records regulations: The Federal rules restrict any use of the information to criminally investigate or prosecute any alcohol or drug abuse patient.[facility] HospitalIn the event this information is protected by the Federal Confidentiality of Alcohol and Drug Abuse Patient Records regulations: The Federal rules restrict any use of the information to criminally investigate or prosecute any alcohol or drug abuse patient.[facility] HospitalIn the event this information is protected by the Federal Confidentiality of Alcohol and Drug Abuse Patient Records regulations: The Federal rules restrict any use of the information to criminally investigate or prosecute any alcohol or drug abuse patient.[facility] HospitalIn the event this information is protected by the Federal Confidentiality of Alcohol and Drug Abuse Patient Records regulations: The Federal rules restrict any use of the information to criminally investigate or prosecute any alcohol or drug abuse patient.[facility] HospitalIn the event this information is protected by the Federal Confidentiality of Alcohol and Drug Abuse Patient Records regulations: The Federal rules restrict any use of the information to criminally investigate or prosecute any alcohol or drug abuse patient.[facility] HospitalIn the event this information is protected by the Federal Confidentiality of Alcohol and Drug Abuse Patient Records regulations: The Federal rules restrict any use of the information to criminally investigate or prosecute any alcohol or drug abuse patient.[facility] HospitalIn the event this information is protected by the Federal Confidentiality of Alcohol and Drug Abuse Patient Records regulations: The Federal rules restrict any use of the information to criminally investigate or prosecute any alcohol or drug abuse patient.[facility] HospitalIn the event this information is protected by the Federal Confidentiality of Alcohol and Drug Abuse Patient Records regulations: The Federal rules restrict any use of the information to criminally investigate or prosecute any alcohol or drug abuse patient.[facility] HospitalIn the event this information is protected by the Federal Confidentiality of Alcohol and Drug Abuse Patient Records regulations: The Federal rules restrict any use of the information to criminally investigate or prosecute any alcohol or drug abuse patient.[facility] HospitalIn the event this information is protected by the Federal Confidentiality of Alcohol and Drug Abuse Patient Records regulations: The Federal rules restrict any use of the information to criminally investigate or prosecute any alcohol or drug abuse patient.[facility] HospitalIn the event this information is protected by the Federal Confidentiality of Alcohol and Drug Abuse Patient Records regulations: The Federal rules restrict any use of the information to criminally investigate or prosecute any alcohol or drug abuse patient.[facility] HospitalIn the event this information is protected by the Federal Confidentiality of Alcohol and Drug Abuse Patient Records regulations: The Federal rules restrict any use of the information to criminally investigate or prosecute any alcohol or drug abuse patient.[facility] the event this information is protected by the Federal Confidentiality of Alcohol and Drug Abuse Patient Records regulations: The Federal rules restrict any use of the information to criminally investigate or prosecute any alcohol or drug abuse patient.[facility] the event this information is protected by the Federal Confidentiality of Alcohol and Drug Abuse Patient Records regulations: The Federal rules restrict any use of the information to criminally investigate or prosecute any alcohol or drug abuse patient.[facility] the event this information is protected by the Federal Confidentiality of Alcohol and Drug Abuse Patient Records regulations: The Federal rules restrict any use of the information to criminally investigate or prosecute any alcohol or drug abuse patient.[facility] Hospital[facility] the event this information is protected by the Federal Confidentiality of Alcohol and Drug Abuse Patient Records regulations: The Federal rules restrict any use of the information to criminally investigate or prosecute any alcohol or drug abuse patient.[facility] Reason for Visit (unrecogniz ed section and content) Reason Onset Date Comments Care 04/07/2025 Specialty Diagnoses / Procedures Referred By Emily t Referred To Contact Union Laborer Diagnoses office visit Procedures office [place] [address] Referral ID Status Reason Start Date Expiration Date Visits Requested Visits Authorized [id number] Authorized Patient Cleared - Qualified 100% FAS 02/13/2025 05/14/2025 99 99 Reason Comments US Reason Onset Date Comments Care 03/22/2025 Specialty Diagnoses / Procedures Referred By Emily t Referred To Contact [facility] Diagnoses Multigravida of advanced maternal age in third trimester (HCC) Procedures OBSTETRIC ULTRASOUND WHI US PREG UTERUS AFTER 1ST TRIMEST GESTATION Floridalma Torres MD [address] [place] [address] Phone: tel: fax: [facility] [address] [place] [address] Referral ID Status Reason Start Date Expiration Date Visits Requested Visits Authorized [id number] Pending Review Auto-Generat ed Referral 02/13/2025 02/13/2026 3 3 Reason Onset Date Comments Care 12/02/2024 Specialty Diagnoses / Procedures Referred By Emily reece Referred To Contact TELECOMMUNICATION ENGINEER Diagnoses Office visit Procedures Office Visit Self OB/Gynecology [address] [place] [id number] Phone: tel: Referral ID Status Reason Start Date Expiration Date Visits Requested Visits Authorized [id number] Authorized Patient Cleared - Qualified 100% FAS 11/14/2024 02/12/2025 99 99 Reason Comments Throat Problem Feels like something is stuck in throat when swollowing x1 week Reason Comments problem visit Discuss Nexplanon Re moval. Specialty Diagnoses / Procedures Referred By Emily t Referred To Contact Diagnoses Women Health Procedures Women [facility] [place] [address] Referral ID Status Reason Start Date Expiration Date Visits Requested Visits Authorized [id number] Authorized Patient Cleared - Qualified 100% FAS 04/12/2024 07/11/2024 99 99 Reason Comments Nexplanon Removal Specialty Diagnoses / Procedures Referred By Contac t Referred To Contact Diagnoses Women Health Procedures Women [place] [address] Referral ID Status Reason Start Date Expiration Date Visits Requested Visits Authorized [id number] Authorized Patient Cleared - Qualified 100% FAS 03/18/2024 06/16/2024 99 99 Reason Comments [facility] Specialty Diagnoses / Procedures Referred By Contac t Referred To Contact TELECOMMUNICATION ENGINEER Diagnoses Office visit Procedures Office Visit Self [facility]Gyne[facility] [address] [place] [address] Phone: tel: Referral ID Status Reason Start Date Expiration Date Visits Requested Visits Authorized [id number] Authorized Patient Cleared - Qualified 100% FAS 11/14/2024 02/12/2025 99 99 Reason Comments Appointment Reason Comments Results Reason Onset Date Comments Results 11/21/2024 Reason Comments Received Outside Medical Records Reason Onset Date Comments Care 02/13/2025 Specialty Diagnoses / Procedures Referred By Contac t Referred To Contact Gastroenterology Diagnoses Dysphagia, unspecified type Procedures CONSULT TO GASTROENTEROLOGY OFFICE/OUTPATIENT NEW HIGH MDM 60 MINUTES Brit Cope, PIN MACHINE TENDER.[employer] [address] [place] [address] Phone: tel: fax: Referral ID Status Reason Start Date Expiration Date V isits Requested Visits Authorized [id number] Closed PCP Requested Referral 03/18/2024 03/18/2025 1 1 Reason Comments OB Elevated BP Reason Onset Date Comments Care 02/20/2025 Reason Onset Date Comments Care 03/31/2025 Reason Comments [facility] Patient Care team informatio n (unrecognized section and content) Team Status: Inactive Member Role Status Dates Luana Whaley CNM Attending Provider Active St art: February 17, 2025 End: February 17, 2025 Luana Whaley CNM Referring Provider Active St art: February 17, 2025 End: February 17, 2025 Care Team Personnel Name: PHYSICIAN, NONE Position: Physician Member Role: Primary Care Physician Care Team Related Persons Name: JASON SR Name: KENNETH JASON Name: NONE, Name: ARTUR HORVATH Goals (unrecognized section and content) Goals may be documented in a n alternate section FOR RECORDS PERTAINING TO PATIENTS WHO ARE OR HAVE BEEN ENROLLED IN A CHEMICAL DEPENDENCY/SUBSTANCEABUSE PROGRAM, SOME INFORMATION MAY BE OMITTED. This clinical summary was aggregated from multiple sources. Caution should be exercised in using it in the provision of clinical care. This summary normalizes information from multiple sources, and as a consequence, information in this document may materially change the coding, format and clinical context of patient data. In addition, data may be omitted in some cases. CLINICAL DECISIONS SHOULD BE BASED ON THE PRIMARY CLINICAL RECORDS. [facility], [facility]. provides no warranty or guarantee of the accuracy or completeness of information in this document.
[2025-04-19] MEDS: Magnesium Sulfate 20 GM/500 ML BAG IV (21:05)
--- OUTSIDE RECORDS SUMMARY | 2025-04-19 21:05 | XMS RPT_ITS | CCD ---
Author Organization [facility] Care Team Providers Care Elementary Reading Tutor Name Role Phone PHYSICIAN, NONE Primary Care [...] Referring Unavailable Luana Whaley CNM Attending Provider [phone] Luana Whaley CNM Referring Provider PHYSICIAN, NONE Primary Care Unavailable JAROD LOUIS [...] (2 sources) Clindamycin; Translations: [clindamycin] Drug Allergy [facility] Medications Current Medications Medication Drug Class(es) Dates [...] of ; Translations: [36 weeks gestation of (FORM[facility]LY [facility])] Onset: 03-22-2025 Episodic Residual codes; unclassified (1 source) History of uterine scar from previous surgery; Translations: [Previous section] Onset: 02-27-2025 Episodic Residual codes; unclassified (1 source) 33 weeks gestation of ; Translations: [33 weeks gestation of ([facility])] Onset: 02-27-2025 Episodic Residual codes; unclassified (1 source) 32 weeks gestation of ; Translations: [32 weeks gestation of ([facility])] Onset: 02-20-2025 Episodic Residual codes; unclassified (1 source) 28 weeks gestation of ; Translations: [28 weeks gestation of ([facility])] Onset: 01-27-2025 Episodic Unclassified (1 source) Yeast [...] Translations: [Rh negative state in antepartum period ([facility])] Onset: 11-21-2024 Episodic Other gastrointestinal disorders (1 [...] Test Name Value Interpretation Reference Range Facility [facility]: [id number] Author: MAXX MACIEL MD Service: Obstetrics Author [...] PROCEDURES/SURGERY DURING HOSPITALIZATION: Delivery Summary: Bucky Kelsey [[id number]] Delivery Information: Delivery Date: 04/14/25 Delivery type: [...] These medications were sent to e- [id number] [place] [address] - [address] [facility] - [phone] [place] [address] Blood Pressure Monitor ibuprofen 600 mg tablet [...] Blood Pressure check within 2 days. With: [facility] EMAIL DESIGNER ambulatory clinic When: In 2 days Comment - within 7 days I have performed the udyn-sl-daek and relevant services for a total of < 30 minutes. Plan of care discussed with: Provider, RN, Patient. SIGNATURE: Maxx Maciel MD PATIENT NAME: Shaila Rojo (more content not included)... [facility] ANES POSTPROC EVALon 025 ANES POSTPROC EVAL HNO ID: [id number] Author: JOSH YUN DO Service: Anesthesiology Author Type: Nurse Car Pick Up Driver Type: Anesthesia Postprocedure Evaluation Filed: 04/17/2025 10:09 [...] shown include unfiled device data. Bucky Kelsey [[id number]] Baby Delivery: 04/14/2025 2300 Post Anesthesia Patient [...] April 15, 2025 TIME: 12:57 AM CSN: [id number] Normal [facility] CBC panel Auto (Bld)on 04-15 Erythrocyte distribution width (RBC) [Ratio] 14.5 % Normal 11.5-15.0 [facility] Comment on above: Order Comment: Speci men Type: BLOOD SPECIMEN Ordering Facility: [facility] Address: [address] [place] [address] Performed By: #### 5 7021-8 #### [facility] CLIA [id number] [address] [place] [address] [place] Hematocrit (Bld) [Volume fraction] 33.9 % Low 36.0-46.0 [facility] Comment on above: Order Comment: Speci men Type: BLOOD SPECIMEN Ordering Facility: [facility] Address: [address] [place] [address] Performed By: #### 5 7021-8 #### [facility] CLIA [id number] [address] [place] [address] [place] Hemoglobin (Bld) [Mass/Vol] 10.7 g/dL Low 11.5-15.5 [facility] Comment on above: Order Comment: Speci men Type: BLOOD SPECIMEN Ordering Facility: [facility] Address: [address] [place] [address] Performed By: #### 5 7021-8 #### [facility] CLIA [id number] [address] [place] [address] [place] MCH (RBC) [Entitic mass] 25.7 pg Low 26.0-34.0 [facility] Comment on above: Order Comment: Speci men Type: BLOOD SPECIMEN Ordering Facility: [facility] Address: [address] [place] [address] Performed By: #### 5 7021-8 #### [facility] CLIA [id number] [address] [place] [address] [place] MCHC (RBC) [Mass/Vol] 31.6 g/dL Normal 30.5-36.0 [facility] Comment on above: Order Comment: Speci men Type: BLOOD SPECIMEN Ordering Facility: [facility] Address: [address] [place] [address] Performed By: #### 5 7021-8 #### [facility] CLIA [id number] [address] [place] [address] [place] MCV (RBC) [Entitic vol] 81.3 fL Normal 80.0-100.0 [facility] Comment on above: Order Comment: Speci men Type: BLOOD SPECIMEN Ordering Facility: [facility] Address: [address] [place] [address] Performed By: #### 5 7021-8 #### [facility] CLIA [id number] [address] [place] [address] [place] Nucleated RBC (Bld) [#/Vol] 10*3/uL Normal <0.01 [facility] Comment on above: Order Comment: Speci men Type: BLOOD SPECIMEN Ordering Facility: [facility] Address: [address] [place] [id number] Performed By: #### 5 7021-8 #### [facility] CLIA [id number] [address] [place] [address] [place] Platelet mean volume (Bld) [Entitic vol] 10.1 fL Normal 9.0-12.7 [facility] Comment on above: Order Comment: Speci men Type: BLOOD SPECIMEN Ordering Facility: [facility] Address: [address] [place], [place] [address] Performed By: #### 5 7021-8 #### [facility] CLIA [id number] [address] [place] [address] [place] Platelets (Bld) [#/Vol] 317 10*3/uL Normal 150-400 [facility] Comment on above: Order Comment: Speci men Type: BLOOD SPECIMEN Ordering Facility: [facility] Address: [address] [place] [address] Performed By: #### 5 7021-8 #### [facility] CLIA [id number] [address] [place] [address] [place] RBC (Bld) [#/Vol] 4.17 10*6/uL Normal 3.90-5.20 [facility] Comment on above: Order Comment: Speci men Type: BLOOD SPECIMEN Ordering Facility: [facility] Address: [address] [place], [place] [address] Performed By: #### 5 7021-8 #### [facility] CLIA [id number] [address] [place] [address] [place] WBC (Bld) [#/Vol] 16.93 10*3/uL High 3.70-11.00 [facility] Comment on above: Order Comment: Speci men Type: BLOOD SPECIMEN Ordering Facility: [facility] Address: [address] [place] [address] Performed By: #### 5 7021-8 #### [facility] CLIA [id number] [address] [place] [address] POST-DELIVERY RH IGGon 04-15 ABO O [facility] Comment on above: Order Comment: Speci men Type: BLOOD SPECIMEN Ordering Facility: [facility] Address: [address] [place] [address] Performed By: #### 5 7021-8 #### [facility] CLIA [id number] [address] [place] [address] SCREEN Negative [facility] Comment on above: Order Comment: Speci men Type: BLOOD SPECIMEN Ordering Facility: [facility] Address: [address] [place] [address] Result Comment: Kit Lot Number [id number] and Expiration Date: 05/12/25 Performed By: #### 5 7021-8 #### [facility] CLIA [id number] [address] [place] [address] KB REFLEX No [facility] Comment on above: Order Comment: Speci men Type: BLOOD SPECIMEN Ordering Facility: [facility] Address: [address] [place] [address] Performed By: #### 5 7021-8 #### [facility] CLIA [id number] [address] [place] [address] Rh Nom (Bld) Negative [facility] Comment on above: Order Comment: Speci men Type: BLOOD SPECIMEN Ordering Facility: [facility] Address: [address] [place] [address] Performed By: #### 5 7021-8 #### [facility] CLIA [id number] [address] [place] [address] ANES PRE-OPon 04-14-2025 ANES PRE-OP HNO ID: [id number] Author: JOSH YUN DO Service: Anesthesiology Author Type: Nurse Car Pick Up Driver Type: Anesthesia Preprocedure Evaluation Filed: 04/17/2025 10:08 Note Text: Attestation signed by Josh Yun DO at 04/17/2025 10:08 AM I reviewed and agree with the assessment as documented above. SIGNATURE: Josh Yun DO DATE: April 17, 2025 TIME: 10:08 AM OB ANESTHESIA PRE-PROCEDURE ASSESSMENT PATIENT NAME: Shaila Fraga : 1985 [facility] ANES EMAIL DESIGNER: Previous OB anesthetic: epidural and general section [...] and consent discussed: yes. Patient / Responsible Libertarian agrees to proceed: yes Patient / Surrogate agrees to blood products: Yes Potential Anesthesia issues that may suggest increased risk of complications or contraindication to planned procedure: none. Discussed the possibility of lip / dental damage: yes EPIC CHART REVIEW: ACTIVE PROBLEM LIST Supervision of Normal Intrauterine in Multigravida, Unspecified Trimester ([facility]) Language Barrier Late Care ([facility]) Rh Negative State in Antepartum Period ([facility]) Previous Section Obesity in ([facility]) Elevated Blood Pressure Reading Without Diagnosis of Hypertension Yeast Vaginitis Bv (Bacterial Vaginosis) Encounter for Elective Induction of Labor ([facility]) Encounter for Planned Induction of Labor ([facility]) No past medical history on file. PAST [...] 48 hours of Surgery/Procedure. SIGNATURE: Pennie Fountain APRN.SUPERVISOR ANODIZING PATIENT NAME: Shaila Fraga DATE: April 14, 2025 TIME: 8:58 AM : 1985 [facility] ANES PRE-OP HNO ID: [id number] Author: JOSESITO FITZGERALD DO Service: Anesthesiology Author Type: Nurse Car Pick Up Driver Type: Anesthesia Preprocedure Evaluation Filed: 04/14/2025 09:02 Note Text: Attestation signed by Josesito Fitzgerald DO at 04/14/2025 9:02 AM I agree with the anesthesia provider's assessment and plan. Josesito Fitzgerald DO April 14, 2025 9:02 AM OB ANESTHESIA PRE-PROCEDURE ASSESSMENT PATIENT NAME: Shaila Fraga : 1985 [facility] ANES EMAIL DESIGNER: Previous OB anesthetic: epidural and general section [...] and consent discussed: yes. Patient / Responsible Libertarian agrees to proceed: yes Patient / Surrogate agrees to blood products: Yes Potential Anesthesia issues that may suggest increased risk of complications or contraindication to planned procedure: none. Discussed the possibility of lip / dental damage: yes EPIC CHART REVIEW: ACTIVE PROBLEM LIST Supervision of Normal Intrauterine in Multigravida, Unspecified Trimester ([facility]) Language Barrier Late Care ([facility]) Rh Negative State in Antepartum Period ([facility]) Previous Section Obesity in ([facility]) Elevated Blood Pressure Reading Without Diagnosis of [...] 2025 TIME: 8:58 AM : 1985 Normal [facility] CBC W Auto Differential pane l (Bld)on 04-14-2025 Basophils (Bld) [#/Vol] 0.04 10*3/uL Normal <0.11 [facility] Comment on above: Order Comment: Speci men Type: BLOOD SPECIMEN Ordering Facility: [facility] Address: [address] [place] [address] Performed By: #### 5 7021-8 #### [facility] CLIA [id number] [address] [place] [address] [place] Basophils/100 WBC (Bld) 0.4 % Normal [facility] Comment on above: Order Comment: Speci men Type: BLOOD SPECIMEN Ordering Facility: [facility] Address: [address] [place] [address] Performed By: #### 5 7021-8 #### [facility] CLIA [id number] [address] [place] [address] [place] Differential cell count method Nom (Bld) Auto Normal [facility] Comment on above: Order Comment: Speci men Type: BLOOD SPECIMEN Ordering Facility: [facility] Address: [address] [place] [address] Performed By: #### 5 7021-8 #### [facility] CLIA [id number] [address] [place] [address] [place] Eosinophils (Bld) [#/Vol] 0.06 10*3/uL Normal <0.46 [facility] Comment on above: Order Comment: Speci men Type: BLOOD SPECIMEN Ordering Facility: [facility] Address: [address] [place] [address] Performed By: #### 5 7021-8 #### [facility] CLIA [id number] [address] [place] [address] [place] Eosinophils/100 WBC (Bld) 0.5 % Normal [facility] Comment on above: Order Comment: Speci men Type: BLOOD SPECIMEN Ordering Facility: [facility] Address: [address] [place] [address] Performed By: #### 5 7021-8 #### [facility] CLIA [id number] [address] [place] [address] [place] Erythrocyte distribution width (RBC) [Ratio] 14.3 % Normal 11.5-15.0 [facility] Comment on above: Order Comment: Speci men Type: BLOOD SPECIMEN Ordering Facility: [facility] Address: [address] [place] [address] Performed By: #### 5 7021-8 #### [facility] CLIA [id number] [address] [place] [address] [place] Hematocrit (Bld) [Volume fraction] 38.8 % Normal 36.0-46.0 [facility] Comment on above: Order Comment: Speci men Type: BLOOD SPECIMEN Ordering Facility: [facility] Address: [address] [place] [address] Performed By: #### 5 7021-8 #### [facility] CLIA [id number] [address] [place] [address] [place] Hemoglobin (Bld) [Mass/Vol] 12.7 g/dL Normal 11.5-15.5 [facility] Comment on above: Order Comment: Speci men Type: BLOOD SPECIMEN Ordering Facility: [facility] Address: [address] [place] [address] Performed By: #### 5 7021-8 #### [facility] CLIA [id number] [address] [place] [address] [place] Immature granulocytes (Bld) [#/Vol] 0.15 10*3/uL High <0.10 [facility] Comment on above: Order Comment: Speci men Type: BLOOD SPECIMEN Ordering Facility: [facility] Address: [address] [place] [address] Performed By: #### 5 7021-8 #### [facility] CLIA [id number] [address] [place] [address] [place] Immature granulocytes/100 WBC (Bld) 1.3 % Normal [facility] Comment on above: Order Comment: Speci men Type: BLOOD SPECIMEN Ordering Facility: [facility] Address: [address] [place] [address] Performed By: #### 5 7021-8 #### [facility] CLIA [id number] [address] [place] [address] [place] Lymphocytes (Bld) [#/Vol] 1.89 10*3/uL Normal 1.00-4.00 [facility] Comment on above: Order Comment: Speci men Type: BLOOD SPECIMEN Ordering Facility: [facility] Address: [address] [place] [address] Performed By: #### 5 7021-8 #### [facility] CLIA [id number] [address] [place] [address] [place] Lymphocytes/100 WBC (Bld) 16.6 % Normal [facility] Comment on above: Order Comment: Speci men Type: BLOOD SPECIMEN Ordering Facility: [facility] Address: [address] [place] [address] Performed By: #### 5 7021-8 #### [facility] CLIA [id number] [address] [place] [address] [place] MCH (RBC) [Entitic mass] 26.7 pg Normal 26.0-34.0 [facility] Comment on above: Order Comment: Speci men Type: BLOOD SPECIMEN Ordering Facility: [facility] Address: [address] [place] [address] Performed By: #### 5 7021-8 #### [facility] CLIA [id number] [address] [place] [address] [place] MCHC (RBC) [Mass/Vol] 32.7 g/dL Normal 30.5-36.0 [facility] Comment on above: Order Comment: Speci men Type: BLOOD SPECIMEN Ordering Facility: [facility] Address: [address] [place] [address] Performed By: #### 5 7021-8 #### [facility] CLIA [id number] [address] [place] [address] [place] MCV (RBC) [Entitic vol] 81.5 fL Normal 80.0-100.0 [facility] Comment on above: Order Comment: Speci men Type: BLOOD SPECIMEN Ordering Facility: [facility] Address: [address] [place] [address] Performed By: #### 5 7021-8 #### [facility] CLIA [id number] [address] [place] [address] [place] Monocytes (Bld) [#/Vol] 0.91 10*3/uL High <0.87 [facility] Comment on above: Order Comment: Speci men Type: BLOOD SPECIMEN Ordering Facility: [facility] Address: [address] [place] [address] Performed By: #### 5 7021-8 #### [facility] CLIA [id number] [address] [place] [address] [place] Monocytes/100 WBC (Bld) 8.0 % Normal [facility] Comment on above: Order Comment: Speci men Type: BLOOD SPECIMEN Ordering Facility: [facility] Address: [address] [place] [address] Performed By: #### 5 7021-8 #### [facility] CLIA [id number] [address] [place] [address] [place] Neutrophils (Bld) [#/Vol] 8.31 10*3/uL High 1.45-7.50 [facility] Comment on above: Order Comment: Speci men Type: BLOOD SPECIMEN Ordering Facility: [facility] Address: [address] [place] [address] Performed By: #### 5 7021-8 #### [facility] CLIA [id number] [address] [place] [address] [place] Neutrophils/100 WBC (Bld) 73.2 % Normal [facility] Comment on above: Order Comment: Speci men Type: BLOOD SPECIMEN Ordering Facility: [facility] Address: [address] [place] [address] Performed By: #### 5 7021-8 #### [facility] CLIA [id number] [address] [place] [address] [place] Nucleated RBC (Bld) [#/Vol] 10*3/uL Normal <0.01 [facility] Comment on above: Order Comment: Speci men Type: BLOOD SPECIMEN Ordering Facility: [facility] Address: [address] [place] [address] Performed By: #### 5 7021-8 #### [facility] CLIA [id number] [address] [place] [address] [place] Nucleated RBC/100 WBC (Bld) [Ratio] 0.0 /100 WBC Normal [facility] Comment on above: Order Comment: Speci men Type: BLOOD SPECIMEN Ordering Facility: [facility] Address: [address] [place] [address] Performed By: #### 5 7021-8 #### [facility] CLIA [id number] [address] [place] [address] [place] Platelet mean volume (Bld) [Entitic vol] 10.5 fL Normal 9.0-12.7 [facility] Comment on above: Order Comment: Speci men Type: BLOOD SPECIMEN Ordering Facility: [facility] Address: [address] [place] [address] Performed By: #### 5 7021-8 #### [facility] CLIA [id number] [address] [place], [place] [address] [facility] Platelets (Bld) [#/Vol] 341 10*3/uL Normal 150-400 [facility] Comment on above: Order Comment: Speci men Type: BLOOD SPECIMEN Ordering Facility: [facility] Address: [address] [place] [address] Performed By: #### 5 7021-8 #### [facility] CLIA [id number] [address] [place] [address] [address] [facility] RBC (Bld) [#/Vol] 4.76 10*6/uL Normal 3.90-5.20 [facility] Comment on above: Order Comment: Speci men Type: BLOOD SPECIMEN Ordering Facility: [facility] Address: [address] [place], [place] [address] Performed By: #### 5 7021-8 #### [facility] CLIA [id number] [address] [place] [address] [address] [facility] WBC (Bld) [#/Vol] 11.36 10*3/uL High 3.70-11.00 [facility] Comment on above: Order Comment: Speci men Type: BLOOD SPECIMEN Ordering Facility: [facility] Address: [address] [place] [address] Performed By: #### 5 7021-8 #### [facility] CLIA [id number] [address] [place], [place] [address] [facility] Comprehensive metabolic 2000 panelon 04-14-2025 Albumin [Mass/Vol] 2.8 g/dL Low 3.2-5.0 [facility] Comment on above: Order Comment: Speci men Type: BLOOD SPECIMEN Ordering Facility: [facility] Address: [facility] [place] [place] [address] Performed By: #### 2 4323-8 #### [facility] CLIA [id number] [address] [place], [place] [address] [place] ALP [Catalytic activity/Vol] 167 U/L High 45-117 [facility] Comment on above: Order Comment: Speci osmar Type: BLOOD SPECIMEN Ordering Facility: [facility] Address: [address] [place] [address] Performed By: #### 2 4323-8 #### [facility] CLIA [id number] [address] [place] [address] [place] ALT [Catalytic activity/Vol] 12 U/L Low 13-61 [facility] Comment on above: Order Comment: Speci men Type: BLOOD SPECIMEN Ordering Facility: [facility] Address: [address] [place] [address] Result Comment: Resu lts may be falsely depressed after the administration of Sulfasalazine and/or Sulfapyridine. Performed By: #### 2 4323-8 #### [facility] CLIA [id number] [address] [place] [address] STATES [address] [facility] Anion gap [Moles/Vol] 12 mmol/L Normal 5-16 [facility] Comment on above: Order Comment: Speci osmar Type: BLOOD SPECIMEN Ordering Facility: [facility] Address: [address] [place] [address] Performed By: #### 2 4323-8 #### [facility] CLIA [id number] [address] [place] [address] [place] AST [Catalytic activity/Vol] 23 U/L Normal 8-34 [facility] Comment on above: Order Comment: Speci men Type: BLOOD SPECIMEN Ordering Facility: [facility] Address: [address] [place] [address] Result Comment: Resu lts may be falsely depressed after the administration of Sulfasalazine and/or Sulfapyridine. Performed By: #### 2 4323-8 #### [facility] CLIA [id number] [address] [place] [address] [place] Bilirubin [Mass/Vol] 0.3 mg/dL Normal 0.2-1.0 [facility] [facility] Comment on above: Order Comment: Speci men Type: BLOOD SPECIMEN Ordering Facility: [facility] Address: [address] [place] [address] Performed By: #### 2 4323-8 #### [facility] CLIA [id number] [address] [place] [address] [place] Calcium [Mass/Vol] 8.9 mg/dL Normal 8.5-10.5 [facility] Comment on above: Order Comment: Speci men Type: BLOOD SPECIMEN Ordering Facility: [facility] Address: [address] [place] [address] Performed By: #### 2 4323-8 #### [facility] CLIA [id number] [address] [place] [address] [place] Chloride [Moles/Vol] 107 mmol/L Normal 98-107 [facility] Comment on above: Order Comment: Speci men Type: BLOOD SPECIMEN Ordering Facility: [facility] Address: [address] [place] [address] Performed By: #### 2 4323-8 #### [facility] CLIA [id number] [address] [place] [address] [place] CO2 [Moles/Vol] 20 mmol/L Low 21-32 [facility] Comment on above: Order Comment: Speci men Type: BLOOD SPECIMEN Ordering Facility: [facility] Address: [address] [place] [address] Performed By: #### 2 4323-8 #### [facility] CLIA [id number] [address] [place] [address] [place] Creatinine [Mass/Vol] 0.60 mg/dL Normal 0.51-0.95 [facility] Comment on above: Order Comment: Speci men Type: BLOOD SPECIMEN Ordering Facility: [facility] Address: [address] [place] [address] Result Comment: Adenike ents receiving either N-Acetylcysteine (NAC) or Metamizole prior to venipuncture, may have falsely depressed results. Performed By: #### 2 4323-8 #### [facility] CLIA [id number] [address] [place] [address] [place] eGFRcr SerPlBld CKD-EPI 2020 117 mL/min/1.73m??? Normal >=60 [facility] Comment on above: Order Comment: Tiffany prasad Type: BLOOD SPECIMEN Ordering Facility: [facility] Address: [address] [place] [address] Result Comment: Bere mated Glomerular Filtration Rate [...] GFR. Performed By: #### 2 4323-8 #### [facility] CLIA [id number] [address] [place] [address] [place] Glucose [Mass/Vol] 86 mg/dL Normal 70-100 [facility] Comment on above: Order Comment: Tiffany prasad Type: BLOOD SPECIMEN Ordering Facility: [facility] Address: [address] [place] [address] Result Comment: The [place] Diabetes Association (ADA) provides guidance for cutoff [...] Standards of Medical Care in Diabetes 2016, [place] Diabetes Association. Diabetes Care. 2016.39(Suppl 1). Results may be falsely elevated after the administration of Sulfapyridine. Results may be falsely depressed after the administration of Sulfasalazine. Performed By: #### 2 4323-8 #### [facility] CLIA [id number] [address] [place], [place] [address] [place] Potassium [Moles/Vol] 4.0 mmol/L Normal 3.5-5.1 [facility] Comment on above: Order Comment: Speci men Type: BLOOD SPECIMEN Ordering Facility: [facility] Address: [address] [place] [address] Performed By: #### 2 4323-8 #### [facility] CLIA [id number] [address] [place], [place] [address] [place] Protein [Mass/Vol] 6.5 g/dL Normal 6.0-8.5 [facility] Comment on above: Order Comment: Speci men Type: BLOOD SPECIMEN Ordering Facility: [facility] Address: [address] [place] [address] Performed By: #### 2 4323-8 #### [facility] CLIA [id number] [address] [place] [address] [place] Sodium [Moles/Vol] 139 mmol/L Normal 136-145 [facility] Comment on above: Order Comment: Speci men Type: BLOOD SPECIMEN Ordering Facility: [facility] Address: [address] [place] [address] Performed By: #### 2 4323-8 #### [facility] CLIA [id number] [address] [place], [place] [address] [place] Urea nitrogen [Mass/Vol] 6 mg/dL Low 7-26 [facility] Comment on above: Order Comment: Speci men Type: BLOOD SPECIMEN Ordering Facility: [facility] Address: [address] [place] [address] Performed By: #### 2 4323-8 #### [facility] CLIA [id number] [address] [place], [place] [address] [place] HISTORY PHYSICALon HISTORY PHYSICAL HNO ID: [id number] Author: CHAYO HAWTHORNE MD Service: Obstetrics Author [...] successful TOLAC was in 2017 at [facility] Patient does not want epidural HISTORY [...] since had 2 . Last delivery at [facility] in [place], [place]. Desires . Rasheeda Heredia APRN.DANYA Obesity in ([facility]) 01/27/2025 Overview Note: 01/27/25- NEED TO ASK PREGRAVID BMI- Current BMI 36. Will need testing. Rasheeda Heredia APRN.DANYA Rh negative state in antepartum period ([facility]) 11/21/2024 Supervision of normal intrauterine in multigravida, unspecified trimester ([facility]) 11/18/2024 Overview Note: Care Checklist Vaccines: [] [...] (28-30 weeks): [] Consent [] Contraception [] Heavy Threader [] TeamBirth handout Third trimester (36-40 weeks): [] GBS [] Presentation - [] Scheduled [] yes - Hibiclens, pre-op instructions, CBC, TANDS ordered [] no [] HANDP [] Preferences worksheet [] Scanned in EMR [] Patient to bring copy to hospital [] Declined Language barrier 11/18/2024 Late care ([facility]) 11/18/2024 ALLERGIES No Known Allergies Prior to [...] in hearing or (more content not included)... [facility] OPERATIVE NOon 04-14-2025 OPERATIVE NO HNO ID: [id number] Author: CHAYO HAWTHORNE MD Service: Obstetrics Author Type: Physician Type: Operative Report Filed: 04/15/2025 00:28 Note Text: SECTION OPERATIVE NOTE Patient Name: Shaila Fraga Surgery Date: 04/15/2025 Surgeon: Chayo Hawthorne MD SURGEON(S)/PROCEDURALI ST(S) [employer] CORN PRESS OPERATOR(S): Surgeons and Role: * Chayo Hawthorne MD - Primary Nurse Practitioner: Blanquita San APRN.[facility] Learning Administrator: Angelina Vang SA; Jean Hernandez SA [employer]olta[employer] Designer's Role: Provided expert and necessary surgical assistance for this procedure to be performed. Physician therapeutic recreation assistant closed skin without direct supervision but [...] the patient's : David Fraga Girl Shaila [[id number]] Type: , Low Transverse Categorization: Repeat Operative Findings: Placenta Removal: Manual Removal Appearance: Weight: 3.694 kg (8 lb 2.3 oz) (Filed from Delivery Summary) Sex: female Living Status: Living One Minute : 8 Five Minute : 9 Code Hawi Called: Yes Type of Code Hawi Team Needed: Planned Resuscitation Needed: No, see [...] in Communicatio (more content not included)... Normal [facility] Prot/Creat Uron 04-14-2025 Protein/Creatinine (U) [Mass ratio] mg/g High <0.15 [facility] Comment on above: Order Comment: Speci men Type: URINE SPECIMEN Ordering Facility: [facility] Address: [address] [place] [address] Result Comment: Adul t Proteinuria Categories: <0.15 mg/mg is considered normal to mildly increased 0.15 - 0.50 mg/mg is considered moderately increased >0.50 mg/mg is considered severely increased KDIGO. (2013). KDIGO 2012 Clinical Practice Guideline for the Evaluation and Management of Chronic Kidney Disease. Official Journal of the International Society of Nephrology, 3(1), 1-150. Performed By: #### 2 4356-8, 2889-10 #### [facility] CLIA [id number] [address] [place] [address] [place] Protein/Creatinine (U) [Mass ratio]on 04-14-2025 Creatinine (U) [Mass/Vol] 29.9 mg/dL Normal 29.0-226.0 [facility] Comment on above: Order Comment: Speci men Type: URINE SPECIMEN Ordering Facility: [facility] Address: [address] [place] [address] Performed By: #### 2 4356-8, 2889-2 #### [facility] CLIA [id number] [address] [place] [address] [place] Protein (U) [Mass/Vol] mg/dL Normal 1-14 [facility] Comment on above: Order Comment: Speci men Type: URINE SPECIMEN Ordering Facility: [facility] Address: [address] [place] [address] Performed By: #### 2 4356-8, 2890-2 #### [facility] CLIA [id number] [address] [place] [address] [place] T pallidum IgG Ser Ql IFon 0 04-14-2025 T. pallidum IgG IF Ql (S) Non-Reactive Normal Nonreactive [facility] Comment on above: Order Comment: Speci men Type: BLOOD SPECIMEN Ordering Facility: [facility] Address: [address] [place] [address] Result Comment: Samp les with an index value of less than 0.90 are considered Nonreactive for Syphilis T. pallidum antibodies. Performed By: #### 1 7726-1 #### [facility] CLIA [id number] [address] [place] [address] [place] TYPE + SCREEN PRENATALon ABO O [facility] Comment on above: Order Comment: Speci men Type: BLOOD SPECIMEN Ordering Facility: [facility] Address: [address] [place] [address] Performed By: #### T SPN #### [facility] CLIA [id number] [address] [place] [address] [place] Rh Nom (Bld) Negative [facility] Comment on above: Order Comment: Speci men Type: BLOOD SPECIMEN Ordering Facility: [facility] Address: [address] [place] [address] Performed By: #### T SPN #### [facility] CLIA [id number] [address] [place] [address] [place] TYPE AND SCREEN EXPIRATION 04/17/2025 23:59 [facility] Comment on above: Order Comment: Speci men Type: BLOOD SPECIMEN Ordering Facility: [facility] Address: [address] [place] [address] Performed By: #### T SPN #### [facility] CLIA [id number] [address] [place] [address] [place] Urinalysis complete panel (U )on 04-14-2025 Bacteria LM.HPF (Urine sed) [#/Area] Rare Abnormal None Seen [facility] Comment on above: Order Comment: Speci men Type: URINE SPECIMEN Ordering Facility: [facility] Address: [address] [place] [address] Performed By: #### 2 4356-8, 2890-2 #### [facility] CLIA [id number] [address] [place] [address] [place] Bilirubin Ql (U) Negative Normal Negative [facility] Comment on above: Order Comment: Speci men Type: URINE SPECIMEN Ordering Facility: [facility] Address: [address] [place] [address] Performed By: #### 2 4356-8, 2890-2 #### [facility] CLIA [id number] [address] [place] [address] [place] Clarity (Unsp spec) Clear Normal Clear [facility] Comment on above: Order Comment: Speci men Type: URINE SPECIMEN Ordering Facility: [facility] Address: [address] [place] [address] Performed By: #### 2 4356-8, 2890-2 #### [facility] CLIA [id number] [address] [place] [address] [place] Color (U) Straw Normal Yellow [facility] Comment on above: Order Comment: Speci men Type: URINE SPECIMEN Ordering Facility[facility] Address: [address] [place] [address] Performed By: #### 2 4356-8, 2890-2 #### [facility] CLIA [id number] [address] [place] [address] [place] Epithelial cells LM.HPF (Urine sed) [#/Area] Few Normal [facility] Comment on above: Order Comment: Speci men Type: URINE SPECIMEN Ordering Facility[facility] Address: [facility] [place] [address] Performed By: #### 2 4356-8, 2890-2 #### [facility] CLIA [id number] [address] [place] [address] [place] [facility] [place] Glucose Test strip (U) [Mass/Vol] Negative Normal Negative [facility] Comment on above: Order Comment: Speci men Type: URINE SPECIMEN Ordering Facility[facility] Address: [address] [place] [address] Performed By: #### 2 4356-8, 2890-2 #### [facility] CLIA [id number] [address] [place] [address] [place] Hemoglobin Ql (U) Negative Normal Negative [facility] Comment on above: Order Comment: Speci men Type: URINE SPECIMEN Order[facility] Facility[facility] Address: [address] [place] [address] Performed By: #### 2 4356-8, 2890-2 #### [facility] CLIA [id number] [address] [place] [address] [place] Ketones Ql (U) Negative Normal Negative [facility] Comment on above: Order Comment: Speci men Type: URINE SPECIMEN Ordering Facility[facility] Address: [address] [place] [address] Performed By: #### 2 4356-8, 2890-2 #### [facility] CLIA [id number] [address] [place] [address] [place] Leukocyte esterase Test strip Ql (U) Negative Normal Negative [facility] Comment on above: Order Comment: Speci men Type: URINE SPECIMEN Order[facility] Address: [address] [place] [address] Performed By: #### 2 4356-8, 2890-2 #### [facility] CLIA [id number] [address] [place] [address] [place] Nitrite Ql (U) Negative Normal Negative [facility] Comment on above: Order Comment: Speci men Type: URINE SPECIMEN Ordering Facility[facility] Address: [address] [place] [address] Performed By: #### 2 4356-8, 289-2 #### [facility] CLIA [id number] [address] [place] [address] [place] pH (U) 7.0 [pH] Normal 5.0-8.0 [facility] Comment on above: Order Comment: Speci men Type: URINE SPECIMEN Order[facility] Address: [address] [place] [address] Performed By: #### 2 4356-8, 2889-2 #### [facility] CLIA [id number] [address] [place] [address] [place] Protein (U) [Mass/Vol] Negative Normal Negative [facility] Comment on above: Order Comment: Speci men Type: URINE SPECIMEN Order[facility] Address: [address] [place] [address] Performed By: #### 2 4356-8, 2889-2 #### [facility] CLIA [id number] [address] [place] [address] [place] RBC LM.HPF (Urine sed) [#/Area] 0-3 /HPF Normal 0-3 /HPF [facility] Comment on above: Order Comment: Speci men Type: URINE SPECIMEN Order[facility] Address: [address] [place] [address] Performed By: #### 2 4356-8, 2890-2 #### [facility] CLIA [id number] [address] [place] [address] [place] Specific gravity (U) [Rel density] <1.005 Low 1.005-1.030 [facility] Comment on above: Order Comment: Speci men Type: URINE SPECIMEN Order[facility] Address: [address] [place] [address] Performed By: #### 2 4356-8, 2890-2 #### [facility] CLIA [id number] [address] [place] [address] Urobilinogen Ql (U) Negative Normal Negative [facility] Comment on above: Order Comment: Speci men Type: URINE SPECIMEN [facility] Address: [address] [place] [address] Performed By: #### 2 4356-8, 2890-2 #### [facility] CLIA [id number] [address] [place] [address] [place] WBC LM.HPF (Urine sed) [#/Area] 0-5 /HPF Normal 0-5 /HPF [facility] Comment on above: Order Comment: Speci men Type: URINE SPECIMEN Order[facility] Address: [address] [place] [address] Performed By: #### 2 4356-8, 2890-2 #### [facility] CLIA [id number] [address] [place] [address] [place] URINE OB DIP B/Oon Glucose Ql (U) Negative Neg mg/dL [facility] Interpretation and review of laboratory results Normal [facility] Protein.monoclonal (U) [Mass/Vol] 30 mg/dL Neg [facility] CNPNon 03-31-2025 CNPN Telephone (OBGYWM) SHAILA KELSEY ([id number]) 1985 [address] [facility] Date Time Provider Department 03/31/25 RASHEEDA HEREDIA During your visit today, we recorded the following information about you: Candace Horta, FATMATA 03/31/2025 4:35 PM Signed Pt desires Induction at [facility], [facility] for delivery on 04/14/25. Pt [...] not wish to schedule OB visits at [facility]) FATMATA Krishna Tara, RN 03/31/2025 4:57 PM [...] 12:30 PM Signed Received call back from [facility]. Patient is now scheduled for induction on Thursday04/14/25 at 7:30am at [facility]. Park in parking deck and go in [...] MA - Fully Assessed Reason for Visit: [facility] [Other] Prescriptions as of 04/03/2025 - [...] Status:Closed by VERENA YEPEZ on 04/03/25 Normal [facility] URINE OB DIP B/Oon 5 Glucose Ql (U) Negative Neg mg/dL [facility] Interpretation and review of laboratory results Normal [facility] Protein.monoclonal (U) [Mass/Vol] Negative Neg mg/dL [facility] Examination level ultrasound on 03-22-2025 [facility] Radiology Study observation (narrative) [facility] ROUTINE, GROUP B ST REPTOCOCCUS BY PCRon 03-22-2025 ROUTINE, GROUP B STREPTOCOCCUS BY PCR Not detected Normal [facility] Comment on above: Performed By: #### G BPCR #### [facility] CLIA [id number] [address] [place] [address] [place] URINE OB DIP B/Oon 5 Glucose Ql (U) Negative Neg mg/dL [facility] Protein.monoclonal (U) [Mass/Vol] Negative Neg mg/dL [facility] BACTERIAL VAGINOSIS NAATon 0 02-27-2025 Lactobacillus crispatus+gasseri+sarahi enii + Gardnerella vaginalis + Atopobium vaginae rRNA [place]+probe Ql (Vag fld) Detected Abnormal Not detected [facility] Comment on above: Order Comment: Speci men Type: SWABOrdering Facility: [facility] Address: [address] [place] [address] Performed By: #### B VAMP, CVTV ####[facility] [id number] [place] [address] [place] SANCHO/TRICHOMONAS NAATon 0 02-27-2025 C. glabrata RNA [place]+probe Ql (Vag fld) Not detected Normal Not detected [facility] Comment on above: Order Comment: Speci men Type: SWABOrdering Facility: [facility] Address: [address] [place] [address] Performed By: #### B VAMP, CVTV ####[facility] [id number] [place] [address] [place] Sancho sp DNA [place]+probe Ql (Vag fld) Detected Abnormal Not detected [facility] Comment on above: Order Comment: Speci men Type: SWABOrdering Facility: [facility] Address: [address] [place] [address] Result Comment: The Sancho species group target includes C. albicans, C. tropicalis, C. parapsilosis, and C. dubliniensis. Performed By: #### B VAMP, CVTV ####[facility] [id number] [place] [address] [place] T. vaginalis DNA [place]+probe Ql (Unsp spec) Not detected Normal Not detected [facility] Comment on above: Order Comment: Speci men Type: SWABOrdering Facility: [facility] Address: [address] [place] [address] Performed By: #### B VAMP, CVTV ####[facility] [id number] [address] [place] Examination level ultrasound on 02-21-2025 [facility] CBC panel Auto (Bld)on 02-20 Erythrocyte distribution width (RBC) [Ratio] 13.3 % 11.5 - 15.0 % [facility] Hematocrit (Bld) [Volume fraction] 37.8 % 36.0 - 46.0 % [facility] Hemoglobin (Bld) [Mass/Vol] 12 g/dL 11.5 - 15.5 g/dL [facility] Interpretation and review of laboratory results Abnormal [facility] MCH (RBC) [Entitic mass] 26.8 pg 26.0 - 34.0 pg [facility] MCHC (RBC) [Mass/Vol] 31.7 g/dL 30.5 - 36.0 g/dL [facility] MCV (RBC) [Entitic vol] 84.4 fL 80.0 - 100.0 fL [facility] Nucleated RBC (Bld) [#/Vol] NINF [facility] Platelet mean volume (Bld) [Entitic vol] 9.8 fL 9.0 - 12.7 fL [facility] Platelets (Bld) [#/Vol] 406 10*3/uL High [facility] RBC (Bld) [#/Vol] 4.48 10*6/uL 3.90 - 5.2 0 m/uL [facility] WBC (Bld) [#/Vol] 12.39 10*3/uL High [facility] Erythrocyte distribution width (RBC) [Ratio] 13.3 % Normal 11.5-15.0 [facility] Comment on above: Order Comment: Speci men Type: BLOOD SPECIMENOrdering Facility: [facility] Address: [address] [place] [address] Performed By: #### G BPCR #### [facility] CLIA [id number] [address] [place] [address] Hematocrit (Bld) [Volume fraction] 37.8 % Normal 36.0-46.0 [facility] Comment on above: Order Comment: Speci men Type: BLOOD SPECIMENOrdering Facility: [facility] Address: [address] [place] [address] Performed By: #### G BPCR #### [facility] CLIA [id number] [address] [place] [address] [place] Hemoglobin (Bld) [Mass/Vol] 12.0 g/dL Normal 11.5-15.5 [facility] Comment on above: Order Comment: Speci men Type: BLOOD SPECIMENOrdering Facility: [facility] Address: [address] [place] [address] Performed By: #### G BPCR #### [facility] CLIA [id number] [address] [place] [address] [place] MCH (RBC) [Entitic mass] 26.8 pg Normal 26.0-34.0 [facility] Comment on above: Order Comment: Speci men Type: BLOOD SPECIMENOrdering Facility: [facility] Address: [address] [place] [address] Performed By: #### G BPCR #### [facility] CLIA [id number] [address] [place] [address] [place] MCHC (RBC) [Mass/Vol] 31.7 g/dL Normal 30.5-36.0 [facility] Comment on above: Order Comment: Speci men Type: BLOOD SPECIMENOrdering Facility: [facility] Address: [address] [place] [address] Performed By: #### G BPCR #### [facility] CLIA [id number] [address] [place] [address] [place] MCV (RBC) [Entitic vol] 84.4 fL Normal 80.0-100.0 [facility] Comment on above: Order Comment: Speci men Type: BLOOD SPECIMENOrdering Facility: [facility] Address: [address] [place] [address] Performed By: #### G BPCR #### [facility] CLIA [id number] [address] [place] [address] [place] Nucleated RBC (Bld) [#/Vol] 10*3/uL Normal <0.01 [facility] Comment on above: Order Comment: Speci men Type: BLOOD SPECIMENOrdering Facility: [facility] Address: [address] [place] [address] Performed By: #### G BPCR #### [facility] CLIA [id number] [address] [place] [address] [place] Platelet mean volume (Bld) [Entitic vol] 9.8 fL Normal 9.0-12.7 [facility] Comment on above: Order Comment: Speci men Type: BLOOD SPECIMENOrdering Facility: [facility] Address: [address] [place] [address] Performed By: #### G BPCR #### [facility] CLIA [id number] [address] [place] [address] [place] Platelets (Bld) [#/Vol] 406 10*3/uL High 150-400 [facility] Comment on above: Order Comment: Speci men Type: BLOOD SPECIMENOrdering Facility: [facility] Address: [address] [place] [address] Performed By: #### G BPCR #### [facility] CLIA [id number] [address] [place] [address] [place] RBC (Bld) [#/Vol] 4.48 10*6/uL Normal 3.90-5.20 [facility] Comment on above: Order Comment: Speci men Type: BLOOD SPECIMENOrdering Facility: [facility] Address: [address] [place] [address] Performed By: #### G BPCR #### [facility] CLIA [id number] [address] [place] [address] [place] WBC (Bld) [#/Vol] 12.39 10*3/uL High 3.70-11.00 [facility] Comment on above: Order Comment: Speci osmar Type: BLOOD SPECIMENOrdering Facility: [facility] Address: [address] [place] [address] Performed By: #### G BPCR #### [facility] CLIA [id number] [address] [place], [place] [address] [place] [address] [place] Creatinine + eGFR Pnl SerPlB ldon 02-20-2025 Creatinine and Glomerular filtration rate.predicted panel (S/P/Bld) 117 mL/min/1.73m??? Normal >=60 [facility] Comment on above: Order Comment: Tiffany osmar Type: BLOOD SPECIMENOrdering Facility: [facility] Address: [address] [place] [address] Result Comment: Bere mated Glomerular Filtration Rate [...] actual GFR. Performed By: #### 4 5066-8, 11317-8, 308-1 ####[facility] LAB[facility]IA [id number] [place] [address] [place] Creatinine and Glomerular fi ltration rate.predicted panel (S/P/Bld)on 02-20-2025 Creatinine [Mass/Vol] 0.60 mg/dL Normal 0.58-0.96 [facility] Comment on above: Order Comment: Speci osmar Type: BLOOD SPECIMENOrdering Facility: [facility] Address: [address] [place] [address] Performed By: #### 4 5066-8, 89573-2, 3084-1 ####[facility]IA [id number] [address] [address] [place] Examination level ultrasound on 02-20-2025 Radiology Study observation (narrative) [facility] Hepatic function 2000 panelo n 02-20-2025 Albumin [Mass/Vol] 3.4 g/dL Low 3.9-4.9 [facility] Comment on above: Order Comment: Speci men Type: BLOOD SPECIMENOrdering Facility: [facility] Address: [address] [place] [address] Performed By: #### 4 5066-8, 72505-2, 3084-1 ####[facility]IA [id number] [facility] [place] [address] [place] ALP [Catalytic activity/Vol] 131 U/L High 34-123 [facility] Comment on above: Order Comment: Speci men Type: BLOOD SPECIMENOrdering Facility: [facility] Address: [address] [place] [address] Performed By: #### 4 5066-8, 65004-4, 3084-1 ####[facility] LAB[facility]IA [id number] [place] [address] [place] ALT [Catalytic activity/Vol] 14 U/L Normal 7-38 [facility] Comment on above: Order Comment: Speci men Type: BLOOD SPECIMENOrdering Facility: [facility] Address: [address] [place] [address] Performed By: #### 4 5066-8, 93986-1, 3084-1 ####[facility]IA [id number] [facility] [place] [id number] [place] AST [Catalytic activity/Vol] 17 U/L Normal 13-35 [facility] Comment on above: Order Comment: Speci men Type: BLOOD SPECIMENOrdering Facility: [facility] Address: [address] [place] [address] Performed By: #### 4 5066-8, 62119-7, 3084-1 ####[facility]IA [id number] [facility] [address] [address] [place] Bilirubin [Mass/Vol] mg/dL Low 0.2-1.3 [facility] Comment on above: Order Comment: Speci men Type: BLOOD SPECIMENOrdering Facility: [facility] Address: [address] [place] [address] Performed By: #### 4 5066-8, 25360-9, 3083- ####[facility]IA [id number] [place] [address] [place] Bilirubin.conjugated [Mass/Vol] 0.1 mg/dL Normal <0.3 [facility] Comment on above: Order Comment: Speci men Type: BLOOD SPECIMENOrdering Facility: [facility] Address: [address] [place] [address] Performed By: #### 4 5066-8, 55318-3, 3083- ####[facility] LABCLIA [id number] [place] [address] [place] Protein [Mass/Vol] 6.8 g/dL Normal 6.3-8.0 [facility] Comment on above: Order Comment: Speci men Type: BLOOD SPECIMENOrdering Facility: [facility] Address: [address] [place] [address] Performed By: #### 4 5066-8, 70089-9, 3083-09 ####[facility]IA [id number] [place] [address] [place] Prot/Creat Uron 02-20-2025 Protein/Creatinine (U) [Mass ratio] 0.13 mg/mg Normal <0.15 [facility] Comment on above: Order Comment: Speci men Type: URINE SPECIMENOrdering Facility: [facility] Address: [address] [place] [address] Result Comment: Adul t Proteinuria Categories: <0.15 mg/mg is considered normal to mildly increased 0.15 - 0.50 mg/mg is considered moderately increased >0.50 mg/mg is considered severely increased KDIGO. (2013). KDIGO 2012 Clinical Practice Guideline for the Evaluation and Management of Chronic Kidney Disease. Official Journal of the International Society of Nephrology, 3(1), 1-150. Performed By: #### G BPCR #### [facility] CLIA [id number] [address] [place] [address] [place] Protein/Creatinine (U) [Mass ratio]on 02-20-2025 Creatinine (U) [Mass/Vol] 148.2 mg/dL Normal 20.0-300.0 [facility] Comment on above: Order Comment: Speci men Type: URINE SPECIMENOrdering Facility: [facility] Address: [address] [place] [address] Performed By: #### G BPCR #### [facility] CLIA [id number] [address] [place] [address] [place] Protein (U) [Mass/Vol] 20 mg/dL Normal 0-20 [facility] Comment on above: Order Comment: Speci men Type: URINE SPECIMENOrdering Facility: [facility] Address: [address] [place] [address] Performed By: #### G BPCR #### [facility] CLIA [id number] [address] [place] [address] [place] Urate SerPl-mCncon Urate [Mass/Vol] 4.8 mg/dL Normal 2.5-6.6 [facility] Comment on above: Order Comment: Speci men Type: BLOOD SPECIMENOrdering Facility: [facility] Address: [address] [place] [address] Performed By: #### 4 5066-8, 03165-8, 3084-1 ####[facility] LABCLIA [id number] [place] [address] [place] .Auto Diffon 02-17-2025 Basophil, Absolute 0.0 10 3/mcL Normal 0.0-0.3 [facility] Comment on above: Performed By: #### C MP, CBC, ADIFF, GFR, ANEU, URIC #### [address] [address] Basophils/100 WBC (Bld) 0.2 % Normal 0.0-2.5 [facility] Comment on above: Performed By: #### C MP, CBC, ADIFF, GFR, ANEU, URIC #### [address] [address] Eosinophil, Absolute 0.0 10 3/mcL Normal 0.0-0.7 [facility] Comment on above: Performed By: #### C MP, CBC, ADIFF, GFR, ANEU, URIC #### [address] [address] Eosinophils/100 WBC (Bld) 0.4 % Normal 0.0-6.0 [facility] Comment on above: Performed By: #### C MP, CBC, ADIFF, GFR, ANEU, URIC #### [address] [address] Lymphocyte, Absolute 1.2 10 3/mcL Normal 0.9-4.3 [facility] Comment on above: Performed By: #### C MP, CBC, ADIFF, GFR, ANEU, URIC #### [address] [address] Lymphocytes/100 WBC (Bld) 8.7 % Low 20.0-40.0 [facility] Comment on above: Performed By: #### C MP, CBC, ADIFF, GFR, ANEU, URIC #### [address] [address] Monocyte, Absolute 1.0 10 3/mcL Normal 0.1-1.4 [facility] Comment on above: Performed By: #### C MP, CBC, ADIFF, GFR, ANEU, URIC #### [address] [address] Monocytes/100 WBC (Bld) 7.4 % Normal 2.0-13.0 [facility] Comment on above: Performed By: #### C MP, CBC, ADIFF, GFR, ANEU, URIC #### [address] [address] Neutrophils/100 WBC (Bld) 83.0 % High 50.0-75.0 [facility] Comment on above: Performed By: #### C MP, CBC, ADIFF, GFR, ANEU, URIC #### [address] [address] .GFRon 02-17-2025 Estimated Glomerular Filtration Rate 117 ml/min/1.73sqm Normal [facility] Comment on above: Result Comment: Stages of [...] MP, CBC, ADIFF, GFR, ANEU, URIC #### [address] [address] .NEUABSon 02-17-2025 Neutrophil, Absolute 11.7 10 3/mcL High 2.3-8.1 [facility] Comment on above: Performed By: #### C MP, CBC, ADIFF, GFR, ANEU, URIC #### [address] [address] ABIDon 02-17-2025 Antibody ID Passive Anti-D Invalid Interpretation Code [facility] Comment on above: Order Comment: Order ed by Discern Performed By: #### A BRIAN ABSGEL #### [address] [address] #### AUTOC, ANTID #### [facility] [address] [place] [address] ABO/Rh (Gel)on 02-17-2025 ABO/Rh Interp Negative Invalid Interpretation Code [facility] Comment on above: Performed By: #### A COLETTE TORRES #### [address] [address] #### AUTOC, ANTID #### [address] [address] ABS (Gel)on 02-17-2025 ABSC Interp (Gel) Positive Normal [facility] Comment on above: Performed By: #### A COLETTE TORRES #### [address] [address] #### AUTOC, ANTID #### [address] [address] AST(SGOT)on 02-17-2025 AST [Catalytic activity/Vol] 15 U/L Normal <=31 [facility] Comment on above: Performed By: #### L 501.1105, L501.4100, L501.4405, L100.0500, L501.1400, L501.0900 #### [facility] [address] [place], [place], [address] AUTOCon 02-17-2025 Auto Control Negative Normal [facility] Comment on above: Order Comment: Order ed by Discern Performed By: #### A COLETTE TORRES #### [address] [address] #### AUTOC, ANTID #### [address] [address] Alanine Aminotransferas (SGP T)on 02-17-2025 ALT [Catalytic activity/Vol] 12 U/L Normal <=34 [facility] Comment on above: Performed By: #### L 501.1105, L501.4100, L501.4405, L100.0500, L501.1400, L501.0900 #### [facility] [address] [place], [address] CBCon 02-17-2025 Erythrocyte distribution width (RBC) [Ratio] 13.4 % Normal 11.5-15.5 [facility] Comment on above: Performed By: #### C MP, CBC, ADIFF, GFR, ANEU, URIC #### [address] [address] Hematocrit (Bld) [Volume fraction] 35.1 % Normal 34.0-46.0 [facility] Comment on above: Performed By: #### C MP, CBC, ADIFF, GFR, ANEU, URIC #### [place] [address] Hgb 12.2 G/dL Normal 12.0-16.0 [facility] Comment on above: Performed By: #### C MP, CBC, ADIFF, GFR, ANEU, URIC #### [place] [address] MCH (RBC) [Entitic mass] 27.9 pg Normal 27.0-33.0 [facility] Comment on above: Performed By: #### C MP, CBC, ADIFF, GFR, ANEU, URIC #### [place] [address] MCHC 34.9 G/dL Normal 32.0-36.0 [facility] Comment on above: Performed By: #### C MP, CBC, ADIFF, GFR, ANEU, URIC #### [place] [address] MCV (RBC) [Entitic vol] 80.1 fL Normal 80.0-99.0 [facility] Comment on above: Performed By: #### C MP, CBC, ADIFF, GFR, ANEU, URIC #### [address] [address] Platelet 341 10 3/mcL Normal 150-450 [facility] Comment on above: Performed By: #### C MP, CBC, ADIFF, GFR, ANEU, URIC #### [address] [address] Platelet mean volume (Bld) [Entitic vol] 7.6 fL Normal 6.6-10.5 [facility] Comment on above: Performed By: #### C MP, CBC, ADIFF, GFR, ANEU, URIC #### [place] [address] [place], [place] [address] RBC 4.38 10 6/mcL Normal 4.10-5.30 [facility] Comment on above: Performed By: #### C MP, CBC, ADIFF, GFR, ANEU, URIC #### [place] [address] [place], [place] [address] WBC 14.1 10 3/mcL High 4.5-10.8 [facility] Comment on above: Performed By: #### C MP, CBC, ADIFF, GFR, ANEU, URIC #### [place] [address] [place], [place] [address] CBC-Complete Blood Cnt No Di ffon 02-17-2025 Erythrocyte distribution width (RBC) [Ratio] 13.4 % Normal 11.6-14.6 [facility] Comment on above: Performed By: #### L 501.1105, L501.4100, L501.4405, L100.0500, L501.1400, L501.0900 #### [facility] [address] [place], [address] Hematocrit (Bld) [Volume fraction] 35.5 % Low 37-47 [facility] Comment on above: Performed By: #### L 501.1105, L501.4100, L501.4405, L100.0500, L501.1400, L501.0900 #### [facility] [address] [place], [address] Hemoglobin (Bld) [Mass/Vol] 11.8 g/dL Low 12.0-15.0 [facility] Comment on above: Performed By: #### L 501.1105, L501.4100, L501.4405, L100.0500, L501.1400, L501.0900 #### [facility] [address] [place], [address] MCH (RBC) [Entitic mass] 27.4 pg Normal 27.0-32.0 [facility] Comment on above: Performed By: #### L 501.1105, L501.4100, L501.4405, L100.0500, L501.1400, L501.0900 #### [facility] [address] [place], [address] MCHC (RBC) [Mass/Vol] 33.2 g/dL Normal 32-36 [facility] Comment on above: Performed By: #### L 501.1105, L501.4100, L501.4405, L100.0500, L501.1400, L501.0900 #### [facility] [address] [place], [address] MCV (RBC) [Entitic vol] 82.6 fL Normal 81-99 [facility] Comment on above: Performed By: #### L 501.1105, L501.4100, L501.4405, L100.0500, L501.1400, L501.0900 #### [facility] [address] [place], [address] Platelet mean volume (Bld) [Entitic vol] 9.6 fL Normal 6.2-12.0 [facility] Comment on above: Performed By: #### L 501.1105, L501.4100, L501.4405, L100.0500, L501.1400, L501.0900 #### [facility] [address] [place], [address] Platelets (Bld) [#/Vol] 335 10*3/uL Normal 150-450 [facility] Comment on above: Performed By: #### L 501.1105, L501.4100, L501.4405, L100.0500, L501.1400, L501.0900 #### [facility] [address] [place], [address] RBC (Bld) [#/Vol] 4.30 10*6/uL Normal 4.2-5.4 [facility] Comment on above: Performed By: #### L 501.1105, L501.4100, L501.4405, L100.0500, L501.1400, L501.0900 #### [facility] [address] [place], [address] RDW SD 40.4 fl Normal 35.1-43.9 [facility] Comment on above: Performed By: #### L 501.1105, L501.4100, L501.4405, L100.0500, L501.1400, L501.0900 #### [facility] [address] [place], [address] WBC (Bld) [#/Vol] 16.0 10*3/uL High 4.4-11.0 [facility] Comment on above: Performed By: #### L 501.1105, L501.4100, L501.4405, L100.0500, L501.1400, L501.0900 #### [facility] [address] [place], [address] CMPon 02-17-2025 Albumin Level 2.3 G/dL Low 3.5-5.0 [facility] Comment on above: Performed By: #### C MP, CBC, ADIFF, GFR, ANEU, URIC #### [address] [address] Albumin/Globulin [Mass ratio] 0.5 {ratio} Low 1.1-2.5 [facility] Comment on above: Performed By: #### C MP, CBC, ADIFF, GFR, ANEU, URIC #### [address] [address] ALP [Catalytic activity/Vol] 139 U/L High 40-135 [facility] Comment on above: Performed By: #### C MP, CBC, ADIFF, GFR, ANEU, URIC #### [address] [address] ALT [Catalytic activity/Vol] 21 U/L Normal 14-59 [facility] Comment on above: Performed By: #### C MP, CBC, ADIFF, GFR, ANEU, URIC #### [address] [address] AST [Catalytic activity/Vol] 17 U/L Normal 10-40 [facility] Comment on above: Performed By: #### C MP, CBC, ADIFF, GFR, ANEU, URIC #### [address] [address] Bili Total 0.2 mg/dL Normal 0.2-1.0 [facility] Comment on above: Result Comment: Use of this assay is not recommended for patients undergoing treatment with eltrombopag due to the potential for falsely elevated results. Performed By: #### C MP, CBC, ADIFF, GFR, ANEU, URIC #### [place] [address] BUN/Creatinine Ratio 14 ratio Normal 7-27 [facility] Comment on above: Performed By: #### C MP, CBC, ADIFF, GFR, ANEU, URIC #### [address] [address] Calcium [Mass/Vol] 8.7 mg/dL Normal 8.4-10.2 [facility] Comment on above: Performed By: #### C MP, CBC, ADIFF, GFR, ANEU, URIC #### [address] [address] Chloride [Moles/Vol] 106 mmol/L Normal 98-107 [facility] Comment on above: Performed By: #### C MP, CBC, ADIFF, GFR, ANEU, URIC #### [address] [address] CO2 [Moles/Vol] 25 mmol/L Normal 22-29 [facility] Comment on above: Performed By: #### C MP, CBC, ADIFF, GFR, ANEU, URIC #### [address] [address] Creatinine [Mass/Vol] 0.58 mg/dL Normal 0.51-0.95 [facility] Comment on above: Performed By: #### C MP, CBC, ADIFF, GFR, ANEU, URIC #### [address] [address] Electrolyte Balance 9.0 mEq/L Normal 4.0-15.0 [facility] Comment on above: Performed By: #### C MP, CBC, ADIFF, GFR, ANEU, URIC #### [address] [address] Globulin 4.4 G/dL Normal 2.7-4.4 [facility] Comment on above: Performed By: #### C MP, CBC, ADIFF, GFR, ANEU, URIC #### [address] [address] Glucose [Mass/Vol] 121 mg/dL High 70-105 [facility] Comment on above: Performed By: #### C MP, CBC, ADIFF, GFR, ANEU, URIC #### [address] [address] Potassium [Moles/Vol] 3.5 mmol/L Normal 3.5-5.1 [facility] Comment on above: Performed By: #### C MP, CBC, ADIFF, GFR, ANEU, URIC #### [address] [address] Sodium [Moles/Vol] 140 mmol/L Normal 136-145 [facility] Comment on above: Performed By: #### C MP, CBC, ADIFF, GFR, ANEU, URIC #### [address] [address] Total Protein 6.7 G/dL Normal 6.4-8.2 [facility] Comment on above: Performed By: #### C MP, CBC, ADIFF, GFR, ANEU, URIC #### [address] [address] Urea nitrogen [Mass/Vol] 8 mg/dL Normal 7-18 [facility] Comment on above: Performed By: #### C MP, CBC, ADIFF, GFR, ANEU, URIC #### Mika [address] [address] [facility] 02-17-2025 CNPN Telephone (OBGYWM) DAVID FRAGASHAILA ([id number]) 1985 F TU Date Time Provider Department [...] CareEverywhere for Mika since patient lives in [place]. ER report is available. BPs 170/107 and 170/110 noted in the charting. No openings with any providers. Please advise where patient can be added. Patient speaks [place]. Mother states that we can call her to schedule: [phone] FATMATA Casanova Jessica, APRN.CN 02/17/2025 11:10 AM Signed Please send patient to [facility] for monitoring. I would like serial blood pressures, labs, and observation due to elevated BP in ED. Thank you, Luana Whaley APRN.CNIsela Ley RN 02/17/2025 11:18 AM Signed Patients mother called and notified and have patient go to [facility]. LANDD called and notified. Updated HANDP faxed. [...] Status:Closed by ISELA MORAN on 02/17/25 Normal [facility] Erythrocyte distribution wid th ratioOrdered By: Luana Whaley on 02-17-2025 Erythrocyte distribution width (RBC) [Ratio] 13.4 % 11.6-14.6 [facility] Erythrocyte distribution wid th standard deviationOrdered By: Luana Whaley on 02-17-2025 Erythrocyte distribution width (RBC) [Ratio] 40.4 fl 35.1-43.9 [facility] Glomerular filtration rate ( GFR) estimation/1.73 sq m using serum, plasma, or whole bOrdered By: Luana Whaley on 02-17-2025 GFR/1.73 sq M.predicted among non-blacks MDRD (S/P/Bld) [Vol rate/Area] 121 mL/min/{1.73_m2} >60 [facility] Comment on above: mL/min/1.73m2 CKD-EP I Creatinine Equation (2020) Hematocrit Auto (Bld) [Volum e fraction]Ordered By: Luana Whaley on 02-17-2025 Hematocrit (Bld) [Volume fraction] 35.5 % Low 37-47 [facility] Hemoglobin measurementOrdere d By: Luana Whaley on 02-17-2025 Hemoglobin (Bld) [Mass/Vol] 11.8 g/dL Low 12.0-15.0 [facility] LABORATORYOrdered By: Mariann More on 02-17-2025 ABO [...] Code AH BB Manual SS LABORATORYOrdered By: [employer] on 02-17-2025 Albumin BCP dye [Mass/Vol] [...] and C hemistry - challengeOrdered By: Luana Whaley on 02-17-2025 AST [Catalytic activity/Vol] 15 U/L <32 [facility] MCV (mean corpuscular volume ) determinationOrdered By: Luana Whaley on 02-17-2025 MCV (RBC) [Entitic vol] 82.6 fL 81-99 [facility] Mean corpuscular hemoglobin (MCH) determinationOrdered By: Luana Whaley on 02-17-2025 MCH (RBC) [Entitic mass] 27.4 pg 27.0-32.0 [facility] Mean corpuscular hemoglobin concentration (MCHC) determinationOrdered By: Luana Whaley on 02-17-2025 MCHC (RBC) [Mass/Vol] 33.2 g/dL 32-36 [facility] Mean platelet volume determi nationOrdered By: Luana Whaley on 02-17-2025 Platelet mean volume (Bld) [Entitic vol] 9.6 fL 6.2-12.0 [facility] OB Triage Physician Noteon 0 02-17-2025 OB Triage Physician Note [facility] Medical Records Department [address] [place] [address] OB Triage Physician Note 02/17/25 1633 MR#: [id number] Acct: [id number] Name: SHAILA HERNANDEZ Rep #: [id number] : 1985 40 From: Luana Whaley CNM PCP: Status:DEP CLI Y Location: [facility] HPI - General HPI Narrative SHAILA HERNANDEZ, is a 40 F who presents for elevated blood pressure. Seen at [place] ED for otitis media. BP was noted [...] Date CC: DANYA Luanaant Whaley Signed Normal [facility] Platelet countOrdered By: Jacques deeseamus Judd on 02-17-2025 Platelets (Bld) [#/Vol] 335 10*3/uL 150-450 [facility] Protein+Creatinine Ratio,Uri neon 02-17-2025 PROT:CRE RATIO 195 mg/g CRE Normal 0-200 [facility] Comment on above: Performed By: #### L 501.1105, L501.4100, L501.4405, L100.0500, L501.1400, L501.0900 #### [facility] [address] [place], [address] Protein (U) [Mass/Vol] 28.1 mg/dL High 0.0-12.0 [facility] Comment on above: Performed By: #### L 501.1105, L501.4100, L501.4405, L100.0500, L501.1400, L501.0900 #### [facility] [address] [place], [address] UR CREAT 144.00 mg/dL Normal 28.00-217.00 [facility] Comment on above: Performed By: #### L 501.1105, L501.4100, L501.4405, L100.0500, L501.1400, L501.0900 #### [facility] [address] [place], [address] RBC Auto (Bld) [#/Vol]Ordere d By: Luana Whaley on 02-17-2025 RBC (Bld) [#/Vol] 4.30 10*6/uL 4.2-5.4 [facility] RPCURon 02-17-2025 U Creatinine 42.8 mg/dL Normal 29.0-226.0 [facility] Comment on above: Performed By: #### A BRIAN ABSDANIEL #### [address] [address] #### AUTOC, ANTID #### [facility] [address] [place] [address] U Protein 15 mg/dL Normal [facility] Comment on above: Performed By: #### A BRIAN ABSGEL #### [address] [address] #### AUTOC, ANTID #### [facility] [address] [place] [address] U Ratio Prot/Creat 0.4 ratio Normal [facility] Comment on above: Performed By: #### A BRIAN ABSGEL #### [address] [address] #### AUTOC, ANTID #### [address] [address] Random urine creatinine mattie urement (mass/volume)Ordered By: Luana Whaley on 02-17-2025 Creatinine Unsp time (U) [Mass/Vol] 144.00 mg/dL 28.00-217.00 [facility] Serum Creatinine AND GFRon 0 02-17-2025 Creatinine [Mass/Vol] 0.50 mg/dL Low 0.70-1.20 [facility] Comment on above: Performed By: #### L 501.1105, L501.4100, L501.4405, L100.0500, L501.1400, L501.0900 #### [facility] [address] [place], [address] ECRCL 163.96 ml/min Normal 50-250 [facility] Comment on above: Performed By: #### L 501.1105, L501.4100, L501.4405, L100.0500, L501.1400, L501.0900 #### [facility] [address] [place], [address] GFR/1.73 sq M.predicted among non-blacks MDRD (S/P/Bld) [Vol rate/Area] 121 mL/min/{1.73_m2} Normal >60 [facility] Comment on above: Result Comment: mL/m in/1.73m2 CKD-EPI Creatinine Equation (2020) Performed By: #### L 501.1105, L501.4100, L501.4405, L100.0500, L501.1400, L501.0900 #### [facility] [address] [facility] [place], [place], [address] Serum creatinine measurement (mass/volume)Ordered By: Luana Whaley on 02-17-2025 Creatinine [Mass/Vol] 0.50 mg/dL Low 0.70-1.20 [facility] Serum or plasma alanine gomez otransferase (ALT) measurementOrdered By: Luana Whaley on 02-17-2025 ALT [Catalytic activity/Vol] 12 U/L <35 [facility] Serum or plasma uric acid me asurement (mass/volume)Ordered By: Luana Whaley on 02-17-2025 Urate [Mass/Vol] 4.6 mg/dL 2.6-6.0 [facility] Comment on above: The drugs N-Acetylcy steine and Metamizole may falsely depress this assay. URICon 02-17-2025 Uric Acid Lvl 4.8 mg/dL Normal 2.6-6.2 [facility] Comment on above: Performed By: #### C MP, CBC, ADIFF, GFR, ANEU, URIC #### [place] [address] [place], [place] [address] Uric Acidon 02-17-2025 URIC 4.6 mg/dL Normal 2.6-6.0 [facility] Comment on above: Result Comment: The drugs N-Acetylcysteine and Metamizole may falsely depress this assay. Performed By: #### L 501.1105, L501.4100, L501.4405, L100.0500, L501.1400, L501.0900 #### [facility] [address] [place], [address] Urine protein measurement (m ass/volume)Ordered By: Luana Judd on 02-17-2025 Protein (U) [Mass/Vol] 28.1 mg/dL High 0.0-12.0 [facility] Urine protein/creatinine mas s ratioOrdered By: Luanaant Whaley on 02-17-2025 Protein/Creatinine (U) [Mass ratio] 195 mg/g CRE 0-200 [facility] White blood cell (WBC) count Ordered By: Luana Judd on 02-17-2025 WBC (Bld) [#/Vol] 16.0 10*3/uL High 4.4-11.0 [facility] CNPNon 02-08-2025 CNPN Telephone (OBGYWM) SHAILA KELSEY ([id number]) 1985 F [facility] Date Time Provider Department 02/08/25 YISSEL CUELLO During your visit today, we recorded the following information about you: Raji Draper, RN 02/08/2025 9:15 AM Signed Medical records received from [facility] 2014. Appears that operative delivery report was not included-not asked for. I called [facility] medical records (O Records Release) [phone] and have requested for them to send records. Next appointment 02/[address] Jaramillo. Records to DM for review since next appointment with her and MIR out of office Allergies As of Date: 02/08/2025 (No Known Allergies) Date Reviewed: 01/27/2025 Reviewed by: Harpal Nagy MA - Fully Assessed Reason for Visit: Received Outside Medical Records [0091] Prescriptions as of 02/08/2025 - aspirin, enteric [...] Status:Closed by RAJI DRAPER on 02/08/25 Normal [facility] CBC W Auto Differential pane l (Bld)on 01-27-2025 Basophils (Bld) [#/Vol] 0.06 10*3/uL Normal <0.11 [facility] Comment on above: Order Comment: Speci men Type: BLOOD SPECIMENOrdering Facility: [facility] Address: [address] [place] [address] Performed By: #### G BPCR #### [facility] CLIA [id number] [address] [place] [address] [place] Basophils/100 WBC (Bld) 0.4 % Normal [facility] Comment on above: Order Comment: Speci men Type: BLOOD SPECIMENOrdering Facility: [facility] Address: [address] [place] [address] Performed By: #### G BPCR #### [facility] CLIA [id number] [address] [place] [address] [place] Differential cell count method Nom (Bld) Auto Normal [facility] Comment on above: Order Comment: Speci men Type: BLOOD SPECIMENOrdering Facility: [facility] Address: [address] [place] [address] Performed By: #### G BPCR #### [facility] CLIA [id number] [address] [place] [address] [place] Eosinophils (Bld) [#/Vol] 0.12 10*3/uL Normal <0.46 [facility] Comment on above: Order Comment: Speci men Type: BLOOD SPECIMENOrdering Facility: [facility] Address: [address] [place] [address] Performed By: #### G BPCR #### [facility] CLIA [id number] [address] [place] [address] [place] Eosinophils/100 WBC (Bld) 0.9 % Normal [facility] Comment on above: Order Comment: Speci men Type: BLOOD SPECIMENOrdering Facility: [facility] Address: [address] [place] [address] Performed By: #### G BPCR #### [facility] CLIA [id number] [address] [place] [address] [place] Erythrocyte distribution width (RBC) [Ratio] 13.4 % Normal 11.5-15.0 [facility] Comment on above: Order Comment: Speci men Type: BLOOD SPECIMENOrdering Facility: [facility] Address: [address] [place] [address] Performed By: #### G BPCR #### [facility] CLIA [id number] [address] [place] [address] [place] Hematocrit (Bld) [Volume fraction] 38.9 % Normal 36.0-46.0 [facility] Comment on above: Order Comment: Speci men Type: BLOOD SPECIMENOrdering Facility: [facility] Address: [address] [place] [address] Performed By: #### G BPCR #### [facility] CLIA [id number] [address] [place] [address] [place] Hemoglobin (Bld) [Mass/Vol] 12.7 g/dL Normal 11.5-15.5 [facility] Comment on above: Order Comment: Speci men Type: BLOOD SPECIMENOrdering Facility: [facility] Address: [address] [place] [address] Performed By: #### G BPCR #### [facility] CLIA [id number] [address] [place] [address] [place] Immature granulocytes (Bld) [#/Vol] 0.25 10*3/uL High <0.10 [facility] Comment on above: Order Comment: Speci men Type: BLOOD SPECIMENOrdering Facility: [facility] Address: [address] [place] [address] Performed By: #### G BPCR #### [facility] CLIA [id number] [address] [place] [address] [place] Immature granulocytes/100 WBC (Bld) 1.8 % Normal [facility] Comment on above: Order Comment: Speci men Type: BLOOD SPECIMENOrdering Facility: [facility] Address: [address] [place] [address] Performed By: #### G BPCR #### [facility] CLIA [id number] [address] [place] [address] [place] Lymphocytes (Bld) [#/Vol] 2.00 10*3/uL Normal 1.00-4.00 [facility] Comment on above: Order Comment: Speci men Type: BLOOD SPECIMENOrdering Facility: [facility] Address: [address] [place] [address] Performed By: #### G BPCR #### [facility] CLIA [id number] [address] [place] [address] [place] Lymphocytes/100 WBC (Bld) 14.5 % Normal [facility] Comment on above: Order Comment: Speci men Type: BLOOD SPECIMENOrdering Facility: [facility] Address: [address] [place] [address] Performed By: #### G BPCR #### [facility] CLIA [id number] [address] [place] [address] [place] MCH (RBC) [Entitic mass] 27.4 pg Normal 26.0-34.0 [facility] Comment on above: Order Comment: Speci men Type: BLOOD SPECIMENOrdering Facility: [facility] Address: [address] [place] [address] Performed By: #### G BPCR #### [facility] CLIA [id number] [address] [place] [address] [place] MCHC (RBC) [Mass/Vol] 32.6 g/dL Normal 30.5-36.0 [facility] Comment on above: Order Comment: Speci men Type: BLOOD SPECIMENOrdering Facility: [facility] Address: [address] [place] [address] Performed By: #### G BPCR #### [facility] CLIA [id number] [address] [place] [address] [place] MCV (RBC) [Entitic vol] 84.0 fL Normal 80.0-100.0 [facility] Comment on above: Order Comment: Speci men Type: BLOOD SPECIMENOrdering Facility: [facility] Address: [address] [place] [address] Performed By: #### G BPCR #### [facility] CLIA [id number] [address] [place] [address] [place] Monocytes (Bld) [#/Vol] 1.14 10*3/uL High <0.87 [facility] Comment on above: Order Comment: Speci men Type: BLOOD SPECIMENOrdering Facility: [facility] Address: [address] [place] [address] Performed By: #### G BPCR #### [facility] CLIA [id number] [address] [place] [address] [place] Monocytes/100 WBC (Bld) 8.3 % Normal [facility] Comment on above: Order Comment: Speci men Type: BLOOD SPECIMENOrdering Facility: [facility] Address: [address] [place] [address] Performed By: #### G BPCR #### [facility] CLIA [id number] [address] [place] [address] [place] Neutrophils (Bld) [#/Vol] 10.20 10*3/uL High 1.45-7.50 [facility] Comment on above: Order Comment: Speci men Type: BLOOD SPECIMENOrdering Facility: [facility] Address: [address] [place] [address] Performed By: #### G BPCR #### [facility] CLIA [id number] [address] [place] [address] [place] Neutrophils/100 WBC (Bld) 74.1 % Normal [facility] Comment on above: Order Comment: Speci men Type: BLOOD SPECIMENOrdering Facility: [facility] Address: [address] [place] [address] Performed By: #### G BPCR #### [facility] CLIA [id number] [address] [place] [address] [place] Nucleated RBC (Bld) [#/Vol] 10*3/uL Normal <0.01 [facility] Comment on above: Order Comment: Speci men Type: BLOOD SPECIMENOrdering Facility: [facility] Address: [address] [place] [address] Performed By: #### G BPCR #### [facility] CLIA [id number] [address] [place] [address] [place] Nucleated RBC/100 WBC (Bld) [Ratio] 0.0 /100 WBC Normal [facility] Comment on above: Order Comment: Speci men Type: BLOOD SPECIMENOrdering Facility: [facility] Address: [address] [place] [address] Performed By: #### G BPCR #### [facility] CLIA [id number] [address] [place] [address] [place] Platelet mean volume (Bld) [Entitic vol] 9.3 fL Normal 9.0-12.7 [facility] Comment on above: Order Comment: Speci men Type: BLOOD SPECIMENOrdering Facility: [facility] Address: [address] [place] [address] Performed By: #### G BPCR #### [facility] CLIA [id number] [address] [place] [address] [place] Platelets (Bld) [#/Vol] 336 10*3/uL Normal 150-400 [facility] Comment on above: Order Comment: Speci men Type: BLOOD SPECIMENOrdering Facility: [facility] Address: [address] [place] [address] Performed By: #### G BPCR #### [facility] CLIA [id number] [address] [place] [address] [place] RBC (Bld) [#/Vol] 4.63 10*6/uL Normal 3.90-5.20 [facility] Comment on above: Order Comment: Speci men Type: BLOOD SPECIMENOrdering Facility: [facility] Address: [address] [place] [address] Performed By: #### G BPCR #### [facility] CLIA [id number] [address] [place] [address] [place] WBC (Bld) [#/Vol] 13.77 10*3/uL High 3.70-11.00 [facility] Comment on above: Order Comment: Speci men Type: BLOOD SPECIMENOrdering Facility: [facility] Address: [address] [place] [address] Performed By: #### G BPCR #### [facility] CLIA [id number] [address] [place] [address] [place] GESTATIONAL GLUCOSE SCREEN, 1-HOUR, 50 GRAM, NON-FASTINGon 01-27-2025 Glucose [Mass/Vol] 98 mg/dL Normal 74-134 [facility] Comment on above: Order Comment: Speci men Type: BLOOD SPECIMENOrdering Facility: [facility] Address: [address] [place] [address] Result Comment: [facility] Congress of Obstetricians and Gynecologists (Seth/Alejandro) guidelines state a gestational diabetes mellitus positive screen is made, in women not previously diagnosed with overt diabetes, when the 1 hr plasma glucose level is equal to or above 140 mg/dL. The [facility] [place] recommends a 135 mg/dL cutoff. Performed By: #### G LTGST ####[facility] [id number] [place] [id number] [place] Reagin and Treponema pallidu m IgG and IgM [Interp]on 01-27-2025 T. pallidum IgG+IgM IA Ql (S) Non-Reactive Normal Nonreactive [facility] Comment on above: Order Comment: Speci men Type: BLOOD SPECIMENOrdering Facility: [facility] Address: [address] [place] [address] Performed By: #### 7 3752-8 ####[facility] [id number] [place] [id number] [place] Reagin+T pallidum IgG+IgM Se rPl-Impon 01-27-2025 Reagin and Treponema pallidum IgG and IgM [Interp] Cannot exclude recent Treponemal infection if specimen collected within 7-10 days after appearance of suspect lesions or 2-3 weeks after an exposure. Clinical correlation is required. Normal [facility] Comment on above: Order Comment: Speci men Type: BLOOD SPECIMENOrdering Facility: [facility] Address: [address] [place] [address] Performed By: #### 7 3752-8 ####[facility] [id number] [place] [id number] [place] TYPE + SCREEN PRENATALon ABO O Normal [facility] Comment on above: Order Comment: Speci men Type: BLOOD SPECIMENOrdering Facility: [facility] Address: [address] [place] [address] Performed By: #### T SPN ####[facility]CL[facility] [id number] [address] Rh Nom (Bld) Negative Normal [facility] Comment on above: Order Comment: Speci men Type: BLOOD SPECIMENOrdering Facility: [facility] Address: [address] [place] [address] Performed By: #### T SPN ####[facility]CLIA [id number] [address] TYPE AND SCREEN EXPIRATION 01/30/2025 23:59 Normal [facility] Comment on above: Order Comment: Speci men Type: BLOOD SPECIMENOrdering Facility: [facility] Address: [address] [place] [address] Performed By: #### T SPN ####[facility]ANKCLIA [id number] [address] [place] Examination level ultrasound [...] 14 oz EFW by: Hadlock (HC-AC-FL) Extended Sausage Grinder 7.0 mm CM 5.6 mm 65% Nicolaides [...] normal LVOT view: normal 3-vessel view: normal 6-fglfcp-rliqbdc view: normal Heart / Thorax Situs: situs [...] Read By: Jose Dong D.O. MATERNAL MEDICINE [facility] Radiology Study observation (narrative) [facility] Sol 11-22-2024 CNPN Telephone (OBGYWM) SHAILA HERNANDEZ ([id number]) 1985 [facility] Date Time Provider Department 11/22/24 KATIE JERNIGAN OBMIA During your visit today, we recorded the following information about you: Candace Horta RN 11/22/2024 3:44 PM Signed Katie Jernigan APRN.MODE 11/22/24 3:28 PM +UTI, Keflex sent. Katie Jernigan APRN.Candace Read, FATMATA 11/22/2024 3:44 PM Signed Tried reaching Pt with wirer street light assistance x2 and unable to leave a message as Pt has a voicemail box that has not been set up yet. [facility]. FATMATA Krishna Trisha, RN 11/24/2024 10:05 AM Signed Attempted to call patient with meat soaker. Phones goes straight to voicemail. Unable to leave message because voicemail has not been set up. Next appt is 12/02. Letter sent. FATMATA Otto Teresa, RN 11/28/2024 4:39 PM Signed Attempted to call patient at phone number listed with the help of [place] interpretor ([phone]) and person answering stated she no longer was available at that number . I asked her if she knew Shaila and she said she did. I asked her to have Shaila call our office. the person answering did provide a new phone number for patient ([phone])and I did update that phone number. After 2 attempts same message received that voicemailbox had not been set up. Unable to leave message Raji Draper RN 11/30/2024 11:33 AM Signed I called Sean at [facility] in [place].Patient has not picked up RX yet . Raji Buckner RN 12/01/2024 4:22 PM Signed Patient called back with emirati interpretor and was told about UTI. Demographics updated . Unable to activate MyChart due to no SSN, but [place] Interpretor was able to give her a phone number to call to talk to MyCHart specialist to help. Patient also given [place] appointment line phone number [phone] option 7 for emirati Allergies As of Date: 11/22/2024 (No Known [...] Status:Closed by RAJI DRAPER on 12/01/24 Normal [facility] Bacteria Ur Culton 5 Bacteria identified [...] , Intermediate >32 , Resistant >64 Abnormal [facility] Comment on above: Performed By: #### T SPN #### [facility] CLIA [id number] [address] [place] [address] [address] [facility] Performed By: #### 6 30-4 #### [facility] CLIA [id number] [address] [place] [address] [place] C. trachomatis+N. gonorrhoea e DNA ALEXIS+probe Ql (Unsp spec)on 11-18-2024 C. trachomatis rRNA ALEXIS+probe Ql (Unsp spec) Not detected Normal Not detected [facility] Comment on above: Order Comment: Speci men Type: BLOOD SPECIMEN [facility] Address: [address] [place] [address] Performed By: #### T SPN #### CC [facility]OD [facility] CLIA [id number] [address] [place] [address] [place] Order Comment: Speci men Type: SWABOrdering Facility: [facility] Address: [address] [place] [address] Performed By: #### G BPCR #### [facility] CLIA [id number] [address] [place] [address] OF [place] N. gonorrhoeae rRNA ALEXIS+probe Ql (Unsp spec) Not detected Normal Not detected [facility] Comment on above: Order Comment: Speci men Type: BLOOD SPECIMEN [facility] Address: [address] [place] [address] Performed By: #### T SPN #### CC [facility] CLIA [id number] [address] [place] [address] [place] Order Comment: Speci men Type: SWABOrdering Facility: [facility] Address: [address] [place] [address] Performed By: #### G BPCR #### [facility] CLIA [id number] [address] [place], [place] [address] [place] [address] [place] CBC W Auto Differential pane l (Bld)on 11-18-2024 Basophils (Bld) [#/Vol] 0.06 10*3/uL Normal <0.11 [facility] Comment on above: Order Comment: Speci men Type: BLOOD SPECIMENOrdering Facility: [facility] Address: [address] [place] [address] Performed By: #### 5 7021-8 ####ED [facility] [id number] [place] [address] [place] Basophils/100 WBC (Bld) 0.5 % Normal [facility] Comment on above: Order Comment: Speci men Type: BLOOD SPECIMENOrdering Facility: [facility] Address: [address] [place] [address] Performed By: #### 5 7021-8 ####[facility] [id number] [place] [address] [place] Differential cell count method Nom (Bld) Auto Normal [facility] Comment on above: Order Comment: Speci men Type: BLOOD SPECIMENOrdering Facility: [facility] Address: [address] [place] [address] Performed By: #### 5 7021-8 ####[facility] [id number] [place] [address] [place] Eosinophils (Bld) [#/Vol] 0.11 10*3/uL Normal <0.46 [facility] Comment on above: Order Comment: Speci men Type: BLOOD SPECIMENOrdering Facility: [facility] Address: [address] [place] [address] Performed By: #### 5 7021-8 ####[facility] [id number] [place] [address] [place] Eosinophils/100 WBC (Bld) 0.9 % Normal [facility] Comment on above: Order Comment: Speci men Type: BLOOD SPECIMENOrdering Facility: [facility] Address: [address] [place] [address] Performed By: #### 5 7021-8 ####[facility] [id number] [place] [address] [place] Erythrocyte distribution width (RBC) [Ratio] 14.3 % Normal 11.5-15.0 [facility] Comment on above: Order Comment: Speci men Type: BLOOD SPECIMENOrdering Facility: [facility] Address: [address] [place] [address] Performed By: #### 5 7021-8 ####[facility] [id number] [place] [address] [place] Hematocrit (Bld) [Volume fraction] 40.6 % Normal 36.0-46.0 [facility] Comment on above: Order Comment: Speci men Type: BLOOD SPECIMENOrdering Facility: [facility] Address: [address] [place] [address] Performed By: #### 5 7021-8 ####[facility] [id number] [place] [address] [place] Hemoglobin (Bld) [Mass/Vol] 13.6 g/dL Normal 11.5-15.5 [facility] Comment on above: Order Comment: Speci men Type: BLOOD SPECIMENOrdering Facility: [facility] Address: [address] [place] [address] Performed By: #### 5 7021-8 ####[facility] [id number] [place] [address] [place] Immature granulocytes (Bld) [#/Vol] 0.11 10*3/uL High <0.10 [facility] Comment on above: Order Comment: Speci men Type: BLOOD SPECIMENOrdering Facility: [facility] Address: [address] [place] [address] Performed By: #### 5 7021-8 ####[facility] [id number] [place] [address] [place] Immature granulocytes/100 WBC (Bld) 0.9 % Normal [facility] Comment on above: Order Comment: Speci men Type: BLOOD SPECIMENOrdering Facility: [facility] Address: [address] [place] [address] Performed By: #### 5 7021-8 ####[facility]ENTERDORI [id number] [place] [address] [place] Lymphocytes (Bld) [#/Vol] 1.90 10*3/uL Normal 1.00-4.00 [facility] Comment on above: Order Comment: Speci men Type: BLOOD SPECIMENOrdering Facility: [facility] Address: [address] [place] [address] Performed By: #### 5 7021-8 ####[facility] [id number] [place] [address] [place] Lymphocytes/100 WBC (Bld) 16.3 % Normal [facility] Comment on above: Order Comment: Speci men Type: BLOOD SPECIMENOrdering Facility: [facility] Address: [address] [place] [address] Performed By: #### 5 7021-8 ####[facility]ENTERNCLIA [id number] [place] [address] [place] MCH (RBC) [Entitic mass] 27.8 pg Normal 26.0-34.0 [facility] Comment on above: Order Comment: Speci men Type: BLOOD SPECIMENOrdering Facility: [facility] Address: [address] [place] [address] Performed By: #### 5 7021-8 ####[facility]IT[facility]IA [id number] [place] [address] [place] MCHC (RBC) [Mass/Vol] 33.5 g/dL Normal 30.5-36.0 [facility] Comment on above: Order Comment: Speci men Type: BLOOD SPECIMENOrdering Facility: [facility] Address: [address] [place] [address] Performed By: #### 5 7021-8 ####[facility] [id number] [place] [address] [place] MCV (RBC) [Entitic vol] 83.0 fL Normal 80.0-100.0 [facility] Comment on above: Order Comment: Speci men Type: BLOOD SPECIMENOrdering Facility: [facility] Address: [address] [place] [address] Performed By: #### 5 7021-8 ####[facility] [id number] [place] [address] [place] Monocytes (Bld) [#/Vol] 0.77 10*3/uL Normal <0.87 [facility] Comment on above: Order Comment: Speci men Type: BLOOD SPECIMENOrdering Facility: [facility] Address: [address] [place] [address] Performed By: #### 5 7021-8 ####[facility] [id number] [place] [address] [place] Monocytes/100 WBC (Bld) 6.6 % Normal [facility] Comment on above: Order Comment: Speci men Type: BLOOD SPECIMENOrdering Facility: [facility] Address: [address] [place] [address] Performed By: #### 5 7021-8 ####[facility]ENTERNCLI [id number] [place] [address] [place] Neutrophils (Bld) [#/Vol] 8.71 10*3/uL High 1.45-7.50 [facility] Comment on above: Order Comment: Speci men Type: BLOOD SPECIMENOrdering Facility: [facility] Address: [address] [place] [address] Performed By: #### 5 7021-8 ####[facility]ERNCLIA [id number] [place] [address] [place] Neutrophils/100 WBC (Bld) 74.8 % Normal [facility] Comment on above: Order Comment: Speci men Type: BLOOD SPECIMENOrdering Facility: [facility] Address: [address] [place] [address] Performed By: #### 5 7021-8 ####[facility] [id number] [place] [address] [place] Nucleated RBC (Bld) [#/Vol] 10*3/uL Normal <0.01 [facility] Comment on above: Order Comment: Speci men Type: BLOOD SPECIMENOrdering Facility: [facility] Address: [address] [place] [address] Performed By: #### 5 7021-8 ####[facility]ERNCLI [id number] [place] [address] [place] Nucleated RBC/100 WBC (Bld) [Ratio] 0.0 /100 WBC Normal [facility] Comment on above: Order Comment: Speci men Type: BLOOD SPECIMENOrdering Facility: [facility] Address: [address] [place] [address] Performed By: #### 5 7021-8 ####[facility] [id number] [place] [address] [place] Platelet mean volume (Bld) [Entitic vol] 9.7 fL Normal 9.0-12.7 [facility] Comment on above: Order Comment: Speci men Type: BLOOD SPECIMENOrdering Facility: [facility] Address: [address] [place] [address] Performed By: #### 5 7021-8 ####[facility] GOLDIENCLIStefany [id number] [place] [address] [place] Platelets (Bld) [#/Vol] 316 10*3/uL Normal 150-400 [facility] Comment on above: Order Comment: Speci men Type: BLOOD SPECIMENOrdering Facility: [facility] Address: [address] [place] [address] Performed By: #### 5 7021-8 ####[facility]ERNCLIA [id number] [place] [address] [place] RBC (Bld) [#/Vol] 4.89 10*6/uL Normal 3.90-5.20 [facility] Comment on above: Order Comment: Speci men Type: BLOOD SPECIMENOrdering Facility: [facility] Address: [address] [place] [address] Performed By: #### 5 7021-8 ####[facility]ENTERNCLIA [id number] [place] [address] [place] WBC (Bld) [#/Vol] 11.66 10*3/uL High 3.70-11.00 [facility] Comment on above: Order Comment: Speci men Type: BLOOD SPECIMENOrdering Facility: [facility] Address: [address] [place] [address] Performed By: #### 5 7021-8 ####[facility]ENTERNCLIA [id number] [place] [address] [place] HBV surface Ag Ser Qlon 11-05 HBV surface Ag Ql (S) Negative Normal Negative [facility] Comment on above: Order Comment: Speci men Type: BLOOD SPECIMEN [facility] Address: [address] [place] [address] Performed By: #### T SPN #### [facility] CLIA [id number] [address] [place] [address] [place] Order Comment: Speci men Type: BLOOD SPECIMENOrdering Facility: [facility] Address: [address] [place] [address] Performed By: #### G BPCR #### [facility] CLIA [id number] [address] [place] [address] [place] HCV Ab Ser Qlon 11-18-2024 HCV Ab Ql (S) Negative Normal Negative [facility] Comment on above: Order Comment: Speci men Type: BLOOD SPECIMEN [facility] Address: [address] [place] [address] Result Comment: The result suggests no evidence of active infection with Hepatitis C virus. Should recent infection be suspected, repeat testing may be considered 4-6 weeks after this draw. Performed By: #### T SPN #### [facility] CLIA [id number] [address] [place] [address] [place] Order Comment: Speci men Type: BLOOD SPECIMENOrdering Facility: [facility] Address: [address] [place] [address] Performed By: #### G BPCR #### [facility] CLIA [id number] [address] [place] [address] [place] HIGH RISK HUMAN PAPILLOMA EVELYN (HPV), PCR FOR DETECTION AND GENOTYPINGon 11-18-2024 HPV 16 Ag Ql (Unsp spec) Not detected Normal Not detected [facility] Comment on above: Order Comment: Speci men Type: FLUID SPECIMENOrdering Facility: [facility] Address: [address] [place] [address] Performed By: #### H PVHRT ####[facility] LABCLIA [id number] [place] [address] [place] HPV 18 Ag Ql (Unsp spec) Not detected Normal Not detected [facility] Comment on above: Order Comment: Speci men Type: FLUID SPECIMENOrdering Facility: [facility] Address: [address] [place] [address] Performed By: #### H PVHRT ####[facility] LABCLIA [id number] [place] [address] [place] HPV 31+33+35+39+45+51+52+5 6+58+59+66+68 DNA ALEXIS+probe Ql (Cvx) Not detected Normal Not detected [facility] Comment on above: Order Comment: Speci men Type: FLUID SPECIMENOrdering Facility: [facility] Address: [address] [place] [address] Result Comment: High Risk HPV Other Type includes HPV types 31, 33, 35, 39, 45, 51, 52, 56, 58, 59, 66 and 68. Performed By: #### H PVHRT ####[facility] LABIA [id number] [place] [address] [place] HIV 1+2 Ab IA Qlon 5 HIV 1 and 2 Ab IA.rapid Nom (S/P/Bld) Normal [facility] Comment on above: Order Comment: Speci men Type: BLOOD SPECIMEN [facility] Address: [address] [place] [address] Result Comment: Test not indicated. Performed By: #### T SPN #### [facility] CLIA [id number] [address] [place] [address] [place] Order Comment: Speci men Type: BLOOD SPECIMENOrdering Facility: [facility] Address: [address] [place] [address] Performed By: #### 3 1201-7, 74056-4, 5195-3 ####[facility] LABIA [id number] [place] [address] [place] HIV 1+2 Ab+HIV1 p24 Ag IA Ql Non-Reactive Normal Nonreactive [facility] Comment on above: Order Comment: Speci men Type: BLOOD SPECIMEN [facility] Address: [address] [place] [address] Performed By: #### T SPN #### [facility] CLIA [id number] [address] [place] [address] [place] Order Comment: Speci men Type: BLOOD SPECIMENOrdering Facility: [facility] Address: [address] [place] [address] Performed By: #### 3 1201-7, 03672-1, 5195-3 ####[facility] LABCLIA [id number] [address] [place] HIV immunoassay testing algorithm interpretation (S/P/Bld) [Interp] Normal [facility] Comment on above: Order Comment: Speci men Type: BLOOD SPECIMEN [facility] Address: [address] [place] [address] Result Comment: No e vidence of HIV-1 or HIV-2 infection. Should recent infection be suspected, repeat testing may be considered 2-3 weeks after this draw. Benzie Rev. Code 3701.243(E): This information has been [...] SPN #### [facility] CLIA [id number] [address] [place] [address] [place] Order Comment: Speci men Type: BLOOD SPECIMENOrdering Facility: [facility] Address: [address] [place] [address] Performed By: #### 3 1201-7, 19988-0, 5195-3 ####[facility] LABCLIA [id number] [address] [place] HbA1c (Bld)on 11-18-2024 Average glucose Estimated from glycated hemoglobin (Bld) [Mass/Vol] 97 mg/dL Normal [facility] Comment on above: Order Comment: Speci men Type: BLOOD SPECIMENOrdering Facility: [facility] Address: [address] [place] [address] Result Comment: eAG: (Estimated average glucose) is a calculated value from HgbA1c and is banking representative of the average blood glucose level in the last 2-3 month period. Performed By: #### 5 5454-3 ####[facility] LABCLIA [id number] [facility] [address] HbA1c (Bld) [Mass fraction] 5.0 % Normal 4.3-5.6 [facility] Comment on above: Order Comment: Speci men Type: BLOOD SPECIMENOrdering Facility: [facility] Address: [address] [place] [address] Result Comment: Amer [place] Diabetes Association guidelines indicate that patients with HgbA1c in the range 5.7-6.4% are at increased risk for development of diabetes, and intervention by lifestyle modification may be beneficial. HgbA1c greater or equal to 6.5% is considered diagnostic of diabetes. Performed By: #### 5 5454-3 ####[facility] LABCLIA [id number] [address] [place] PAP TESTon 11-18-2024 ADEQUACY Normal [facility] Comment on above: Order Comment: Speci men Type: FLUID SPECIMEN [facility] Address: [address] [place] [address] Result Comment: Sati sfactory for interpretation. Transformation zone present Performed By: #### L [id number] #### [facility] CLIA [id number] [address] [place] [address] [place] [facility] CLIA [id number] [address] [place] [address] [place] Order Comment: Speci men Type: FLUID SPECIMENOrdering Facility: [facility] Address: [address] [place] [address] Performed By: #### L [id number] ####[facility]ORATORYCLIA [id number] [address] STATES [facility] LABCLIA [id number] [place] [address] [place] CASE REPORT Normal [facility] Comment on above: Order Comment: Speci men Type: FLUID SPECIMEN [facility] Address: [address] [place] [address] Result Comment: Gyne cologic Cytology Report Case: [id number] Authorizing Provider: Katie Jernigan APRN.PROCESS OWNER Collected: 11/18/2024 09:27 AM Ordering Location: OB/Gynecology Received: 11/18/2024 12:30 PM First Screen: Sirena, Lay, CT, ASCP Specimen: Pap Test, ThinPrep, Cervix Performed By: #### L [id number] #### [facility] CLIA [id number] [address] [place] [address] [place] [facility] CLIA [id number] [address] [place] [address] [place] Order Comment: Speci men Type: FLUID SPECIMENOrdering Facility: [facility] Address: [address] [place] [address] Performed By: #### L [id number] ####[facility]ORATORYCLIA [id number] [address] STATES OF [facility] LABCLIA [id number] [place] [address] [place] CLINICAL HISTORY, CYTOLOGY, CHILD DEVELOPMENT SPECIALIST Routine Exam Normal [facility] Comment on above: Order Comment: Speci men Type: FLUID SPECIMEN [facility] Address: [address] [place] [address] Performed By: #### L [id number] #### [facility] CLIA [id number] [address] [place] [address] [place] [facility] CLIA [id number] [address] [place] [id number] [place] Order Comment: Speci men Type: FLUID SPECIMENOrdering Facility: [facility] Address: [address] [place] [address] Performed By: #### L [id number] ####[facility] LABORATORYCLIA [id number] [place] [address] [place] [facility] LABCLIA [id number] [place] [id number] [place] CYTOLOGY PAP OTHER INTERPRETATION Predominance of coccobacilli consistent with shift in vaginal bailee. Normal [facility] Comment on above: Order Comment: Speci men Type: FLUID SPECIMEN [facility] Address: [address] [place] [address] Performed By: #### L [id number] #### [facility] CLIA [id number] [address] [place] [address] [place] [facility] CLIA [id number] [address] [place] [address] [place] Order Comment: Speci men Type: FLUID SPECIMENOrdering Facility: [facility] Address: [address] [place] [address] Performed By: #### L [id number] ####[facility]ORATORYCLIA [id number] [place] [address] [place] [facility] LABCLIA [id number] [place] [address] [place] FINAL PERFORMING LAB Normal [facility] Comment on above: Order Comment: Speci men Type: FLUID SPECIMEN [facility] Address: [address] [place] [address] Result Comment: Tech nical component, import export manager screening performed at [facility], [address] [place] [address] CLIA# [id number] Diagnostic interpretation performed at [facility], [address] [place] [address] CLIA# [id number] Supervisor Felting: Shashi Coyne M.D. Performed By: #### L [id number] #### [facility] CLIA [id number] [address] OF [facility] CLIA [id number] [address] [place] [address] [place] Order Comment: Speci men Type: FLUID SPECIMENOrdering Facility: [facility] Address: [address] [place] [address] Performed By: #### L [id number] ####[facility] LABORATORYCLIA [id number] [address] LABCLIA [id number] [address] [place] [address] [place] INTERPRETATION, CYTOLOGY, CHILD DEVELOPMENT SPECIALIST Normal [facility] Comment on above: Order Comment: Speci men Type: FLUID SPECIMEN [facility] Address: [address] [place] [address] Result Comment: Nega tive for intraepithelial lesion or malignancy. at 0955 EDT Performed By: #### L [id number] #### [facility] CLIA [id number] [address] STATES OF [facility] CLIA [id number] [address] [place] [address] [place] [address] [place] Order Comment: Speci men Type: FLUID SPECIMENOrdering Facility: [facility] Address: [address] [place] [address] Performed By: #### L [id number] ####[facility]ATORYCLIA [id number] [address] STATES OF [facility] LABCLIA [id number] [address] [place] [address] [place] LMP 07/11/2024 Normal [facility] Comment on above: Order Comment: Speci men Type: FLUID SPECIMEN [facility] Address: [address] [place] [address] Performed By: #### L [id number] #### [facility] CLIA [id number] [address] [place], [place] [address] [place] [address] OF [facility] CLIA [id number] [address] [place] [address] [place] Order Comment: Speci men Type: FLUID SPECIMENOrdering Facility: [facility] Address: [facility] [place] [address] Performed By: #### L [id number] ####[facility]ORATORYCLIA [id number] [address] LABCLIA [id number] [address] [place] [address] [place] PAP DISCLAIMER COMMENT The Pap Smear is a screening test for cervical cancer. False negative results occur with all screening tests, emphasizing the need for rescreening at recommended intervals, and clinical correlation. Normal [facility] Comment on above: Order Comment: Speci men Type: FLUID SPECIMEN [facility] Address: [address] [place] [address] Performed By: #### L [id number] #### [facility] CLIA [id number] [address] LAB CLIA [id number] [address] [place] [address] [place] Order Comment: Speci men Type: FLUID SPECIMENOrdering Facility: [facility] Address: [address] [place], [place] [address] Performed By: #### L [id number] ####[facility]ORATORYCLIA [id number] [address] STATES OF [facility] LABCLIA [id number] [address] [place] [address] [place] PAP SUPERVISOR PAPER MACHINE COMMENT This specimen has be en analyzed by the ThinPrep Imaging System, an automated imaging and review system, which assists the laboratory in evaluating cells on ThinPrep Pap tests. Following automated imaging, selected hu from every slide are reviewed by a import export manager. Normal [facility] Comment on above: Order Comment: Speci men Type: FLUID SPECIMEN [facility] Address: [address] [place] [address] Performed By: #### L [id number] #### [facility] CLIA [id number] [address] LAB CLIA [id number] [address] [place] [address] [place] Order Comment: Speci men Type: FLUID SPECIMENOrdering Facility: [facility] Address: [address] [place] [address] Performed By: #### L [id number] ####[facility]ORATORYCLIA [id number] [address] STATES [facility] LABCLIA [id number] [address] STATES OF [place] RUBELLA IGG ANTIBODYon 11-18 RUBELLA IGG AB, QUAL Positive Normal Positive [facility] Comment on above: Order Comment: Tiffany prasad Type: BLOOD SPECIMEN [facility] Address: [address] [place] [address] Result Comment: The result suggests recent or past exposure to Rubella virus or history of Rubella vaccination. Positive result may also be seen due to presence of passively-transferred antibodies. Please correlate with patient's history. Performed By: #### T SPN #### [facility] CLIA [id number] [address] [place] [address] [place] Order Comment: Speci men Type: BLOOD SPECIMENOrdering Facility: [facility] Address: [address] [place] [address] Performed By: #### G BPCR #### [facility] CLIA [id number] [address] [place] [address] [place] Reagin and Treponema pallidu m IgG and IgM [Interp]on 11-18-2024 T. pallidum IgG+IgM IA Ql (S) Non-Reactive Normal Nonreactive [facility] Comment on above: Order Comment: Speci men Type: BLOOD SPECIMENOrdering Facility: [facility] Address: [address] [place] [address] Performed By: #### 7 3752-8, 5195-3, 02811-9 ####[facility] LABCLIA [id number] [address] STATES [facility] Performed By: #### 3 1201-7, 95826-5, 5194-3 ####[facility] LABCLIA [id number] [address] [place] Reagin+T pallidum IgG+IgM Se rPl-Impon 11-18-2024 Reagin and Treponema pallidum IgG and IgM [Interp] Cannot exclude recent Treponemal infection if specimen collected within 7-10 days after appearance of suspect lesions or 2-3 weeks after an exposure. Clinical correlation is required. Normal [facility] Comment on above: Order Comment: Speci men Type: BLOOD SPECIMENOrdering Facility: [facility] Address: [address] [place] [address] Performed By: #### 7 3752-8, 5-3, 03033-0 ####[facility] LABIA [id number] [place] [address] [place] Performed By: #### 3 1201-7, 80422-3, 5194-3 ####[facility] [id number] [place] [id number] [place] TRICHOMONAS VAGINALIS NAATon 11-18-2024 T. vaginalis DNA ALEXIS+probe Ql (Unsp spec) Not detected Normal Not detected [facility] Comment on above: Order Comment: Speci men Type: BLOOD SPECIMEN [facility] Address: [address] [place] [address] Performed By: #### T SPN #### [facility] CLIA [id number] [address] OF [place] Order Comment: Speci men Type: SWABOrdering Facility: [facility] Address: [address] [place] [address] Performed By: #### G BPCR #### [facility] CLIA [id number] [address] [place] [address] TYPE + SCREEN PRENATALon ABO O Normal [facility] Comment on above: Order Comment: Speci men Type: BLOOD SPECIMEN [facility] Address: [address] [place] [address] Performed By: #### T SPN #### [facility] CLIA [id number] [address] [place] [address] [place] Order Comment: Speci men Type: BLOOD SPECIMENOrdering Facility: [facility] Address: [address] [place] [address] Performed By: #### T SPN ####[facility]LO[facility] BANKCLIA [id number] [address] OF [place] Rh Nom (Bld) Negative Normal [facility] Comment on above: Order Comment: Speci men Type: BLOOD SPECIMEN [facility] Address: [address] [place] [address] Performed By: #### T SPN #### [facility] CLIA [id number] [address] [place] [address] [place] Order Comment: Speci men Type: BLOOD SPECIMENOrdering Facility: [facility] Address: [address] [place] [address] Performed By: #### T SPN ####[facility] BANKCLIA [id number] [place] [address] [place] TYPE AND SCREEN EXPIRATION 11/21/2024 23:59 Normal [facility] Comment on above: Order Comment: Speci men Type: BLOOD SPECIMEN [facility] [facility] Address: [address] [place] [address] Performed By: #### T SPN #### [facility] BLOOD B[facility] CLIA [id number] [address] [facility] [address] [place] Order Comment: Speci men Type: BLOOD SPECIMENOrdering Facility: [facility] Address: [address] [place] [address] Performed By: #### T SPN ####CC MAIN BLOOD BANKCLIA [id number] [facility] [address] Sol 11-15-2024 CNPN Telephone (OBGYWM) SHAILA HERNANDEZ ([id number]) 1985 [facility] Time Provider Department 11/15/24 KATIE JERNIGAN OBGYWM During your visit today, we recorded the following information about you: Raji Draper RN 11/15/2024 3:20 PM Signed Attempted twice to reach patient by phone with meat soaker for new OB intake questions. Unable to leave a voicemail because patient's voicemail box has not been set up. Please try to reach patient again Allergies As of Date: 11/15/2024 (No Known Allergies) Date Reviewed: 04/27/2024 Reviewed by: Juan Villegas APRN.PROCESS OWNER - Fully Assessed Reason for Visit: Appointment [186] Prescriptions as of 11/28/2024 - aspirin, enteric coated (ECOTRIN LOW STRENGTH) 81 mg EC tablet Take 1 tablet by mouth once daily. - vitamins no.2 ( VITAMIN NO.2 ORAL) Take by mouth once daily. Problem List As Of Date: 11/15/2024 (None) Encounter Status:Closed by RAJI DRAPER on 11/28/24 Normal [facility] CNOVon 04-27-2024 CNOV Office Visit (OBGYWM ) SHAILA HERNANDEZ ([id number]) 1985 F TU Date Time Provider Department 04/27/24 4:00 PM JUAN VILLEGAS OBAYESHAWM During your visit today, we recorded the following information about you: Pulse Respiration Blood pressure Weight 70/minute 14/minute 114/70 83 kg Last Period 04/07/24 Juan Villegas APRN.PROCESS OWNER 04/27/2024 4:25 PM Signed Interpreting services utilized via (wirer street light service modality: wirer street light not needed for appointment). Patient's friend, Janet, arrived with her and patient request Janet to be interpretor. Chemical Laboratory Tester offered: Patient declines. Shaila is a 39 [...] Juan Villegas APRN.MODE Referring Provider: KATIE JERNIGAN [[id number]] Allergies As of Date: 04/27/2024 (No Known Allergies) Date Reviewed: 04/27/2024 Reviewed by: Juan Villegas APRN.CNP - Fully Assessed Reason for Visit: Nexplanon Removal [Other] Primary Visit Diagnosis:Nexplanon removal [Z30.46] Problem List As Of Date: 04/27/2024 (None) Medications Discontinued During This Encounter Prescriptions - etonogestrel (NEXPLANON) subdermal implant 68 mg (Discontinued) 68 mg by SUBDERMAL route. Encounter Status:Closed by JUAN VILLEGAS on 04/27/24 [facility] CNOVon 04-12-2024 CNOV Office Visit (OBGYWM ) SHAILA HERNANDEZ ([id number]) 1985 [facility] Date Time Provider Department 04/12/24 10:30 AM KATIE JERNIGAN OBGYWM During your visit today, we recorded the following information about you: Blood pressure Weight Last Period 110/60 82.7 kg 04/07/24 Katie eJrnigan APRN.PROCESS OWNER 04/12/2024 10:57 AM Signed Shaila Hernandez is a 39 year old female who presents for problem visit to discuss removal of control. HPI: Patient is here to discuss possible removal of Nexplanon. Patient states that it is . Patient states for now she wants to stay off other forms of control. Nexplanon has been in for 4 yrs. Having regular periods Underwriting Manager present OB History No obstetric history on file. 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 Problem List As Of Date: 04/12/2024 (None) Encounter Status:Closed by KATIE JERNIGAN on 04/12/24 Normal [facility] CNOVon 03-18-2024 CNOV Office Visit (WSTR ) SHAILA HERNANDEZ ([id number]) 1985 F TU Date Time Provider Department 03/18/24 11:30 AM BRIT COPE [facility] During your visit today, we recorded the following information about you: Temperature Pulse Respiration Blood pressure 98.3 degrees 61/minute 16/minute 120/72 Weight 81.5 kg Brit Cope COLLEGE SPECIALIST.PROCESS OWNER 03/18/2024 12:29 PM Signed This note was created using Applied Identity[employer]. Subjective Shaila Hernandez is a 39 year old female. HPI Patient presents today complaining of a sensation of something stuck in her throat. Patient does not speak Greek but her friend translates. About 2 months [...] AP/LAT - CONSULT TO GASTROENTEROLOGY Brit Cope APRN.PROCESS OWNER Allergies As of Date: 03/18/2024 (Not on File) Date Reviewed: 03/18/2024 Reviewed by: Brit Cope APRN.PROCESS OWNER - Fully Assessed Reason for Visit: Throat Problem [109] Cmt: Feels like something is stuck in throat when swollowing x1 week Primary Visit Diagnosis:Dysphagia, unspecified type [R13.10] Order(s):XR NECK SOFT TISSUE 2V AP/LAT [[id number]] Order #: [id number] FUTURE CONSULT TO GASTROENTEROLOGY [9010] Order #: [id number]: 1 FUTURE Problem List As Of Date: 03/18/2024 (None) Encounter Status:Closed by BRIT COPE on 03/18/24 [facility] XR NECK SOFT TISSUE 2V AP/LA Ton [...] prevertebral soft tissue swelling. IMPRESSION: UNREMARKABLE EXAM. Flow Floor Attendant: KATHRIN Transcribe Date/Time: Mar 18 2024 12:09P Dictated by : ANGELES OWUSU MD This examination was interpreted and the report reviewed and electronically signed by: ANGELES OWUSU MD on Mar 18 2024 12:10PM EST [id number] Normal [facility] XR Neck AP and Lateralon IMPRESSION: UNREMARKABLE EXAM. Flow Floor Attendant: KATHRIN Transcribe Date/Time: Mar 18 2024 12:09P Dictated by : ANGELES OWUSU MD This examination was interpreted and the report reviewed and electronically signed by: ANGELES OWUSU MD on Mar 18 2024 12:10PM [facility] DIVISION OF RADIOLOGY * * *Final Report* [...] swelling. DIVISION OF RADIOLOGY Provider, Danielle Ines [facility] - 03/18/2024 * * *Final Report* * [...] soft tissue swelling. IMPRESSION IMPRESSION: UNREMARKABLE EXAM. Flow Floor Attendant: KATHRIN Transcribe Date/Time: Mar 18 2024 12:09P Dictated by : ANGELES OWUSU MD This examination was interpreted and the report reviewed and electronically signed by: ANGELES OWUSU MD on Mar 18 2024 12:10PM EST [facility] Radiology Study observation (narrative) [facility] XR Neck AP and LateralOrdere d By: Ccf Provider on 03-18-2024 [facility] Waste Cotton Cleaner Cytology Reporton 2021 Waste Cotton Cleaner Cytology Report . Pathology Reports Accession: Collected Date/Time: Received Date/Time: Pathologist: [id number] 12/02/2021 16:02 EDT 12/04/2021 18:00 EDT Waste Cotton Cleaner Cytology Report SPECIMEN: Specimen Description: Liquid Prep w/ HPV Specimen: Cervical Screening or Diagnostic: Screening RELEVANT HISTORY: LMP: 11/25/21 [id number] SPECIMEN ADEQUACY: SATISFACTORY FOR EVALUATION ENDOCERVICAL/TRANSFORM ATIONAL [...] in conjunction with clinical information derived from [facility] er diagnostic and screening tests, physical examinations and full medical history in accordance with appropriate patient management procedures. NOTE: A negative result does not preclude the presence of HPV infection because results depend on adequate specimen collection, absence of inhibitors and sufficient DNA to be detected. COMMENT: This Pap Test was successfully processed and evaluated with the assistance of the [employer] Prep Test Imaging System. Electronically Signed by Pathology report verified by [facility] Screened by: KK Electronically signed by Amie BUSCH (ASC) Sign-Out Date: 12/06/2021 15:17 Performing Lab: [facility], [address] [place] [address] Disclaimer The Pap test is a screening test for cervical cancer. As evidenced by published data, it is sub ject to both inherent false negative and false positive results. Your patient's results should be interpreted in context with pertinent clinical history including gynecological examination. Normal On License Of [facility] [place] HPVon 12-06-2021 HPV Interp Normal See Interp HPVN On License Of [facility] [place] Comment on above: Order Comment: Order placed by AP_HPV_ORDER rule from [id number] Result Comment: High Risk HPV Typing: NEGATIVE [...] HPVN Performed By: #### H PV #### [place] [address] HPV Source Cervix Normal On License Of [facility] [place] Comment on above: Order Comment: Order placed by AP_HPV_ORDER rule from [id number] Performed By: #### H PV #### [place] [address] CTPCRon 12-04-2021 C. trachomatis Interp Normal See CT Interp N On License Of [facility] [place] Comment on above: Result Comment: C. t rachomatis DNA not detected. Specimen is presumptive negative for C. trachomatis. A negative result does not preclude C. trachomatis infection because results depend on adequate specimen collection, absence of inhibitors, and sufficient DNA to be detected. See CT Interp N Performed By: #### C TPCR, NGPCR1 #### [place] [address] C.trachomatis PCR Negative Normal Negative On License Of [facility] [place] Comment on above: Result Comment: Ortega sport tube received with two swabs. Review collection procedure. Inappropriate collection may cause aberrant results. Molecular (PCR) assay performed on the Katherine Vicente 4800 system. Performed By: #### C TPCR, NGPCR1 #### [place] [address] Chlam Source Cervix Normal On License Of [facility] [place] Comment on above: Performed By: #### C TPCR, NGPCR1 #### [place] [address] [id number] 12-04-2021 GC PCR Source Cervix Normal On License Of [facility] [place] Comment on above: Performed By: #### C TPCR, NGPCR1 #### [place] [id number] [place] [address] N. gonorrhoeae (PCR) Negative Normal Negative [facility] ([place]) Comment on above: Result Comment: Ortega sport tube received with two swabs. Review collection procedure. Inappropriate collection may cause aberrant results. Molecular (PCR) assay performed on the Katherine Vicente 4800 System. Performed By: #### C TPCR, NGPCR1 #### [facility] [address] [place] [address] N. gonorrhoeae Interp Normal See NG Interp N On License Of [facility] ([place] Comment on above: Result Comment: N. g onorrhoeae DNA not detected. Specimen is presumptive negative for N. gonorrhoeae. A negative result does not preclude Neisseria gonorrhoeae infection because results depend on adequate specimen collection, absence of inhibitors, and sufficient DNA to be detected. See NG Interp N Performed By: #### C TPCR, NGPCR1 #### [place] [address] LABORATORYOrdered By: Nicole Mcnair on 12-02-2021 C. [...] 37.73 kg/m2 Cris Lilly MD Work Phone: [facility] 04-07-2025 15:26-040 Body weight 98.88 kg Cris Lilly MD Work Phone: [facility] 04-07-2025 15:26-0400 Diastolic blood pressure 86 mm[Hg] Cris Lilly MD Work Phone: [facility] 04-07-2025 15:26-0400 Systolic blood pressure 132 mm[Hg] Cris Lilly MD Work Phone: [facility] 03-31-2025 15:03-0400 Body mass index (BMI) [Ratio] 37.9 kg/m2 Rasheeda Heredia APRN.CNM Work Phone: [facility] 03-31-2025 15:03-0400 Body weight 99.34 kg Rasheeda Heredia COLLEGE SPECIALIST.CNM Work Phone: [facility] 03-31-2025 15:03-0400 Diastolic blood pressure 80 mm[Hg] Rasheeda Heredia COLLEGE SPECIALIST.CNM Work Phone: [facility] 03-31-2025 15:03-0400 Systolic blood pressure 120 mm[Hg] Rasheeda Heredia COLLEGE SPECIALIST.CNM Work Phone: [facility] 03-22-2025 10:39-0400 Body mass index (BMI) [Ratio] 37.21 kg/m2 Floridalma Jaramillo MD Work Phone: [facility] 03-22-2025 10:39-0400 Body weight 97.52 kg Floridalma Jaramillo MD Work Phone: [facility] 03-22-2025 10:39-0400 Diastolic blood pressure 86 mm[Hg] Floridalma Jaramillo MD Work Phone: [facility] 03-22-2025 10:39-0400 Systolic blood pressure 138 mm[Hg] Floridalma Jaramillo MD Work Phone: [facility] 02-27-2025 16:06-0400 Body mass index (BMI) [Ratio] 36.34 kg/m2 Sil Soto MD Work Phone: [facility] 02-27-2025 16:06-0400 Body weight 95.25 kg Sil Soto MD Work Phone: [facility] 02-27-2025 16:06-0400 Diastolic blood pressure 82 mm[Hg] Sil Soto MD Work Phone: [facility] 02-27-2025 16:06-0400 Systolic blood pressure 126 mm[Hg] Sil Soto MD Work Phone: [facility] 02-20-2025 15:37-0400 Diastolic blood pressure 89 mm[Hg] Shawn Locke MD Work Phone: [facility] Comment on above: TruBP Average 02-20-2025 15:37-0400 Systolic blood pressure 134 mm[Hg] Shawn Locke MD Work Phone: [facility] Comment on above: TruBP Average 02-17-2025 17:38-0400 Heart rate 100 /min Luana Whaley CNM Work Phone: [facility] 02-17-2025 17:38-0400 SaO2% (BldA) [Mass fraction] 97 % Luana Whaley CNM Work Phone: [facility] 02-17-2025 17:33-0400 Diastolic blood pressure 92 mm[Hg] Luana Whaley CNM Work Phone: [facility] 02-17-2025 17:33-0400 Systolic blood pressure 140 mm[Hg] Luana Whaley CNM Work Phone: [facility] 02-17-2025 14:51-0400 Body height 160.02 cm Luana Whaley CNM Work Phone: [facility] 02-17-2025 14:51-0400 Body mass index (BMI) [Ratio] 37 kg/m2 Luana Whaley CNM Work Phone: [facility] 02-17-2025 14:51-0400 Body weight 95 kg Luana Whaley CNM Work Phone: [facility] 02-17-2025 14:48-0400 Body temperature 97.6 [degF] Luana Whaley CNM Work Phone: [facility] 02-13-2025 15:45-0400 Body mass index (BMI) [Ratio] 36.34 kg/m2 Floridalma Jaramillo MD Work Phone: [facility] 02-13-2025 15:45-0400 Body weight 95.25 kg Floridalma Jaramillo MD Work Phone: [facility] 02-13-2025 15:45-0400 Diastolic blood pressure 80 mm[Hg] Floridalma Jaramillo MD Work Phone: [facility] 02-13-2025 15:45-0400 Systolic blood pressure 128 mm[Hg] Floridalma Jaramillo MD Work Phone: [facility] 12-02-2024 14:57-0400 Body mass index (BMI) [Ratio] 35.13 kg/m2 Yissel Cuello MD Work Phone: [facility] 12-02-2024 14:57-0400 Body weight 92.08 kg Yissel Cuello MD Work Phone: [facility] 12-02-2024 14:57-0400 Diastolic blood pressure 74 mm[Hg] Yissel Cuello MD Work Phone: [facility] 12-02-2024 14:57-0400 Systolic blood pressure 122 mm[Hg] Yissel Cuello MD Work Phone: [facility] 11-18-2024 08:33-0400 Body height 161.9 cm Katie Delon COLLEGE SPECIALIST.PROCESS OWNER Work Phone: [facility] 11-18-2024 08:33-0400 Body mass index (BMI) [Ratio] 34.54 kg/m2 Katie Delon COLLEGE SPECIALIST.PROCESS OWNER Work Phone: [facility] 11-18-2024 08:33-0400 Body weight 90.54 kg Katie Delon COLLEGE SPECIALIST.PROCESS OWNER Work Phone: [facility] 11-18-2024 08:33-0400 Diastolic blood pressure 66 mm[Hg] Katie Bartley COLLEGE SPECIALIST.PROCESS OWNER Work Phone: [facility] 11-18-2024 08:33-0400 Systolic blood pressure 118 mm[Hg] Katie Bartley COLLEGE SPECIALIST.PROCESS OWNER Work Phone: [facility] 04-27-2024 15:49-0400 Body weight 83.01 kg Juan Villegas COLLEGE SPECIALIST.PROCESS OWNER Work Phone: [facility] 04-27-2024 15:49-0400 Diastolic blood pressure 70 mm[Hg] Juan Haury COLLEGE SPECIALIST.PROCESS OWNER Work Phone: [facility] 04-27-2024 15:49-0400 Heart rate 70 /min Juan Haury COLLEGE SPECIALIST.PROCESS OWNER Work Phone: [facility] 04-27-2024 15:49-0400 Respiratory rate 14 /min Juan Hausman COLLEGE SPECIALIST.PROCESS OWNER Work Phone: [facility] 04-27-2024 15:49-0400 SaO2% (BldA) [Mass fraction] 98 % Juan Haury COLLEGE SPECIALIST.PROCESS OWNER Work Phone: [facility] 04-27-2024 15:49-0400 Systolic blood pressure 114 mm[Hg] Juan Haury COLLEGE SPECIALIST.PROCESS OWNER Work Phone: [facility] 04-12-2024 10:34-0400 Body weight 82.74 kg Katie Delon COLLEGE SPECIALIST.PROCESS OWNER Work Phone: [facility] 04-12-2024 10:34-0400 Diastolic blood pressure 60 mm[Hg] Katie Delon COLLEGE SPECIALIST.PROCESS OWNER Work Phone: [facility] 04-12-2024 10:34-0400 Systolic blood pressure 110 mm[Hg] Katie Bartley COLLEGE SPECIALIST.PROCESS OWNER Work Phone: [facility] 03-18-2024 11:31-0400 Body temperature 98.29 [degF] Brit Moomaw COLLEGE SPECIALIST.PROCESS OWNER Work Phone: [facility] 03-18-2024 11:31-0400 Body weight 81.5 kg Brit Moomaw COLLEGE SPECIALIST.PROCESS OWNER Work Phone: [facility] 03-18-2024 11:31-0400 Diastolic blood pressure 72 mm[Hg] Brit Moomaw COLLEGE SPECIALIST.PROCESS OWNER Work Phone: [facility] 03-18-2024 11:31-0400 Heart rate 61 /min Brit Moomaw COLLEGE SPECIALIST.PROCESS OWNER Work Phone: [facility] 03-18-2024 11:31-0400 Respiratory rate 16 /min Brit Moomaw COLLEGE SPECIALIST.PROCESS OWNER Work Phone: [facility] 03-18-2024 11:31-0400 SaO2% (BldA) [Mass fraction] 98 % Brit Moomaw COLLEGE SPECIALIST.PROCESS OWNER Work Phone: [facility] 03-18-2024 11:31-0400 Systolic blood pressure 120 mm[Hg] Brit Moomaw COLLEGE SPECIALIST.PROCESS OWNER Work Phone: [facility] 08-05-2021 10:30-0500 Body temperature 98.42 [degF] DOMINIQUE LONG MD [facility] 08-05-2021 10:30-0500 Body weight 70 kg DOMINIQUE LONG MD [facility] 08-05-2021 10:30-0500 Diastolic blood pressure 88 mm[Hg] DOMINIQUE LONG MD [facility] 08-05-2021 10:30-0500 Heart rate 93 /min DOMINIQUE LONG MD [facility] 08-05-2021 10:30-0500 Respiratory rate 16 /min DOMINIQUE LONG MD [facility] 08-05-2021 10:30-0500 Systolic blood pressure 143 mm[Hg] DOMINIQUE LONG MD [facility] Encounters Encounter Date Encounter Type Care Provider Facility Start: 04-14-2025 End: 04-17-2025 Evaluation and management of inpatient CHAYO HAWHTORNE Facility:[id number] Start: 04-07-2025 End: 04-07-2025 Office outpatient visit 15 minutes Cris iLlly MD Work Phone: OB/Gynecology Comment on above: 38 weeks gestation o f (HCC) (Primary Dx); Supervision of high risk in third trimester (HCC); Multigravida of advanced maternal age in third trimester (HCC); Language barrier; Maternal care for scar from previous delivery, unspecified scar type (HCC) Start: 04-07-2025 End: 04-07-2025 [facility] Facility:[facility] Start: 04-03-2025 End: 04-03-2025 Female genitalia finding Ora Orellana [facility] Start: 04-03-2025 End: 04-03-2025 Orders Only Ora Orellana [facility] Comment on above: Gynecologic exam nor mal (Primary Dx) Start: 03-31-2025 End: 03-31-2025 Patient encounter procedure Rasheeda Heredia APRN.CNM Work Phone: OB/Gynecology Comment on above: 37 weeks gestation o f (HCC) (Primary Dx); Supervision of high risk in third trimester ([facility]); Multigravida of advanced maternal age in third trimester ([facility]); Language barrier; Maternal care for scar from previous delivery, unspecified scar type ([facility]); History of Start: 03-31-2025 End: 03-31-2025 [facility] Facility:[facility] Start: 03-31-2025 End: 04-03-2025 Telephone encounter Rasheeda Heredia APRN.CNM Work Phone: OB/Gynecology Comment on above: [facility] Start: 03-22-2025 End: 03-22-2025 Patient encounter procedure Floridalma Jaramillo MD Work Phone: OB/Gynecology Comment on above: Supervision of high risk in third trimester (HCC) (Primary Dx); Multigravida of advanced maternal age in third trimester ([facility]); Previous section; Obesity in ([facility]); Language barrier; BV (bacterial vaginosis); Yeast vaginitis; Abnormal test; 36 weeks gestation of (HCC) Obesity in (HCC) (Primary Dx); Multigravida of advanced maternal age in third trimester (HCC) Start: 03-22-2025 End: 03-22-2025 ambulatory FLORIDALMA JARAMILLO Facility:[facility] Start: 02-27-2025 End: 02-27-2025 ambulatory SIL SOTO Facility:[facility] Start: 02-27-2025 End: 02-27-2025 Patient encounter [...] Start: 02-20-2025 End: 02-20-2025 ambulatory SHAWN LOCKE Facility:[facility] Start: 02-20-2025 End: 02-20-2025 ambulatory FLORIDALMA JARAMILLO Facility:[facility] Start: 02-20-2025 End: 02-20-2025 Patient encounter [...] 02-17-2025 ambulatory Luana Whaley CNM Work Phone: [facility] Work Phone: Start: 02-17-2025 End: 02-17-2025 Telephone encounter Luana Whaley APRN.CNM Work Phone: OB/Gynecology Comment on above: OB Elevated BP Start: 02-16-2025 End: 02-17-2025 ambulatory SKYLAR PHILIP MD Facility:[facility] Start: 02-16-2025 End: 02-17-2025 SAME DAY STAY SKYLAR PHILIP MD [facility] Start: 02-16-2025 End: 02-16-2025 Emergency department patient visit JAROD LOUIS DO [facility] Start: 02-13-2025 End: 02-13-2025 Patient encounter procedure Floridalma Jaramillo MD Work Phone: OB/Gynecology Comment on above: Supervision of high risk in third trimester (HCC) (Primary Dx); Multigravida of advanced maternal age in third trimester (HCC); Previous section; Obesity in (HCC); 31 weeks gestation of (HCC) Start: 02-13-2025 End: 02-13-2025 ambulatory BRIT MOOMAW Facility:[facility] Start: 02-08-2025 End: 02-08-2025 Telephone encounter Yissel Cuello MD Work Phone: OB/Gynecology Comment on above: Received Outside [facility] Records Start: 01-31-2025 End: 04-02-2025 Follow-up encounter Yissel Cuello MD Work Phone: OB/Gynecology Start: 01-27-2025 End: 01-27-2025 ambulatory SELF Facility:[facility] Start: 01-05-2025 End: 01-05-2025 ambulatory CRIS LILLY Facility:[facility] Start: 01-02-2025 End: 01-02-2025 ambulatory CRIS LILLY Facility:[facility] Start: 12-30-2024 End: 12-30-2024 ambulatory YISSEL CUELLO Facility:[facility] Start: 12-02-2024 End: 12-02-2024 ambulatory KATIE JERNIGAN Facility:[facility] Start: 12-02-2024 End: 12-02-2024 Patient encounter procedure Yissel Cuello MD Work Phone: OB/Gynecology Comment on above: 20 weeks gestation o f (Primary Dx); Supervision of normal intrauterine in multigravida, unspecified trimester; Rh negative state in antepartum period Start: 12-02-2024 End: 12-02-2024 ambulatory [facility] Facility:[facility] Start: 12-02-2024 End: 12-02-2024 Patient encounter procedure [employer] [facility] Comment on above: Encounter for anatomic survey (Primary Dx); 20 weeks gestation of ; Multigravida of advanced maternal age in second trimester; Obesity affecting in second trimester, unspecified obesity type Start: 11-22-2024 End: 12-01-2024 Telephone encounter Katie Jernigan APRN.CNP Work Phone: OB/Gynecology Comment on above: Results Start: 11-22-2024 ambulatory KATIE DELON [facility] Start: 11-21-2024 End: 01-21-2025 Follow-up encounter Katie Jernigan APRN.PROCESS OWNER Work Phone: OB/Gynecology Comment on above: Results Start: 11-18-2024 End: 11-18-2024 ambulatory KATIE DELON Facility:[facility] Start: 11-18-2024 End: 11-18-2024 ambulatory SELF Facility:[facility] Start: 11-18-2024 End: 11-18-2024 Patient encounter procedure Katie Gómezf COLLEGE SPECIALIST.PROCESS OWNER Work Phone: OB/Gynecology Comment on above: Supervision [...] on above: Appointment Start: 11-15-2024 ambulatory KATIE [facility] Start: 04-27-2024 End: 04-27-2024 ambulatory [facility] Facility:[facility] Start: 04-27-2024 End: 04-27-2024 Patient encounter procedure Juan Villegas COLLEGE SPECIALIST.PROCESS OWNER Work Phone: OB/Gynecology Comment on above: Nexplanon removal (P rimary Dx) Start: 04-25-2024 End: 04-25-2024 Orders Only Juan Villegas COLLEGE SPECIALIST.PROCESS OWNER Work Phone: OB/Gynecology Comment on above: Nexplanon removal (P rimary Dx) Start: 04-12-2024 End: 04-12-2024 ambulatory [facility] Facility:[facility] Start: 04-12-2024 End: 04-12-2024 Patient encounter procedure Katie Delon COLLEGE SPECIALIST.PROCESS OWNER Work Phone: OB/Gynecology Comment on above: Nexplanon removal (P rimary Dx) Start: 03-18-2024 End: 03-18-2024 Subsequent hospital visit by physician [facility] Karena Work Phone: Radiology Comment on above: Dysphagia, unspecifi ed type [R13.10] Start: 03-18-2024 End: 03-18-2024 ambulatory BRIT MOOMAW Facility:[facility] Start: 03-18-2024 End: 03-18-2024 Patient encounter procedure Brit Moomaw COLLEGE SPECIALIST.PROCESS OWNER Work Phone: [facility] Comment on above: Dysphagia, unspecifi ed type (Primary Dx) Start: 12-02-2021 End: 12-06-2021 Outreach Lab SKYLAR PHILIP MD [facility] Start: 08-05-2021 End: 08-05-2021 Emergency department patient visit DOMINIQUE LONG MD [facility] Procedures Date Procedure Procedure Detail Performing Clinician Start: 04-14-2025 Antibody screen CHAYO HAWTHORNE Comment on above: Order Comment: Speci men Type: BLOOD SPECIMEN Ordering Facility: [facility] Address: [address] [place] [address] Result Comment: Adenike rubi has a previous clinically significant antibody Performed By: #### T SPN #### [facility] BLOOD BANK CLIA [id number] [place] Start: 04-07-2025 Urnls dip stick/tabl et rgnt non-auto w/o micrscp Cris Lilly MD Work Phone: Start: 03-31-2025 Urnls dip stick/tabl et rgnt non-auto w/o micrscp Rasheeda Heredia APRN.CNM Work Phone: Start: 03-22-2025 Us [...] Comment: Speci men Type: BLOOD SPECIMENOrdering Facility: [facility] Address: [address] [place] [address] Result Comment: Adenike rubi has a previous clinically significant antibody Performed By: #### T SPN ####[facility] BLOOD BANKCLIA [id number] [facility] [id number] [id number] [place] Start: 01-27-2025 H/O: section Previous section Yissel Cuello MD Work Phone: Start: 12-02-2024 Us preg uterus after 1st trimest 09/07 gestation Katie Rodriguezcalf COLLEGE SPECIALIST.PROCESS OWNER Work Phone: Start: 11-18-2024 Antibody screen KATIE HATFIELD Comment on above: Order Comment: Speci men Type: BLOOD SPECIMEN Ordering Facility: [facility] Address: [address] [place] [address] Performed By: #### T SPN #### [facility] CLIA [id number] [facility] [address] [place] Order Comment: Speci men Type: BLOOD SPECIMENOrdering Facility: [facility] Address: [address] [place] [address] Performed By: #### T SPN ####[facility] BLOOD BANKCLIA [id number] [facility] [address] Start: 03-18-2024 Radiologic examinati on neck soft tissue Brit Moyariw COLLEGE SPECIALIST.PROCESS OWNER Work Phone: Start: 09-07-2006 section ZAKI PHILIP [...] malignant neoplasm of cervix Cervical Cancer Screening [facility] Start: 05-08-2025 Influenza vaccination [facility] Start: 04-14-2025 INDUCTION L&D INDUCTION L&D Procedures Routine Gynecologic exam normal Expected: 04/14/2025 [facility] Work Phone: Comment on above: Expected: 04/14/2025 Start: 04-07-2025 End: 04-07-2025 Patient encounter procedure OB/Gynecology Comment on above: NST NST/OB sign inductio n NST/OB sign inductio n consent Start: 03-31-2025 End: 03-31-2025 Patient encounter procedure 03/31/2025 3:00 PM EDT Routine Office Visit OB/Gynecology [address] [place] [address] Rasheeda Heredia APRN.CNM [address] [place] [address] OB OB/Gynecology Comment on above: OB Start: 03-15-2025 End: 03-15-2025 Patient encounter procedure 03/15/2025 4:30 PM EDT Routine Office Visit OB/Gynecology [address] [place] [address] Rasheeda Heredia APRN.CNM [address] [place] [address] OB OB/Gynecology Comment on above: OB Start: 02-27-2025 End: 02-27-2025 Patient encounter procedure 02/27/2025 3:50 PM EDT Routine Office Visit OB/Gynecology [address] [place] [address] Sil Soto MD [address] [place] [address] OB OB/Gynecology Comment on above: OB Start: 02-20-2025 End: 02-20-2025 Patient encounter procedure 02/20/2025 3:00 PM EDT Routine Office Visit Maternal Medicine [address] [place] [address] Growth Maternal Medicine Comment on above: Growth Start: 02-20-2025 End: 05-22-2025 Creatinine and Glomerular filtration rate.predicted panel - Serum, Plasma or Blood [facility] Comment on above: Expected: 02/20/2025, Expires: Start: 02-20-2025 End: 05-22-2025 Hepatic function 2000 panel - Serum or Plasma [facility] Work Phone: Comment on above: Expected: 02/20/2025, Expires: Start: 02-20-2025 End: 05-22-2025 Protein/Creatinine [Mass Ratio] in Urine [facility] Comment on above: Expected: 02/20/2025, Expires: Start: 02-20-2025 End: 05-22-2025 Urate [Mass/volume] in Serum or Plasma [facility] Comment on above: Expected: 02/20/2025, Expires: Start: 02-17-2025 Nonstress test [facility] Start: 02-17-2025 Obstetric monitoring [facility] Start: 02-17-2025 Vital signs measurements [facility] Start: 02-17-2025 [facility] Start: 02-17-2025 Patient discharge [facility] Start: 02-13-2025 End: 02-13-2025 Patient encounter procedure 02/13/2025 3:50 PM EDT Routine Office Visit OB/Gynecology [address] [place] [address] Floridalma Torres MD [address] [place] [address] OB OB/Gynecology Comment on above: OB Start: 01-27-2025 End: 01-27-2025 ambulatory 01/27/2025 3:15 PM EDT Results Only [facility] [address] [place] [address] Glucose Test [facility] Comment on above: Glucose Test Start: 01-27-2025 End: 01-27-2025 Patient encounter procedure 01/27/2025 3:15 PM EDT Routine Office Visit OB/Gynecology [address] [place] [address] Rasheeda Heredia APRN.[facility] [address] [place] [address] OB OB/Gynecology Comment on above: OB Start: 2025 Screening for malignant neoplasm of breast Mammogram Screening [facility] Start: 12-30-2024 End: 12-30-2024 Patient encounter procedure 12/30/2024 3:40 PM EDT Routine Office Visit OB/Gynecology [address] [place] [address] Yissel Cuello MD [address] [place] [address] 4 week follow up OB/Gynecology Comment on above: 4 week follow up Start: 12-02-2024 End: 12-02-2024 Patient encounter procedure 12/02/2024 2:50 PM EDT Routine Office Visit OB/Gynecology [address] [place] [address] Yissel Cuello MD [address] [place] [address] Anatomy/OB OB/Gynecology Comment on above: Anatomy/OB Start: 12-02-2024 End: 12-02-2024 Patient encounter procedure Maternal Medicine Comment on above: Anatomy please have pt stop by desk pen set assembler to complete Authorization to Disclose Health Information, pt stated that its [facility] in [place] but its not, no information found, Anatomy Start: 11-18-2024 End: 02-17-2025 ANEMIA REFLEX PANEL [facility] Comment on above: Expected: 11/18/2024, Expires: Start: 11-18-2024 End: 02-17-2025 Hemoglobin A1c in Blood [facility] Comment on above: Expected: 11/18/2024, Expires: Start: 11-18-2024 End: 02-17-2025 Hepatitis B virus surface Ag [Presence] in Serum [facility] Comment on above: Expected: 11/18/2024, Expires: Start: 11-18-2024 End: 02-17-2025 Hepatitis C virus Ab [Presence] in Serum [facility] Comment on above: Expected: 11/18/2024, Expires: Start: 11-18-2024 End: 02-17-2025 HIV 1+2 Ab [Presence] in Serum or Plasma by Immunoassay [facility] Comment on above: Expected: 11/18/2024, Expires: Start: 11-18-2024 End: 11-18-2025 OBSTETRIC ULTRASOUND WHI OBSTETRIC ULTRASOUND WHI Anc Imaging Routine 18 weeks gestation of Expected: 11/18/2024, Expires: 11/18/2025 [facility] Comment on above: Expected: 11/18/2024, Expires: Start: 11-18-2024 End: 02-17-2025 RUBELLA IGG ANTIBODY [facility] Comment on above: Expected: 11/18/2024, Expires: Start: 11-18-2024 End: 02-17-2025 SYPHILIS TREPONEMAL W/REFLEX [facility] Comment on above: Expected: 11/18/2024, Expires: Start: 11-18-2024 End: 02-17-2025 TYPE + SCREEN [facility] Comment on above: Expected: 11/18/2024, Expires: Start: 05-08-2024 Covid-19 Vaccine ( season) Covid-19 Vaccine ( season) [facility] Start: 05-08-2024 Covid-19 Vaccine ( season) Covid-19 Vaccine ( season) [facility] Start: 05-08-2024 Influenza vaccination Influenza Vaccine (#1) [facility] Start: 05-02-2024 End: 05-02-2024 Patient encounter procedure 05/02/2024 3:05 PM EDT Office Visit Gastroenter[facility] [address] [id number] Airam Hubbard PA-C [address] [address] Dysphagia, unspecified type [R13.10] [facility] Comment on above: Dysphagia, unspecified type [R13.10] Start: 04-27-2024 End: 04-27-2024 Patient encounter procedure 04/27/2024 4:00 PM EDT Office Visit OB/Gynecology [address] [place] [address] Juan Villegas, COLLEGE SPECIALIST.PROCESS OWNER [address] [place] [address] Nexplanon removal [Z30.46] OB/Gynecology Comment on above: Nexplanon removal [Z30.46] Start: 04-12-2024 End: 04-12-2024 Patient encounter procedure 04/12/2024 10:30 AM EDT Office Visit OB/Gynecology [address] [place] [address] Katie Jernigan, COLLEGE SPECIALIST.PROCESS OWNER [address] [place] [address] discuss removing control implant- pt will need wirer street light OB/Gynecology Comment on above: discuss removing control implant- pt will need wirer street light Start: 09-07-2023 Behavioral Health Screening Behavioral Health Screening [facility] Start: 05-08-2023 Covid-19 Vaccine ( season) Covid-19 Vaccine ( season) [facility] Start: 2006 Screening for malignant neoplasm of cervix Cervical Cancer Screening [facility] Start: 01-26-2004 Hepatitis B Vaccine (1 of 3 - 19+ 3-dose series) Hepatitis B Vaccine (1 of 3 - 19+ 3-dose series) [facility] Start: 01-26-2004 Urine microalbumin profile DTaP,Tdap,Td Vaccine (1 - Tdap) [facility] Start: 2003 Anxiety Screening Anxiety Screening [facility] Start: 2003 Depression Screening Depression Screening [facility] Start: 2003 Hepatitis C screening Hepatitis C Screening [facility] Start: 2003 HIV screening HIV Screening [facility] Bacteria identified in Urine by Culture BACTERIAL CULTURE, URINE Microbiology Routine with uncertain dates in first trimester 11/18/2024 9:27 AM EDT [facility] BACTERIAL VAGINOSIS NAAT BACTERIAL VAGINOSIS NAAT Lab Routine Supervision of high risk in third trimester ([facility]) Vaginal discharge Ordered: 02/27/2025 [facility] Comment on above: Ordered: 02/27/2025 SANCHO/TRICHOMONAS NAAT SANCHO/TRICHOMONAS NAAT Lab Routine Supervision of high risk in third trimester ([facility]) Vaginal discharge Ordered: 02/27/2025 [facility] Work Phone: Comment on above: Ordered: 02/27/2025 Chlamydia trachomatis+Neisseria gonorrhoeae DNA [Presence] in Unspecified specimen by ALEXIS with probe detection GONORRHEA/CHLAMYDIA NAAT Lab Routine with uncertain dates in first trimester 11/18/2024 9:27 AM EDT [facility] nonstress test NON-S TRESS TEST Procedures Routine 37 weeks gestation of ([facility]) Supervision of high risk in third trimester ([facility]) Multigravida of advanced maternal age in third trimester ([facility]) Language barrier Maternal care for scar from previous delivery, unspecified scar type ([facility]) Ordered: 03/31/2025 [facility] Work Phone: Comment on above: Ordered: 03/31/2025 INDUCTION L&D INDUCTION L&D Pr ocedures Routine 37 weeks gestation of ([facility]) Supervision of high risk in third trimester ([facility]) Multigravida of advanced maternal age in third trimester ([facility]) Language barrier Maternal care for scar from previous delivery, unspecified scar type ([facility]) History of Ordered: 03/31/2025 [facility] Comment on above: Ordered: 03/31/2025 NEXPLANON REMOVAL NEXPLANON IRENE LIA Procedures Routine Nexplanon removal Ordered: 04/12/2024 [facility] Work Phone: Comment on above: Ordered: 04/12/2024 NEXPLANON REMOVAL NEXPLANON IRENE LIA Procedures Routine Nexplanon removal Ordered: 04/25/2024 [facility] Work Phone: Comment on above: Ordered: 04/25/2024 End: 05-29-2025 OBSTETRIC ULTRASOUND WHI OBSTETRIC ULTRASOUND WHI Anc Imaging Routine Multigravida of advanced maternal age in third trimester (HCC) Once per month for 3 Occurrences starting 02/13/2025 until 05/29/2025 [facility] Work Phone: Comment on above: Once per month for 3 Occurrences startin g 02/13/2025 until 05/29/2025 PAP TEST PAP TEST Lab Dean felder Screening for cervical cancer Special screening examination for human papillomavirus (HPV) 11/18/2024 9:27 AM EDT [facility] POC DEPENDENCY DIRECTOR ULTRASOUND POC DEPENDENCY DIRECTOR ULTRASO UND Anc Imaging Routine with uncertain dates in first trimester Ordered: 11/18/2024 [facility] Work Phone: Comment on above: Ordered: 11/18/2024 ROUTINE, GROUP B STREPTOCOCCUS BY PCR ROUTINE, GROUP B STREPTOCOCCUS BY PCR Microbiology Routine Supervision of high risk in third trimester (HCC) 03/22/2025 10:57 AM EDT [facility] Work Phone: TRICHOMONAS VAGINALI S NAAT TRICHOMONAS VAGINALIS NAAT Lab Routine Screening for STDs (sexually transmitted diseases) 11/18/2024 9:27 AM EDT [facility] Immunizations Immunization Date Immunization Notes Care Provider Blake rivera 01-27-2025 RHO(D) immune globul in- IV or IM Yissel Cuello MD Work Phone: [facility] Payers Date Payer Category Payer Self-pay [id number] 1985 Unknown [id number] 1985 Unknown [id number] [id number] Unknown [id number] Social History Date Type Detail Facility Never smoker [facility] Start: 1985 Sex Assigned At Female A [facility] Start: 12-02-2021 End: 04-27-2024 Tobacco smoking status Never smoked tobacco (finding) [facility] Sex Assigned At [facility] Tobacco smoking stat us NEIS Tobacco smoking consumption unknown [facility] Start: 1985 Sex Assigned At Not on file C [facility] Start: 04-12-2024 End: 01-02-2025 Gender identity Not on file [facility] Start: 04-12-2024 End: 01-02-2025 History of Social function [facility] National Score (1-100), lower number is lower risk 43 [facility] Start: 04-27-2024 Tobacco use and exposure Smokeless tobacco non-user [facility] Start: 04-27-2024 End: 04-07-2025 Alcoholic beverage intake Ex-drinker (finding) [facility] Start: 04-27-2024 Alcohol [facility] Start: 07-25-2024 [facility] Start: 11-25-2014 Sex Female (finding) [facility] Clinical Notes 08-05-2021 to 04-17-2025 Cris Lilly MD - 04/07/2025 4:50 PM EDTPrenatal Quick Notes - Cris Lilly MD - 04/07/2025 4:49 PM EDTPrenatal Quick Notes - Cris Lilly MD - 04/07/2025 4:49 PM EDT Note Date & Type Note Facility 04-17-2025 Note HNO ID: [id number] Author: CRIS BARTON LPN Service: ? Author Type: LICENSED NURSE Type: Nursing Progress Note Filed: 04/17/2025 14:49 Note Text: Pt discharged home with in arms via w/c, accompanied by s/o [facility] 04-16-2025 Note HNO ID: [id number] Author: JAMARI JUSTICE MD Service: Obstetrics Author [...] discussed with the Patient or Patient's Authorized Logging Operations Inspector. As applicable, any other physician, advance practice provider, medical student, or other health professional student that will be observing or involved in the sensitive examination for educational or training purposes was discussed with the Patient or Authorized Logging Operations Inspector. The Patient or Authorized Logging Operations Inspector has agreed to proceed with the sensitive examination. (Sensitive examination includes inspection and/or palpation of the breasts, pelvis, prostate and anorectal regions) Diagnostic tests were reviewed for today's visit SIGNATURE: Jamari Justice MD PATIENT NAME: Shaila Fraga DATE: April 16, 2025 TIME: 7:48 AM [facility] 04-15-2025 Note HNO ID: [id number] Author: MAXX MACIEL MD Service: Obstetrics Author Type: Physician Type: Progress Notes Filed: 04/15/2025 20:48 Note Text: OBSTETRICS PROGRESS NOTE PATIENT'S NAME: Shaila Fraga MEDICAL RECORDS NUMBER: [id number] PHYSICIAN: Maxx Maciel MD SERVICE DATE: April [...] today, but the time of this documentation. [facility] 04-15-2025 Note HNO ID: [id number] Author: ZEUS ZHOU APRN.CRNA Service: Anesthesiology Author Type: Nurse Car Pick Up Driver Type: Progress Notes Filed: 04/15/2025 09:57 Note Text: No problems or issues with anesthesia [facility] 04-15-2025 Note HNO ID: [id number] Author: NOTE, INTERFACE, ? Service: ? Author Type: ? Type: Progress Notes Filed: 04/15/2025 15:52 Note Text: Epic Scheduled Downtime: 04/15/2025 1:00:00 AM to 04/15/2025 2:17:00 AM [facility] 04-14-2025 Note HNO ID: [id number] Author: JOSH YUN DO Service: Anesthesiology Author Type: Nurse Car Pick Up Driver Type: Anesthesia Procedure Notes Filed: 04/17/2025 10:09 [...] procedure: OR Timeout Performed Pre-procedure: timeout performed (Underwriting Manager Tianna [phone]) Reason for Block: primary surgical anesthetic Staffing SUPERVISOR ANODIZING: Pennie Fountain APRN.SUPERVISOR ANODIZING Performed by: SUPERVISOR ANODIZING Preparation Sterility Preparation: hand hygiene performed prior [...] clear Assessment Events: tolerated well Comments LOT [id number] EXP 10-07-2025 2 attempts. 1st attempt failed with bent needle. Removed intact with introducer. 2nd attempt easily placed without introducer with 3.5 inch 22g SIGNATURE: Pennie Fountain APRN.SUPERVISOR ANODIZING PATIENT NAME: Shaila Fraga DATE: April 14, 2025 TIME: 10:55 PM CSN: [id number] [facility] 04-14-2025 Note HNO ID: [id number] Author: CHAYO HAWTHORNE MD Service: Obstetrics Author [...] the consent for C/S R/B/A discuss with emirati interpretor ( ) [facility] 04-14-2025 Note HNO ID: [id number] Author: CHAYO HAWTHORNE MD Service: Obstetrics Author [...] adequate Previous 2 x successfully Continue IOL [facility] 04-14-2025 Note HNO ID: [id number] Author: CHAYO HAWTHORNE MD Service: Obstetrics Author Type: Physician Type: Progress Notes Filed: 04/14/2025 10:56 Note Text: CRB placed around 1030 am PE the same FT posterior No uterine ctx Cat I tracing Will start low dose of pitocin also [facility] 04-07-2025 Note HNO ID: [id number] Author: CRIS LILLY MD Service: ? Author Type: Physician Type: Progress Notes Filed: 04/07/2025 16:51 Note Text: NST SUMMARY PROVIDER ASSESSMENT AND INTERPRETATION Indications for NST: AMA Baseline: 140 Variability: Moderate Accelerations: Present 15 X 15 Decelerations: None Interpretation: Reactive SIGNATURE: Cris Lilly MD [facility] 04-07-2025 History of Presen t illness Narrative NST SUMMARY PROVIDER ASSESSMENT AND INTERPRETATION Indications for NST: AMA Baseline: 140 Variability: Moderate Accelerations: Present 15 X 15 Decelerations: None Interpretation: Reactive SIGNATURE: Cris Lilly MD documented in this encounter [facility] 04-07-2025 Progress note Formatting of t [...] for Induction and Scheduled for 04/14 at [facility] of successful x 2 Chance of success 83 % Reactive NST ASSESSMENT/PLAN: 1. 38 weeks gestation of ([facility]) - ICD9: V22.2, ICD10: Z3A.38 (primary diagnosis) - URINE OB DIP B/O 2. Supervision of high risk in third trimester ([facility]) - ICD9: V23.9, ICD10: O09.93 - URINE OB DIP B/O 3. Multigravida of advanced maternal age in third trimester ([facility]) - ICD9: 659.63, ICD10: O09.523 - URINE OB DIP B/O 4. Language barrier - ICD9: V49.89, ICD10: Z60.3, Z75.8 Interpretor present - URINE OB DIP B/O 5. Maternal care for scar from previous delivery, unspecified scar type ([facility]) - ICD9: 654.20, ICD10: O34.219 - URINE OB DIP B/O Cris Lilly MD [facility] 04-07-2025 Miscellaneous Notes S: Shaila Fraga [...] for Induction and Scheduled for 04/14 at [facility] of successful x 2 Chance of success 83 % Reactive NST ASSESSMENT/PLAN: 1. 38 weeks gestation of ([facility]) - ICD9: V22.2, ICD10: Z3A.38 (primary diagnosis) - URINE OB DIP B/O 2. Supervision of high risk in third trimester ([facility]) - ICD9: V23.9, ICD10: O09.93 - URINE OB DIP B/O 3. Multigravida of advanced maternal age in third trimester ([facility]) - ICD9: 659.63, ICD10: O09.523 - URINE OB DIP B/O 4. Language barrier - ICD9: V49.89, ICD10: Z60.3, Z75.8 Interpretor present - URINE OB DIP B/O 5. Maternal care for scar from previous delivery, unspecified scar type ([facility]) - ICD9: 654.20, ICD10: O34.219 - URINE OB DIP B/O Cris Lilly MD documented in this encounter [facility] 04-07-2025 Instructions Ruiz Stoll LPN - 04/07/2025 3:18 PM EDT SEQUENTIAL SCREENINGS The [facility] offers sequential screenings for women who [...] It will require an appointment with our airframe technician. This is not an ultrasound performed [...] the above symptoms, contact our office at [phone] and ask to speak with a nurse. After hours, you can call doctors registry at [phone] OR call [facility] at [phone] and ask to have the doctor front office specialist paged. If you consider this an emergency, dial or go to your nearest emergency department. NEED HELP? Are you dealing with a violent or abusive relationship? Are you a victim of rape or sexual assult? Call [facility] ([place]) 24 hour Crisis Hotline: 197.133.1194 or 404-875-5857. MANUAL Your Guide to a Healthy manual is now on-line. Visit [email or web address] to download your free copy documented in this encounter [facility] 04-03-2025 Telephone encounter Note Spoke with pt and informed of induction, location, time, date and parking instructions. [facility] 04-03-2025 Miscellaneous Notes Spoke with pt and informed of induction, location, time, date and parking instructions. Received call back from [facility]. Patient is now scheduled for induction on Thursday04/14/25 at 7:30am at [facility]. Park in parking deck and go in main door. Red coats should be at entrance to help, but just follow OB ED signs and it will take her to the 2nd floor Maternity unit. Verena Yepez RN Called [facility] L&D - they will review her chart [...] Rasheeda Heredia APRN.CNM Pt [facility] Center, [facility] L&D for delivery on 04/14/25. Pt will be 39w4d. Provider (CP) to place induction order. This RN contacted [facility] L&D to double check the procedure location. [...] not wish to schedule OB visits at [facility]) Candace Horta RN documented in this encounter [facility] 04-03-2025 Telephone encounter Note Received call back from [facility]. Patient is now scheduled for induction on Thursday04/14/25 at 7:30am at [facility]. Park in parking deck and go in main door. Red coats should be at entrance to help, but just follow OB ED signs and it will take her to the 2nd floor Maternity unit. Verena Yepez RN [facility] 04-03-2025 Telephone encounter Note Called [facility] L&D - they will review her chart and call back if induction is accepted. Induction to be scheduled 04/14/25 at 7:30am if she is approved. Will wait for their return call. Verena Yepez RN T [facility] 03-31-2025 Telephone encounter Note Images from the original note were not included. Message Received: Today Rasheeda Heredia APRN.CNM Griffin, Tara, RN INDUCTION ORDERS PLACED- PATIENT NEEDS NOTIFIED OF DATE AND TIME. Rasheeda Heredia APRN.CNM [facility] 03-31-2025 Telephone encounter Note Pt desires Induction at [facility], [facility] L&D for delivery on 04/14/25. Pt will be 39w4d. Provider (CP) to place induction order. This RN contacted [facility] L&D to double check the procedure location. [...] not wish to schedule OB visits at [facility]) Candace Horta RN [facility] 03-31-2025 Progress note Formatting of t [...] induction of labor but requesting induction at [facility] in [place]. Will help to facilitate scheduling of induction. Verbal consent for CE today. O: See flow sheet Gen: No apparent distress Abd: Gravid, nontender CE - FT/ thick/ posterior ASSESSMENT/PLAN: 1. 37 weeks gestation of (FORMERLY [facility]) - ICD9: V22.2, ICD10: Z3A.37 (primary diagnosis) [...] however, would like to be inducted at [facility]- will assist with scheduling - Order for induction placed - Will need to return next week for NST/ MINESH- Unsure if signed TOLAC consent?? Rasheeda Heredia APRN.CNM [facility] 03-31-2025 Miscellaneous Notes Patient's daughter present [...] induction of labor but requesting induction at [facility] in [place]. Will help to facilitate scheduling of induction. Verbal consent for CE today. O: See flow sheet Gen: No apparent distress Abd: Gravid, nontender CE - FT/ thick/ posterior ASSESSMENT/PLAN: 1. 37 weeks gestation of (FORMERLY [facility]) - ICD9: V22.2, ICD10: Z3A.37 (primary diagnosis) [...] however, would like to be inducted at [facility]- will assist with scheduling - Order for induction placed - Will need to return next week for NST/ MINESH- Unsure if signed TOLAC consent?? Rasheeda Heredia APRN.CNM documented in this encounter [facility] 03-31-2025 Instructions Pennie De La Rosa MA - 03/31/2025 3:00 PM EDT SEQUENTIAL SCREENINGS The [facility] offers sequential screenings for women who [...] It will require an appointment with our airframe technician. This is not an ultrasound performed [...] the above symptoms, contact our office at [phone] and ask to speak with a nurse. After hours, you can call [facility] at [phone] OR call [facility] at [phone] and ask to have the doctor front office specialist paged. If you consider this an emergency, dial 7-1-8 or go to your nearest emergency department. NEED HELP? Are you dealing with a violent or abusive relationship? Are you a victim of rape or sexual assult? Call [facility] 24 hour Crisis Hotline: 222.950.6483 or 866-851-6205. MANUAL Your Guide to a Healthy manual is now on-line. Visit [email or web address] ancyGuide to download your free copy documented in this encounter [facility] 03-22-2025 Note Indication Evaluation of growth, [...] 5 oz EFW by: Hadlock (HC-AC-FL) Extended Sausage Grinder 7.7 mm Extremities / Bony Struc FL [...] M.D. [facility]ER[facility] 03-22-2025 Note HNO ID: [id number] Author: FLORIDALMA TORRES MD Service: ? Author [...] I and Reactive SIGNATURE: Floridalma Cartwright MD [facility] 03-22-2025 History of Presen t illness [...] Floridalma Cartwright MD documented in this encounter [facility] 03-22-2025 Progress note Formatting of t [...] was discussed with the patient or authorized banking representative. The patient or authorized banking representative has agreed to proceed with the sensitive examination. @ 36.2 weeks Assessment & Plan Supervision of high risk in third trimester ([facility]LY [facility]) Orders: URINE OB DIP B/O ROUTINE, GROUP B STREPTOCOCCUS BY PCR Multigravida of advanced maternal age in third trimester ([facility]LY [facility]) Orders: URINE OB DIP B/O Previous section [...] URINE OB DIP B/O Floridalma Cartwright MD [facility] 03-22-2025 Miscellaneous Notes DM-Pt doing well. Denies vaginal Bleeding, Leaking fluid, or regular Contractions. Pt reports good movement Physical Exam: Gen: female in no apparent distress Abd: soft, Gravid. Non tender to palpation. See flow sheet Participation of a fellow, resident, medical student, or advanced practice provider student in performing the sensitive examination was discussed with the patient or authorized banking representative. The patient or authorized banking representative has agreed to proceed with the sensitive examination. @ 36.2 weeks Assessment & Plan Supervision of high risk in third trimester ([facility]) Orders: URINE OB DIP B/O ROUTINE, GROUP B STREPTOCOCCUS BY PCR Multigravida of advanced maternal age in third trimester ([facility]) Orders: URINE OB DIP B/O Previous section Planning TOLAC (had previous tolac ?? Scar) Orders: URINE OB DIP B/O Obesity in ([facility]) Growth us today Orders: URINE OB DIP B/O Language barrier BV (bacterial vaginosis) Orders: metroNIDAZOLE (FLAGYL) 500 mg tablet; Take 1 tablet by mouth two times a day for 7 days. Yeast vaginitis Treated with monistat cream 36 weeks gestation of ([facility]) Limited bedside ultrasound confirm Vertex Orders: URINE OB DIP B/O Floridalma Cartwright MD documented in this encounter [facility] 03-22-2025 Instructions Valentina Dillon MA - 03/22/2025 10:28 AM EDT SEQUENTIAL SCREENINGS The [facility] offers sequential screenings for women who [...] It will require an appointment with our airframe technician. This is not an ultrasound performed [...] the above symptoms, contact our office at [phone] and ask to speak with a nurse. After hours, you can call doctors registry at [phone] OR call [facility] at [phone] and ask to have the doctor front office specialist paged. If you consider this an emergency, dial 9-1-0 or go to your nearest emergency department. NEED HELP? Are you dealing with a violent or abusive relationship? Are you a victim of rape or sexual assult? Call [facility] ([place]) 24 hour Crisis Hotline: 923.820.9965 or 274-373-7973. MANUAL Your Guide to a Healthy manual is now on-line. Visit [email or web address] ancyGuide to download your free copy documented in this encounter [facility] 02-27-2025 Progress note Formatting of t his note might be different from the original. RR- VB No. LOF No. CTXS No. Movement: present. Other c/o: occas swelling Medication list reviewed. Participation of a fellow, resident, medical student, or advanced practice provider student in performing the sensitive examination was discussed with the patient or authorized banking representative. The patient or authorized banking representative has agreed to proceed with the sensitive examination. Physical Exam See Flow Sheet Abd: soft, nontender, gravid Ext: edema: Trace , 2+ DTrs, no clonus gis database administrator- erythema of external genitalia, thick white adherent discharge. A/P 33w0d Estimated Date of Delivery: 04/17/25 Assessment & Plan Supervision of high risk in third trimester ([facility]) Orders: SANCHO/TRICHOMONAS NAAT BACTERIAL VAGINOSIS NAAT Multigravida of advanced maternal age in third trimester ([facility]) growth scan ordered Previous section 2 tolacs, plans tolac Obesity in ([facility]) growth scans ordered 33 weeks gestation of ([facility]) Encounter for other general counseling or advice on contraception d/w her if emergency or other indicated c/s would she like to have tubal and she declines, plans nexplanon Vaginal discharge suspect yeast. Rx sent while swabs pending Orders: SANCHO/TRICHOMONAS NAAT BACTERIAL VAGINOSIS NAAT Sil Soto M.D. [facility] 02-27-2025 Miscellaneous Notes RR- VB No. LOF No. CTXS No. Movement: present. Other c/o: occas swelling Medication list reviewed. Participation of a fellow, resident, medical student, or advanced practice provider student in performing the sensitive examination was discussed with the patient or authorized banking representative. The patient or authorized banking representative has agreed to proceed with the sensitive examination. Physical Exam See Flow Sheet Abd: soft, nontender, gravid Ext: edema: Trace , 2+ DTrs, no clonus gis database administrator- erythema of external genitalia, thick white adherent discharge. A/P 33w0d Estimated Date of Delivery: 04/17/25 Assessment & Plan Supervision of high risk in third trimester (HCC) Orders: SANCHO/TRICHOMONAS NAAT BACTERIAL VAGINOSIS NAAT Multigravida of advanced maternal age in third trimester ([facility]) growth scan ordered Previous section 2 tolacs, plans tolac Obesity in ([facility]) growth scans ordered 33 weeks gestation of ([facility]) Encounter for other general counseling or advice on contraception d/w her if emergency or other indicated c/s would she like to have tubal and she declines, plans nexplanon Vaginal discharge suspect yeast. Rx sent while swabs pending Orders: SANCHO/TRICHOMONAS NAAT BACTERIAL VAGINOSIS NAAT Sil Soto M.D. documented in this encounter [facility] 02-21-2025 Note Indication Evaluation of growth [...] 10 oz EFW by: Hadlock (HC-AC-FL) Extended Sausage Grinder 5.9 mm Extremities / Bony Struc FL [...] M.D. [facility] 02-20-2025 Note HNO ID: [id number] Author: SHAWN LOCKE MD Service: ? Author [...] - RTO 1 wk Shawn Locke DO [facility] 02-20-2025 History of Presen t illness [...] Shawn Locke DO documented in this encounter [facility] 02-20-2025 Instructions Pennie De La Rosa MA - 02/20/2025 3:34 PM EDT SEQUENTIAL SCREENINGS The [facility] offers sequential screenings for women who [...] It will require an appointment with our airframe technician. This is not an ultrasound performed [...] the above symptoms, contact our office at [phone] and ask to speak with a nurse. After hours, you can call doctors registry at [phone] OR call [facility] at [phone] and ask to have the doctor front office specialist paged. If you consider this an emergency, dial [phone]- or go to your nearest emergency department. NEED HELP? Are you dealing with a violent or abusive relationship? Are you a victim of rape or sexual assult? Call [facility] ([place]) 24 hour Crisis Hotline: 724.475.9166 or 708-242-3181. MANUAL Your Guide to a Healthy manual is now on-line. Visit [email or web address] ancyGuide to download your free copy documented in this encounter [facility] 02-17-2025 Telephone encounter Note Patients mother called and notified and have patient go to L&D. L&D called and notified. Updated H&P faxed. Isela Moran RN [facility] 02-17-2025 Miscellaneous Notes Patients mother called [...] mother and mother unsure which ER. [facility] since patient lives in [place]. ER report is available. BPs 170/107 and 170/110 noted in the charting. No openings with any providers. Please advise where patient can be added. Patient speaks [place] African. Mother states that we can call her to schedule: [phone] Cris Lucero RN documented in this encounter [facility] 02-17-2025 Telephone encounter Note Please send patient to L&D for monitoring. I would like serial blood pressures, labs, and observation due to elevated BP in ED. Thank you, Luana Whaley APRN.CNM [facility] Work Phone: 02-17-2025 Telephone encounter Note 31w4d Patient's mother called. States patient went to ER last night for an ear infection and was instructed to be seen in our office today for elevated BP. Patient was not with mother and mother unsure which ER. Updated [facility] for [facility] since patient lives in [place]. ER report is available. BPs 170/107 and 170/110 noted in the charting. No openings with any providers. Please advise where patient can be added. Patient speaks Central African. Mother states that we can call her to schedule: [phone] Cris Lucero, RN [facility] 02-17-2025 Hospital Discharg e instructions Patient [...] crackers, bananas, Jell-O, cooked carrots, applesauce. ___ [place] diet. Avoid caffeine, chocolate, alcohol, spiced/greasy foods. [...] the nearest Emergency Room for assistance. Form 844006 D: 08/15 Document Released: 08/24/2006 Document Revised: 08/12/2012 Document Reviewed: 08/24/2006 ExitCare Patient Information 2012 Asterisk. Follow Up Care 02/16/2025 23:56:37 With:SIL SOTO MD Address: [facility] [address] [place] [address] [place] [address] When:02/17/2025 Comments:[facility] for same day appt for f/u [facility] 02-17-2025 Nurse Progress note [place] speaking [facility] initially in [facility] ED with c/o severe R ear pain. Sent here from ER after ear evaluation and noted elevated b/p's. SO with pt, he is fluent in Greek, Iris ergonomic specialist also utilized for triage admission. , states [...] stay. Temp prior to d/c: 100.0F (37.7). [facility] labs completed with results given to Dr. Philip. Prior to d/c, Dr. Philip spoke with OB provider at [facility]. Pt is to call her [facility] OB provider this morning for same day appt for f/u, pt and SO state understanding to this and all d/c instructions prior to leaving. Digitally Signed by Maria Teresa Price RN on 02/17/2025 03:41 AM [facility] 02-17-2025 Note Date of Service 02-17-25 OB provider DANIELLE Thurston 40 yo @31.2 presented to [facility] for ear pain. Dx w otitis media [...] shift cw ear infection. I called her front office specialist radio equipment installer Dr Evelin Garcia who states patient can be discharged and seen in office tomorrow. Patient to call for appt in the morning. Digitally Signed by SKYLAR PHILIP MD on 02/17/2025 03:04 AM [facility] 02-17-2025 Hospital Discharg e instructions Patient Education [...] the first few days. You may use oojz-vsf-ogugjkj medicine, such as acetaminophen or ibuprofen, to [...] F (38 C) or as advised [employer] [id number] [employer]. [address] [place] [address]71. All rights reserved. This information is not [...] Dry your ears with a towel or chair mechanic after getting wet. Also, use ear plugs [...] as directed by your healthcare provider [employer] [id number] [employer]. [address] [place] [address], [place] [id number]. All rights reserved. This information is not intended as a substitute for professional medical care. Always follow your healthcare professional's instructions. Follow Up Care 02/16/2025 23:09:00 With:your apartment groundskeeper Address: When:2-4 days With:Go to emergency room if symptoms worsen Address:Unknown When:2-4 days With:Follow up with primary care provider Address:Unknown When:2-4 days [facility] 02-16-2025 Note Discharge Instructions Thank you for allowing [facility] to assist you with your healthcare needs. [...] and rule out preeclampsia. Follow-up with your EMAIL DESIGNER. Return emergency department if you have worsening symptoms or any other care concern. No qualifying data available. Post Acute Orders No qualifying data available. You Need to Schedule the Following Appointments Follow Up with your apartment groundskeeper When:Within 2-4 days Follow Up with Go [...] the first few days. You may use gksa-wob-udtiwro medicine, such as acetaminophen or ibuprofen, to [...] F (38 C) or as advised [employer]ure [id number] [employer]. [address] [place] [address]. All rights reserved. This information is not [...] Dry your ears with a towel or chair mechanic after getting wet. Also, use ear plugs [...] as directed by your healthcare provider [employer] [id number] [employer]. [address] [place] [address]. All rights reserved. This information is not intended as a substitute for professional medical care. Always follow your healthcare professional's instructions. Additional Information VACCINATE! IT SAVES LIVES! Members of the community who have not yet received the COVID-19 vaccine and would like to receive it can visit one of [facility] vaccine clinics. There are many vaccine clinic locations within the [facility]. For locations and available times, please visit [email or web address] [email or web address] It is important to note that some COVID mobile vaccine clinics are held outdoors and may be canceled in rainy or stormy conditions. To learn more about pediatric vaccinations (ages 5-11), we invite you to visit the [facility] webpage. [email or web address].[email or web address]/p [email or web address]-Dnkki-Eutpiqmexqx-Freq vcywjw-Ywrvp-Dzfttjmvt.html To learn more about the COVID-19 vaccine, we invite you to visit the CDC website for a list of frequently asked questions. https://www.cdc.gov/coronavirus/ 2019-ncov/vaccines/faq.html [facility] Patient Portal Access Instructions: Stay connected with your healthcare team and access your personal medical information anytime with the [facility] Patient Portal. If you would like a full copy of your medical records please contact the [facility] Medical Records Department Thursday through Thursday between 8a.m. and 4:30p.m. Please follow the directions below to access the portal: 1.Access the email account you provided upon registration to the [facility].2.Look for an invitation email from [facility].3.Open the email and access the invitation link: Accept Invitation to [facility]4.Fill in the required hu to create your account. Sign into [email or web address] with your username and password that you [...] you will allow to register on the [facility] Patient Portal for access to your information. You can also access the [facility] Patient Portal on the Informative. Simply click on Health Records under Health Data and then click on the [employer] logo. HOW TO SAFELY DISPOSE OF PRESCRIPTION [...] Call your local pharmacy or go to [email or web address].[email or web address] Network/8N1Pu8o to find one close to you.3.Make use of household items: Use cat litter or old coffee grounds to dispose medications if other options are not available. Mix your drugs with these household products, seal them in an airtight container and throw it into the garbage. Call [facility]: [phone] to be sure your drugs can be [...] aware that I should contact my doctor. Patient/Logging Operations Inspector Signature: Date/Time: Relationship to Patient: Witness Name/Signature: Date/Time: [facility] 02-13-2025 Progress note Formatting of t his [...] see that it was completed) Obesity in ([facility]) Will need NSTs 36 weeks 31 weeks gestation of ([facility]) Gustavo peralta reviewed Floridalma Cartwright MD [facility] 02-13-2025 Miscellaneous Notes DM-Pt doing well. Denies vaginal Bleeding, Leaking fluid, or regular Contractions. Pt reports good movement Physical Exam: Gen: female in no apparent distress Abd: soft, Gravid. Non tender to palpation. See flow sheet @ 31 weeks Assessment & Plan Supervision of high risk in third trimester ([facility]) Multigravida of advanced maternal age in third trimester ([facility]) Growth us starting 32 weeks NSTs 36 [...] NSTs 36 weeks 31 weeks gestation of ([facility]) Gustavo peralta reviewed Floridalma Cartwright MD documented in this encounter [facility] 02-13-2025 Instructions Valentina Dillon MA - 02/13/2025 3:42 PM EDT SEQUENTIAL SCREENINGS The [facility] offers sequential screenings for women who [...] It will require an appointment with our airframe technician. This is not an ultrasound performed [...] the above symptoms, contact our office at [phone] and ask to speak with a nurse. After hours, you can call doctors registry at [phone] OR call [facility] at [phone] and ask to have the doctor front office specialist paged. If you consider this an emergency, dial 1-3-8 or go to your nearest emergency department. NEED HELP? Are you dealing with a violent or abusive relationship? Are you a victim of rape or sexual assult? Call [facility] 24 hour Crisis Hotline: 743.180.8497 or 340-454-1655. MANUAL Your Guide to a Healthy manual is now on-line. Visit [email or web address] ancyGuide to download your free copy documented in this encounter [facility] 02-08-2025 Telephone encounter Note Medical records received from [facility] 2014. Appears that operative delivery report was not included-not asked for. I called [facility] medical records ([facility] Records Release) [phone] and have requested for them to send records. Next appointment 02/[address] Jaramillo. Records to DM for review since next appointment with her and MIR out of office [facility] 02-08-2025 Miscellaneous Notes Medical records received from [facility] 2014. Appears that operative delivery report was not included-not asked for. I called [facility] medical records ([facility] Records Release) [phone] and have requested for them to send records. Next appointment 02/[address] Jaramillo. Records to DM for review since next appointment with her and MIR out of office documented in this encounter [facility] 01-27-2025 Note HNO ID: [id number] Author: RASHEEDA HEREDIA APRN.CNM Service: ? Author Type: Reservation Manager Type: Progress Notes Filed: 01/27/2025 19:05 Note Text: Shaila Fraga 40 year old is here for her injection of Rhophylac. Shaila Fraga Antibody Screen (no units) Date Value 11/18/2024 Negative Shaila Fraga is RH Negative Rhophylac was given without incident. See immunizations for details of immunizations administered today. Provider Rasheeda Heredia CNM was present in office at time of injection Shaila Fraga was given her Rhophylac pocket card. Cris Lucero RN [facility] 01-27-2025 Note HNO ID: [id number] Author: RASHEEDA HEREDIA APRN.CNM Service: ? Author Type: Reservation Manager Type: Progress Notes Filed: 01/27/2025 19:05 Note Text: . [facility] 12-02-2024 Progress note Formatting of t his note might be different from the original. KJ - S: Shaila denies LOF, contractions or vaginal bleeding. O: 20w4d, see flow sheet SENSITIVE EXAM: The sensitive examination was discussed with the Patient or Patient's Authorized Logging Operations Inspector. As applicable, any other physician, advance practice provider, medical student, or other health professional student that will be observing or involved in the sensitive examination for educational or training purposes was discussed with the Patient or Authorized Logging Operations Inspector. The Patient or Authorized Logging Operations Inspector has agreed to proceed with the sensitive examination. (Sensitive examination includes inspection and/or palpation of the breasts, pelvis, prostate and anorectal regions). A/P: Assessment & Plan 20 weeks gestation of (HCC) Supervision of normal intrauterine in multigravida, unspecified trimester (HCC) Rh negative state in antepartum period ([facility]) Anatomy today Yissel Cuello MD [facility] 12-02-2024 Miscellaneous Notes KJ - S: Shaila denies LOF, contractions or vaginal bleeding. O: 20w4d, see flow sheet SENSITIVE EXAM: The sensitive examination was discussed with the Patient or Patient's Authorized Logging Operations Inspector. As applicable, any other physician, advance practice provider, medical student, or other health professional student that will be observing or involved in the sensitive examination for educational or training purposes was discussed with the Patient or Authorized Logging Operations Inspector. The Patient or Authorized Logging Operations Inspector has agreed to proceed with the sensitive examination. (Sensitive examination includes inspection and/or palpation of the breasts, pelvis, prostate and anorectal regions). A/P: Assessment & Plan 20 weeks gestation of (HCC) Supervision of normal intrauterine in multigravida, unspecified trimester (HCC) Rh negative state in antepartum period ([facility]) Anatomy today Yissel Cuello MD documented in this encounter [facility] 12-02-2024 Instructions Gema Thompson LPN - 12/02/2024 2:46 PM EDT SEQUENTIAL SCREENINGS The [facility] offers sequential screenings for women who [...] It will require an appointment with our airframe technician. This is not an ultrasound performed [...] the above symptoms, contact our office at [phone] and ask to speak with a nurse. After hours, you can call doctors registry at [phone] OR call [facility] at [phone] and ask to have the doctor front office specialist paged. If you consider this an emergency, dial 9--1 or go to your nearest emergency department. NEED HELP? Are you dealing with a violent or abusive relationship? Are you a victim of rape or sexual assult? Call [facility] ([place]) 24 hour Crisis Hotline: 237.869.1218 or 530-487-6864. MANUAL Your Guide to a Healthy manual is now on-line. Visit [email or web address] to download your free copy documented in this encounter [facility] 12-01-2024 Telephone encounter Note Patient called back with emirati interpretor and was told about UTI. Demographics updated . Unable to activate MyChart due to no SSN, but [place] Interpretor was able to give her a phone number to call to talk to MyCHart specialist to help. Patient also given [place] appointment line phone number [phone] option 7 for emirati [facility] 12-01-2024 Miscellaneous Notes Patient called back with emirati interpretor and was told about UTI. Demographics updated . Unable to activate MyChart due to no SSN, but [place] Interpretor was able to give her a phone number to call to talk to MyCHart specialist to help. Patient also given [place] appointment line phone number [phone] option 7 for emirati I called Sean at [facility] in [place].Patient has not picked up RX yet . FYI Attempted to call patient at phone number listed with the help of Central African interpretor ([phone]) and person answering stated she no longer was available at that number . I asked her if she knew Shaila and she said she did. I asked her to have Shaila call our office. the person answering did provide a new phone number for patient ([phone])and I did update that phone number. After 2 attempts same message received that voicemailbox had not been set up. Unable to leave message Attempted to call patient with meat soaker. Phones goes straight to voicemail. Unable to leave message because voicemail has not been set up. Next appt is 12/02. Letter sent. Verena Yepez RN Tried reaching Pt with wirer street light assistance x2 and unable to leave a message as Pt has a voicemail box that has not been set up yet. Mychart status is pending. Candace Horta RN Katie Jernigan APRN.MODE 11/22/24 3:28 PM +UTI, Keflex sent. Katie Jernigan APRN.MODE documented in this encounter [facility] 11-30-2024 Telephone encounter Note I called Sean at [facility] in [place].Patient has not picked up RX yet . FYI [facility] 11-28-2024 Telephone encounter Note Attempted to call patient at phone number listed with the help of [place] interpretor ([phone]) and person answering stated she no longer was available at that number . I asked her if she knew Shaila and she said she did. I asked her to have Shaila call our office. the person answering did provide a new phone number for patient ([phone])and I did update that phone number. After 2 attempts same message received that voicemailbox had not been set up. Unable to leave message [facility] 11-24-2024 Telephone encounter Note Attempted to call patient with meat soaker. Phones goes straight to voicemail. Unable to leave message because voicemail has not been set up. Next appt is 12/02. Letter sent. Verena Yepez RN [facility] 11-22-2024 Telephone encounter Note Tried reaching Pt with wirer street light assistance x2 and unable to leave a message as Pt has a voicemail box that has not been set up yet. Mychart status is pending. Candace Horta RN [facility] 11-22-2024 Telephone encounter Note Katie Jernigan APRN.CNP 11/22/24 3:28 PM +UTI, Keflex sent. Katiejoy Jernigan APRN.CNP [facility] 11-22-2024 Telephone encounter Note +UTI, Keflex sent. Katie Jernigan APRN.CNP [facility] 11-22-2024 Miscellaneous Notes +UTI, Keflex sent. Katie Jernigan APRN.PROCESS OWNER documented in this encounter [facility] 11-18-2024 History of Presen t illness Narrative getting records from [facility] for previous deliveries INITIAL OB ASSESSMENT HPI: [...] discussed with the Patient or Patient's Authorized Logging Operations Inspector. As applicable, any other physician, advance practice provider, medical student, or other health professional student that will be observing or involved in the sensitive examination for educational or training purposes was discussed with the Patient or Authorized Logging Operations Inspector. The Patient or Authorized Logging Operations Inspector has agreed to proceed with the sensitive [...] Katie Jernigan APRN.CNP documented in this encounter [facility] 11-18-2024 Note HNO ID: [id number] Author: KATIE JERNIGAN APRN.CNP Service: ? Author Type: Nurse Practitioner Type: Progress Notes Filed: 11/18/2024 09:58 Note Text: getting records from [facility] for previous deliveries INITIAL OB ASSESSMENT HPI: [...] discussed with the Patient or Patient's Authorized Logging Operations Inspector. As applicable, any other physician, advance practice provider, medical student, or other health professional student that will be observing or involved in the sensitive examination for educational or training purposes was discussed with the Patient or Authorized Logging Operations Inspector. The Patient or Authorized Logging Operations Inspector has agreed to proceed with the sensitive examination. (Sensitive examination includes inspection and/or palpation of the breasts, pelvis, prostate and anorectal regions). PHYSICAL EXAM: LMP 04/07/2024 GENERAL: pleasant in no apparent distress DERMATOLOGY: Normal, without lesions, non-icteric, and non-hirsute NECK: Supple, full range of motion, no adenopathy, and thyroid normal CHEST: Normal inspiratory effort BREAST: soft, non-tender, symmetric (more content not included)... [facility] 11-18-2024 Instructions Gema Thompson LPN - 11/18/2024 8:11 AM EDT Please select the following link to access the [facility] Your Guide to a Healthy . [email or web address] documented in this encounter [facility] 11-15-2024 Telephone encounter Note Attempted twice to reach patient by phone with meat soaker for new OB intake questions. Unable to leave a voicemail because patient's voicemail box has not been set up. Please try to reach patient again [facility] 11-15-2024 Miscellaneous Notes Attempted twice to reach patient by phone with meat soaker for new OB intake questions. Unable to leave a voicemail because patient's voicemail box has not been set up. Please try to reach patient again documented in this encounter [facility] 04-27-2024 Note HNO ID: [id number] Author: JUAN VILLEGAS APRN.PROCESS OWNER Service: ? Author Type: Nurse Practitioner Type: Progress Notes Filed: 04/27/2024 16:25 Note Text: Interpreting services utilized via (wirer street light service modality: wirer street light not needed for appointment). Patient's friend, Janet, arrived with her and patient request Janet to be interpretor. Chemical Laboratory Tester offered: Patient declines. Shaila is a 39 [...] Contraceptive plans: Condoms. Recommend PNV. Juan Villegas APRN.PROCESS OWNER [facility] 04-27-2024 History of Presen t illness Narrative Interpreting services utilized via (wirer street light service modality: wirer street light not needed for appointment). Patient's friend, Janet, arrived with her and patient request Janet to be interpretor. Chemical Laboratory Tester offered: Patient declines. Shaila is a 39 [...] Juan Villegas APRN.MODE documented in this encounter [facility] 04-12-2024 Note HNO ID: [id number] Author: KATIE JERNIGAN APRN.MODE Service: ? Author [...] in for 4 yrs. Having regular periods Underwriting Manager present OB History No obstetric history on file. Waste Cotton Cleaner History LMP: 04/07/2024 (Exact Date), Having periods Age at Menarche: Age at First : Age at Menopause: Waste Cotton Cleaner History Comments: Sexual Activity: No sexual activity [...] schedule appt - NEXPLANON REMOVAL Katie Jernigan APRN.PROCESS OWNER Medical Decision Making: Problems: Low: Acute, uncomplicated illness or injury Risk: Low: Low risk from testing/treatment Medical Decision Making Level: 3 - Low [facility] 04-12-2024 History of Presen t illness [...] in for 4 yrs. Having regular periods Underwriting Manager present OB History No obstetric history on file. 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 Author Type: Nurse Practitioner Type: Progress Notes Filed: 03/18/2024 12:29 Note Text: This note was created using [employer]. Subjective Shaila Hernandez is a 39 year old female. HPI Patient presents today complaining of a sensation of something stuck in her throat. Patient does not speak Greek but her friend translates. About 2 months [...] AP/LAT - CONSULT TO GASTROENTEROLOGY Brit Cope APRN.[facility] 03-18-2024 History of Presen t illness Narrative This note was created using [employer]. Subjective Shaila Hernandez is a 39 year old female. HPI Patient presents today complaining of a sensation of something stuck in her throat. Patient does not speak Greek but her friend translates. About 2 months [...] Brit Cope APRN.MODE documented in this encounter [facility] 03-18-2024 History of Presen t illness [...] PATIENT PRESENTS WITH AN IMPLANTABLE OR ATTACHED MELT HOUSE SUPERVISOR: No RADIOLOGY DEPARTMENT: soft tissue neck 2v PERIPHERAL IV DATA: Not applicable SIGNED BY: RT Robb(R) March 18, 2024 11:45 AM documented in this encounter [facility] 03-18-2024 Note HNO ID: [id number] Author: RAJI DUFF RT(Hoda) Service: Radiology Author [...] PATIENT PRESENTS WITH AN IMPLANTABLE OR ATTACHED MELT HOUSE SUPERVISOR: No RADIOLOGY DEPARTMENT: soft tissue neck 2v PERIPHERAL IV DATA: Not applicable SIGNED BY: RT Robb(R) March 18, 2024 11:45 AM [facility] 08-05-2021 Hospital Discharg e instructions Patient Education 08/05/2021 12:07:42 Chalazion([place]) Chalazi n Un chalazi n es kelly [...] de realizarse el tratamiento en los ojos. [place] ayuda a prevenir kelly infecci n. Aplique kelly toalla o compresa h christoph y tibia kian 10 a 15 minutos, entre 3 y 4 veces al d a. [place] no solamente reducir la hinchaz n sino [...] para limpieza de p rpados h medo. [place] ayudar a reducir el taponamiento del conducto, [...] sena proveedor de atenci n m dica [id number] [employer], [place]. [address] [place] [address], [place] [address]. Todos los derechos reservados. Esta informaci n no pretende sustituir la atenci n m dica profesional. S lo sena m dico puede diagnosticar y tratar un problema de stephane. Follow Up Care 08/05/2021 10:29:01 With:CANDY HADLEY DO Address: [address] [place] [address] [place] [address]- [phone] When:5 to 7 days [facility] Evaluation + Plan note No data available for this section [facility] Evaluation note Diagnosis Dysphagia, unspecified type- Primary Dysphagia, unspecified type [facility] Diagnosis Nexplanon removal- Primary Surveillance of previously prescribed implantable subdermal contraceptive [facility] Diagnosis Nexplanon removal- Primary Surveillance of previously prescribed implantable subdermal contraceptive [facility] Diagnosis Nexplanon removal- Primary Surveillance of previously prescribed implantable subdermal contraceptive [facility] Diagnosis Dysphagia, unspecified type [facility] Diagnosis Supervision of normal intrauterine in [...] barrier Social maladjustment [facility] Diagnosis Encounter for anatomic survey (HCC)- [...] mother, antepartum condition [facility] Diagnosis 20 weeks gestation of (HCC)- [...] in antepartum period [facility] Diagnosis Rh negative state in antepartum period ([facility] Primary Rhesus isoimmunization affecting management of mother, antepartum condition 20 weeks gestation of ([facility])- Primary state, incidental Supervision of normal intrauterine in multigravida, unspecified trimester ([facility]) Rh negative state in antepartum period ([facility]) Rhesus isoimmunization affecting management of mother, antepartum condition Encounter for supervision of other normal in second trimester ([facility])- Primary 24 weeks gestation of ([facility]) state, incidental Rh negative state in antepartum period ([facility]) Rhesus isoimmunization affecting management of mother, antepartum condition Screening for diabetes mellitus documented in this encounter [facility] note* Diagnosis 20 weeks gestation of (HCC)- Primary state, incidental Supervision of normal intrauterine in multigravida, unspecified trimester ([facility]) Rh negative state in antepartum period ([facility]) Rhesus isoimmunization affecting management of mother, antepartum condition Encounter for supervision of other normal in second trimester (HCC)- Primary 24 weeks gestation of ([facility]) state, incidental Rh negative state in antepartum period ([facility]) Rhesus isoimmunization affecting management of mother, antepartum condition Screening for diabetes mellitus Supervision of high risk in third trimester ([facility])- Primary Unspecified high-risk Multigravida of advanced maternal age in third trimester ([facility]) Previous section Other postprocedural status Obesity in ([facility]) Obesity complicating , childbirth, or the puerperium, unspecified as to episode of care or not applicable 31 weeks gestation of ([facility]) state, incidental * Assessment & Plan Note [...] NSTs 36 weeks [facility] noteNo assessment information availableWMet[facility] Work Phone: Evaluation note* Diagnosis 20 weeks [...] or not applicable 31 weeks gestation of ([facility]) state, incidental Supervision of high risk in third trimester ([facility])- Primary Unspecified high-risk 32 weeks gestation of ([facility]) state, incidental Multigravida of advanced maternal age in third trimester ([facility]) Previous section Other postprocedural status Obesity in ([facility]) Obesity complicating , childbirth, or the puerperium, unspecified as to episode of care or not applicable Elevated blood pressure reading without diagnosis of hypertension [facility] Diagnosis 20 weeks gestation of ([facility])- Primary state, incidental Supervision of normal intrauterine in multigravida, unspecified trimester ([facility]) Rh negative state in antepartum period ([facility]) Rhesus isoimmunization affecting management of mother, antepartum condition Encounter for supervision of other normal in second trimester ([facility])- Primary 24 weeks gestation of ([facility]) state, incidental Rh negative state in antepartum period ([facility]) Rhesus isoimmunization affecting management of mother, antepartum condition Screening for diabetes mellitus Supervision of high risk in third trimester ([facility])- Primary Unspecified high-risk Multigravida of advanced maternal age in third trimester ([facility]) Previous section Other postprocedural status Obesity in ([facility]) Obesity complicating , childbirth, or the puerperium, unspecified as to episode of care or not applicable 31 weeks gestation of ([facility]) state, incidental Obesity in ([facility])- Primary Obesity complicating , childbirth, or the puerperium, unspecified as to episode of care or not applicable Multigravida of advanced maternal age in third trimester ([facility]) [facility] Diagnosis 20 weeks gestation of ([facility])- Primary state, incidental Supervision of normal intrauterine in multigravida, unspecified trimester ([facility]) Rh negative state in antepartum period ([facility]) Rhesus isoimmunization affecting management of mother, antepartum condition Encounter for supervision of other normal in second trimester ([facility])- Primary 24 weeks gestation of ([facility]) state, incidental Rh negative state in antepartum period ([facility]) Rhesus isoimmunization affecting management of mother, antepartum condition Screening for diabetes mellitus Supervision of high risk in third trimester ([facility])- Primary Unspecified high-risk Multigravida of advanced maternal [...] growth scans ordered [facility] Diagnosis 20 weeks gestation of ([facility])- Primary state, incidental Supervision of normal intrauterine in multigravida, unspecified trimester ([facility]) Rh negative state in antepartum period ([facility]) Rhesus isoimmunization affecting management of mother, antepartum condition Encounter for supervision of other normal in second trimester ([facility])- Primary 24 weeks gestation of ([facility]) state, incidental Rh negative state in antepartum period ([facility]) Rhesus isoimmunization affecting management of mother, antepartum condition Screening for diabetes mellitus Supervision of high risk in third trimester ([facility])- Primary Unspecified high-risk Multigravida of advanced maternal age in third trimester ([facility]) Previous section Other postprocedural status Obesity in ([facility]) Obesity complicating , childbirth, or the puerperium, unspecified as to episode of care or not applicable 31 weeks gestation of ([facility]) state, incidental Supervision of high risk in third trimester ([facility])- Primary Unspecified high-risk Multigravida of advanced maternal age in third trimester ([facility]) Previous section Other postprocedural status Obesity in ([facility]) Obesity complicating , childbirth, or the puerperium, unspecified as to episode of care or not applicable 33 weeks gestation of ([facility]) state, incidental Encounter for other general counseling or advice on contraception Vaginal discharge Leukorrhea, not specified as infective Supervision of high risk in third trimester ([facility])- Primary Unspecified high-risk Multigravida of advanced maternal age in third trimester ([facility] Previous section Other postprocedural status Obesity in ([facility]) Obesity complicating , childbirth, or the puerperium, unspecified as to episode of care or not applicable Language barrier Social maladjustment BV (bacterial vaginosis) Vaginitis and vulvovaginitis, unspecified Yeast vaginitis Candidiasis of vulva and vagina Abnormal test Abnormal findings on screening 36 weeks gestation of ([facility]) state, incidental * Assessment & Plan Note - Floridalma Torres MD - 03/22/2025 10:57 AM EDTAssociated Problem(s): Previous section Planning TOLAC (had previous tolac ?? Scar) Orders: URINE OB DIP B/O * Assessment & Plan Note - Floridalma Torres MD - 03/22/2025 10:57 AM EDTAssociated Problem(s): Obesity in ([facility]) Growth us today Orders: URINE OB DIP [...] with monistat cream [facility] Diagnosis 20 weeks gestation of ([facility] Primary state, incidental Supervision of normal intrauterine in multigravida, unspecified trimester ([facility]) Rh negative state in antepartum period ([facility]) Rhesus isoimmunization affecting management of mother, antepartum condition Encounter for supervision of other normal in second trimester ([facility])- Primary 24 weeks gestation of ([facility]) state, incidental Rh negative state in antepartum period ([facility]) Rhesus isoimmunization affecting management of mother, antepartum condition Screening for diabetes mellitus Supervision of high risk in third trimester ([facility])- Primary Unspecified high-risk Multigravida of advanced maternal age in third trimester ([facility]) Previous section Other postprocedural status Obesity in ([facility]) Obesity complicating , childbirth, or the puerperium, unspecified as to episode of care or not applicable 31 weeks gestation of ([facility]) state, incidental Supervision of high risk in third trimester ([facility])- Primary Unspecified high-risk Multigravida of advanced maternal age in third trimester ([facility]) Previous section Other postprocedural status Obesity in ([facility]) Obesity complicating , childbirth, or the puerperium, unspecified as to episode of care or not applicable 33 weeks gestation of ([facility]) state, incidental Encounter for other general counseling or advice on contraception Vaginal discharge Leukorrhea, not specified as infective Obesity in ([facility] Primary Obesity complicating , childbirth, or the puerperium, unspecified as to episode of care or not applicable Multigravida of advanced maternal age in third trimester ([facility]) Supervision of high risk in third trimester ([facility])- Primary Unspecified high-risk Multigravida of advanced maternal age in third trimester ([facility]) Previous section Other postprocedural status Obesity in ([facility]) Obesity complicating , childbirth, or the puerperium, unspecified as to episode of care or not applicable Language barrier Social maladjustment BV (bacterial vaginosis) Vaginitis and vulvovaginitis, unspecified Yeast vaginitis Candidiasis of vulva and vagina Abnormal test Abnormal findings on screening 36 weeks gestation of ([facility]) state, incidental [facility] Diagnosis 20 weeks gestation of ([facility] Primary state, incidental Supervision of normal intrauterine in multigravida, unspecified trimester ([facility]) Rh negative state in antepartum period ([facility]) Rhesus isoimmunization affecting management of mother, antepartum condition Encounter for supervision of other normal in second trimester ([facility])- Primary 24 weeks gestation of ([facility]) state, incidental Rh negative state in antepartum period ([facility]) Rhesus isoimmunization affecting management of mother, antepartum condition Screening for diabetes mellitus Supervision of high risk in third trimester ([facility])- Primary Unspecified high-risk Multigravida of advanced maternal age in third trimester ([facility]) Previous section Other postprocedural status Obesity in ([facility]) Obesity complicating , childbirth, or the puerperium, unspecified as to episode of care or not applicable 31 weeks gestation of ([facility]) state, incidental Supervision of high risk in third trimester ([facility])- Primary Unspecified high-risk Multigravida of advanced maternal age in third trimester ([facility]) Previous section Other postprocedural status Obesity in ([facility]) Obesity complicating , childbirth, or the puerperium, unspecified as to episode of care or not applicable 33 weeks gestation of ([facility]) state, incidental Encounter for other general counseling or advice on contraception Vaginal discharge Leukorrhea, not specified as infective Supervision of high risk in third trimester ([facility])- Primary Unspecified high-risk Multigravida of advanced maternal age in third trimester ([facility]) Previous section Other postprocedural status Obesity in ([facility]) Obesity complicating , childbirth, or the puerperium, unspecified as to episode of care or not applicable Language barrier Social maladjustment BV (bacterial vaginosis) Vaginitis and vulvovaginitis, unspecified Yeast vaginitis Candidiasis of vulva and vagina Abnormal test Abnormal findings on screening 36 weeks gestation of ([facility]) state, incidental 37 weeks gestation of ([facility] Primary state, incidental Supervision of high risk in third trimester ([facility]) Unspecified high-risk Multigravida of advanced maternal age in third trimester ([facility]) Language barrier Social maladjustment Maternal care for scar from previous delivery, unspecified scar type ([facility]) History of Personal history of other genital system and obstetric disorders [facility] Diagnosis 20 weeks gestation of ([facility] Primary state, incidental Supervision of normal intrauterine in multigravida, unspecified trimester ([facility]) Rh negative state in antepartum period ([facility]) Rhesus isoimmunization affecting management of mother, antepartum condition Encounter for supervision of other normal in second trimester ([facility])- Primary 24 weeks gestation of ([facility]) state, incidental Rh negative state in antepartum period ([facility]) Rhesus isoimmunization affecting management of mother, antepartum condition Screening for diabetes mellitus Supervision of high risk in third trimester ([facility])- Primary Unspecified high-risk Multigravida of advanced maternal age in third trimester ([facility]) Previous section Other postprocedural status Obesity in ([facility]) Obesity complicating , childbirth, or the puerperium, unspecified as to episode of care or not applicable 31 weeks gestation of ([facility]) state, incidental Supervision of high risk in third trimester ([facility])- Primary Unspecified high-risk Multigravida of advanced maternal age in third trimester ([facility]) Previous section Other postprocedural status Obesity in ([facility]) Obesity complicating , childbirth, or the puerperium, unspecified as to episode of care or not applicable 33 weeks gestation of ([facility]) state, incidental Encounter for other general counseling or advice on contraception Vaginal discharge Leukorrhea, not specified as infective Supervision of high risk in third trimester ([facility])- Primary Unspecified high-risk Multigravida of advanced maternal age in third trimester ([facility]) Previous section Other postprocedural status Obesity in ([facility]) Obesity complicating , childbirth, or the puerperium, unspecified as to episode of care or not applicable Language barrier Social maladjustment BV (bacterial vaginosis) Vaginitis and vulvovaginitis, unspecified Yeast vaginitis Candidiasis of vulva and vagina Abnormal test Abnormal findings on screening 36 weeks gestation of ([facility]) state, incidental Gynecologic exam normal- Primary [facility] [place]* Diagnosis 20 weeks gestation of ([facility] Primary state, incidental Supervision of normal intrauterine in multigravida, unspecified trimester ([facility]) Rh negative state in antepartum period ([facility]) Rhesus isoimmunization affecting management of mother, antepartum condition Encounter for supervision of other normal in second trimester ([facility])- Primary 24 weeks gestation of ([facility]) state, incidental Rh negative state in antepartum period ([facility]) Rhesus isoimmunization affecting management of mother, antepartum condition Screening for diabetes mellitus Supervision of high risk in third trimester ([facility])- Primary Unspecified high-risk Multigravida of advanced maternal age in third trimester ([facility]) Previous section Other postprocedural status Obesity in ([facility]) Obesity complicating , childbirth, or the puerperium, unspecified as to episode of care or not applicable 31 weeks gestation of ([facility]) state, incidental Supervision of high risk in third trimester ([facility])- Primary Unspecified high-risk Multigravida of advanced maternal age in third trimester ([facility]) Previous section Other postprocedural status Obesity in ([facility]) Obesity complicating , childbirth, or the puerperium, unspecified as to episode of care or not applicable 33 weeks gestation of ([facility]) state, incidental Encounter for other general counseling or advice on contraception Vaginal discharge Leukorrhea, not specified as infective Supervision of high risk in third trimester ([facility] Primary Unspecified high-risk Multigravida of advanced maternal age in third trimester ([facility]) Previous section Other postprocedural status Obesity in ([facility]) Obesity complicating , childbirth, or the puerperium, unspecified as to episode of care or not applicable Language barrier Social maladjustment BV (bacterial vaginosis) Vaginitis and vulvovaginitis, unspecified Yeast vaginitis Candidiasis of vulva and vagina Abnormal test Abnormal findings on screening 36 weeks gestation of ([facility]) state, incidental 38 weeks gestation of ([facility] Primary state, incidental Supervision of high risk in third trimester ([facility]) Unspecified high-risk Multigravida of advanced maternal age in third trimester ([facility]) Language barrier Social maladjustment Maternal care for scar from previous delivery, unspecified scar type ([facility]) documented in this encounter [facility] Discharge instructions No data available for this section [facility] Progress note No data available for this section [facility] Reason for referral (narrative)* Outpatient Procedure (Routine) - Pending Review Specialty Diagnoses / Procedures Referred By Emily reece Referred To Contact [facility] Diagnoses Nexplanon removal Procedures NEXPLANON REMOVAL REMOVAL NON-BIODEGRADABLE DRUG DELIVERY IMPLANT Katie Jernigan APRN.CNP [address] [place] [address] [facility] [address] [place] [address] Referral ID Status Reason Start Date Expiration Date Visits Requested Visits Authorized [id number] Pending Review Auto-Generat ed Referral 04/12/2024 04/12/2025 1 1 [facility] for referral (narrative)* Outpatient Procedure (Routine) - New Request Specialty Diagnoses / Procedures Referred By Contac t Referred To Contact [facility] Diagnoses Nexplanon removal Procedures NEXPLANON REMOVAL REMOVAL NON-BIODEGRADABLE DRUG DELIVERY IMPLANT Juan Villegas APRN.PROCESS OWNER [address] [place] [address] [facility] [address] [place] [id number] Referral ID Status Reason Start Date Expiration Date Visits Requested Visits Authorized [id number] New Request Auto-Generat ed Referral 04/25/2024 04/25/2025 1 1 [facility] for referral (narrative)* Diagnostic Procedure Only (Urgent) - Closed Specialty Diagnoses / Procedures Referred By Contac t Referred To Contact XR IMAGING Diagnoses Dysphagia, unspecified type Procedures XR NECK SOFT TISSUE 2V AP/LAT RADIOLOGIC EXAMINATION NECK SOFT TISSUE Brit Cope APRN.PROCESS OWNER [address] [place] [address] Xr Imaging [id number] Referral ID Status Reason Start Date Expiration Date V isits Requested Visits Authorized [id number] Closed Patient Cleared - Qualified 100% FAS 03/18/2024 04/17/2024 1 1 [facility] for referral (narrative)No reason for referral information availableWMetro[facility] Work Phone: Summary Purpose Family History No [...] NEW HIGH MDM 60 MINUTES Brit Cope, COLLEGE SPECIALIST.PROCESS OWNER [address] [place] [address] Referral ID Status Reason Start Date Expiration Date Visits Requested Visits Authorized [id number] Authorized PCP Requested Referral 03/18/2024 03/18/2025 1 1 Specialty Diagnoses / Procedures Referred By Contac t Referred To Contact XR IMAGING Diagnoses Dysphagia, unspecified type Procedures XR NECK SOFT TISSUE 2V AP/LAT RADIOLOGIC EXAMINATION NECK SOFT TISSUE [place], Brit, COLLEGE SPECIALIST.PROCESS OWNER [address] [place] [address] [place] [address] Referral ID Status Reason Start Date Expiration Date V isits Requested Visits Authorized [id number] Closed Auto-Generate d Referral 03/18/2024 04/17/2025 1 1 Chief Complaint and Reason for Visit Chief Complaint Admit Date R/O PRE E February 17, 2025 2:22 pm Additional Source Comments INFORMATION SOURCE (unrecogn ized section and content) DATE CREATED AUTHOR 12/10/2021 [facility] ([place]) DATE CREATED AUTHOR AUTHOR'S ORGANIZ ATION 12/18/2021 [facility] ([place]) DATE CREATED AUTHOR AUTHOR'S ORGANIZ ATION 01/01/2025 [facility] DATE CREATED AUTHOR AUTHOR'S ORGANIZ ATION 02/22/2025 [facility] DATE CREATED AUTHOR AUTHOR'S ORGANIZ ATION 02/26/2025 [facility] DATE CREATED AUTHOR AUTHOR'S ORGANIZ ATION 04/10/2025 [facility] DATE CREATED AUTHOR AUTHOR'S ORGANIZ ATION 04/18/2025 [facility] nter Source Comments (unrecognize d section and content) In the event this informatio n is protected by the Federal Confidentiality of Alcohol and Drug Abuse Patient Records regulations: The Federal rules restrict any use of the information to criminally investigate or prosecute any alcohol or drug abuse patient.[facility] Hospital[facility] the event this information is protected by the Federal Confidentiality of Alcohol and Drug Abuse Patient Records regulations: The Federal rules restrict any use of the information to criminally investigate or prosecute any alcohol or drug abuse patient.[facility] HospitalIn the event this information is protected by the Federal Confidentiality of Alcohol and Drug Abuse Patient Records regulations: The Federal rules restrict any use of the information to criminally investigate or prosecute any alcohol or drug abuse patient.[facility] HospitalIn the event this information is protected by the Federal Confidentiality of Alcohol and Drug Abuse Patient Records regulations: The Federal rules restrict any use of the information to criminally investigate or prosecute any alcohol or drug abuse patient.[facility] HospitalIn the event this information is protected by the Federal Confidentiality of Alcohol and Drug Abuse Patient Records regulations: The Federal rules restrict any use of the information to criminally investigate or prosecute any alcohol or drug abuse patient.[facility] HospitalIn the event this information is protected by the Federal Confidentiality of Alcohol and Drug Abuse Patient Records regulations: The Federal rules restrict any use of the information to criminally investigate or prosecute any alcohol or drug abuse patient.[facility] HospitalIn the event this information is protected by the Federal Confidentiality of Alcohol and Drug Abuse Patient Records regulations: The Federal rules restrict any use of the information to criminally investigate or prosecute any alcohol or drug abuse patient.[facility] HospitalIn the event this information is protected by the Federal Confidentiality of Alcohol and Drug Abuse Patient Records regulations: The Federal rules restrict any use of the information to criminally investigate or prosecute any alcohol or drug abuse patient.[facility] HospitalIn the event this information is protected by the Federal Confidentiality of Alcohol and Drug Abuse Patient Records regulations: The Federal rules restrict any use of the information to criminally investigate or prosecute any alcohol or drug abuse patient.[facility] HospitalIn the event this information is protected by the Federal Confidentiality of Alcohol and Drug Abuse Patient Records regulations: The Federal rules restrict any use of the information to criminally investigate or prosecute any alcohol or drug abuse patient.[facility] HospitalIn the event this information is protected by the Federal Confidentiality of Alcohol and Drug Abuse Patient Records regulations: The Federal rules restrict any use of the information to criminally investigate or prosecute any alcohol or drug abuse patient.[facility] HospitalIn the event this information is protected by the Federal Confidentiality of Alcohol and Drug Abuse Patient Records regulations: The Federal rules restrict any use of the information to criminally investigate or prosecute any alcohol or drug abuse patient.[facility] HospitalIn the event this information is protected by the Federal Confidentiality of Alcohol and Drug Abuse Patient Records regulations: The Federal rules restrict any use of the information to criminally investigate or prosecute any alcohol or drug abuse patient.[facility] HospitalIn the event this information is protected by the Federal Confidentiality of Alcohol and Drug Abuse Patient Records regulations: The Federal rules restrict any use of the information to criminally investigate or prosecute any alcohol or drug abuse patient.[facility] HospitalIn the event this information is protected by the Federal Confidentiality of Alcohol and Drug Abuse Patient Records regulations: The Federal rules restrict any use of the information to criminally investigate or prosecute any alcohol or drug abuse patient.[facility] HospitalIn the event this information is protected by the Federal Confidentiality of Alcohol and Drug Abuse Patient Records regulations: The Federal rules restrict any use of the information to criminally investigate or prosecute any alcohol or drug abuse patient.[facility] HospitalIn the event this information is protected by the Federal Confidentiality of Alcohol and Drug Abuse Patient Records regulations: The Federal rules restrict any use of the information to criminally investigate or prosecute any alcohol or drug abuse patient.[facility] HospitalIn the event this information is protected by the Federal Confidentiality of Alcohol and Drug Abuse Patient Records regulations: The Federal rules restrict any use of the information to criminally investigate or prosecute any alcohol or drug abuse patient.[facility] HospitalIn the event this information is protected by the Federal Confidentiality of Alcohol and Drug Abuse Patient Records regulations: The Federal rules restrict any use of the information to criminally investigate or prosecute any alcohol or drug abuse patient.[facility] HospitalIn the event this information is protected by the Federal Confidentiality of Alcohol and Drug Abuse Patient Records regulations: The Federal rules restrict any use of the information to criminally investigate or prosecute any alcohol or drug abuse patient.[facility] HospitalIn the event this information is protected by the Federal Confidentiality of Alcohol and Drug Abuse Patient Records regulations: The Federal rules restrict any use of the information to criminally investigate or prosecute any alcohol or drug abuse patient.[facility] HospitalIn the event this information is protected by the Federal Confidentiality of Alcohol and Drug Abuse Patient Records regulations: The Federal rules restrict any use of the information to criminally investigate or prosecute any alcohol or drug abuse patient.[facility] HospitalIn the event this information is protected by the Federal Confidentiality of Alcohol and Drug Abuse Patient Records regulations: The Federal rules restrict any use of the information to criminally investigate or prosecute any alcohol or drug abuse patient.[facility] HospitalIn the event this information is protected by the Federal Confidentiality of Alcohol and Drug Abuse Patient Records regulations: The Federal rules restrict any use of the information to criminally investigate or prosecute any alcohol or drug abuse patient.[facility] Reason for Visit (unrecogniz ed section and content) Reason Onset Date Comments Care 04/07/2025 Specialty Diagnoses / Procedures Referred By Emily t Referred To Contact Vp Human Resources Diagnoses office visit Procedures office visit [place] [facility] [place] [address] Referral ID Status Reason Start Date Expiration Date Visits Requested Visits Authorized [id number] Authorized Patient Cleared - Qualified 100% FAS 02/13/2025 05/14/2025 99 99 Reason Comments US Reason Onset Date Comments Care 03/22/2025 Specialty Diagnoses / Procedures Referred By Emily t Referred To Contact [facility] Diagnoses Multigravida of advanced maternal age in third trimester (HCC) Procedures OBSTETRIC ULTRASOUND WHI US PREG UTERUS AFTER 1ST TRIMEST GESTATION Floridalma Torres MD [address] [place] [address] Phone: tel: fax: [facility] [address] [place] [place] [address] Referral ID Status Reason Start Date Expiration Date Visits Requested Visits Authorized [id number] Pending Review Auto-Generat ed Referral 02/13/2025 02/13/2026 3 3 Reason Onset Date Comments Care 12/02/2024 Specialty Diagnoses / Procedures Referred By Emily reece Referred To Contact EMAIL DESIGNER Diagnoses Office visit Procedures Office Visit Self OB/Gynecology [address] [place] [id number] Phone: tel: Referral ID Status Reason Start Date Expiration Date Visits Requested Visits Authorized [id number] Authorized Patient Cleared - Qualified 100% FAS 11/14/2024 02/12/2025 99 99 Reason Comments Throat Problem Feels like something is stuck in throat when swollowing x1 week Reason Comments problem visit Discuss Nexplanon Re moval. Specialty Diagnoses / Procedures Referred By Emily t Referred To Contact Diagnoses Women Health Procedures Women [facility] [place] [address] Referral ID Status Reason Start Date Expiration Date Visits Requested Visits Authorized [id number] Authorized Patient Cleared - Qualified 100% FAS 04/12/2024 07/11/2024 99 99 Reason Comments Nexplanon Removal Specialty Diagnoses / Procedures Referred By Contac t Referred To Contact Diagnoses Women Health Procedures Women Health [place] [facility] [place] [address] Referral ID Status Reason Start Date Expiration Date Visits Requested Visits Authorized [id number] Authorized Patient Cleared - Qualified 100% FAS 03/18/2024 06/16/2024 99 99 Reason Comments [facility] Specialty Diagnoses / Procedures Referred By Contac t Referred To Contact EMAIL DESIGNER Diagnoses Office visit Procedures Office Visit Self OB/Gynecology [address] [place] [address] Phone: tel: Referral ID Status Reason Start Date Expiration Date Visits Requested Visits Authorized [id number] Authorized Patient Cleared - Qualified 100% FAS 11/14/2024 02/12/2025 99 99 Reason Comments Appointment Reason Comments Results Reason Onset Date Comments Results 11/21/2024 Reason Comments Received Outside Medical Records Reason Onset Date Comments Care 02/13/2025 Specialty Diagnoses / Procedures Referred By Contac t Referred To Contact Gastroenterology Diagnoses Dysphagia, unspecified type Procedures CONSULT TO GASTROENTEROLOGY OFFICE/OUTPATIENT NEW HIGH MDM 60 MINUTES Brit Cope, [employer] [address] [place] [address] Phone: tel: fax: Referral ID Status Reason Start Date Expiration Date V isits Requested Visits Authorized [id number] Closed PCP Requested Referral 03/18/2024 03/18/2025 1 [...] BE BASED ON THE PRIMARY CLINICAL RECORDS. [facility], [facility]. provides no warranty or guarantee of the accuracy or completeness of information in this document.
[2025-04-19 22:34] LABS: Creatinine, Urine (random) 67.10 mg/dL (28.00-217.00); Protein, Urine (Random) 12.4 mg/dL (0.0-12.0); Protein:Creat Ratio 185 mg/g CRE (0-200)
[2025-04-20] VITALS (214 sets, daily range): BP systolic 114–179; BP diastolic 60–100; PULSE 63–102; RESP 14–16; TEMP 36.3–37.4; O2SAT 91–100
[2025-04-20] MEDS: NIFEdipine 30 MG Tablet PO ×2 (05:55→21:29)
[2025-04-20 06:15] LABS: Hematocrit 35.1 % (37-47); Hemoglobin 11.1 g/dL (12.0-15.0); Immature Granulocytes Count 0.110 X10^3/uL (0.0-0.0); Mean Corp Hgb Conc 31.6 g/dL (32-36); Mean Corpuscular Volume 81.1 fL (81-99); Mean Platelet Vol. 9.2 fl (6.2-12.0); NRBC Flagged by Analyzer 0 % (0-5); Platelet Count 512 K/mm3 (150-450); RBC Distribution Width CV 15.0 % (11.6-14.6); RBC Distribution Width SD 43.5 fl (35.1-43.9); Red Blood Count 4.33 M/mm3 (4.2-5.4); White Blood Count 9.8 K/mm3 (4.4-11.0)
[2025-04-20 07:05] LABS: AST(SGOT) 39 U/L (<=31); Alanine Aminotransfer ALT/SGPT 49 U/L (<=34); Albumin, Serum 3.5 g/dL (3.5-5.0); Alkaline Phosphatase 152 U/L (35-104); Anion Gap 14 (5-15); BUN 13 mg/dL (4-19); BUN/Creat Ratio 22.6 RATIO (10-20); Calcium,Total 8.0 mg/dL (7.6-11.0); Carbon Dioxide 21.4 mmol/L (21.0-32.0); Chloride 105 mmol/L (98-108); Estimated Creatinine Clearance 146.89 ml/min (50-250); Globulin 3.2 g/dL (2.2-4.2); Glucose 110 mg/dL (70-99); Potassium 3.5 mmol/L (3.3-5.1)
[2025-04-20] MEDS: Magnesium Sulfate 20 GM/500 ML BAG IV ×2 (07:35→17:40)
--- NOTE | 2025-04-20 10:00 | PN.OBGYN_ITS ---
Subjective Subjective Daughter at bedside to translate. Patient feeling slightly dizzy when ambulating since being on mag. No CP, SOB, leg pain, PERRIN, vision changes, nausea, vomiting. Objective Data Objective Data Vital Signs: Vital Signs Temp Pulse Resp BP Pulse Ox O2 Del Method 97.9 F 79 16 117/70 98 Room Air 04/20/25 09:30 04/20/25 09:57 04/20/25 08:30 04/20/25 09:32 04/20/25 09:57 04/20/25 09:30 Oxygen Delivery Method Room Air Weight: 210 lb Body Mass Index (BMI) 36.0 Intake & Output: Intake and Output for Last 24 Hours 04/18/25 04/19/25 04/20/25 23:59 23:59 23:59 Intake Total 280 / 280 1112.5 / 1112.5 Output Total 850 / 850 1950 / 1950 Balance -570 / -570 -837.5 / -837.5 Lab / Micro Data 04/20/25 05:55 04/20/25 05:55 Labs: Laboratory Results - last 24 hr 04/19/25 18:30: WBC 8.9, RBC 4.18 L, Hgb 10.7 L, Hct 33.9 L, MCV 81.1, MCH 25.6 L, MCHC 31.6 L, RDW Std Deviation 42.8, RDW Coeff of Daniel 14.9 H, Plt Count 505 H , MPV 9.5, Immature Gran % (Auto) 1.700 H, Neut % (Auto) 66.6, Lymph % (Auto) 20.4, [place] % (Auto) 8.0, Eos % (Auto) 2.8, Baso % (Auto) 0.5, Absolute Neuts (auto) 5.9, Absolute Lymphs (auto) 1.81, Nucleated RBC % 0, Sodium 141, Potassium 3.9, Chloride 105, Carbon Dioxide 21.3, Anion Gap 15, BUN 16, C reatinine 0.63 L, Estim Creat Clear Calc 132.90, Est GFR (MDRD) Non-Af 115, B UN/Creatinine Ratio 24.8 H, Glucose 106 H, Uric Acid 5.6, Calcium 9.4, Total Bilirubin 0.21, AST 46 H 04/19/25 18:30: AST 46 H, ALT 54 H 04/19/25 18:30: ALT 54 H, Alkaline Phosphatase 155 H, Total Protein 6.9, Albumin 3.5, Globulin 3.4, Albumin/Globulin Ratio 1.0 04/19/25 21:50: U Random Total Protein 12.4 H, Urine Creatinine 67.10, Protein/Creatinin Ratio 185 04/20/25 05:55: WBC 9.8, RBC 4.33, Hgb 11.1 L, Hct 35.1 L, MCV 81.1, MCH 25.6 L, MCHC 31.6 L, RDW Std Deviation 43.5, RDW Coeff of Daniel 15.0 H, Plt Count 512 H, MPV 9.2, Immature Gran % (Auto) 1.100 H, Neut % (Auto) 66.3, Lymph % (Auto) 22.0, [place] % (Auto) 7.7, Eos % (Auto) 2.3, Baso % (Auto) 0.6, Absolute Neuts (auto) 6.5, Absolute Lymphs (auto) 2.15, Nucleated RBC % 0, Sodium 140, Potassium 3.5, Chloride 105, Carbon Dioxide 21.4, Anion Gap 14, BUN 13, C reatinine 0.57 L, Estim Creat Clear Calc 146.89, Est GFR (MDRD) Non-Af 118, B UN/Creatinine Ratio 22.6 H, Glucose 110 H, Calcium 8.0, Total Bilirubin 0.21, A ST 39 H, ALT 49 H, Alkaline Phosphatase 152 H, Total Protein 6.8, Albumin 3.5, Globulin 3.2, Albumin/Globulin Ratio 1.1 Physical Exam Const alert and no apparent distress General Appearance: comfortable HEENT normocephalic Resp normal respiratory effort GI soft to palpation, non-tender and non-distended Extremity no calf tenderness Neuro deep tendon reflexes 2+ bilaterally Assessment & Plan (1) Pre-eclampsia, : PLAN: Cont mag for 24 hours PP Cont Labetalol 200 BID as BP's are well controlled Possible d/c later tomorrow pending BP control off mag
[2025-04-21] VITALS (13 sets, daily range): BP systolic 129–162; BP diastolic 78–96; PULSE 73–99; RESP 16–18; TEMP 36.4–37.1; O2SAT 96–98
--- NOTE | 2025-04-21 09:10 | PCM.PN.OB ---
Subjective Subjective PP readmit for Pre E. Magnesium stopped at 8pm last night. No headache. BP has been borderline mild. Minimal pain and bleeding from Objective Data Objective Data Vital Signs: Vital Signs Temp Pulse Resp BP Pulse Ox O2 Del Method 97.8 F 84 17 131/79 H 98 Room Air 04/21/25 08:55 04/21/25 08:59 04/21/25 08:55 04/21/25 08:59 04/21/25 08:55 04/21/25 08:55 Oxygen Delivery Method Room Air Weight: 95.254 kg Body Mass Index (BMI) 36.0 Intake & Output: Intake and Output for Last 24 Hours 04/19/25 04/20/25 04/21/25 23:59 23:59 23:59 Intake Total 280 / 280 2623.33 / 2623.33 Output Total 850 / 850 2650 / 2650 Balance -570 / -570 -26.67 / -26.67 Lab / Micro Data 04/20/25 05:55 04/20/25 05:55 ROS Constitutional Constitutional: Denies headache(s) Cardiovascular Cardiovascular: Denies chest pain or dyspnea Gastrointestinal Gastrointestinal: Denies nausea or vomiting Genitourinary Genitourinary: Denies dysuria Assessment & Plan (1) Pre-eclampsia, : PLAN: Plan Procardia and labetalol
[2025-04-21] MEDS: NIFEdipine 30 MG Tablet PO ×2 (10:00→21:59)
[2025-04-22 00:04] VITALS: BP 126/73; PULSE 77; PULSE 80; RESP 16; TEMP 37.2; O2SAT 97; O2SAT 98
[2025-04-22 04:12] VITALS: BP 156/86; PULSE 71; PULSE 74; PULSE 78; RESP 16; TEMP 36.9; O2SAT 98
[2025-04-22 08:21] VITALS: BP 124/74; PULSE 72; PULSE 74; RESP 16; TEMP 36.9; O2SAT 100
--- NOTE | 2025-04-22 08:54 | PCM.PN.OB ---
Subjective Subjective BP improved over night. No headache. Wants to go home. Is now over 24 hours post magnesium. Does have a BP cuff. Objective Data Objective Data Vital Signs: Vital Signs Temp Pulse Resp BP Pulse Ox O2 Del Method 98.5 F 72 16 124/74 H 100 Room Air 04/22/25 08:21 04/22/25 08:21 04/22/25 08:21 04/22/25 08:21 04/22/25 08:21 04/22/25 08:21 Oxygen Delivery Method Room Air Weight: 95.254 kg Body Mass Index (BMI) 36.0 Intake & Output: Intake and Output for Last 24 Hours 04/20/25 04/21/25 04/22/25 23:59 23:59 23:59 Intake Total 2623.33 / 2623.33 Output Total 2650 / 2650 Balance -26.67 / -26.67 Lab / Micro Data 04/20/25 05:55 04/20/25 05:55 Physical Exam Const alert, oriented x3 and no apparent distress General Appearance: cooperative and comfortable Eyes PERRL and EOMs intact bilaterally Resp normal respiratory effort GI soft to palpation and non-tender Uterus Palpation: uterus fundus firm ( below umbilicus) Extremity normal to inspection and full ROM Neuro oriented x3 and CN's II-XII intact bilaterally Psych mental status grossly normal Assessment & Plan (1) Pre-eclampsia, : PLAN: Plan Continue labetalol and procardia.
--- NOTE | 2025-04-22 08:55 | PCM.DC.SUM ---
Providers Date of Admission: 04/19/25 Date of Discharge: 04/22/25 Reason For Visit: POST PRE-ECLAMPSIA Diagnosis Discharge Diagnosis (1) Pre-eclampsia, : Status: Acute Code(s): O14.95 - Unspecified pre-eclampsia, complicating the puerperium Plan Procardia and labetalol Medications at Discharge Home Medications acetaminophen 325 mg tablet (Pain Reliever (acetaminophen)) 650 mg PO Q4H PRN headache 04/19/25 ibuprofen 600 mg tablet 600 mg PO Q8H 04/19/25 [id number] fum 28 mg-folic acid 800 mcg-dha 200 mg oral pack ( + DHA) pkg PO 04/19/25 labetalol 200 mg tablet 300 mg (1.5 x 200 mg) PO Q12H #90 tabs 04/22/25 nifedipine 30 mg tablet,extended release 24 hr 30 mg PO BID #60 tabs 04/22/25 Hospital Course Operations None Procedures None Summary of Care Provided Minutes Spent on Discharge: 20 Hospital Course: Readmit pp for pre E. Treated with magnesium and BP managed with labetalol and Procardia. Physical Exam Const alert General Appearance: cooperative GI GI Narrative: soft, moderate distention, fundus firm, appropriately tender. Abdominal bandage clean dry and intact Weight / BMI Weight Weight: 95.254 kg Body Mass Index (BMI) 36.0 ABG / Lab / Microbiology Data 04/20/25 05:55 04/20/25 05:55 D/C Instructions May resume sexual activity in: 4-6 weeks Lifting Restrictions: 20 pounds Additional Activity Instructions: Nothing in the vagina for 4-6 weeks. You may return to work/school in 6 weeks. Call your doctor if your incision/area has: Continuous Slow Oozing, Sudden Increased Bleeding, Increased Pain/ Swelling, Increased Redness and Foul Smelling Discharge Call your doctor if you observe: Fever of 101 or Higher and Using more than 1 pad per hour (for 2 hours) Suture Line Care: Avoid Pulling/Pushing and Avoid Pinching/Bending Cleanse incision/area with: Keep Dressing Clean & Dry DC O2, CPAP, BIPAP Needs Home O2 Discharge instructions: No Please Follow Up With: Leonor Santana MD When: Call to make an appointment for an incision check in 1-2 [phone]. You will need a post check in 6 weeks. Meaningful Use Info Meaningful Use Meaningful Use Diagnoses (Choose all that apply): None applicable Discharge Plan Admission Admit Date/Time: 04/19/25 18:09 Primary Reason for Your Visit: pp pre-e Attending Provider: Leonor Santana Discharge Orders/Prescriptions Prescriptions: New labetalol 200 mg Tablet 300 mg PO Q12H Qty: 90 0RF nifedipine 30 mg Tablet Extended Release 24hr 30 mg PO BID Qty: 60 0RF Continued acetaminophen [Pain Reliever (acetaminophen)] 325 mg tablet 650 mg PO Q4H PRN (Reason: headache) ibuprofen 600 mg tablet 600 mg PO Q8H + DHA 28 mg iron-800 mcg-200 mg combo pack PO Disposition Disposition (needs filled in before D/C Order can be placed): Home, Self Care
[2025-04-22 10:55] VITALS: BP 128/81; PULSE 81
[2025-04-22 10:56] VITALS: BP 128/81; PULSE 82; RESP 16; O2SAT 100
[2025-04-22] MEDS: NIFEdipine 30 MG Tablet PO (10:57)
== END 2025-04-22 11:17 | disposition home or self-care (01) | DRG 776 ==
LOC: WPOUT 20:42 → WP 20:42
PROVIDERS: Admitting Provider Obstetrics & Gynecology; Referring Provider Obstetrics & Gynecology; Visit Provider Obstetrics & Gynecology
DX: O14.15 Severe pre-eclampsia, complicating the puerperium (principal)
CPT/HCPCS: 36415; 80053; 82570; 84156; 84450; 84460; 84550; 85025; 85027; 99221; G0378